=== PATIENT | male | born 1950 | race Caucasian/White ===

== ENCOUNTER 2019-12-17 03:28 | Emergency (ER) | payer MEDICARE, MEDICAID, SELFPAY ==
[2019-12-17 03:42] VITALS: BP 176/87; PULSE 77; RESP 16; TEMP 36.6; O2SAT 95; BMI 21.7
--- NOTE | 2019-12-17 03:47 | ED_ITS ---
Entered by Cristina Casanova, acting as scribe for Lori Kelley HPI - Dental/Oral General: Chief complaint: Dental/Oral Stated complaint: oral pain Time Seen by Provider: 12/17/19 03:46 Source: patient Mode of arrival: ambulatory History of Present Illness: HPI Narrative: 69 y/o male presents to the ED with complaint of dental pain. Pt has mild right sided facial/jaw swelling. This started Wednesday and has continued to worsen. MD Complaint: tooth pain Onset (ago): day(s) (Wednesday) Duration: worsening Severity: moderate Relieving factors: nothing Exacerbating factors: chewing Context: poor dental care Associated symptoms: Reports gum swelling; Denies ear or mastoid pain, fever(s) or painful swallowing Treatment prior to arrival: none Review of Systems General: Reports: other (negative unless marked) Const: Denies: fever, chills, body aches, fatigue, malaise or diaphoresis Eyes: Denies: change in vision or blurry vision ENMT: Denies: throat pain, painful swallowing, hoarseness, ear pain, ear discharge, Change in hearing or nasal discharge Card: Denies: chest pain, palpitations, irregular heart rhythm, syncope, pre- syncope, shortness of breath on exertion or shortness of breath when lying down Resp: Denies: shortness of breath, productive cough, non-productive cough, wheezing, coughing up blood or chest congestion GI: Denies: abdominal pain, nausea, vomiting, vomiting blood, coffee grounds in vomit, diarrhea, constipation, cramping, blood in stool or black tarry stool : Denies: flank pain, difficulty urinating, painful urination, urinary frequency, urinary urgency, decreased urine ouput, urinary incontinence or blood in urine Musc: Denies: neck pain, back pain, extremity pain, extremity swelling, joint pain, joint swelling, joint warmth or joint stiffness Skin/Breast: Denies: rash, skin tenderness or yellow skin Neuro: Denies: headache, numbness in extremities, weakness in extremities, changes in sensation, lack of coordination, difficulty walking, dizziness, vertigo or confusion Endo: Denies: excessive thirst, tired all the time, cold intolerance, excessive sweating, flushing or hot flashes Jaren/Lymph: Denies: easy bruising, easy bleeding, petechiae or enlarged lymph nodes PFSH ED PFSH: Social History Smoking and tobacco status: former smoker Physical Exam Const: COMMON NORMALS: no apparent distress, oriented x3 and no limitations EXAM LIMITATIONS: no altered mental status GENERAL APPEARANCE: cooperative and well developed ORIENTATION/CONSCIOUSNESS: Yes awake HENMT: COMMON NORMALS: normocephalic, head/scalp atraumatic, hearing grossly normal bilaterally, external ears normal, EAC's normal, external nose normal and moist oral mucous membranes HEAD & SCALP: normal to inspection, normocephalic and atraumatic FACE & SINUS: other NOSE: external nose normal and nares normal EXTERNAL EAR: Yes external ears normal EXTERNAL AUDITORY CANAL: EAC's normal TEETH & GINGIVA: Yes other (Right jawline and second inferior most posterior molars with dental caries. No obvious abscess present.) Eye: COMMON NORMALS: PERRL, EOMs intact bilaterally, conjunctivae normal and no scleral icterus GENERAL EYE: normal appearance of both eyes and normal light reflex CONJUNCTIVA: Yes conjunctivae normal SCLERA: sclerae normal CORNEA: Yes corneas normal PUPIL: Yes PERRL DIRECT OPHTHALMOSCOPY: Yes normal light reflex Neck/C-Spine: COMMON NORMALS: full ROM, no lymphadenopathy, supple, no meningeal signs and no JVD GENERAL: Yes normal visual inspection and Yes trachea midline CERVICAL SPINE: Yes cervical ROM normal Chest: COMMONS NORMALS: inspection of chest normal and palpation of chest normal Resp: COMMON NORMALS: normal respiratory effort, no retractions, no use of accessory muscles and clear to auscultation bilaterally EFFORT & INSPECTION: Yes able to speak in complete sentences AUSCULTATION: clear to auscultation bilaterally Cardio: COMMON NORMALS: no JVD, regular rate, regular rhythm, S1 normal heart sound, S2 normal heart sound, no gallops, no clicks, no murmurs and no rub JUGULAR VENOUS DISTENTION: no JVD RATE: regular rate RHYTHM: regular rhythm HEART SOUNDS: S1 normal and S2 normal GI: COMMON NORMALS: soft to palpation, non-tender, no hepatosplenomegaly and no masses INSPECTION: Yes normal to inspection PALPATION: Yes soft and Yes no hepatosplenomegaly : COMMON NORMALS: Yes no CVA tenderness BLADDER/KIDNEY EXAM: Yes no CVA tenderness Back/Pelvis: COMMON NORMALS: no CVA tenderness, thoracic and lumbar spine normal to inspection, no thoracic nor lumbar tenderness and thoraco-lumbar ROM normal Extremity: COMMON NORMALS: normal to inspection, full ROM, normal capillary refill, no joint enlargement, no clubbing, cyanosis or edema and no calf tenderness Neuro: COMMON NORMALS: oriented x3, CN's II-XII intact bilaterally, moves all extremities, no focal motor deficits and no sensory deficits noted MENINGEAL SIGNS: Yes no meningeal signs Psych: COMMON NORMALS: mental status grossly normal, thought process normal, cooperative, affect normal, speech normal and activity/motor behavior normal SPEECH: Yes normal speech THOUGHT PROCESS: normal thought process Skin: COMMON NORMALS: no rashes or lesions noted, skin turgor normal, no jaundice, no petechiae and no mottling GENERAL SKIN EXAM: no rashes or lesions noted and turgor normal Course Vital Signs: Vital signs: Vital Signs Temperature 97.9 F 12/17/19 03:42 Pulse Rate 95 12/17/19 04:44 Respiratory Rate 16 12/17/19 04:44 Blood Pressure 188/95 12/17/19 04:44 Pulse Oximetry 95 12/17/19 04:44 MDM - Dental/Oral MDM Narrative: Medical decision making narrative: Mr. Reyna is a nice 69-year-old male who comes in with right-sided facial swelling that is mild. He has no difficulty speaking and no difficulty swallowing. I see no obvious dental abscess at this time but the patient was made aware that this may develop. He was advised to return should his swelling get worse, he develop a fever or have any vomiting. He states he understands this and will take the medication I have given him as directed or return here if needed. At the time of my seeing him there is no definite dental abscess, no sign of Albert's angina no evidence of deep space involvement of the infection. Discharge Plan Discharge Patient Disposition: Home, Self-Care Clinical Impression: Toothache Condition: Stable Prescriptions: New Cleocin HCl 150 mg capsule 300 mg PO Q6H 10 Days Qty: 80 RF: 0 Discharge Orders: Discharge Order (Routine); Ordered 12/17/19 Ordered By: Lori Kelley Referrals: Donell Sanchez MD [Primary Care Provider] - 1-3 days Discharge Diet: Advance as tolerated Discharge Activity: Increase activity as tolerated Patient Instructions: Dental Abscess (ED), Dental Caries (ED), Toothache (ED) Activity Restrictions/Additional Instructions: Please return to the ER immediately for any of the signs or symptoms listed on your discharge instruction sheets, worsening/changing of your symptoms, you are not getting better as quickly as expected, or for ANY other cause or concerns. Return to the ER immediately if you develop facial swelling, fever, vomiting, difficulty speaking or swallowing, or for any other cause for concern. 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
[2019-12-17] MEDS: cefTRIAXone 1,000 MG, lidocaine 1% 2.1 ML in SYRINGE 1 EACH 1 MG IM (04:24)
[2019-12-17] MEDS: clindamycin 150 mg Capsule 450 MG PO (04:25)
[2019-12-17] MEDS: HYDROcodone-acetaminophen 5-325 mg Tablet 1 TAB PO (04:43)
[2019-12-17 04:44] VITALS: BP 188/95; PULSE 95; RESP 16; O2SAT 95
== END 2019-12-17 04:45 | disposition home or self-care (01) ==
PROVIDERS: Emergency Provider Emergency Medicine; Family Provider Family Medicine; PCP Family Medicine
DX: K08.89 Other specified disorders of teeth and supporting structures (principal); Z87.891 Personal history of nicotine dependence
CPT/HCPCS: 96365; 96372; 96374; 99281; 99283; J0696; J2001

== ENCOUNTER 2020-04-19 23:44 | Emergency (ER) | payer MEDICARE, MEDICAID, SELFPAY ==
[2020-04-20] VITALS: BP 148/78; PULSE 58; RESP 16; TEMP 36.7; BMI 22.4
--- NOTE | 2020-04-20 00:42 | XRR_ITS ---
PROCEDURE INFORMATION: Exam: XR Left Hand Exam date and time: 04/20/2020 12:43 AM Age: 69 years old Clinical indication: Injury or trauma; Initial encounter; Patient HX: Laceration to posterior surface of left hand across metacarpals; Additional info: Injury/foreign body TECHNIQUE: Imaging protocol: XR Left hand. Views: 3 or more views. COMPARISON: No relevant prior studies available. FINDINGS: Bones/joints: No acute fracture or dislocation. Conceivable old fracture of the tuft of the 4th distal phalanx. Soft tissues: Dorsal soft tissue swelling superficial to the distal metacarpals. Small foreign body or ossific density in the peripheral soft tissues along the ulnar side of the 5th PIP joint. Tiny calcification in the soft tissues along the radial margin of the distal end of the 2nd middle phalanx. XR/XR hand LT min 3V* [id number] IMPRESSION: No acute fracture. Other findings detailed above.
--- NOTE | 2020-04-20 01:43 | W.ED.WOUNDLC ---
HPI - Wound/Laceration General: Chief Complaint: Wound/Laceration Stated Complaint: glass in left hand Time Seen by Provider: 04/20/20 01:20 History of Present Illness: HPI narrative: Patient is a 69-year-old male who comes to the ED with hand laceration. Patient says injury occurred evening. He was working in his garage and he hit his left hand hard on glass and the glass shattered causing this laceration to dorsal side of hand. Patient said there is a lot of glass everywhere and he just wanted to make sure he did not have any glass in his laceration. He does have some left hand swelling. Patient says he is unsure when his last tetanus shot was. Associated symptoms: Denies chills, fever(s), nausea or vomiting Review of Systems Const: Denies: fever(s), chills or fatigue Eyes: Denies: change in vision or eye discomfort ENMT: Denies: throat pain, odynophagia, nasal discharge or nasal congestion Card: Denies: chest pain, palpitations, edema, swelling of feet/ankles, dyspnea on exertion or orthopnea Resp: Denies: dyspnea, productive cough or non-productive cough GI: Denies: abdominal pain, nausea, vomiting, diarrhea, constipation or hematochezia : Denies: flank pain, difficulty urinating, dysuria or hematuria Musc: Reports: extremity swelling (left hand); Denies: neck pain or back pain Skin/Breast: Reports: new lesions (Laceration on dorsal side of left hand. Post over 24 hours from injury.); Denies: rash Neuro: Denies: headache(s), numbness in extremities or weakness in extremities [facility] ED PFSH: Social History Smoking and tobacco status: former smoker Physical Exam Const: COMMON NORMALS: no acute distress, patient oriented x3 and alert GENERAL APPEARANCE: cooperative and comfortable HENMT: COMMON NORMALS: normocephalic HEAD & SCALP: normocephalic MOUTH: Normal oral and palatal mucosa present THROAT: posterior oropharynx normal and uvula midline Neck/C-Spine: COMMON NORMALS: supple GENERAL: Yes normal visual inspection Resp: COMMON NORMALS: normal respiratory effort, No retractions, No use of accessory muscles and clear to auscultation bilaterally AUSCULTATION: clear to auscultation bilaterally Cardio: COMMON NORMALS: regular rate, regular rhythm, S1 normal heart sound present, S2 normal heart sound present, No gallops present (Cardio), No clicks present (Cardio), No murmurs present (Cardio) and Peripheral pulses 2+ throughout RATE: regular rate RHYTHM: regular rhythm HEART SOUNDS: S1 normal heart sound present and S2 normal heart sound present PERIPHERAL PULSES: Peripheral pulses 2+ throughout GI: COMMON NORMALS: Normal to inspection, nondistended, normoactive bowel sounds present, Soft to palpation, non-tender and no masses PALPATION: Yes Soft to palpation : COMMON NORMALS: Yes no CVA tenderness BLADDER/KIDNEY EXAM: Yes no CVA tenderness Back/Pelvis: COMMON NORMALS: no CVA tenderness Extremity: LEFT UPPER EXTREMITY: Yes hand & digits Left hand and digits: Yes inspection (Superficial 2 cm laceration. No active bleeding edema on left hand, but no erythema or warmth.) Neuro: COMMON NORMALS: patient oriented x3 and moves all extremities SENSORIUM/ORIENTATION: Yes alert Skin: NARRATIVE SKIN EXAM: Laceration was explored and no glass was seen. Laceration was irrigated extensively with normal saline and cleaned with CHG swab. Patient over 24 hours post laceration injury. Healing is already begun sutures are not recommended. TRAUMA: laceration (2 cm superficial laceration on left dorsal side of hand) linear and superficial; not actively bleeding and no foreign bodies present Course Vital Signs: Vital signs: Vital Signs Temperature 98.1 F 04/20/20 00:00 Pulse Rate 58 L 04/20/20 00:00 Respiratory Rate 16 04/20/20 00:00 Blood Pressure 148/78 04/20/20 00:00 MDM - Wound/Laceration MDM Narrative: Medical decision making narrative: Patient is a 69-year-old male comes to the ED with a laceration to dorsal side of left hand. Was caused by glass and patient did not know if a piece of glass was stuck and wound. Injury occurred over 24 hours ago. Left hand x-ray showed no fractures and no foreign body near the laceration site. It did identify foreign body on the lateral side of pinky which patient was already aware of and says that he has had that for years. I explored the wound and did not find or see any glass. Wound was irrigated with normal saline and cleaned with CHG swab. Patient was then given a dose of cephalexin and was updated on his tetanus. Laceration will heal by secondary intention. Patient was instructed to keep wound clean and bandaged and to take full course of antibiotics as prescribed. Follow-up with PCP in 7 to 10 days for reevaluation. Patient understood and agreed with plan. Imaging Data^: Xray Ortho: Attestation: I personally reviewed and interpreted this imaging study as follows: Radiologist's impression: [address] [address] XRay Report Signed Patient: Miguel A Reyna #: [id number] : 1950Acct#:[id number] Age/Sex: 69 / MADM Date: 04/19/20 Loc: ERRoom/Bed: Attending Dr: Ordering Provider/Ordering MD: Lori Kelley DO Date of Service: 04/20/20 Procedure(s): XR hand LT min 3V* [id number] Accession Number(s): [id number] Report Number: [id number] PROCEDURE INFORMATION: Exam: XR Left Hand Exam date and time: 04/20/2020 12:43 AM Age: 69 years old Clinical indication: Injury or trauma; Initial encounter; Patient HX: Laceration to posterior surface of left hand across metacarpals; Additional info: Injury/foreign body TECHNIQUE: Imaging protocol: XR Left hand. Views: 3 or more views. COMPARISON: No relevant prior studies available. FINDINGS: Bones/joints: No acute fracture or dislocation. Conceivable old fracture of the tuft of the 4th distal phalanx. Soft tissues: Dorsal soft tissue swelling superficial to the distal metacarpals. Small foreign body or ossific density in the peripheral soft tissues along the ulnar side of the 5th PIP joint. Tiny calcification in the soft tissues along the radial margin of the distal end of the 2nd middle phalanx. XR/XR hand LT min 3V* [id number] IMPRESSION: No acute fracture. Other findings detailed above. Dictated By:Chelsey Martinez MD Signed By:Chelsey Martinez MDSigned Date/Time:04/20/20114 DD/ 2 Discharge Plan Discharge Patient Disposition: Home, Self-Care Clinical Impression: Laceration Condition: Stable Prescriptions: New cephalexin 500 mg capsule 500 mg PO QID 3 Days Qty: 12 RF: 0 Discharge Orders: Discharge Order (Routine); Ordered 04/20/20 Ordered By: Kiran Velasquez Referrals: Donell Sanchez MD [Primary Care Provider] - Discharge Diet: Regular Discharge Activity: Resume usual activity Patient Instructions: Laceration (ED) Activity Restrictions/Additional Instructions: Take full course of antibiotic as prescribed. You were given an updated tetanus shot while here in the ED. Contact your PCP and set up an appointment for reevaluation in 7 to 10 days. Keep laceration site clean and bandage daily. Put ice or cold pack on hand to help with any swelling. 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
[2020-04-20] MEDS: cephALEXin 500 mg Capsule PO (02:31)
[2020-04-20] MEDS: tetanus-dipt-pertussis 0.5 mL SDV IM (02:32)
[2020-04-20 02:34] VITALS: BP 134/87; PULSE 87; RESP 18; O2SAT 98
== END 2020-04-20 02:36 | disposition home or self-care (01) ==
PROVIDERS: Emergency Provider Physician Assistant; PCP Family Medicine
DX: S61.412A Laceration without foreign body of left hand, initial encounter (principal); W25.XXXA Contact with sharp glass, initial encounter; Z87.891 Personal history of nicotine dependence; Z23 Encounter for immunization
CPT/HCPCS: 12345; 73130; 90471; 90715; 99281; 99283

== ENCOUNTER 2021-05-05 22:13 | Inpatient (IN) | payer MEDICARE, MEDICAID, SELFPAY ==
[2021-05-05 22:25] VITALS: BP 144/79; PULSE 69; RESP 18; TEMP 37.1; O2SAT 97; BMI 19.0
--- NOTE | 2021-05-05 22:38 | XRR_ITS ---
PROCEDURE INFORMATION: Exam: XR Chest Exam date and time: 05/05/2021 10:38 PM Age: 70 years old Clinical indication: Shortness of breath; Additional info: Weakness TECHNIQUE: Imaging protocol: XR of the chest. Views: 1 view. COMPARISON: [facility] Chest 2 views 08/01/2018 12:24 PM FINDINGS: Lungs: Hazy bilateral pulmonary opacities which could be secondary to pneumonia or COVID-19. Pleural spaces: Unremarkable. No pleural effusion. No pneumothorax. Heart/Mediastinum: Unremarkable. No cardiomegaly. Bones/joints: Unremarkable. XR/XR chest 1V portable [id number] IMPRESSION: Hazy bilateral pulmonary opacities which could be secondary to pneumonia or COVID-19.
--- NOTE | 2021-05-05 22:39 | ECG_ITS ---
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
--- NOTE | 2021-05-05 23:19 | ED_ITS ---
HPI - COVID General: Chief Complaint: COVID symptoms Stated Complaint: CHILLS, H/A, COUGH, MUSCLE ACHES, NO INTAKE Time Seen by Provider: 05/05/21 22:38 Triage information: Has fever, cough or shortness of breath . No known COVID + exposure last 14 days History of Present Illness: HPI Narrative: Patient is a 70-year-old male comes to the ED with Covid symptoms. He says symptoms started approximately 1 week ago. He has been having episodes of severe headache that is in his forehead and right behind his eyes. He has headache here in the ED. He is also been having fever chills and diaphoresis. He has full body aches and has a productive cough with white sputum. He is also been having nausea and vomiting and has trouble keeping any food or fluids down. Patient has some generalized abdominal aching, but no localized abdominal pain. Denies any chest pain, shortness of breath, bladder or bowel symptoms. Patient feels really dehydrated currently. COVID 19 common symptoms: positive fever(s), chills, productive cough, fatigue, body aches, nausea and vomiting; negative non-productive cough, dyspnea, headache(s), throat pain, nasal congestion or diarrhea COVID 19 other sytmptoms: negative chest pain COVID Results: SARS-CoV-2 Antigen (Rapid) Positive (Negative) H 05/06/21 00:03 05/06/21 Review of Systems Const: Reports: fever(s), chills, body aches and fatigue Eyes: Denies: change in vision or eye discomfort ENMT: Denies: throat pain, odynophagia, nasal discharge or nasal congestion Card: Denies: chest pain, palpitations, edema, swelling of feet/ankles, dyspn ea on exertion or orthopnea Resp: Reports: productive cough and change in phlegm color (White); Denies: dyspnea or non-productive cough GI: Reports: nausea and vomiting; Denies: abdominal pain, diarrhea, constipation or hematochezia : Denies: flank pain, difficulty urinating, dysuria or hematuria Musc: Denies: neck pain, back pain or extremity swelling Skin/Breast: Denies: rash or new lesions Neuro: Denies: headache(s), numbness in extremities or weakness in extremities PFS ED PFSH: Social History Smoking and tobacco status: former smoker Physical Exam Const: COMMON NORMALS: patient oriented x3 and alert GENERAL APPEARANCE: cooperative, comfortable, lethargic, ill appearing and diaphoretic ORIENTATION/CONSCIOUSNESS: Yes lethargic HENMT: COMMON NORMALS: normocephalic HEAD & SCALP: normocephalic MOUTH: moist mucous membranes abnormal (Moderate dehydration) Details: parched THROAT: posterior oropharynx normal and uvula midline Neck/C-Spine: COMMON NORMALS: supple GENERAL: Yes normal visual inspection Resp: COMMON NORMALS: normal respiratory effort, No retractions, No use of accessory muscles and clear to auscultation bilaterally AUSCULTATION: clear to auscultation bilaterally Cardio: COMMON NORMALS: regular rate, regular rhythm, S1 normal heart sound present, S2 normal heart sound present, No gallops present (Cardio), No clicks present (Cardio), No murmurs present (Cardio) and Peripheral pulses 2+ throughout RATE: regular rate RHYTHM: regular rhythm HEART SOUNDS: S1 normal heart sound present and S2 normal heart sound present PERIPHERAL PULSES: Peripheral pulses 2+ throughout GI: COMMON NORMALS: Normal to inspection, nondistended, normoactive bowel sounds present, Soft to palpation, non-tender and no masses PALPATION: Yes Soft to palpation : COMMON NORMALS: Yes no CVA tenderness BLADDER/KIDNEY EXAM: Yes no CVA tenderness Back/Pelvis: COMMON NORMALS: no CVA tenderness Extremity: COMMON NORMALS: normal to inspection Neuro: COMMON NORMALS: patient oriented x3 and moves all extremities SENSORIUM/ORIENTATION: Yes alert and Yes lethargic Skin: COMMON NORMALS: no rashes or lesions noted GENERAL SKIN EXAM: no rashes or lesions noted Course Vital Signs: Vital signs: Vital Signs Temperature 98.8 F 05/05/21 22:25 Pulse Rate 84 05/06/21 01:23 Respiratory Rate 24 H 05/06/21 01:23 Blood Pressure 123/61 05/06/21 01:23 Pulse Oximetry 92 05/06/21 01:25 MDM - COVID MDM Narrative: Medical decision making narrative: Patient is a 70-year-old male who comes to the ED with fever, nausea/vomiting, cough, weakness and body aches. Upon presentation here in the ED patient appears a little lethargic and is complaining of a headache, nausea vomiting. Patient's mucous membranes were dry. The rest of exam was benign. Creatinine 1.7 and the rest of CBC and CMP were unremarkable. Lactic normal. UA shows a UTI. Covid antigen test positive and PCR send out pending. Chest x-ray shows bilateral pulmonary opacities likely due to COVID-19. CT of head showed no acute findings. CT of abdomen showed bilateral pneumonia possible lungs but no other acute findings. Troponin negative and EKG normal sinus rhythm with no ST segment elevation or depression seen. Patient's oxygen level on room air was around 89 to 90%. Patient was requiring approximately 2 L of O2 via nasal cannula and O2 saturation levels were around 92-94. Patient was given 2-1/2 L of fluid, 1 g of Rocephin and Zofran as well. I talked with Dr. Chavez about patient case and she agreed to have patient admitted. Dr. Sharp placed the admitting orders. Lab Data: Attestation: I reviewed the patient's lab results. Labs: Lab Results 05/06/21 05/06/21 05/06/21 Range/Units 00:03 00:03 00:03 WBC 8.8 (4.0-10.0) 10^3/ uL RBC 5.26 (4.1-5.3) 10^6/u L Hgb 15.1 (11.7-16.6) g/dL Hct 45.1 (42.0-52.0) % MCV 85.7 (80-94) fL MCH 28.7 (28.0-34.0) pg MCHC 33.5 (30.0-36.0) g/dL RDW 13.6 (12.1-15.1) % Plt Count 275 (130-400) 10^3/c mm MPV 9.3 (7.4-10.4) fL Neut % (Auto) 84.5 % Lymph % (Auto) 8.0 % [place] % (Auto) 6.9 % Eos % (Auto) 0.1 % Baso % (Auto) 0.2 % Neut # (Auto) 7.42 (1.8-7.7) 10^3/u L Lymph # (Auto) 0.7 L (0.8-4.8) 10^3/u L [place] # (Auto) 0.6 (0.2-0.9) 10^3/u L Eos # (Auto) 0.0 (0.0-0.8) 10^3/u L Baso # (Auto) 0.0 (0.0-0.1) 10^3/u L Nucleated RBC % (a uto) 0 % Nucleated RBCs # 0.0 /100WBC Sodium 136 (136-145) mmol/L Potassium 3.7 (3.5-5.1) mmol/L Chloride 95 L (98-107) mmol/L Carbon Dioxide 28 (22-29) mmol/L Anion Gap 16.7 (5-19) BUN 36 H (8-23) mg/dL Creatinine 1.7 H (0.7-1.2) mg/dL GFR Calculation 40.0 L (90-130) mL/min Glucose 102 (65-115) mg/dL Calculated Osmolal ity 291 (285-295) mOsm/k g Lactic Acid (0.5-2.2) mmol/L Calcium 8.2 L (8.5-10.5) mg/dL Total Bilirubin 0.2 (0.15-1.2) mg/dL AST 32 (0-40) U/L ALT 16 (0-41) U/L Alkaline Phosphata se 79 (40-130) IU/L Troponin T Baselin e 27 H (0-15) ng/L Troponin T 120 Min [place] (0-15) ng/L Delta Troponin T (0-10) ABS# NT-Pro-B Natriuret Pep 82 (0-125) pg/mL Total Protein 6.2 L (6.6-8.7) g/dL Albumin 3.6 (3.5-5.2) g/dL Globulin 2.6 (1.3-4.6) g/dL Lipase 65 H (13-60) U/L Urine Color (Yellow) Urine Appearance (CLEAR) Urine pH (5-7) Ur Specific Gravit y (1.005-1.030) Urine Protein (Negative) Urine Glucose (UA) (Normal) Urine Ketones (Negative) Urine Blood (Negative) Urine Nitrate (Negative) Urine Bilirubin (Negative) Urine Urobilinogen (Negative) mg/dL Ur Leukocyte Cristal ase (Negative) Urine RBC (0-2) /hpf Urine WBC (0-5) /hpf Ur Squamous Epith Cells (0-5) /hpf Amorphous Sediment Urine Bacteria (NONE) /hpf SARS-CoV-2 Ag (Rap id) (Negative) 05/06/21 05/06/21 05/06/21 Range/Units 00:03 00:03 00:05 WBC (4.0-10.0) 10^3/ uL RBC (4.1-5.3) 10^6/u L Hgb (11.7-16.6) g/dL Hct (42.0-52.0) % MCV (80-94) fL MCH (28.0-34.0) pg MCHC (30.0-36.0) g/dL RDW (12.1-15.1) % Plt Count (130-400) 10^3/c mm MPV (7.4-10.4) fL Neut % (Auto) % Lymph % (Auto) % [place] % (Auto) % Eos % (Auto) % Baso % (Auto) % Neut # (Auto) (1.8-7.7) 10^3/u L Lymph # (Auto) (0.8-4.8) 10^3/u L [place] # (Auto) (0.2-0.9) 10^3/u L Eos # (Auto) (0.0-0.8) 10^3/u L Baso # (Auto) (0.0-0.1) 10^3/u L Nucleated RBC % (a uto) % Nucleated RBCs # /100WBC Sodium (136-145) mmol/L Potassium (3.5-5.1) mmol/L Chloride (98-107) mmol/L Carbon Dioxide (22-29) mmol/L Anion Gap (5-19) BUN (8-23) mg/dL Creatinine (0.7-1.2) mg/dL GFR Calculation (90-130) mL/min Glucose (65-115) mg/dL Calculated Osmolal ity (285-295) mOsm/k g Lactic Acid 1.2 (0.5-2.2) mmol/L Calcium (8.5-10.5) mg/dL Total Bilirubin (0.15-1.2) mg/dL AST (0-40) U/L ALT (0-41) U/L Alkaline Phosphata se (40-130) IU/L Troponin T Baselin e (0-15) ng/L Troponin T 120 Min [place] (0-15) ng/L Delta Troponin T (0-10) ABS# NT-Pro-B Natriuret Pep (0-125) pg/mL Total Protein (6.6-8.7) g/dL Albumin (3.5-5.2) g/dL Globulin (1.3-4.6) g/dL Lipase (13-60) U/L Urine Color Yellow (Yellow) Urine Appearance Sl cloudy A (CLEAR) Urine pH 5 (5-7) Ur Specific Gravit y 1.015 (1.005-1.030) Urine Protein 1+ H (Negative) Urine Glucose (UA) Norm (Normal) Urine Ketones Negative (Negative) Urine Blood 2+ H (Negative) Urine Nitrate Positive H (Negative) Urine Bilirubin Neg (Negative) Urine Urobilinogen Norm (Negative) mg/dL Ur Leukocyte Cristal ase 2+ H (Negative) Urine RBC >100 H (0-2) /hpf Urine WBC Too numerous to c nt H (0-5) /hpf Ur Squamous Epith Cells 15-25 H (0-5) /hpf Amorphous Sediment Not Reportable Urine Bacteria 4+ H (NONE) /hpf SARS-CoV-2 Ag (Rap id) Positive H (Negative) 05/06/21 Range/Units 02:06 WBC (4.0-10.0) 10^3/ uL RBC (4.1-5.3) 10^6/u L Hgb (11.7-16.6) g/dL Hct (42.0-52.0) % MCV (80-94) fL MCH (28.0-34.0) pg MCHC (30.0-36.0) g/dL RDW (12.1-15.1) % Plt Count (130-400) 10^3/c mm MPV (7.4-10.4) fL Neut % (Auto) % Lymph % (Auto) % [place] % (Auto) % Eos % (Auto) % Baso % (Auto) % Neut # (Auto) (1.8-7.7) 10^3/u L Lymph # (Auto) (0.8-4.8) 10^3/u L [place] # (Auto) (0.2-0.9) 10^3/u L Eos # (Auto) (0.0-0.8) 10^3/u L Baso # (Auto) (0.0-0.1) 10^3/u L Nucleated RBC % (a uto) % Nucleated RBCs # /100WBC Sodium (136-145) mmol/L Potassium (3.5-5.1) mmol/L Chloride (98-107) mmol/L Carbon Dioxide (22-29) mmol/L Anion Gap (5-19) BUN (8-23) mg/dL Creatinine (0.7-1.2) mg/dL GFR Calculation (90-130) mL/min Glucose (65-115) mg/dL Calculated Osmolal ity (285-295) mOsm/k g Lactic Acid (0.5-2.2) mmol/L Calcium (8.5-10.5) mg/dL Total Bilirubin (0.15-1.2) mg/dL AST (0-40) U/L ALT (0-41) U/L Alkaline Phosphata se (40-130) IU/L Troponin T Baselin e (0-15) ng/L Troponin T 120 Min [place] 22.83 H (0-15) ng/L Delta Troponin T -4.17 L (0-10) ABS# NT-Pro-B Natriuret Pep (0-125) pg/mL Total Protein (6.6-8.7) g/dL Albumin (3.5-5.2) g/dL Globulin (1.3-4.6) g/dL Lipase (13-60) U/L Urine Color (Yellow) Urine Appearance (CLEAR) Urine pH (5-7) Ur Specific Gravit y (1.005-1.030) Urine Protein (Negative) Urine Glucose (UA) (Normal) Urine Ketones (Negative) Urine Blood (Negative) Urine Nitrate (Negative) Urine Bilirubin (Negative) Urine Urobilinogen (Negative) mg/dL Ur Leukocyte Cristal ase (Negative) Urine RBC (0-2) /hpf Urine WBC (0-5) /hpf Ur Squamous Epith Cells (0-5) /hpf Amorphous Sediment Urine Bacteria (NONE) /hpf SARS-CoV-2 Ag (Rap id) (Negative) Imaging Data: CXR: Attestation: I personally reviewed and interpreted this imaging study as follows: Radiologist's impression: [employer] [address] [place] [address]. [place] [address] XRay Report Signed Patient: Miguel A Reyna Unit #: [id number] : 1950 Age/Sex: 70 / M ADM Date: 05/05/21 Loc: ER Room/Bed: Attending Dr: Ordering Provider/Ordering MD: Kiran Velasquez Date of Service: 05/05/21 Procedure(s): XR chest 1V portable [id number] Accession Number(s): [id number] Report Number: [id number] PROCEDURE INFORMATION: Exam: XR Chest Exam date and time: 05/05/2021 10:38 PM Age: 70 years old Clinical indication: Shortness of breath; Additional info: Weakness TECHNIQUE: Imaging protocol: XR of the chest. Views: 1 view. COMPARISON: [facility] Chest 2 views 08/01/2018 12:24 PM FINDINGS: Lungs: Hazy bilateral pulmonary opacities which could be secondary to pneumonia or COVID-19. Pleural spaces: Unremarkable. No pleural effusion. No pneumothorax. Heart/Mediastinum: Unremarkable. No cardiomegaly. Bones/joints: Unremarkable. XR/XR chest 1V portable [id number] IMPRESSION: Hazy bilateral pulmonary opacities which could be secondary to pneumonia or COVID-19. Dictated By: Ochoa Ro Signed By: Ochoa Ro Signed Date/Time: 05/05/218 DD/ 2346 CT Head: Attestation: I personally reviewed and interpreted this imaging study as follows: Radiologist's impression: [employer] [employer] [address] [place] [address]. [place] [address] CT Scan Report Signed Patient: Miguel A Reyna Unit #: [id number] : 1950 Acct#:O [id number] Age/Sex: 70 / M ADM Date: 05/05/21 Loc: ER Room/Bed: Attending Dr: Ordering Provider/Ordering MD: Kiran Velasquez Date of Service: 05/05/21 Procedure(s): CT head wo con* [id number] Accession Number(s): [id number] Report Number: [id number] PROCEDURE INFORMATION: Exam: CT Head Without Contrast Exam date and time: 05/05/2021 11:40 PM Age: 70 years old Clinical indication: Pain; Patient HX: Headache with fever. ; Additional info: Headache for a the past week TECHNIQUE: Imaging protocol: Computed tomography of the head without contrast. Radiation optimization: All CT scans at this facility use at least one of these dose optimization techniques: automated exposure control; mA and/or kV adjustment per patient size (includes targeted exams where dose is matched to clinical indication); or iterative reconstruction. COMPARISON: No relevant prior studies available. RADIATION DOSE METRICS: Total DLP (mGy-cm): 660.13 FINDINGS: Brain: There is mild parenchymal atrophy and chronic small vessel disease. No acute infarct or hemorrhage. Cerebral ventricles: No ventriculomegaly. Paranasal sinuses: Mucosal thickening present in the frontal sinuses and left maxillary sinus. Mastoid air cells: Visualized mastoid air cells are clear. Bones/joints: No calvarial or skull base fracture. Soft tissues: Unremarkable. CT/CT head wo con* [id number] IMPRESSION: 1. No calvarial or skull base fracture. 2. No acute infarct or hemorrhage. 3. Mucosal thickening present in the frontal sinuses and left maxillary sinus. 4. Mild parenchymal atrophy and chronic small vessel disease. Radiation Dose CTDIVOL = (mGy): DLP = 660.13 (mGy-cm) Dictated By: Ochoa Ro Signed By: Ochoa Ro Signed Date/Time: 05/06/2138 DD/ CT Abd/Pel: Attestation: I personally reviewed and interpreted this imaging study as follows: Radiologist's impression: [address] [place] [address] CT Scan Report Signed Patient: Miguel A Reyna Unit #: [id number] : 1950 Age/Sex: 70 / M ADM Date: 05/05/21 Loc: ER Room/Bed: Attending Dr: Ordering Provider/Ordering MD: Kiran Velasquez Date of Service: 05/06/21 Procedure(s): CT abdomen pelvis wo con [id number] Accession Number(s): [id number] Report Number: [id number] PROCEDURE INFORMATION: Exam: CT Abdomen And Pelvis Without Contrast Exam date and time: 05/06/2021 12:52 AM Age: 70 years old Clinical indication: Abnormal findings; Abnormal lab test; Elevated lipase; Nausea and vomiting; Patient HX: N/v. Elevated lipase and micro hematuria. Non contrast given due to elevated creatinine. ; Additional info: N/v, elevated CR and ua with UTI TECHNIQUE: Imaging protocol: Computed tomography of the abdomen and pelvis without contrast. Radiation optimization: All CT scans at this facility use at least one of these dose optimization techniques: automated exposure control; mA and/or kV adjustment per patient size (includes targeted exams where dose is matched to clinical indication); or iterative reconstruction. COMPARISON: CT abdomen pelvis w con* [id number] 08/11/2018 12:58 PM RADIATION DOSE METRICS: Total DLP (mGy-cm): 981.97 FINDINGS: Lungs: There are hazy bilateral pulmonary infiltrates which are nonspecific but can be seen in COVID-19. Liver: Normal. No mass. Gallbladder and bile ducts: No wall thickening, pericholecystic fluid or stones. Pancreas: Normal. No ductal dilation. Spleen: Normal. No splenomegaly. 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 1.5 cm right renal cyst. 4 mm nonobstructing left renal pelvis stone. There are multiple left renal cysts, largest measures 1.2 cm small fat containing bilateral inguinal hernias. Stomach and bowel: Mild amount of formed stool in the colon. Appendix: No evidence of appendicitis. Intraperitoneal space: Unremarkable. No free air. No significant fluid collection. Vasculature: Unremarkable. No abdominal aortic aneurysm. Lymph nodes: Unremarkable. No enlarged lymph nodes. Urinary bladder: Multiple bladder diverticuli. Reproductive: Unremarkable as visualized. Bones/joints: Unremarkable. No acute fracture. Soft tissues: Unremarkable. CT/CT abdomen pelvis con [id number] IMPRESSION: 1. There are hazy bilateral pulmonary infiltrates which are nonspecific but can be seen in COVID-19. 2. 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 3. Multiple bladder diverticuli consistent with obstructive uropathy. 4. Mild constipation. COMMENTS: Consistent with the [employer]'s Incidental Findings Committee white paper (J Am Ramonita Radiol 2018): Any incidental renal lesion less than 1 cm or classified as too small to characterize, or any incidental cystic renal lesion characterized as simple-appearing, is likely benign. No follow-up imaging is recommended for these lesions per consensus recommendations based on imaging criteria. Radiation Dose CTDIVOL = (mGy): DLP = 981.97 (mGy-cm) Dictated By: Ochoa Ro Signed By: Ochoa Ro Signed Date/Time: 05/06/21231 DD/ 0 EKG Data: EKG 1: Attestation: I personally reviewed and interpreted this EKG as follows: EKG interpretation date: 05/05/21 Interpretation: Sinus rhythm, 86 bpm, no ST segment elevation or depression seen. 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
--- NOTE | 2021-05-05 23:40 | CTR_ITS ---
PROCEDURE INFORMATION: Exam: CT Head Without Contrast Exam date and time: 05/05/2021 11:40 PM Age: 70 years old Clinical indication: Pain; Patient HX: Headache with fever. ; Additional info: Headache for a the past week TECHNIQUE: Imaging protocol: Computed tomography of the head without contrast. Radiation optimization: All CT scans at this facility use at least one of these dose optimization techniques: automated exposure control; mA and/or kV adjustment per patient size (includes targeted exams where dose is matched to clinical indication); or iterative reconstruction. COMPARISON: No relevant prior studies available. RADIATION DOSE METRICS: Total DLP (mGy-cm): 660.13 FINDINGS: Brain: There is mild parenchymal atrophy and chronic small vessel disease. No acute infarct or hemorrhage. Cerebral ventricles: No ventriculomegaly. Paranasal sinuses: Mucosal thickening present in the frontal sinuses and left maxillary sinus. Mastoid air cells: Visualized mastoid air cells are clear. Bones/joints: No calvarial or skull base fracture. Soft tissues: Unremarkable. CT/CT head wo con* [id number] IMPRESSION: 1. No calvarial or skull base fracture. 2. No acute infarct or hemorrhage. 3. Mucosal thickening present in the frontal sinuses and left maxillary sinus. 4. Mild parenchymal atrophy and chronic small vessel disease. Radiation Dose CTDIVOL = (mGy): DLP = 660.13 (mGy-cm)
[2021-05-06] VITALS (16 sets, daily range): BP systolic 105–158; BP diastolic 56–71; PULSE 51–84; RESP 16–25; TEMP 36.2–38.1; O2SAT 90–99
[2021-05-06] MEDS: ondansetron 2 mg/ML SDV 2 mL 4 MG IVP (00:11)
[2021-05-06] MEDS: sodium chloride 0.9% 500 ML IV (00:11)
[2021-05-06] MEDS: sodium chloride 0.9% 1,000 ML 999 ML IV ×2 (00:11→04:28)
[2021-05-06 00:12] LABS: Basophils % 0.2 %; Eosinophils % 0.1 %; Hematocrit 45.1 % (42.0-52.0); Hemoglobin 15.1 g/dL (11.7-16.6); Lymphocytes # 0.7 10^3/uL (0.8-4.8); Mean Corpuscular HGB Conc 33.5 g/dL (30.0-36.0); Mean Corpuscular Hemoglobin 28.7 pg (28.0-34.0); Mean Corpuscular Volume 85.7 fL (80-94); Mean Platelet Volume 9.3 fL (7.4-10.4); Monocytes # 0.6 10^3/uL (0.2-0.9); Monocytes % 6.9 %; Neutrophils # 7.42 10^3/uL (1.8-7.7); Neutrophils % 84.5 %; Nucleated Red Blood Cells % 0 %; Platelet Count 275 10^3/cmm (130-400); Red Blood Count 5.26 10^6/uL (4.1-5.3); Red Cell Distribution Width 13.6 % (12.1-15.1); White Blood Count 8.8 10^3/uL (4.0-10.0)
[2021-05-06 00:30] LABS: Troponin(5th) Baseline 27 ng/L (0-15)
[2021-05-06 00:31] LABS: Bilirubin Urine Neg (Negative); Blood Urine 2+ (Negative); Glucose Urine UA Norm (Normal); Ketones Urine Negative (Negative); Leukocyte Esterase Urine 2+ (Negative); Nitrate Urine Positive (Negative); Protein Urine 1+ (Negative); Specific Gravity, Urine 1.015 (1.005-1.030); Urine Color Yellow (Yellow); Urobilinogen Urine Norm (Negative); pH Urine 5 (5-7)
[2021-05-06 00:31] LABS: Lactic Sepsis W/Reflex 1.2 mmol/L (0.5-2.2)
[2021-05-06 00:33] LABS: SARS Covid-2 Antigen Positive (Negative)
[2021-05-06 00:33] LABS: Add Urine Culture? No; Bacteria Urine 4+ /hpf; RBC Urine >100 /hpf (0-2); Squamous Epithelial Cell Urine 15-25 /hpf (0-5); WBC Urine TOO NUMEROUS TO CNT /hpf (0-5)
[2021-05-06 00:41] LABS: Alanine Aminotransferase 16 U/L (0-41); Albumin Level 3.6 g/dL (3.5-5.2); Alkaline Phosphatase 79 IU/L (40-130); Anion Gap 16.7 (5-19); Aspartate Amino Transferase 32 U/L (0-40); Blood Urea Nitrogen 36 mg/dL (8-23); Calcium 8.2 mg/dL (8.5-10.5); Carbon Dioxide 28 mmol/L (22-29); Chloride 95 mmol/L (98-107); Globulin 2.6 g/dL (1.3-4.6); Glucose 102 mg/dL (65-115); Lipase 65 U/L (13-60); NT Pro B Type Natriuretic Pept 82 pg/mL (0-125); Osmolality Calculated 291 mOsm/kg (285-295); Potassium 3.7 mmol/L (3.5-5.1); Sodium 136 mmol/L (136-145); Total Bilirubin 0.2 mg/dL (0.15-1.2); Total Protein 6.2 g/dL (6.6-8.7)
[2021-05-06 00:49] LABS: Slide Review Slide Review Perform
--- NOTE | 2021-05-06 00:52 | CTR_ITS ---
PROCEDURE INFORMATION: Exam: CT Abdomen And Pelvis Without Contrast Exam date and time: 05/06/2021 12:52 AM Age: 70 years old Clinical indication: Abnormal findings; Abnormal lab test; Elevated lipase; Nausea and vomiting; Patient HX: N/v. Elevated lipase and micro hematuria. Non contrast given due to elevated creatinine. ; Additional info: N/v, elevated CR and ua with UTI TECHNIQUE: Imaging protocol: Computed tomography of the abdomen and pelvis without contrast. Radiation optimization: All CT scans at this facility use at least one of these dose optimization techniques: automated exposure control; mA and/or kV adjustment per patient size (includes targeted exams where dose is matched to clinical indication); or iterative reconstruction. COMPARISON: CT abdomen pelvis w con* [id number] 08/11/2018 12:58 PM RADIATION DOSE METRICS: Total DLP (mGy-cm): 981.97 FINDINGS: Lungs: There are hazy bilateral pulmonary infiltrates which are nonspecific but can be seen in COVID-19. Liver: Normal. No mass. Gallbladder and bile ducts: No wall thickening, pericholecystic fluid or stones. Pancreas: Normal. No ductal dilation. Spleen: Normal. No splenomegaly. 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 1.5 cm right renal cyst. 4 mm nonobstructing left renal pelvis stone. There are multiple left renal cysts, largest measures 1.2 cm small fat containing bilateral inguinal hernias. Stomach and bowel: Mild amount of formed stool in the colon. Appendix: No evidence of appendicitis. Intraperitoneal space: Unremarkable. No free air. No significant fluid collection. Vasculature: Unremarkable. No abdominal aortic aneurysm. Lymph nodes: Unremarkable. No enlarged lymph nodes. Urinary bladder: Multiple bladder diverticuli. Reproductive: Unremarkable as visualized. Bones/joints: Unremarkable. No acute fracture. Soft tissues: Unremarkable. CT/CT abdomen pelvis wo con [id number] IMPRESSION: 1. There are hazy bilateral pulmonary infiltrates which are nonspecific but can be seen in COVID-19. 2. 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 3. Multiple bladder diverticuli consistent with obstructive uropathy. 4. Mild constipation. COMMENTS: Consistent with the [employer]'s Incidental Findings Committee white paper (J Am Ramonita Radiol 2018): Any incidental renal lesion less than 1 cm or classified as too small to characterize, or any incidental cystic renal lesion characterized as simple-appearing, is likely benign. No follow-up imaging is recommended for these lesions per consensus recommendations based on imaging criteria. Radiation Dose CTDIVOL = (mGy): DLP = 981.97 (mGy-cm)
[2021-05-06 02:30] LABS: Troponin 5 2HR 22.83 ng/L (0-15)
[2021-05-06 02:32] LABS: Troponin 5 2HR Delta -4.17 ABS# (0-10)
[2021-05-06] MEDS: morphine 4 mg/mL SDV 1 mL 2 MG IVP (04:26)
[2021-05-06] MEDS: cefTRIAXone 1,000 MG in sodium chloride 0.9% (plus) 50 ML 100 MG IV (04:26)
--- NOTE | 2021-05-06 04:39 | ECG_ITS ---
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: : 1950 Requested By: Kiran Velasquez Order Number: [id number] Cierra MD: VANE EASLEY Measurements Intervals [place] Rate: 69 P: 52 NV: 195 QRS: -37 QRSD: 170 T: 33 QT: 423 QTc: 454 Interpretive Statements SINUS RHYTHM MARKED LEFT AXIS DEVIATION [QRS AXIS < -30] LEFT BUNDLE BRANCH BLOCK [120+ ms QRS DURATION, 80+ ms Q/S IN V1/V2, 85+ ms R IN I/aVL/V5/V6] Compared to ECG 05/05/2021 22:53:03 Left-axis deviation now present Electronically Signed On 05-06-2021 20:13:50 CDT by VANE EASLEY [id number]
[2021-05-06 05:24] LABS: INR 0.99 (0.8-1.2)
[2021-05-06 05:25] LABS: Fibrinogen 617 mg/dL (174-498); Partial Thromboplastin Time 35.2 SECONDS (23.9-36.7)
[2021-05-06 05:29] LABS: Troponin 5 6HR 24.26 ng/L (0-15)
[2021-05-06 05:34] LABS: C Reactive Protein 91.4 mg/L (0.0-4.9); Creatine Phosphokinase 66 U/L (39-308); Lactate Dehydrogenase 434 U/L (135-225)
[2021-05-06 05:39] LABS: Procalcitonin 0.45 ng/mL (0-0.5)
[2021-05-06 05:57] LABS: Ferritin 1551 ng/mL (30-400); Troponin 5 6HR Delta -2.74 ng/L (0-12)
--- NOTE | 2021-05-06 08:37 | P.HP_ITS ---
Providers/Chief Complaint Admitting Physician: Felicitas Chavez MD Primary Care Provider: Donell Sanchez MD Chief Complaint: CHILLS, H/A, COUGH, MUSCLE ACHES, NO INTAKE History of Present Illness Miguel A Reyna is a 70 year old male who presents with history of 4 days of illness including chills, cough, shortness of breath. He is not for sure where he got exposed to Covid, but had a rapid Covid positive test in the emergency department. He has had a headache, as well as nasal congestion. He has had nausea, as well as vomiting. He denies any specific pain currently. He has b een very fatigued. He denies any chest discomfort. He has had no hemoptysis. Review of Systems General: Reports: 10 or more systems reviewed and unremarkable except in HPI and below Const: Reports: chills and body aches; Denies: fever(s) Eyes: Denies: change in vision ENMT: Denies: throat pain Card: Denies: chest pain Resp: Reports: dyspnea and productive cough GI: Reports: nausea and vomiting; Denies: abdominal pain : Denies: flank pain Musc: Denies: neck pain Skin/Breast: Denies: rash Neuro: Reports: headache(s) Psych: Denies: anxiety or depression Endo: Denies: polyuria Jaren/Lymph: Denies: easy bruising All/Imm: Denies: urticaria Medications/Allergies Home Medications Medication Instructions Recorded Confirmed Last Taken Type Fishbiotic Amoxil 1,000 mg PO BID 05/06/21 05/06/21 05/05/21 History albuterol sulfate [ProAir HFA] 1 - 2 puff INHALATION Q4H PRN 05/06/21 05/06/21 Unknown History amlodipine 5 mg PO DAILY 05/06/21 05/06/21 Unknown History ezetimibe 10 mg PO DAILY 05/06/21 05/06/21 Unknown History hydrocodone-acetaminophen [[place]] 1 - 2 tab PO PRN 05/06/21 05/06/21 05/05/21 History ibuprofen 600 mg PO TID PRN 05/06/21 05/06/21 Unknown History lisinopril-hydrochlorothiazide 2 tab PO QPM 05/06/21 05/06/21 Unknown History simvastatin 40 mg PO DAILY 05/06/21 05/06/21 Unknown History Allergies Allergy/AdvReac Type Severity Reaction Status Date / Time No Known Allergies Allergy Verified 05/06/21 09:23 PFSH Acute PFSH: Medical History (Updated 05/06/21 @ 10:11 by Anselmo Costa MD) Hyperlipidemia Hypertension Surgical History (Updated 05/06/21 @ 08:46 by Anselmo Costa MD) History of back surgery History of elbow surgery Family History (Updated 05/06/21 @ 08:46 by Anselmo Costa MD) Other CAD (coronary artery disease) Social History (Updated 05/06/21 @ 08:46 by Anselmo Costa MD) Smoking and tobacco status: former smoker Alcohol intake: never Vitals/I&O/Wt Last Vital Signs Temp 100.1 F H 05/06/21 06:45 Pulse 73 05/06/21 06:45 Resp 25 H 05/06/21 06:45 BP 158/68 05/06/21 06:45 Pulse Ox 93 05/06/21 06:45 05/05/21 05/06/21 05/06/21 22:59 06:59 14:59 Intake Total 1000 / 1000 1550 / 1550 Balance 1000 / 1000 1550 / 1550 Weight last 48 hrs Weight 63.503 kg Physical Exam Narrative: EXAM NARRATIVE: General exam is a white male, with frequent coughing, in no obvious distress. Mild tachypnea is noted. HEENT: Pupils equally round. Oropharynx clear. Neck is supple no lymphadenopathy or thyromegaly Cardiovascular regular rate and rhythm, no murmur Lungs a few faint expiratory wheezes. No crackles. Abdomen is soft nontender with positive bowel sounds. No obvious organomegaly exam is deferred Extremities no cyanosis clubbing or edema, cap refill is brisk Skin no rash Neuro no obvious focal deficits. Data : 05/06/21 00:03 05/06/21 00:03 Micro: Microbiology 05/06/21 04:45 Blood Culture - Preliminary Blood SPECIMEN COLLECTED 05/06/21 04:45 Blood Culture - Preliminary Blood SPECIMEN COLLECTED Other data: Dimer is 1.2, fibrinogen 617, PT PTT normal ABG demonstrated a pH of 7.44, PCO2 38, PO2 68 on 28% FiO2 Lactic acid 1.2, calcium 8.2, magnesium 2.0, ferritin 1551, LFTs normal, LDH 434, CK 66, troponin XX 7 with repeat of 22 with no significant delta. CRP 91.4 Lipase 65 Procalcitonin 0.45 Urinalysis greater than 100 reds, too numerous to count whites and 15-25 squamous Rapid Covid positive Bilateral pulmonary infiltrates, pelvic kidney, multiple bladder diverticuli and some constipation noted CT abdomen and pelvis Head CT no acute findings Chest x-ray bilateral pulmonary infiltrates. EKG demonstrates a sinus rhythm with a rate of 69 left axis deviation and left bundle branch block. Previous nuclear stress test demonstrated left bundle as well. A&P Assessment and plan (1) Pneumonia due to COVID-19 virus: Initiate dexamethasone 6 mg IV every 24 hours Remdesivir Oxygen as needed, wean as tolerated Tylenol as needed for fever Repeat inflammatory workers tomorrow. If clinically worsens consider Tocilizumab. Incentive spirometry Check procalcitonin Check MRSA PCR Pulmonary toilet with Combivent Status: Acute (2) Acute kidney injury: Initiate hydration at 50 cc an hour of saline Cautious with fluids secondary to worry this may worsen pulmonary status Secondary to multiple bladder diverticulum urinary retention is possible. Bladder scan. Initiate Flomax. If significant urinary retention on bladder scan consider Brian Hold lisinopril hydrochlorothiazide Avoid renal toxic medication Status: Acute (3) UTI (urinary tract infection): Start Rocephin 1 g IV every 24 hours Urine culture Status: Acute (4) Hypertension: Continue home medication with the exception of lisinopril hydrochlorothiazide which will be held in face of acute kidney injury Status: Acute (5) Hyperlipidemia: Continue home medication Status: Acute Additional A&P Information Full code Lovenox for DVT prophylaxis Attestations Medical Necessity Statement*: Will need greater than 2 midnight stay for treatment of COVID-19 pneumonia with acute kidney injury. 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
--- NOTE | 2021-05-06 09:29 | PC.PHAR ---
pt states he takes care of his own medications-pt states he had been taking one of his friends martin and states he bought fishbiotic amoxil 500mg and has been taking-pt states he has still been taking the lisinopril-hctz, amlodipine,zocor last filled on 04/11/21 for 15d/s-ezetimibe filled on 03/17/21 30d/s
[2021-05-06 09:56] LABS: ABG PCO2 38.7 mmHg (35-45); ABG PH Result 7.44 (7.35-7.45); Arterial Blood Gas Hematocrit 41.2 % (42-52); Base Excess ABG 2.1 mmol/L (-2.0-2.0); Blood Gas Allen Test Pos; Blood Gas Operator Identificat MONRO; Blood Gas Sample Site Radial, left; Blood Gas Sample Type Arterial; HCO3 ABG 26.3 mmol/L (22-26); Oxygen Device NC
--- NOTE | 2021-05-06 09:59 | PC.CHAP ---
Pastoral Care Encounter/Spiritual Assessment Type of Contact [] Declined ergonomics engineer visit [] Patient/Family/Request visit [] Outpatient visit [] Follow-up visit [] Physician referral [] Code/Alert [x] Routine visit [] Staff referral [] Actively dying [] Patient sleeping [] Family support [] [] Out of room [] Palliative care [] [] Receiving care in room [] Pre-surgical visit [] Trauma [] Long length of stay [] ICU visit [] Other: Relational/Emotional Strength [x] Patient feels connected with others/family/visitors/staff [] Distress [] Loneliness/isolation [] Abandonment Spirituality of Patient [x] Person of Hafsa [] Attends Presybeterian of their Hafsa [] Believes in Prayer [] Reads Bible or Pentecostalism materials [] There are Spiritual issues to be addressed Instrument Installer Interventions [x] Prayer [] Active listening [] Non-anxious presence [] Spiritual/emotional support [] Crisis/trauma care [] Spiritual counseling [] Bereavement support [] Provided bereavement packet [] Provided Bible/devotional materials [] Provided toy/stuffed animal, coloring book to patient or family member [] Provided Communion [] Anointing/[place] [] Salvation [x] Completed spiritual assessment [] Other: Impact on Illness or Injury [] Angry [] Fearful [] Anxious [] Often cries [] Exhaustion [] Unable to work [] Unable to attend sikhism [] Unable to walk/stand [] Unable to read [] Unable to drive [] Unable to eat/drink [] Unable to sleep [] Unable to be with family [] Patient intubated [] Other: Summary Time spent with patient 5 min
--- NOTE | 2021-05-06 10:44 | PC.NURSE ---
Notified RT Massiel that patient has 54 bpm.
[2021-05-06] MEDS: remdesivir 200 MG in sodium chloride 0.9% (100 ml) 100 ML 100 MG IV (10:48)
[2021-05-06] MEDS: tamsulosin 0.4 mg Capsule PO (10:50)
[2021-05-06] MEDS: enoxaparin 40 mg/0.4 mL Syringe SUBCUT (10:50)
[2021-05-06] MEDS: dexamethasone 4 mg/mL INJ 6 MG IVP (10:51)
[2021-05-06] MEDS: sodium chloride 0.9% 1,000 ML 50 ML IV (10:52)
[2021-05-06 15:50] LABS: Coronavirus Test Green County Detected
[2021-05-07] VITALS (11 sets, daily range): BP systolic 112–150; BP diastolic 60–73; PULSE 54–74; RESP 18–28; TEMP 36.6–37.2; O2SAT 93–99
[2021-05-07] MEDS: cefTRIAXone 1,000 MG in sodium chloride 0.9% (plus) 50 ML 100 MG IV (03:23)
[2021-05-07] MEDS: remdesivir 100 MG in sodium chloride 0.9% (100 ml) 100 ML IV (05:38)
[2021-05-07] MEDS: enoxaparin 40 mg/0.4 mL Syringe SUBCUT (08:36)
[2021-05-07] MEDS: tamsulosin 0.4 mg Capsule PO (08:36)
[2021-05-07] MEDS: amlodipine 5 mg Tablet PO (08:36)
[2021-05-07] MEDS: atorvastatin 40 mg Tablet 20 MG PO (08:37)
[2021-05-07] MEDS: acetaminophen 325 mg Tablet 650 MG PO (08:37)
[2021-05-07] MEDS: dexamethasone 4 mg/mL INJ 6 MG IVP (08:37)
[2021-05-07 09:32] LABS: Basophils % 0.2 %; Hematocrit 40.9 % (42.0-52.0); Hemoglobin 13.4 g/dL (11.7-16.6); Lymphocytes # 0.9 10^3/uL (0.8-4.8); Mean Corpuscular HGB Conc 32.8 g/dL (30.0-36.0); Mean Corpuscular Hemoglobin 28.8 pg (28.0-34.0); Mean Platelet Volume 9.3 fL (7.4-10.4); Monocytes # 0.3 10^3/uL (0.2-0.9); Monocytes % 4.3 %; Neutrophils % 80.9 %; Nucleated Red Blood Cells % 0 %; Platelet Count 303 10^3/cmm (130-400); Red Blood Count 4.65 10^6/uL (4.1-5.3); Red Cell Distribution Width 13.7 % (12.1-15.1); White Blood Count 6.6 10^3/uL (4.0-10.0)
[2021-05-07 09:51] LABS: Alanine Aminotransferase 16 U/L (0-41); Albumin Level 2.9 g/dL (3.5-5.2); Alkaline Phosphatase 60 IU/L (40-130); Anion Gap 13.8 (5-19); Aspartate Amino Transferase 32 U/L (0-40); Blood Urea Nitrogen 35 mg/dL (8-23); Calcium 7.5 mg/dL (8.5-10.5); Carbon Dioxide 27 mmol/L (22-29); Chloride 104 mmol/L (98-107); D Dimer 0.97 ug/mIFEU (0-0.59); Globulin 3.2 g/dL (1.3-4.6); Glomerular Filtration Rate 66.2 mL/min (90-130); Glucose 166 mg/dL (65-115); Magnesium 2.4 mg/dL (1.7-2.3); Osmolality Calculated 304 mOsm/kg (285-295); Potassium 3.8 mmol/L (3.5-5.1); Sodium 141 mmol/L (136-145); Total Bilirubin 0.2 mg/dL (0.15-1.2); Total Protein 6.1 g/dL (6.6-8.7)
[2021-05-07 10:05] LABS: Ferritin 1679 ng/mL (30-400)
[2021-05-07 10:20] LABS: Slide Review Slide Review Perform
[2021-05-07 10:25] LABS: C Reactive Protein 98.9 mg/L (0.0-4.9)
--- NOTE | 2021-05-07 14:48 | P.PN_ITS ---
Subjective Subjective: Interval history: I saw Miguel A earlier today. He reported his breathing was better. No specific complaints. Generally feels like he is improving. Medications: Reviewed: Yes Vitals/I&O/Wt Last Vital Signs Temp 98.2 F 05/07/21 12:00 Pulse 61 05/07/21 12:00 Resp 18 05/07/21 12:00 BP 129/67 05/07/21 12:00 Pulse Ox 93 05/07/21 12:00 05/06/21 05/07/21 05/07/21 22:59 06:59 14:59 Intake Total 350 / 2000 1140 / 1140 Output Total 100 / 100 400 / 500 300 / 300 Balance -100 / 1550 -50 / 1500 840 / 840 Weight last 48 hrs Weight 63.503 kg Physical Exam Narrative: EXAM NARRATIVE: General exam is a white male, with less coughing and distress Neck is supple no lymphadenopathy or thyromegaly Cardiovascular regular rate and rhythm, no murmur Lungs few coarse breath sounds bilaterally. Abdomen is soft nontender with positive bowel sounds. No obvious organomegaly Extremities no cyanosis clubbing or edema, cap refill is brisk Data : 05/07/21 08:50 05/07/21 08:50 Micro: Microbiology 05/06/21 04:45 Blood Culture - Preliminary Blood NEGATIVE TO DATE 05/06/21 04:45 Blood Culture - Preliminary Blood NEGATIVE TO DATE A&P Assessment and plan (1) Pneumonia due to COVID-19 virus: Continue dexamethasone 6 mg IV every 24 hours Continue remdesivir Oxygen as needed, wean as tolerated. He is now down to 2 L Tylenol as needed for fever Inflammatory markers essentially unchanged as a whole. Patient is clinically improving. Continue incentive spirometry Await MRSA PCR Pulmonary toilet with Combivent Status: Acute (2) Acute kidney injury: Improved. May discontinue hydration at this time. Secondary to multiple bladder diverticulum urinary retention is possible. Continue Flomax Hold lisinopril hydrochlorothiazide Avoid renal toxic medication Status: Acute (3) UTI (urinary tract infection): Continue Rocephin 1 g IV every 24 hours Await culture Status: Acute (4) Hypertension: Continue home medication with the exception of lisinopril hydrochlor othiazide which will be held in face of acute kidney injury Status: Acute (5) Hyperlipidemia: Continue home medication Status: Acute Additional A&P Information [facility] Attestations Medical Necessity Statement*: Needs continued hospitalization for treatment of COVID-19 pneumonia with antiviral and dexamethasone. 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
[2021-05-07 17:31] LABS: Bilirubin Urine Neg (Negative); Blood Urine Neg (Negative); Glucose Urine UA Norm (Normal); Ketones Urine Negative (Negative); Leukocyte Esterase Urine Trace (Negative); Nitrate Urine Negative (Negative); Protein Urine Neg (Negative); Specific Gravity, Urine 1.015 (1.005-1.030); Urine Appearance Clear (CLEAR); Urine Color Yellow (Yellow); Urobilinogen Urine Norm (Negative); pH Urine 5 (5-7)
[2021-05-07 17:32] LABS: Add Urine Culture? No; Bacteria Urine 1+ /hpf; WBC Urine 15-25 /hpf (0-5)
[2021-05-07] MEDS: alum-mag-hydroxide-sime 30 mL UDC PO (18:18)
[2021-05-08] VITALS (12 sets, daily range): BP systolic 117–152; BP diastolic 60–75; PULSE 50–71; RESP 16–92; TEMP 36.5–37.1; O2SAT 90–96
[2021-05-08] MEDS: cefTRIAXone 1,000 MG in sodium chloride 0.9% (plus) 50 ML 100 MG IV (04:59)
[2021-05-08] MEDS: remdesivir 100 MG in sodium chloride 0.9% (100 ml) 100 ML IV (06:42)
[2021-05-08 06:46] LABS: Basophils % 0.1 %; Hematocrit 37.1 % (42.0-52.0); Hemoglobin 12.1 g/dL (11.7-16.6); Lymphocytes # 0.9 10^3/uL (0.8-4.8); Lymphocytes % 7.8 %; Mean Corpuscular HGB Conc 32.6 g/dL (30.0-36.0); Mean Corpuscular Hemoglobin 28.5 pg (28.0-34.0); Mean Corpuscular Volume 87.5 fL (80-94); Mean Platelet Volume 9.2 fL (7.4-10.4); Monocytes % 8.4 %; Neutrophils % 82.8 %; Nucleated Red Blood Cells % 0 %; Platelet Count 342 10^3/cmm (130-400); Red Blood Count 4.24 10^6/uL (4.1-5.3); Red Cell Distribution Width 13.6 % (12.1-15.1); White Blood Count 11.7 10^3/uL (4.0-10.0)
[2021-05-08 07:10] LABS: Alanine Aminotransferase 16 U/L (0-41); Albumin Level 2.8 g/dL (3.5-5.2); Alkaline Phosphatase 58 IU/L (40-130); Aspartate Amino Transferase 29 U/L (0-40); Blood Urea Nitrogen 33 mg/dL (8-23); Calcium 8.1 mg/dL (8.5-10.5); Carbon Dioxide 25 mmol/L (22-29); Chloride 109 mmol/L (98-107); Globulin 2.8 g/dL (1.3-4.6); Glomerular Filtration Rate 73.9 mL/min (90-130); Glucose 125 mg/dL (65-115); Osmolality Calculated 303 mOsm/kg (285-295); Sodium 142 mmol/L (136-145); Total Bilirubin 0.2 mg/dL (0.15-1.2); Total Protein 5.6 g/dL (6.6-8.7)
[2021-05-08 07:54] LABS: Slide Review Slide Review Perform
--- NOTE | 2021-05-08 08:55 | PC.NUTR ---
Nutrition assessment triggered due to low BMI. Recommend addition of Ensure with meals to provide additional kcal/protein. Recommend to encourage po intakes and provide preferences as appropriate. Goal: 75% or greater of meals/supplements consumed. See RD assessment for further details.
[2021-05-08] MEDS: dexamethasone 4 mg/mL INJ 6 MG IVP (09:25)
[2021-05-08] MEDS: amlodipine 5 mg Tablet PO (10:39)
[2021-05-08] MEDS: enoxaparin 40 mg/0.4 mL Syringe SUBCUT (10:39)
[2021-05-08] MEDS: atorvastatin 40 mg Tablet 20 MG PO (10:39)
[2021-05-08] MEDS: tamsulosin 0.4 mg Capsule PO (10:40)
--- NOTE | 2021-05-08 11:33 | P.PN_ITS ---
Subjective Subjective: Interval history: Miguel A feels like his shortness of breath is doing better. The nurse informs me that he came off oxygen early this morning, around 7. He still feels very weak. He is short of breath with any exertion. Medications: Reviewed: Yes Vitals/I&O/Wt Last Vital Signs Temp 98.3 F 05/08/21 09:37 Pulse 65 05/08/21 09:37 Resp 92 H 05/08/21 09:37 BP 152/69 05/08/21 09:37 Pulse Ox 92 05/08/21 09:37 05/07/21 05/08/21 05/08/21 22:59 06:59 14:59 Intake Total 720 / 1860 50 / 1910 235 / 235 Output Total 300 / 600 Balance 420 / 1260 50 / 1310 235 / 235 Physical Exam Narrative: EXAM NARRATIVE: General exam is a white male, occasional cough. Slightly tachypneic. Neck is supple no lymphadenopathy or thyromegaly Cardiovascular regular rate and rhythm, no murmur Lungs few coarse breath sounds bilaterally. Abdomen is soft nontender with positive bowel sounds. No obvious organomegaly Extremities no cyanosis clubbing or edema, cap refill is brisk Data : 05/08/21 06:34 05/08/21 06:34 Micro: Microbiology 05/06/21 17:06 MRSA Culture - Final Nose A&P Assessment and plan (1) Pneumonia due to COVID-19 virus: Continue dexamethasone 6 mg IV every 24 hours Continue remdesivir He has now just titrated down to room air. Hopefully he will be able to continue this through the day. Clinically appears to be improving Continue incentive spirometry MRSA PCR negative Pulmonary toilet with Combivent Discharge tomorrow if can remain on room air. Home oxygen evaluation prior to discharge. Status: Acute (2) Acute kidney injury: Resolved Secondary to multiple bladder diverticulum urinary retention is possible. Continue Flomax Resume lisinopril and hydrochlorothiazide Avoid renal toxic medication Status: Acute (3) UTI (urinary tract infection): Continue Rocephin 1 g IV every 24 hours Await culture Status: Acute (4) Hypertension: Resume lisinopril and hydrochlorothiazide Status: Acute (5) Hyperlipidemia: Continue home medication Status: Acute Additional A&P Information Full code Lovenox for DVT prophylaxis Attestations Medical Necessity Statement*: Needs continued hospitalization secondary to COVID-19 pneumonia receiving antiviral. Possible discharge tomorrow. 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
[2021-05-08] MEDS: guaiFENesin 100 mg/5 mL UDC 10 mL 200 MG PO (11:53)
[2021-05-08] MEDS: hydroCHLOROthiazide 25 mg Tablet 12.5 MG PO (11:53)
[2021-05-09] VITALS (7 sets, daily range): BP systolic 120–151; BP diastolic 53–65; PULSE 50–67; RESP 12–18; TEMP 36.5–37; O2SAT 87–97
[2021-05-09] MEDS: cefTRIAXone 1,000 MG in sodium chloride 0.9% (plus) 50 ML 100 MG IV (05:06)
[2021-05-09 06:44] LABS: Basophils % 0.2 %; Hematocrit 37.4 % (42.0-52.0); Hemoglobin 12.2 g/dL (11.7-16.6); Mean Corpuscular HGB Conc 32.6 g/dL (30.0-36.0); Mean Corpuscular Hemoglobin 28.6 pg (28.0-34.0); Mean Corpuscular Volume 87.8 fL (80-94); Mean Platelet Volume 9.3 fL (7.4-10.4); Monocytes % 7.9 %; Neutrophils # 10.75 10^3/uL (1.8-7.7); Neutrophils % 82.7 %; Nucleated Red Blood Cells % 0 %; Platelet Count 381 10^3/cmm (130-400); Red Blood Count 4.26 10^6/uL (4.1-5.3); Red Cell Distribution Width 13.5 % (12.1-15.1)
[2021-05-09 06:57] LABS: D Dimer <= 0.27 ug/mIFEU (0-0.59)
[2021-05-09] MEDS: remdesivir 100 MG in sodium chloride 0.9% (100 ml) 100 ML IV (06:57)
[2021-05-09 06:59] LABS: Alanine Aminotransferase 16 U/L (0-41); Albumin Level 2.9 g/dL (3.5-5.2); Alkaline Phosphatase 56 IU/L (40-130); Anion Gap 12.1 (5-19); Aspartate Amino Transferase 35 U/L (0-40); Blood Urea Nitrogen 36 mg/dL (8-23); C Reactive Protein 18.2 mg/L (0.0-4.9); Calcium 7.8 mg/dL (8.5-10.5); Carbon Dioxide 29 mmol/L (22-29); Chloride 107 mmol/L (98-107); Ferritin 721 ng/mL (30-400); Globulin 2.4 g/dL (1.3-4.6); Glomerular Filtration Rate 83.4 mL/min (90-130); Glucose 143 mg/dL (65-115); Osmolality Calculated 309 mOsm/kg (285-295); Potassium 4.1 mmol/L (3.5-5.1); Sodium 144 mmol/L (136-145); Total Bilirubin 0.2 mg/dL (0.15-1.2); Total Protein 5.3 g/dL (6.6-8.7)
[2021-05-09 07:46] LABS: Slide Review Slide Review Perform
[2021-05-09] MEDS: guaiFENesin 100 mg/5 mL UDC 10 mL 200 MG PO (08:40)
[2021-05-09] MEDS: hydroCHLOROthiazide 25 mg Tablet 12.5 MG PO (08:41)
[2021-05-09] MEDS: dexamethasone 4 mg/mL INJ 6 MG IVP (08:41)
[2021-05-09] MEDS: amlodipine 5 mg Tablet PO (08:41)
[2021-05-09] MEDS: lisinopril 10 mg Tablet PO (08:41)
[2021-05-09] MEDS: atorvastatin 40 mg Tablet 20 MG PO (08:41)
[2021-05-09] MEDS: tamsulosin 0.4 mg Capsule PO (08:41)
[2021-05-09] MEDS: enoxaparin 40 mg/0.4 mL Syringe SUBCUT (08:42)
--- NOTE | 2021-05-09 09:52 | P.DS_ITS ---
Discharge Providers Date of Admission: 05/06/21 03:18 Date of Discharge: May 09, 2021 Attending Provider at Admission: Felicitas Chavez MD Attending Provider at Discharge: Anselmo Costa MD Primary Care Provider: Donell Sanchez MD Diagnoses at Discharge Discharge Diagnosis (1) Pneumonia due to COVID-19 virus: Status: Acute (2) Acute kidney injury: Status: Acute (3) UTI (urinary tract infection): Status: Acute (4) Hypertension: Status: Acute (5) Hyperlipidemia: Status: Acute Reason for Visit Reason for Visit: CHILLS, H/A, COUGH, MUSCLE ACHES, NO INTAKE Hospital Course Hospital Course Miguel A is a 70-year-old white male who presents to the hospital with 4 days of cough and fever. He was diagnosed with Covid. Remdesivir, dexamethasone, and supportive care with oxygen was initiated. Secondary to some acute kidney injury, and an abnormal urine IV antibiotics consisting of Rocephin was also initiated with fluids. During his hospital course acute kidney injury resolved. Urine culture unfortunately was not obtained so Rocephin was continued. Covid symptomatology, inflammatory markers, and clinical status improved throughout his hospital course to the point room air was initiated the morning of May 08. By May 09 he was still on room air, requesting to go home. A home oxygen evaluation will be done prior to discharge. He will finish 4 days of cefdinir, 2 days of dexamethasone, and follow-up with his primary care provider next week following completion of his quarantine on the . Home oxygen monitor will be distributed, with instructions to return for any significant shortness of breath, or other symptoms. Home oxygen will be ordered if applicable. Physical Exam Narrative: EXAM NARRATIVE: General exam is no apparent distress Cardiac regular rate and rhythm without murmur Lungs clear no wheezing or crackles Extremities no cyanosis clubbing or edema Discharge Data Data Completed and Pending: Completed Studies During Hospitalization Category Date Time Status CT abdomen pelvis wo con [id number] Urge nt Cat Scan 05/06/21 00:[address] head wo con* [id number] Urgent Cat Scan 05/05/21 23:40 Completed XR chest 1V renaldo ble [id number] Stat Exams 05/05/21 22:38 Completed Pending at discharge Category Date Time Status Blood Culture Sta t Lab 05/06/21 04:45 Results Labs from last 24 hours 05/09/21 05/09/21 05/09/21 06:23 06:23 06:23 WBC RBC Hgb Hct MCV MCH MCHC RDW Plt Count MPV Neut % (Auto) Lymph % (Auto) [place] % (Auto) Eos % (Auto) Baso % (Auto) Neut # (Auto) Lymph # (Auto) [place] # (Auto) Eos # (Auto) Baso # (Auto) Nucleated RBC % (a uto) Nucleated RBCs # D-Dimer <= 0.27 Sodium Potassium Chloride Carbon Dioxide Anion Gap BUN Creatinine GFR Calculation Glucose Calculated Osmolal ity Calcium Ferritin Cancelled Total Bilirubin AST ALT Alkaline Phosphata se C-Reactive Protein Cancelled Total Protein Albumin Globulin 05/09/21 05/09/21 06:23 06:23 WBC 13.0 H RBC 4.26 Hgb 12.2 Hct 37.4 L MCV 87.8 MCH 28.6 MCHC 32.6 RDW 13.5 Plt Count 381 MPV 9.3 Neut % (Auto) 82.7 Lymph % (Auto) 8.0 [place] % (Auto) 7.9 Eos % (Auto) 0.0 Baso % (Auto) 0.2 Neut # (Auto) 10.75 H Lymph # (Auto) 1.0 [place] # (Auto) 1.0 H Eos # (Auto) 0.0 Baso # (Auto) 0.0 Nucleated RBC % (a uto) 0 Nucleated RBCs # 0.0 D-Dimer Sodium 144 Potassium 4.1 Chloride 107 Carbon Dioxide 29 Anion Gap 12.1 BUN 36 H Creatinine 0.9 GFR Calculation 83.4 L Glucose 143 H Calculated Osmolal ity 309 H Calcium 7.8 L Ferritin 721 H Total Bilirubin 0.2 AST 35 ALT 16 Alkaline Phosphata se 56 C-Reactive Protein 18.2 H Total Protein 5.3 L Albumin 2.9 L Globulin 2.4 Vitals: Last Vital Signs Temp 97.8 F 05/09/21 08:00 Pulse 50 L 05/09/21 08:22 Resp 18 05/09/21 08:22 BP 120/65 05/09/21 08:00 Pulse Ox 90 05/09/21 08:22 Discharge Plan Discharge Patient Disposition: Home Condition: Stable Prescriptions: New tamsulosin 0.4 mg Capsule 0.4 mg PO DAILY Qty: 30 RF: 0 dexamethasone 6 mg tablet 6 mg PO DAILY Qty: 2 RF: 0 cefdinir 300 mg capsule 300 mg PO BID 4 Days Qty: 8 RF: 0 Continued lisinopril-hydrochlorothiazide 20-12.5 mg tablet 2 tab PO QPM RF: 0 [place] 5-325 mg Tablet 1 - 2 tab PO PRN RF: 0 amlodipine 5 mg tablet 5 mg PO DAILY RF: 0 simvastatin 40 mg tablet 40 mg PO DAILY RF: 0 ProAir HFA 90 mcg/actuation Hfa Aerosol Inhaler 1 - 2 puff INHALATION Q4H PRN (Reason: Shortness Of Breath) RF: 0 ezetimibe 10 mg tablet 10 mg PO DAILY RF: 0 Fishbiotic Amoxil 1,000 mg PO BID RF: 0 Discontinued ibuprofen 600 mg tablet 600 mg PO TID PRN (Reason: Pain) RF: 0 Discharge Orders: Discharge Order (Routine); Ordered 05/09/21 Ordered By: Anselmo Costa Referrals: Donell Sanchez MD [Primary Care Provider] - 4-7 days Discharge Diet: Cardiac Discharge Activity: Increase activity as tolerated Patient Instructions: Opioid Safety Activity Restrictions/Additional Instructions: May discharge home following home oxygen evaluation Discharge home with pulse oximetry Note that quarantine should continue until May 13 Follow-up with your primary care provider next week, after quarantine has . Discharge Attestations Time Spent in Discharge Care*: greater than 30 min Quality Metrics Clinical Quality Measures During this hospital stay, did patient experience: None Coding Level of Care Code Acute Chg FW DC note Diagnoses Pneumonia due to COVID-19 virus U07.1; J12.82 Acute kidney injury N17.9 UTI (urinary tract infection) N39.0 Hypertension I10 Hyperlipidemia E78.5
--- NOTE | 2021-05-09 14:02 | PC.NURSE ---
HOME here to deliver oxygen to patient at this time.
--- NOTE | 2021-05-09 16:32 | PC.NURSE ---
IV's removed intact. Patient tolerated well. Reviewed patient discharge with patient who is A&Ox3. Respirations even and non-labored on room air. Patient verbalized understanding of discharge instructions and of follow up appointments. Patient wheel chaired to private car and patient verbalized understanding of need to continue to quarantine.
== END 2021-05-09 16:30 | disposition home or self-care (01) | DRG 177 ==
LOC: ER 23:00 → MEDSURG 05-06 04:31
PROVIDERS: Emergency Medicine; Admitting Provider Hospitalist; Emergency Provider Physician Assistant; PCP Family Medicine; Visit Provider Internal Medicine
DX: U07.1 COVID-19 (principal); J12.82 Pneumonia due to coronavirus disease 2019; N17.9 Acute kidney failure, unspecified; N39.0 Urinary tract infection, site not specified; E78.5 Hyperlipidemia, unspecified; I10 Essential (primary) hypertension; Z87.891 Personal history of nicotine dependence; Z79.891 Long term (current) use of opiate analgesic; Z79.51 Long term (current) use of inhaled steroids
CPT/HCPCS: 36415; 36600; 70450; 71045; 74176; 80053; 81001; 82550; 82728; 82803; 83605; 83615; 83690; 83735; 83880; 84145; 84484; 85025; 85378; 85384; 85610; 85730; 86140; 87040; 87086; 87426; 87635; 87641; 93005; 94640; 96372; 99291; 99292; J0696; J1100; J1650; J2270; J2405; J3535; J7030; J7040

== ENCOUNTER 2022-01-09 12:51 | Emergency (ER) | payer MEDICARE, MEDICAID, SELFPAY ==
[2022-01-09 12:58] VITALS: BP 165/90; PULSE 85; RESP 16; TEMP 36.6; O2SAT 97; BMI 21.7
--- NOTE | 2022-01-09 13:07 | ED_ITS ---
HPI - Ear Problem General: Chief complaint: Ear Stated complaint: Something stuck in left ear Time Seen by Provider: 01/09/22 13:02 History of Present Illness: Silicone cup from his hearing aid came unattached and is present in the canal of his right ear since this morning. Review of Systems Narrative: Has piece of hearing aid stuck in right ear ENMT: Reports: other (Foreign body right ear) Resp: Denies: dyspnea Psych: Denies: anxiety or depression PFSH ED PFSH: Medical History (Updated 01/09/22 @ 13:07 by MONSE Oviedo) Hyperlipidemia Hypertension Surgical History (Updated 05/06/21 @ 08:46 by Anselmo Costa MD) History of back surgery History of elbow surgery Family History (Updated 05/06/21 @ 08:46 by Anselmo Costa MD) Other CAD (coronary artery disease) Social History (Updated 05/06/21 @ 08:46 by Anselmo Costa MD) Smoking and tobacco status: former smoker Alcohol intake: never Physical Exam HENMT: EXTERNAL AUDITORY CANAL: other (Small silicone cup in right ear canal which I removed with forceps without ) Resp: COMMON NORMALS: normal respiratory effort Psych: COMMON NORMALS: mental status grossly normal Procedures FB Removal Ear Location: ear canal (R) Foreign Body Suspected: other plastic TM intact pre-procedure: unable to visualize Foreign Body Removed: yes Foreign Body Removal Technique: instrumentation Tympanic Membrane Intact Post Procedure: Yes Patient Tolerated Procedure: well Course Vital Signs: Vital signs: Vital Signs Temperature 97.9 F 01/09/22 12:58 Pulse Rate 85 01/09/22 12:58 Respiratory Rate 16 01/09/22 12:58 Blood Pressure 165/90 01/09/22 12:58 Pulse Oximetry 97 01/09/22 12:58 MDM - Ear Medical Decision Making Foreign body removed from right ear canal with forceps without difficulty Discharge Plan Discharge Patient Disposition: Home Clinical Impression: FB ear Qualifiers: Encounter type: initial encounter Laterality: right Qualified Code(s): T16.1XXA - Foreign body in right ear, initial encounter Condition: Stable Prescriptions: No Action lisinopril-hydrochlorothiazide 20-12.5 mg tablet 2 tab PO QPM 0RF hydrocodone-acetaminophen 5-325 mg Tablet 1 - 2 tab PO PRN 0RF amlodipine 5 mg tablet 5 mg PO DAILY 0RF simvastatin 40 mg tablet 40 mg PO DAILY 0RF ProAir HFA 90 mcg/actuation Hfa Aerosol Inhaler 1 - 2 puff INHALATION Q4H PRN (Reason: Shortness Of Breath) 0RF ezetimibe 10 mg tablet 10 mg PO DAILY 0RF Fishbiotic Amoxil 1,000 mg PO BID 0RF tamsulosin 0.4 mg Capsule 0.4 mg PO DAILY Qty: 30 0RF dexamethasone 6 mg tablet 6 mg PO DAILY Qty: 2 0RF Discharge Orders: Discharge ED (Routine); Ordered 01/09/22 Ordered By: Art Bowles Referrals: Donell Sanchez MD [Primary Care Provider] - Discharge Diet: Usual diet Discharge Activity: Resume usual activity Activity Restrictions/Additional Instructions: Follow-up your primary care provider as needed Coding Level of Care Code ED 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
== END 2022-01-09 13:11 | disposition home or self-care (01) ==
PROVIDERS: Emergency Provider Nurse Practitioner Family; PCP Family Medicine
DX: T16.1XXA Foreign body in right ear, initial encounter (principal); E78.5 Hyperlipidemia, unspecified; I10 Essential (primary) hypertension; Z87.891 Personal history of nicotine dependence; X58.XXXA Exposure to other specified factors, initial encounter
CPT/HCPCS: 99281

== ENCOUNTER 2022-06-10 10:30 | Inpatient (IN) | payer MEDICARE, MEDICAID, SELFPAY ==
[2022-06-10] VITALS (30 sets, daily range): BP systolic 86–166; BP diastolic 50–95; PULSE 37–203; RESP 12–30; TEMP 36.6; O2SAT 94–99; BMI 22.4
--- NOTE | 2022-06-10 10:49 | ECG_ITS ---
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 Measurements Intervals [place] Rate: 75 P: 36 [place]: 185 QRS: -11 QRSD: 162 T: 177 QT: 416 QTc: 465 Interpretive Statements SINUS RHYTHM WITH FREQUENT VENTRICULAR PREMATURE COMPLEXES IN A BIGEMINAL PATTERN LEFT BUNDLE BRANCH BLOCK Compared to ECG 05/06/2021 05:42:26 Ventricular premature complex(es) now present Left-axis deviation no longer present Electronically Signed On 06-11-2022 19:07:56 CDT by Clari Vital M.D. [id number]
--- NOTE | 2022-06-10 11:20 | ECG_ITS ---
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 Measurements Intervals [place] Rate: 81 P: 31 [place]: 188 QRS: -6 QRSD: 157 T: 188 QT: 393 QTc: 459 Interpretive Statements SINUS RHYTHM WITH FREQUENT VENTRICULAR PREMATURE COMPLEXES IN A BIGEMINAL PATTERN LEFT BUNDLE BRANCH BLOCK [120+ ms QRS DURATION, 80+ ms Q/S IN V1/V2, 85+ ms R IN I/aVL/V5/V6] Compared to ECG 06/10/2022 10:49:55 No significant changes Electronically Signed On 06-11-2022 18:48:17 CDT by Clari Vital M.D. [email or web address]
--- NOTE | 2022-06-10 11:31 | ED_ITS ---
HPI - General Adult General: Chief complaint: Dizziness Stated complaint: Abnormal EKG, Dr Mcghee Time Seen by Provider: 06/10/22 11:19 History of Present Illness: Patient is a 71-year-old male with history of hypertension, hyperlipidemia who presents the emergency room for evaluation of bradycardia and syncope in the setting of abnormal EKG. Arrival, patient does not recall why he is here. Patient denies any lightheadedness, chest pain shortness breath palpitation. I discussed case with Dr. Sanchez who told me that for the last 3 weeks patient has had frequent syncope and dyspnea. Earlier today, patient went to see him in clinic and noted to have a heart rate in the 30s. Patient was noted to be intermittently altered. Patient also had was noted to have a sinus pause of [address] Sanchez tells me that patient is EKG has changed compared to prior. Patient has not yet followed up with recent cardiology evaluation. Onset:3 weeks ago Duration:3 weeks Location:home Severity:moderate Associated symptoms: Deny chest pain, dyspnea, nausea, rash, palpitations or vomiting Review of Systems Const: Denies: fever(s) or chills Eyes: Denies: change in vision ENMT: Denies: mouth pain Card: Denies: chest pain or palpitations Resp: Denies: dyspnea or non-productive cough GI: Denies: abdominal pain, nausea, vomiting or diarrhea : Denies: dysuria Musc: Denies: extremity pain Skin/Breast: Denies: rash or new lesions Neuro: Denies: weakness in extremities Psych: Reports: other (Normal mood) Jaren/Lymph: Denies: easy bruising PFSH ED PFSH: Medical History Hyperlipidemia Hypertension Pneumonia due to COVID-19 virus UTI (urinary tract infection) Surgical History History of back surgery History of elbow surgery Family History Other CAD (coronary artery disease) Social History Smoking and tobacco status: former smoker Alcohol intake: never Physical Exam Const: COMMON NORMALS: alert HENMT: COMMON NORMALS: atraumatic HEAD & SCALP: atraumatic MOUTH: moist mucous membranes not abnormal Eye: COMMON NORMALS: EOMs intact bilaterally and conjunctivae normal CONJUNCTIVA: Yes conjunctivae normal Neck/C-Spine: COMMON NORMALS: full ROM and supple Resp: COMMON NORMALS: normal respiratory effort and clear to auscultation bilaterally AUSCULTATION: clear to auscultation bilaterally Cardio: COMMON NORMALS: regular rate RATE: regular rate GI: COMMON NORMALS: Soft to palpation and non-tender PALPATION: Yes Soft to palpation Extremity: COMMON NORMALS: full ROM Neuro: SENSORIUM/ORIENTATION: Yes alert MOTOR EXAM: No Abnormal motor strength present and Other motor observations present (no focal motor deficits) Psych: COMMON NORMALS: speech normal SPEECH: Yes normal speech MOOD & AFFECT: Yes euthymic mood Course Vital Signs: Vital signs: Vital Signs Temperature 98 F 06/11/22 11:06 Pulse Rate 140 H 06/11/22 11:06 Respiratory Rate 14 06/11/22 11:06 Blood Pressure 118/59 06/11/22 11:06 Pulse Oximetry 97 06/11/22 11:06 Oxygen Delivery Me thod 06/11/22 07:53 Fraction of Inspir ed Oxygen 24 06/11/22 07:53 MDM - General Adult Medical Decision Making Patient is a 71-year-old male with history of hypertension, hyperlipidemia who presents the emergency room for evaluation of bradycardia and syncope in the setting of abnormal EKG. of exam patient is hemodynamically stable without any focal finding. EKG showed bigeminy PVCs. Troponin of 23. Magnesium 2.6. While observed in the emergency room at 12:18 PM, patient went into ventricular tachycardia on media monitor. Patient had multiple episodes of nonsustained paroxysmal ventricular tachycardia for 5-10 minutes. Pads were placed on patient. Episode was precipitated by patient straining to use the urinal. This was discussed with Dr. Torres immediately. Patient was started on an amioda norma bolus followed by drip. Patient will be admitted to the ICU for management paroxsymal ventricular tachycardia. Disposition: ICU Lab Data : 06/11/22 03:53 06/11/22 03:53 Radiology Impressions Chest X-Ray 06/10/22 18:50 IMPRESSION: 1. Enteric tube tip extending below the diaphragm inferiorly off the field of view. 2. Endotracheal tube tip 4.2 cm above the daniel. 3. Right central venous catheter tip over the right atrium. 4. Cardiomegaly. 5. Bilateral hilar to lower lobe atelectasis versus infiltrate. Laboratory Results WBC 9.6 10^3/uL (4.0-10.0) 06/10/22 11:32 RBC 5.00 10^6/uL (4.1-5.3) 06/10/22 11:32 Hgb 14.7 g/dL (11.7-16.6) 06/10/22 11:32 Hct 45.2 % (42.0-52.0) 06/10/22 11: MCV 90.4 fl (80-94) 06/10/22 11:32 MCH 29.4 pg (28.0-34.0) 06/10/22 11: MCHC 32.5 g/dL (30.0-36.0) 06/10/22 11: RDW 14.4 % (12.1-15.1) 06/10/22 11:32 Plt Count 346 10^3/cmm (130-400) 06/10/22 11:32 MPV 9.2 fL (7.4-10.4) 06/10/22 11:32 Neut % (Auto) 64.3 % 06/10/22 11:32 Lymph % (Auto) 19.5 % 06/10/22 11:32 [place] % (Auto) 11.3 % 06/10/22 11:32 Eos % (Auto) 4.0 % 06/10/22 11:32 Baso % (Auto) 0.6 % 06/10/22 11:32 Neut # (Auto) 6.14 10^3/uL (1.8-7.7) 06/10/22 11:32 Lymph # (Auto) 1.9 10^3/uL (0.8-4.8) 06/10/22 11:32 [place] # (Auto) 1.1 10^3/uL (0.2-0.9) H 06/10/22 11:32 Eos # (Auto) 0.4 10^3/uL (0.0-0.8) 06/10/22 11:32 Baso # (Auto) 0.1 10^3/uL (0.0-0.1) 06/10/22 11:32 Nucleated RBC % (auto) 0 % 06/10/22 11:32 Nucleated RBCs # 0.0 /100WBC 06/10/22 11:32 Sodium 140 mmol/L (136-145) 06/10/22 11:32 Potassium 3.7 mmol/L (3.5-5.1) 06/10/22 11:32 Chloride 102 mmol/L (98-107) 06/10/22 11:32 Carbon Dioxide 28 mmol/L (22-29) 06/10/22 11:32 Anion Gap 13.7 (5-19) 06/10/22 11:32 BUN 33 mg/dL (8-23) H 06/10/22 11:32 Creatinine 1.2 mg/dL (0.7-1.2) 06/10/22 11:32 GFR Calculation Not Reportable 06/10/22 11:32 Glucose 95 mg/dL (65-115) 06/10/22 11:32 Calculated Osmolality 297 mOsm/kg (285-295) H 06/10/22 11:32 Calcium 9.1 mg/dL (8.5-10.5) 06/10/22 11:32 Magnesium 2.6 mg/dL (1.7-2.3) H 06/10/22 11:32 Troponin T Baseline 23 ng/L (0-15) H 06/10/22 11:32 NT-Pro-B Natriuret Pep 433 pg/mL (0-125) H 06/10/22 11:32 TSH 5.48 uIU/mL (0.27-4.20) H 06/10/22 11:32 Critical Care Time Critical Care Time: Critical Care Time: Yes Total Critical Care Time: 35 Attestation: The high probability of a clinically significant, sudden or life threatening deterioration of the patient's Cardiovascular system(s) required my full and direct attention, intervention and personal management. The critical care time is as shown. This time is in addition to time spent performing any reported procedures but includes the following: [x] Data and vital sign review and interpretation [x] Patient assessment, examination and intervention [x] Documentation [x] Medication orders and management Discharge Plan Discharge Patient Disposition: Admitted As Inpatient Admit Provider: Cheyenne Barclay Clinical Impression: Ventricular tachycardia, Light headedness, Frequent PVCs Condition: Stable Coding Level of Care Code ED [employer] Founder for Chg Fwd Exam Comprehensive
[2022-06-10] MEDS: sodium chloride 0.9% 500 ML IV (11:37)
[2022-06-10 11:38] LABS: Basophils # 0.1 10^3/uL (0.0-0.1); Basophils % 0.6 %; Eosinophils # 0.4 10^3/uL (0.0-0.8); Hematocrit 45.2 % (42.0-52.0); Hemoglobin 14.7 g/dL (11.7-16.6); Lymphocytes # 1.9 10^3/uL (0.8-4.8); Lymphocytes % 19.5 %; Mean Corpuscular HGB Conc 32.5 g/dL (30.0-36.0); Mean Corpuscular Hemoglobin 29.4 pg (28.0-34.0); Mean Corpuscular Volume 90.4 fl (80-94); Mean Platelet Volume 9.2 fL (7.4-10.4); Monocytes # 1.1 10^3/uL (0.2-0.9); Monocytes % 11.3 %; Neutrophils # 6.14 10^3/uL (1.8-7.7); Neutrophils % 64.3 %; Nucleated Red Blood Cells % 0 %; Platelet Count 346 10^3/cmm (130-400); Red Cell Distribution Width 14.4 % (12.1-15.1); White Blood Count 9.6 10^3/uL (4.0-10.0)
[2022-06-10 12:06] LABS: Troponin(5th) Baseline 23 ng/L (0-15)
[2022-06-10 12:09] LABS: Anion Gap 13.7 (5-19); Blood Urea Nitrogen 33 mg/dL (8-23); Calcium 9.1 mg/dL (8.5-10.5); Carbon Dioxide 28 mmol/L (22-29); Chloride 102 mmol/L (98-107); Glucose 95 mg/dL (65-115); Magnesium 2.6 mg/dL (1.7-2.3); Osmolality Calculated 297 mOsm/kg (285-295); Potassium 3.7 mmol/L (3.5-5.1); Sodium 140 mmol/L (136-145)
--- NOTE | 2022-06-10 12:57 | P.HP_ITS ---
Providers/Chief Complaint Primary Care Provider: Donell Sanchez MD Chief Complaint: Abnormal EKG, Dr Litzy History of Present Illness Miguel A Reyna is a 71 year old male who has been sent from PCP clinic for management evaluation of abnormal EKG which was done because of his lightheadedness, In the clinic his heart rate was detected to be in low 30s, sinus pause for about 3 seconds was noticed. Patient denies previous history of CHF, KS or coronary disease. Patient is stating that he has been experiencing presyncope for last 1 week he has not noticed any chest pain or worsening shortness of breath. In the ER he was diagnosed with left bundle branch block with multiple PVCs, nonsustained V. tach, I have given him potassium, magnesium was 2.6, QTC is prolonged patient is chest pain-free hemodynamically stable at the time of evaluation heart rate in the 77 blood pressure 166/84 No active chest pain or shortness of breath He wanted me to call his brother, he gave me his phone number, I tried that number it went to voicemail Review of Systems Const: Reports: malaise; Denies: fever(s) Eyes: Denies: change in vision ENMT: Denies: throat pain Card: Reports: lightheadedness; Denies: chest pain Resp: Denies: dyspnea GI: Denies: abdominal pain : Denies: flank pain Musc: Denies: neck pain Skin/Breast: Denies: rash Neuro: Denies: headache(s) Psych: Denies: anxiety Endo: Denies: polyuria Jaren/Lymph: Denies: easy bruising All/Imm: Denies: urticaria Medications/Allergies Home Medications Medication Instructions Recorded Confirmed Last Taken Type albuterol sulfate 90 mcg/actuation 1 - 2 puff inhalation Q4H PRN 05/06/21 06/10/22 Unknown History aerosol inhaler (ProAir HFA) Shortness Of Breath amlodipine 5 mg tablet 5 mg PO DAILY 05/06/21 06/10/22 06/09/22 History ezetimibe 10 mg tablet 10 mg PO DAILY 05/06/21 06/10/22 06/09/22 History lisinopril 20 2 tab PO QPM 05/06/21 06/10/22 06/09/22 History mg-hydrochlorothiazide 12.5 mg tablet simvastatin 40 mg tablet 40 mg PO DAILY 05/06/21 06/10/22 06/09/22 History ibuprofen 600 mg tablet 600 mg PO TID PRN Pain 06/10/22 06/10/22 Unknown History Allergies Allergy/AdvReac Type Severity Reaction Status Date / Time No Known Allergies Allergy Verified 05/06/21 09:23 PFSH Acute PFSH: Medical History Hyperlipidemia Hypertension Pneumonia due to COVID-19 virus UTI (urinary tract infection) Surgical History History of back surgery History of elbow surgery Family History Other CAD (coronary artery disease) Social History Smoking and tobacco status: former smoker Alcohol intake: never Vitals/I&O/Wt Last Vital Signs Temp 97.8 F 06/10/22 10:39 Pulse 37 L 06/10/22 10:39 Resp 14 06/10/22 10:39 BP 166/84 06/10/22 10:39 Pulse Ox 99 06/10/22 10:39 O2 Del Method 06/10/22 10:39 Weight last 48 hrs Weight 74.843 kg Physical Exam Narrative: Pleasant cooperative male Hemodynamically stable Multiple PVCs with leftward branch block sinus rhythm rhythm Awake and alert Nonfocal neuro exam No signs of confusion No active chest pain or shortness of breath Saturating well on room air Ambulated improving at the bedside No signs of edema Data : 06/10/22 11:32 06/10/22 11:32 A&P Assessment and plan (1) Ventricular tachycardia: Status: Acute (2) Light headedness: Status: Acute (3) Frequent PVCs: Status: Acute Plan Nonsustained V. tach Intermittent sinus pauses Previous EKG did show left bundle branch block, it is not new, no active chest pain, troponin not significantly high Patient will kept n.p.o. Currently on amiodarone drip and will start lidocaine drip for persistent tachyarrhythmia Goal potassium above 4, magnesium of 2 Trend troponin and EKG Coronary angiogram Cardiology Dr. Torres was consulted Would avoid DVT prophylaxis for now Full code Check TSH, dimer, Admit to ICU Essential hypertension: Patient takes lisinopril, hydrochlorothiazide and amlodipine at home, Might need electrophysiology for persistent V. tach for possible ablation Monitor closely in the ICU Low threshold for intubation Attestations Medical Necessity Statement*: Anticipating more than 2 midnights for nonsustained V. tach management Time Spent in Patient Care: 40 Coding Level of Care Code Acute Frame Maker for [facility] Fwd Diagnoses Ventricular tachycardia I47.2 Light headedness R42 Frequent PVCs I49.3
[2022-06-10] MEDS: potassium chloride ER 20 mEq Tablet 40 MEQ PO (13:26)
[2022-06-10] MEDS: midazolam 1 mg/mL INJ 2 mL 2 MG IVP (14:01)
[2022-06-10] MEDS: esmolol drip 2,500 MG/250 ML PREMIX 22.45 MG IV (14:07)
--- NOTE | 2022-06-10 14:12 | USCV_ITS ---
Miguel A Reyna Age: 71 Gender: M : 1950 Exam Date: 06/10/2022 15:41 Ordering Phys: Marisela Coker MD Technologist: NATE [place] [facility] [place]: VTACH BP: 128 / 63 HR: 65 Rhythm: PACs Technical Quality: Suboptimal, Adequate MEASUREMENTS (Male / Female) Normal Values 2D ECHO LV Diastolic Diameter PLAX 4.4 cm 4.2 - 5.9 / 3.9 - 5.3 cm LV Systolic Diameter PLAX 3.9 cm IVS Diastolic Thickness 1.6 cm 0.6 - 1.0 / 0.6 - 0.9 cm IVS Systolic Thickness 1.8 cm LVPW Diastolic Thickness 1.7 cm 0.6 - 1.0 / 0.6 - 0.9 cm LVPW Systolic Thickness 1.6 cm LVOT Diameter 2.0 cm LV Ejection Fraction 2D Teich 28.2 % LV Ejection Fraction MOD 2C 54.6 % LV Ejection Fraction 2C AL 55.5 % LA Diameter 3.4 cm LA Width 3.1 cm LA Height 4.2 cm RA Width 4.2 cm RA Height 4.5 cm Aorta at Sinotubular Diameter 2.5 cm M-MODE Aortic Annulus Diameter 3.5 cm LA Ao Ratio MM 0.9 MV E Point Septal Separation 0.9 cm DOPPLER AV Peak Velocity 141.7 cm/s LVOT Peak Velocity 101.0 cm/s AV Area Cont Eq vti 2.4 cm squared AV Area Cont Eq pk 2.3 cm squared MV Peak Velocity 88.0 cm/s MV Area PHT 2.8 cm squared Mitral E to A Ratio 0.8 MV E' Velocity 40.0 cm/s Mitral E to MV E' Ratio 10.9 Mitral E to LV E' Lateral Ratio 9.2 Mitral E to LV E' Septal Ratio 13.4 TR Peak Velocity 241.4 cm/s TR Peak Gradient 23.3 mmHg TR Mean Velocity 187.5 cm/s TR Mean Gradient 15.0 mmHg TR Velocity Time Integral 74.2 cm TV Peak E Velocity 31.0 cm/s Right Atrial Pressure 8.0 mmHg Pulmonary Artery Systolic Pressu 31.3 mmHg PV Peak Velocity 158.0 cm/s RV Acceleration Time 0.1 s RV Ejection Time 0.4 s RV AcT/ET 0.3 FINDINGS Left Ventricle Normal left ventricular size. LV systolic function assessment is limited because of frequent PVCs. Grossly LV systolic function is moderate to severely reduced with EF of 30 to 35%. Regional wall motion abnormalities are not accurately assessed because of frequent PVCs. Grade 1 diastolic dysfunction Right Ventricle The right ventricle is normal in size and function. Right Atrium The right atrium is normal in size. Left Atrium The left atrium is normal in size. Mitral Valve Structurally normal mitral valve without significant stenosis or prolapse. There is trace mitral regurgitation Aortic Valve Structurally normal aortic valve without significant sclerosis or stenosis. There is no aortic regurgitation. Tricuspid Valve Structurally normal tricuspid valve without significant stenosis. Trace tricuspid regurgitation. Insufficient TR jet to calculate RVSP. Pulmonic Valve Trace pulmonic regurgitation Pericardium Normal pericardium without effusion. Aorta Normal ascending aorta dimension. IVC CONCLUSIONS LV Systolic function assessment is limited because of frequent PVCs. Grossly LV systolic function is moderate to severely reduced with EF of 30 to 35%. Grade 1 diastolic dysfunction. Trace mitral regurgitation is seen. Trace tricuspid regurgitation. Trace pulmonic regurgitation. Echo that comparison with prior echocardiogram is not possible because of limited quality echo and frequent PVCs. However LV systolic function appears to be reduced compared to before. Isiah Torres MD (Electronically Signed) Final Date: 11 June 2022 08:52 S
[2022-06-10 14:19] LABS: D Dimer 0.51 ug/mIFEU (0-0.59)
[2022-06-10 14:24] LABS: Troponin 5 2HR 20.47 ng/L (0-15); Troponin 5 2HR Delta -2.53 ABS# (0-10)
--- NOTE | 2022-06-10 16:00 | PC.NURSE ---
VTACH Pt had sustained run of VTACH. Nurses responded, pds were off d/t US doing an echo, pads placed, Pt remained alert and oriented, pt blew into empty syringe, adenosine pulled, pt then went back into sinus rhythm after vagal maneuvers and adenosine was not needed. Pt remains with pads and zoll on and US has continued their echo.
--- NOTE | 2022-06-10 16:16 | PC.NURSE ---
VTACH Pt went into sustained run of VTACH. Vagal manuevers did not work. 6MG of adenosine pushed. Pt remained in VTACH, Dr Torres ordered esmolol to be stopped, and lidocaine started at 2. Lidocaine odered and started. Pt's brother Madi is at bedside. Madi has been given pt's wallet to take to his house. Dr Torres discussed with the pt and his brother about going to laborer high density press. Pt verbalized agreement and signed consent. Pt taken to lab engineer at 1645.
[2022-06-10] MEDS: lidocaine drip 2,000 MG/500 ML PREMIX 30 MG IV (16:37)
--- NOTE | 2022-06-10 16:39 | PM.CONSULT ---
Providers/Reason For Consult Consulting Physician/Specialty*: Isiah Torres MD/ Interventional cardiology Reason for Consult*: Ventricular tachycardia Requesting Physician: Dr Coker Attending Physician: Cheyenne Barclay MD Primary Care Provider: Donell Sanchez MD History of Present Illness History of Present Illness Miguel A Reyna is a 71 year old male with past medical history of hypertension and hyperlipidemia who has presented to hospital with lightheadedness. He also had syncopal episode per ER episode. At PCP office he was noted to have a 3 second pause. He was found to have ventricular tachycardia and frequent PVCs. He denies active chest pain however feels lightheaded. Troponins have not trended up significantly. EKG shows frequent PVCs in sinus rhythm. Review of Systems Const: Reports: malaise; Denies: fever(s) Eyes: Denies: change in vision ENMT: Denies: throat pain Card: Reports: lightheadedness; Denies: chest pain Resp: Denies: dyspnea GI: Denies: abdominal pain : Denies: flank pain Musc: Denies: neck pain Skin/Breast: Denies: rash Neuro: Denies: headache(s) Psych: Denies: anxiety Endo: Denies: polyuria Jaren/Lymph: Denies: easy bruising All/Imm: Denies: urticaria Medications/Allergies Home Medications Medication Instructions Recorded Confirmed Last Taken Type albuterol sulfate 90 mcg/actuation 1 - 2 puff inhalation Q4H PRN 05/06/21 06/10/22 Unknown History aerosol inhaler (ProAir HFA) Shortness Of Breath amlodipine 5 mg tablet 5 mg PO DAILY 05/06/21 06/10/22 06/09/22 History ezetimibe 10 mg tablet 10 mg PO DAILY 05/06/21 06/10/22 06/09/22 History lisinopril 20 2 tab PO QPM 05/06/21 06/10/22 06/09/22 History mg-hydrochlorothiazide 12.5 mg tablet simvastatin 40 mg tablet 40 mg PO DAILY 05/06/21 06/10/22 06/09/22 History ibuprofen 600 mg tablet 600 mg PO TID PRN Pain 06/10/22 06/10/22 Unknown History Allergies Allergy/AdvReac Type Severity Reaction Status Date / Time No Known Allergies Allergy Verified 05/06/21 09:23 Current Medications Generic Name Dose Route Start Last Admin Trade Name Freq PRN Reason Stop Dose Admin Amiodarone HCl 900 mg/ 518 mls @ 0 mls/hr 06/10/22 12:30 06/10/22 12:57 Dextrose/ IV Miscellaneous IV 1 mg/min Supplies .Q0M MORENO 34.53 mls/hr Administration Protocol Per Protocol Esmolol HCl 2,500 mg in 250 mls @ 0 mls/hr 06/10/22 14:00 06/10/22 14:07 Brevibloc Drip IV 50 mcg/kg/min .Q0M MORENO 22.45 mls/hr Administration Protocol Per Protocol Sodium Chloride 1,000 mls @ 75 mls/hr 06/10/22 14:57 06/10/22 16:37 Sodium Chloride 0.9% IV Not Given .[id number] MORENO Lidocaine HCl/Dextrose 2,000 mg in 500 mls @ 30 mls/hr 06/10/22 16:30 06/10/22 16:37 Lidocaine Drip IV 2 mg/min .[id number] MORENO 30 mls/hr Administration 2 MG/MIN PFSH Acute PFSH: Medical History Hyperlipidemia Hypertension Pneumonia due to COVID-19 virus UTI (urinary tract infection) Surgical History History of back surgery History of elbow surgery Family History Other CAD (coronary artery disease) Social History Smoking and tobacco status: former smoker Alcohol intake: never Vitals/I&O/Wt Last Vital Signs Temp 97.8 F 06/10/22 10:39 Pulse 82 06/10/22 14:00 Resp 21 H 06/10/22 14:00 BP 129/63 06/10/22 14:00 Pulse Ox 94 06/10/22 14:00 O2 Del Method 06/10/22 15:20 Weight last 48 hrs Weight 165 lb Weight 165 lb Physical Exam Narrative: GENERAL: Patient is alert, awake and oriented x3. [] NECK: No jugular vein distension. [] HEENT: No cyanosis. No icterus. No pallor. [] HEART: Regular S1 and S2. No murmur, rub or gallop. [] LUNGS: Clear to auscultate bilaterally. [] ABDOMEN: Soft, nontender and nondistended. Positive bowel sounds. No guarding, rebound or tenderness. [] CENTRAL NERVOUS SYSTEM: Grossly nonfocal. [] EXTREMITIES: Lower extremities with no edema bilaterally. Pulses palpable in the lower extremities, both dorsalis pedis and posterior tibial. [] Data : 06/10/22 11:32 06/10/22 11:32 A&P Assessment and plan (1) Ventricular tachycardia: Status: Acute (2) Light headedness: Status: Acute (3) Frequent PVCs: Status: Acute Plan Patient has been having episodes of ventricular tachycardia. He gets very lightheaded with it. Also had syncopal episode per ER report. No active chest pain. We will proceed with coronary angiogram to rule out CAD as underlying cause for VT. Keep NPO. Order echocardiogram. Continue amiodarone drip. Will add lidocaine drip as has more frequent episodes now. If no CAD, and patient has incessant VT, may need intubation. Thank you for involving us with care of this patient. We will continue to follow. Please call with questions Consult Attestations Medical Necessity Statement: Care expected to cross 2 midnights. Coding Level of Care Code Acute Accounts Receivable Accountant for g Fwd Diagnoses Ventricular tachycardia I47.2 Light headedness R42 Frequent PVCs I49.3
--- NOTE | 2022-06-10 16:50 | XACV_ITS ---
Exam Room: 2 Ht: 183 cm Wt: 75 kg BSA: 1.95 m2 Gender: Male : 1950 Any Known Allergies: No known allergies Exam Priority: Routine Procedure(s): Procedure Description: Diagnostic procedure Procedure Description: Coronary Angiography Diagnostic Cath Status: Urgent Diagnostic Findings * Indication: Patient had syncopal episode and has been having recurrent ventricular tachycardia episodes. * No significant disease noted in left main artery. LAD: Proximally has mild 30-40% stenosis. Left circumflex artery: Patent RCA: Patent, no significant stenosis. * Coronary angiography shows right dominance. Conclusions 1. No significant disease noted in left main artery. LAD: Proximally has mild 30-40% stenosis. Left circumflex artery: Patent RCA: Patent, no significant stenosis. Recommendations * Continue amiodarone drip. * Patient will need to be transferred to a center with EP availability for possible EP study, VT/PVC ablation and ICD placement. * Transfer back to ICU. Interventional RX Recommendation: medical therapy and/or counseling Diagnostic RX Recommendation: medical therapy and/or counseling Pressures Phase:Rest AO : 12 ( 8 ) @ 6:00:00 PM 12 ( 8 ) @ 6:00:00 PM / ( 7 ) @ 6:01:00 PM 87 / 87 ( 67 ) @ 6:07:00 PM Clinical Evaluation EBL: 5mL-10mL Procedural Details Pre-Procedure Time Out. Identified patient by full name and date of as verbalized by the patient/guarantor. Does the consent match the physician's order: N/A Emergent; Informed Consent not obtained due to time critical life threat. Accurate & Complete Informed Consent: N/A Emergent; Informed Consent not obtained due to time critical life threat. Inpatient/Outpatient History & Physical on Chart: N/A Emergent; Informed Consent not obtained due to time critical life threat. If H&P is completed, is and addenduem needed: N/A Emergent; Informed Consent not obtained due to time critical life threat; If yes, is the addendum complete: N/A Emergent; Informed Consent not obtained due to time critical life threat. Visualize and Verify Site with Patient/Guarantor: N/A. Relevant Radiology Images available: N/A Emergent; Informed Consent not obtained due to time critical life threat. Pre-op teaching completed and patient verbalized understanding. The risks, benefits, and alternatives of sedation and/or procedure were discussed by physician. The patient agrees to continue. Procedure started. [facility] Clinical Fraility Score: 3: Managing Well. 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 Chest Pain Symptom Assessment: Atypical Angina. Cardiovascular Instability: Yes, if yes, Ventricular Arrhythmias. Correct patient, site and procedure confirmed by cath team. PERRLA. Strong, equal hand telephone solicitor supervisor bilaterally. Lungs clear x 5 lobes. IV Site on Arrival: 18 gauge in the right forearm. IV Site on Arrival: 20 gauge in the left anticubital. IV Fluids: 0.9% NaCl at KVO. 0 mL infused prior to lab coordinator. Pre Procedural Pulses: bilateral radial was 3+. Oxygen started at 4liters/min via nasal canula. right groin was prepped with chloroprep then draped in the usual sterile fashion. right radial was prepped with chloroprep then draped in the usual sterile fashion. Physician notified. Baseline sample Acquired. HR: 45 BPM. Physician arrived. Physician scrubbed in. Immediate Pre-Procedure Time Out. Correct Patient: Yes; Correct Procedure: Yes; Correct Site: Yes; Correct Patient Position: Yes; Correct Supplies: Yes; Dried Flammable Prep: Yes; Blood Products Available: N/A;. Lidocaine 1% infiltrated to the right radial. Arterial access obtained. A 5 swiss TIG catheter in over wire. Cordarone gtt at 1mg/min on arrival to the lab coordinator. Multiple views taken of left coronary artery. Catheter redirected to the RCA. Multiple views taken of right coronary artery. A TR Band was successful obtaining hemostatsis at the Right Radial artery insertion site. Catheter removed over the standard wire. Dr. Torres scrubbed out. Patient's family updated by Dr. Torres. TR band placed. Hemostasis obtained. Post Procedure: Pulses reassessed and unchanged. PERRLA. Strong, equal hand telephone solicitor supervisor bilaterally. No VTE prophylaxis required. Medication's Wasted: Lidocaine 1% = 4 mL. Medication's Wasted: Nitro = 49.8 mg. Medication's Wasted: Heparin = 1000 units. Total IV fluids: 17 mL. Post-op diagnosis: Non-Obstructive CAD. Complications: none. Estimated blood loss: 5mL-10mL. Responsiveness - Normal response to verbal stimuli; alert and oriented, PERRLA. Airway - Unaffected, no intervention required; spontaneous ventilation. Circulation: W/N/L, pulses unchanged. Nausea/Vomiting: No. Procedure completed. Patient transferred by bed to ICU. Vital chart was stopped. Access Site Site: Right Radial artery Sheath Size: 6 Fr Hemostasis Method: TR Band Hemostasis Success: Successful Procedure Medications Start: 5:06 PM Stop: 5:06 PM Medication: Nitrogylcerin Amount: 200 mcg Route: I.A. Start: 5:06 PM Stop: 5:06 PM Medication: Versed Amount: 1 mg Route: I.V. Start: 5:07 PM Stop: 5:07 PM Medication: Heparin Amount: 5000 units Route: I.V. Start: 5:12 PM Stop: 5:12 PM Medication: Versed Amount: 1 mg Route: I.V. I, the attending physician, have reviewed and verified all procedure medications. Yes, all medications given per verbal order History/Risk Factors Hypertension: Yes Dyslipidemia: Yes Peripheral Arterial Disease (PAD): No Myocardial Infarction (IN): No Obesity: No Renal Disease: No Prior Interventions PCI: No CABG: No Valve Surgery: No Report Signatures Finalized by Isiah Torres MD on 06/11/2022 08:56 AM
--- NOTE | 2022-06-10 16:57 | W.PM.OPSUD ---
Surgery/Procedure H&P Update DATE OF PROCEDURE: June 10, 2022 DATE H&P PERFORMED: 06/10/22 H&P UPDATE INFORMATION: I have reviewed H&P completed within last 30 days, I have examined patient prior to procedure and No changes to prior documentation PREOP DIAGNOSIS: Ventricular tachycardia PRIMARY INDICATION FOR PROCEDURE: Ventricular tachycardia PLANNED PROCEDURE: Left heart cath with possible percutaneous coronary intervention PATIENT REASSESSED PRIOR TO SEDATION, WITH NO CHANGE NOTED: Yes PHYSICAL EXAM: alert, oriented x 3, clear to auscultation bilaterally and regular rate & rhythm AIRWAY EVAL/ANESTHESIA PLAN: ASA III, Local Anesthesia, Risks, benefits & alternatives of sedation and/or procedure discussed and Patient agrees to continue as planned ADDITIONAL INFORMATION: Moderate sedation
[2022-06-10 18:50] LABS: NT Pro B Type Natriuretic Pept 433 pg/mL (0-125); Thyroid Stimulating Hormone 5.48 uIU/mL (0.27-4.20)
--- NOTE | 2022-06-10 18:50 | XRR_ITS ---
PROCEDURE INFORMATION: Exam: XR Chest Exam date and time: 06/10/2022 8:13 PM Age: 71 years old Clinical indication: Device placement; Other: Og tube; Additional info: Post-intubation TECHNIQUE: Imaging protocol: Radiologic exam of the chest. Views: 1 view. COMPARISON: CR (CHEST, ) 05/05/2021 11:24 PM FINDINGS: Tubes, catheters and devices: Enteric tube tip extending below the diaphragm inferiorly off the field of view. Endotracheal tube tip 4.2 cm above the daniel. Right central venous catheter tip over the right atrium. Lungs: Bilateral hilar to lower lobe atelectasis versus infiltrate. Pleural spaces: Unremarkable. No pleural effusion. No pneumothorax. Heart/Mediastinum: Cardiomegaly. Bones/joints: Unremarkable. XR/XR chest 1V portable [id number] IMPRESSION: 1. Enteric tube tip extending below the diaphragm inferiorly off the field of view. 2. Endotracheal tube tip 4.2 cm above the daniel. 3. Right central venous catheter tip over the right atrium. 4. Cardiomegaly. 5. Bilateral hilar to lower lobe atelectasis versus infiltrate.
[2022-06-10] MEDS: rocuronium 10 mg/mL INJ 5mL IV (19:06)
--- NOTE | 2022-06-10 19:40 | P.PNCC_ITS ---
Critical Care Event Note Requested as [facility] service for intubation. Hospitalist had difficulty intubating the patient with video laryngoscopy. I subsequently took over intubation procedure and assisted respiratory therapy with bag valve mask ventilation. After prior intubation patient did have hypoxia though this was improved with BVM as mentioned. Patient subsequently successfully intubated with DL by myself, airways anterior. Patient tolerated procedure well. Anibal Doe MD Emergency Medicine Critical Care Time Code activated: No Critical Care Time (min): 20 Additional information about critical care time: The high probability of a clinically significant, sudden or life threatening deterioration of the patient's cardiopulmonary system(s) required my full and direct attention, intervention and personal management. The critical care time is as shown. This time is in addition to time spent performing any reported procedures but includes the following: [x] Data and vital sign review and interpretation [x] Patient assessment, examination and intervention [x] Documentation Procedures Intubation Time out performed: Yes Sedative: etomidate Paralytic: rocuronium Laryngoscope: Aracelis ET tube size: 8 ET tube uncuffed: No Tube secured depth (cm): 21 Tube secured location: teeth Tube placement confirmation: visualized tube passing through cords, equal breath sounds bilaterally and no breath sounds over epigastrium Patient tolerated procedure: well Intubation complications: other Coding Level of Care Code Acute Lead Enterprise Architect for Deb Carroll
--- NOTE | 2022-06-10 19:47 | PC.NURSE ---
intubation Pt intubated by Dr Doe. 20 of etomidate and 90 of janell used. Central line being placed by Dr Mcdonnell. Family is updated and present in the waiting room. Will continue to work on placement for higher level of care.
[2022-06-10] MEDS: propofol 1,000 MG/100 ML INJ 20 MG IV (20:15)
--- NOTE | 2022-06-10 20:24 | ANES.PROC ---
Anesthesia Procedures Procedure/Date: 06/10/22 Central Venous Insert: Time Out Performed: Yes Consent: requested by attending/covering physician, from patient, risks and benefits reviewed and patient agrees to proceed Central Line: New Anesthesia monitors: pulse oximetry, EKG, BP cuff and oxygen Vein cannulated: right internal jugular Ultrasound used: to identify patency to vessel and to visualize needle entry to vein Post procedure: Obtain Chest X-Ray Additional Comments: - Upon needle entry into right internal jugular, needle was aspirated, nonpulsatile dark red blood -Needle was removed over guidewire, guidewire confirmed placement into the right internal jugular -Tolerated procedure well, minimal bleeding
--- NOTE | 2022-06-10 20:35 | PM.CCNAC ---
Critical Care Event Note The high probability of a clinically significant, sudden or life threatening deterioration of the patient's [] system(s) required my full and direct attention, intervention and personal management. The critical care time is as shown. This time is in addition to time spent performing any reported procedures but includes the following: [x] Data and vital sign review and interpretation [x] Patient assessment, examination and intervention [x] Documentation [x] Medication orders and management Critical Care Time Code activated: No Critical Care Time (min): 60 Additional information about critical care time: Patient was seen this evening, family at bedside, patient is alert and oriented x2, follows commands he continues to have episodes of nonsustained V. tach heart rates as high as 260s, he is on lidocaine, amiodarone, discussion was made to protect his airway, place a central line, stabilize him so we can transport him for for electrophysiology evaluation at tertiary level center. I discussed the risks and benefits of intubation and central line placement, patient and family voiced understanding, all questions answered, agreed to proceed. Endotracheal tube was placed by emergency room physician. Central line was placed by me. Tolerated procedure well, currently he is normotensive, heart rate in the 70s, having episodes of wide-complex tachycardia intermittently, heart rates as high as 260s, currently on 100% FiO2 on mechanical ventilation, fentanyl propofol for sedation. Family at bedside, made aware, which are sent, Coding Level of Care Code Acute Delivery Supervisor for Deb Carroll
[2022-06-10 22:25] LABS: ABG PH Result 7.36 (7.35-7.45); Arterial Blood Gas Hematocrit 41.2 % (42-52); Base Excess ABG 0.6 mmol/L (-2.0-2.0); Blood Gas Operator Identificat JB; Blood Gas Sample Site Brachial, right; Blood Gas Sample Type Arterial; HCO3 ABG 26.8 mmol/L (22-26); Oxygen Device VENT
--- NOTE | 2022-06-10 23:17 | PC.NURSE ---
TR band removal-total of 11mL of air deflated, band removed, pressure dressing applied.
[2022-06-11] VITALS (33 sets, daily range): BP systolic 76–142; BP diastolic 44–93; PULSE 50–197; RESP 14; TEMP 36.6; O2SAT 95–100
[2022-06-11] MEDS: propofol 1,000 MG/100 ML INJ 20 MG IV (03:27)
--- NOTE | 2022-06-11 03:49 | PC.NURSE ---
Pt sustaining MAP <65, ordered Levophed gtt started, will titrate per protocol.
[2022-06-11 03:59] LABS: ABG PCO2 42.4 mmHg (35-45); ABG PH Result 7.39 (7.35-7.45); Base Excess ABG 0.1 mmol/L (-2.0-2.0); Blood Gas Allen Test Pos; Blood Gas Operator Identificat JB; Blood Gas Sample Site Brachial, right; Blood Gas Sample Type Arterial; HCO3 ABG 25.3 mmol/L (22-26); Oxygen Device VENT
[2022-06-11 04:25] LABS: Basophils % 0.2 %; Eosinophils # 0.3 10^3/uL (0.0-0.8); Eosinophils % 2.1 %; Hematocrit 39.9 % (42.0-52.0); Hemoglobin 12.7 g/dL (11.7-16.6); Lymphocytes # 1.5 10^3/uL (0.8-4.8); Lymphocytes % 12.6 %; Mean Corpuscular HGB Conc 31.8 g/dL (30.0-36.0); Mean Corpuscular Hemoglobin 29.6 pg (28.0-34.0); Mean Platelet Volume 9.3 fL (7.4-10.4); Monocytes % 8.5 %; Neutrophils # 9.06 10^3/uL (1.8-7.7); Neutrophils % 76.3 %; Nucleated Red Blood Cells % 0 %; Platelet Count 289 10^3/cmm (130-400); Red Blood Count 4.29 10^6/uL (4.1-5.3); Red Cell Distribution Width 14.7 % (12.1-15.1); White Blood Count 11.9 10^3/uL (4.0-10.0)
[2022-06-11] MEDS: chlorhexidine gluconate 4% Btl 118 mL 1 APPLIC TOPICAL (04:25)
--- NOTE | 2022-06-11 04:47 | PC.NURSE ---
Dr. Mcdonnell notified of continued arrhythmia, order received to continue running at 1mg/min.
[2022-06-11 04:55] LABS: Alanine Aminotransferase 20 U/L (0-41); Albumin Level 3.3 g/dL (3.5-5.2); Alkaline Phosphatase 70 IU/L (40-130); Anion Gap 11.9 (5-19); Aspartate Amino Transferase 19 U/L (0-40); Blood Urea Nitrogen 30 mg/dL (8-23); C Reactive Protein 4.2 mg/L (0.0-4.9); Calcium 8.1 mg/dL (8.5-10.5); Carbon Dioxide 26 mmol/L (22-29); Chloride 109 mmol/L (98-107); Globulin 2.1 g/dL (1.3-4.6); Glucose 122 mg/dL (65-115); Magnesium 2.2 mg/dL (1.7-2.3); Osmolality Calculated 301 mOsm/kg (285-295); Potassium 4.9 mmol/L (3.5-5.1); Sodium 142 mmol/L (136-145); Total Bilirubin 0.3 mg/dL (0.15-1.2); Total Protein 5.4 g/dL (6.6-8.7)
[2022-06-11] MEDS: lidocaine drip 2,000 MG/500 ML PREMIX 30 MG IV (05:47)
[2022-06-11] MEDS: sodium chloride 0.9% 1,000 ML 75 ML IV (05:48)
--- NOTE | 2022-06-11 08:29 | P.PN_ITS ---
Subjective Subjective: Patient is intubated. Has been having recurrent VT episodes. Awaiting transfer for EP study/ ICD placement Vitals/I&O/Wt Last Vital Signs Temp 98 F 06/11/22 07:53 Pulse 140 H 06/11/22 07:53 Resp 14 06/11/22 07:53 BP 118/59 06/11/22 07:53 Pulse Ox 97 06/11/22 07:53 O2 Del Method 06/11/22 07:53 FiO2 24 06/11/22 07:53 06/10/22 06/11/22 06/11/22 22:59 06:59 14:59 Intake Total 42.281 / 42.281 1013 / 1055.281 Output Total 900 / 900 Balance 42.281 / 42.281 113 / 155.281 Weight last 48 hrs Weight 165 lb Weight 165 lb Physical Exam Narrative: Patient was intubated and sedated HEART: Irregularly irregular LUNGS: Clear to auscultate bilaterally. [] ABDOMEN: Soft CENTRAL NERVOUS SYSTEM: Grossly nonfocal. [] EXTREMITIES: Lower extremities with 1+ edema bilaterally. Urinary Catheter Management: Brian: Cath Placed During This Visit: no Reason for Continuing Indwelling Catheter: Accurate Measurement of Urinary Output in Critically Ill Patients Data : 06/11/22 03:53 06/11/22 03:53 A&P Assessment and plan (1) Ventricular tachycardia: Status: Acute (2) Light headedness: Status: Acute (3) Frequent PVCs: Status: Acute Plan Patient has recurrent VT/VT storm. Patient was intubated. Awaiting transfer for EP evaluation Coronary angiogram did not show significant CAD. LV systolic function is severely reduced Continue amiodarone drip. Can add verapamil if continue to have VT Thank you for involving us with care of this patient. We will continue to follow. Please call with questions Attestations Medical Necessity Statement*: Care expected to cross 2 midnights. Coding Level of Care Code Acute Building Equipment Inspector for Deb Carroll Diagnoses Ventricular tachycardia I47.2 Light headedness R42 Frequent PVCs I49.3
[2022-06-11 09:32] LABS: Free T4 Free Thyroxine 1.14 ng/dL (0.82-1.77)
--- NOTE | 2022-06-11 09:47 | PC.NURSE ---
TO Sheri Report called to Fernanda Chowdhury RN at [facility] to Room 8 in their CICU. Pt's family is at bedside and are up to date on the transfer.
--- NOTE | 2022-06-11 11:06 | PC.NURSE ---
Transfer Pt transferred by [facility] to [facility]. Pt's sister and brother have been updated. [facility] called and notified of pt being in route.
--- NOTE | 2022-06-11 12:31 | PM.TDS ---
Transfer Summary Providers Date of Admission: 06/10/22 12:31 Date of Discharge/Transfer: 06/11/22 Attending Provider at Admission: Cheyenne Barclay MD Attending Provider at Transfer: Cheyenne Barclay MD Primary Care Provider: Donell Sanchez MD Transfer Plans: Anticipated date of transfer: 06/11/22. Diagnoses at Discharge Discharge Diagnosis (1) Ventricular tachycardia: Status: Acute (2) Light headedness: Status: Acute (3) Frequent PVCs: Status: Acute Reason for Visit Reason for Visit Abnormal EKG, Dr Sent Hospital Course Hospital Course 71-year male who presented to the hospital from PCP clinic for significant sinus pauses and bigeminy. However during his ER visit he was diagnosed with nonsustained V. tach wide QRS complexes, tachyarrhythmia, he carries history of left bundle branch block. No active chest pain, troponins were not significantly high. Decision was made to take him to the [employer] [employer] [facility], his coronary vessels were not showing significant stenosis, after his coronary angiogram he still remained in wide QRS tachyarrhythmia, he received amiodarone and later on lidocaine was started which was increased to up to 4. Potassium magnesium at goal. Because of incessant V. tach decision was made to intubate him and start propofol. Vasopressors were added to avoid hypotension during intubation. He was at 4 mics. I called [facility] which was at capacity. [facility] hockey scout Dr. Dia, excepted him in ICU, Family in agreement Patient was airlifted Reason for transfer: Patient will need EP study for consistent/incessant V. tach, will need ablation and AICD placement for the primary prevention We have sent cath & echo report, also sent DVD Family was updated from day 1 his brother Madi was in agreement. Physical Exam Narrative: Patient was intubated and sedated FiO2 24%, PEEP 5, on levo at 4, amiodarone, lidocaine at 4 Euvolemic 900 mL urine output Abdomen soft Assisted breath sounds Urinary Catheter Management: Brian: Cath Placed During This Visit: no Reason for Continuing Indwelling Catheter: Accurate Measurement of Urinary Output in Critically Ill Patients TS Data Studies Completed and Pending Pending at discharge Category Date Time Status Sputum Culture and Gram Stain Routine Lab 06/11/22 03:55 Received Labs from last 24 hours 06/11/22 06/11/22 06/11/22 03:53 03:53 03:53 WBC 11.9 H RBC 4.29 Hgb 12.7 Hct 39.9 L MCV 93.0 MCH 29.6 MCHC 31.8 RDW 14.7 Plt Count 289 MPV 9.3 Neut % (Auto) 76.3 Lymph % (Auto) 12.6 Trimble % (Auto) 8.5 Eos % (Auto) 2.1 Baso % (Auto) 0.2 Neut # (Auto) 9.06 H Lymph # (Auto) 1.5 Trimble # (Auto) 1.0 H Eos # (Auto) 0.3 Baso # (Auto) 0.0 Nucleated RBC % (auto) 0 Nucleated RBCs # 0.0 D-Dimer Specimen Type Sample Site ABG pH ABG pCO2 ABG pO2 ABG HCO3 ABG Base Excess Iain Test Hematocrit O2 Delivery Device FiO2 Tidal Volume PEEP Off Premise Service Representative ID Sodium 142 Potassium 4.9 Chloride 109 H Carbon Dioxide 26 Anion Gap 11.9 BUN 30 H Creatinine 1.6 H GFR Calculation Not Reportable Glucose 122 H Calculated Osmolality 301 H Calcium 8.1 L Magnesium 2.2 Total Bilirubin 0.3 AST 19 ALT 20 Alkaline Phosphatase 70 Troponin T 120 Minute Delta Troponin T C-Reactive Protein 4.2 NT-Pro-B Natriuret Pep Total Protein 5.4 L Albumin 3.3 L Globulin 2.1 TSH Free T4 1.14 06/11/22 06/10/22 06/10/22 03:47 22:11 13:45 WBC RBC Hgb Hct MCV MCH MCHC RDW Plt Count MPV Neut % (Auto) Lymph % (Auto) Trimble % (Auto) Eos % (Auto) Baso % (Auto) Neut # (Auto) Lymph # (Auto) Trimble # (Auto) Eos # (Auto) Baso # (Auto) Nucleated RBC % (auto) Nucleated RBCs # D-Dimer 0.51 Specimen Type Arterial Arterial Sample Site Brachial, right Brachial, right ABG pH 7.39 7.36 ABG pCO2 42.4 48.0 H ABG pO2 104.0 H 119.0 H ABG HCO3 25.3 26.8 H ABG Base Excess 0.1 0.6 Iain Test Pos N/a Hematocrit 40.0 L 41.2 L O2 Delivery Device Vent Vent FiO2 28.0 30.0 Tidal Volume 0.50 0.50 PEEP 5.0 5.0 Off Premise Service Representative ID Kike Kike Sodium Potassium Chloride Carbon Dioxide Anion Gap BUN Creatinine GFR Calculation Glucose Calculated Osmolality Calcium Magnesium Total Bilirubin AST ALT Alkaline Phosphatase Troponin T 120 Minute Delta Troponin T C-Reactive Protein NT-Pro-B Natriuret Pep Total Protein Albumin Globulin TSH Free T4 06/10/22 06/10/22 13:45 11:32 WBC RBC Hgb Hct MCV MCH MCHC RDW Plt Count MPV Neut % (Auto) Lymph % (Auto) Trimble % (Auto) Eos % (Auto) Baso % (Auto) Neut # (Auto) Lymph # (Auto) Trimble # (Auto) Eos # (Auto) Baso # (Auto) Nucleated RBC % (auto) Nucleated RBCs # D-Dimer Specimen Type Sample Site ABG pH ABG pCO2 ABG pO2 ABG HCO3 ABG Base Excess Iain Test Hematocrit O2 Delivery Device FiO2 Tidal Volume PEEP Off Premise Service Representative ID Sodium Potassium Chloride Carbon Dioxide Anion Gap BUN Creatinine GFR Calculation Glucose Calculated Osmolality Calcium Magnesium Total Bilirubin AST ALT Alkaline Phosphatase Troponin T 120 Minute 20.47 H Delta Troponin T -2.53 L C-Reactive Protein NT-Pro-B Natriuret Pep 433 H Total Protein Albumin Globulin TSH 5.48 H Free T4 Completed Studies During Hospitalization Category Date Time Status SERVICE NOW DEVELOPER request for service Routine Exams 06/10/22 16:50 Completed XR chest 1V portable [id number] Stat Exams 06/10/22 18:50 Completed CV. echo complete* [id number] Urgent Ultrasound 06/10/22 14:12 Completed Laboratory Last Values WBC 11.9 10^3/uL (4.0-10.0) H 06/11/22 03:53 RBC 4.29 10^6/uL (4.1-5.3) 06/11/22 03:53 Hgb 12.7 g/dL (11.7-16.6) 06/11/22 03:53 Hct 39.9 % (42.0-52.0) L 06/11/22 03:53 MCV 93.0 fl (80-94) 06/11/22 03:53 MCH 29.6 pg (28.0-34.0) 06/11/22 03:53 MCHC 31.8 g/dL (30.0-36.0) 06/11/22 03:53 RDW 14.7 % (12.1-15.1) 06/11/22 03:53 Plt Count 289 10^3/cmm (130-400) 06/11/22 03:53 MPV 9.3 fL (7.4-10.4) 06/11/22 03:53 Neut % (Auto) 76.3 % 06/11/22 03:53 Lymph % (Auto) 12.6 % 06/11/22 03:53 Trimble % (Auto) 8.5 % 06/11/22 03:53 Eos % (Auto) 2.1 % 06/11/22 03:53 Baso % (Auto) 0.2 % 06/11/22 03:53 Neut # (Auto) 9.06 10^3/uL (1.8-7.7) H 06/11/22 03:53 Lymph # (Auto) 1.5 10^3/uL (0.8-4.8) 06/11/22 03:53 Trimble # (Auto) 1.0 10^3/uL (0.2-0.9) H 06/11/22 03:53 Eos # (Auto) 0.3 10^3/uL (0.0-0.8) 06/11/22 03:53 Baso # (Auto) 0.0 10^3/uL (0.0-0.1) 06/11/22 03:53 Nucleated RBC % (auto) 0 % 06/11/22 03:53 Nucleated RBCs # 0.0 /100WBC 06/11/22 03:53 D-Dimer 0.51 ug/mIFEU (0-0.59) 06/10/22 13:45 Specimen Type Arterial 06/11/22 03:47 Sample Site Brachial, right 06/11/22 03:47 ABG pH 7.39 (7.35-7.45) 06/11/22 03:47 ABG pCO2 42.4 mmHg (35-45) 06/11/22 03:47 ABG pO2 104.0 mmHg (80.0-100.0) H 06/11/22 03:47 ABG HCO3 25.3 mmol/L (22-26) 06/11/22 03:47 ABG Base Excess 0.1 mmol/L (-2.0-2.0) 06/11/22 03:47 Iain Test Pos 06/11/22 03:47 Hematocrit 40.0 % (42-52) L 06/11/22 03:47 O2 Delivery Device Vent 06/11/22 03:47 FiO2 28.0 % 06/11/22 03:47 Tidal Volume 0.50 06/11/22 03:47 PEEP 5.0 cmH20 06/11/22 03:47 Off Premise Service Representative ID Kike 06/11/22 03:47 Sodium 142 mmol/L (136-145) 06/11/22 03:53 Potassium 4.9 mmol/L (3.5-5.1) 06/11/22 03:53 Chloride 109 mmol/L (98-107) H 06/11/22 03:53 Carbon Dioxide 26 mmol/L (22-29) 06/11/22 03:53 Anion Gap 11.9 (5-19) 06/11/22 03:53 BUN 30 mg/dL (8-23) H 06/11/22 03:53 Creatinine 1.6 mg/dL (0.7-1.2) H 06/11/22 03:53 GFR Calculation Not Reportable 06/11/22 03:53 Glucose 122 mg/dL (65-115) H 06/11/22 03:53 Calculated Osmolality 301 mOsm/kg (285-295) H 06/11/22 03:53 Calcium 8.1 mg/dL (8.5-10.5) L 06/11/22 03:53 Magnesium 2.2 mg/dL (1.7-2.3) 06/11/22 03:53 Total Bilirubin 0.3 mg/dL (0.15-1.2) 06/11/22 03:53 AST 19 U/L (0-40) 06/11/22 03:53 ALT 20 U/L (0-41) 06/11/22 03:53 Alkaline Phosphatase 70 IU/L (40-130) 06/11/22 03:53 Troponin T Baseline 23 ng/L (0-15) H 06/10/22 11:32 Troponin T 120 Minute 20.47 ng/L (0-15) H 06/10/22 13:45 Delta Troponin T -2.53 ABS# (0-10) L 06/10/22 13:45 C-Reactive Protein 4.2 mg/L (0.0-4.9) 06/11/22 03:53 NT-Pro-B Natriuret Pep 433 pg/mL (0-125) H 06/10/22 11:32 Total Protein 5.4 g/dL (6.6-8.7) L 06/11/22 03:53 Albumin 3.3 g/dL (3.5-5.2) L 06/11/22 03:53 Globulin 2.1 g/dL (1.3-4.6) 06/11/22 03:53 TSH 5.48 uIU/mL (0.27-4.20) H 06/10/22 11:32 Free T4 1.14 ng/dL (0.82-1.77) 06/11/22 03:53 Radiology Impressions Chest X-Ray 06/10/22 18:50 IMPRESSION: 1. Enteric tube tip extending below the diaphragm inferiorly off the field of view. 2. Endotracheal tube tip 4.2 cm above the daniel. 3. Right central venous catheter tip over the right atrium. 4. Cardiomegaly. 5. Bilateral hilar to lower lobe atelectasis versus infiltrate. Recent Clincial Data Last Vital Signs Temp 98 F 06/11/22 11:06 Pulse 140 H 06/11/22 11:06 Resp 14 06/11/22 11:06 BP 118/59 06/11/22 11:06 Pulse Ox 97 06/11/22 11:06 O2 Del Method 06/11/22 07:53 FiO2 24 06/11/22 07:53 Vital Signs Temp Pulse Resp BP Pulse Ox O2 Del Method FiO2 06/11/22 11:06 98 F 140 H 14 118/59 97 06/11/22 07:53 98 F 140 H 14 118/59 97 Mechanical Ventilation 24 06/11/22 07:53 24 06/11/22 07:32 14 97 24 06/11/22 06:30 161 H 118/59 06/11/22 06:15 168 H 121/70 99 06/11/22 06:00 143 H 115/61 100 06/11/22 05:45 114 H 109/58 99 06/11/22 05:30 110 H 118/78 99 06/11/22 05:15 140 H 128/81 100 06/11/22 05:00 172 H 124/74 99 06/11/22 04:45 152 H 127/93 100 06/11/22 04:30 144 H 142/81 99 06/11/22 04:15 143 H 106/66 100 06/11/22 05:47 14 98 24 06/11/22 04:00 101 H 80/46 100 06/11/22 03:45 50 L 76/44 99 06/11/22 03:30 52 L 86/51 06/11/22 03:15 52 L 104/54 06/11/22 03:00 132 H 104/54 100 06/11/22 02:45 147 H 89/55 95 06/11/22 02:30 150 H 84/52 06/11/22 03:42 14 98 28 06/11/22 02:15 135 H 83/51 06/11/22 02:00 136 H 108/58 06/11/22 01:45 93 89/52 06/11/22 01:30 135 H 110/51 06/11/22 01:15 160 H 101/67 06/11/22 01:00 150 H 97/63 06/11/22 00:45 122 H 98/55 06/11/22 00:53 14 98 28 06/11/22 06:00 178 H Intake & Output/Weight 06/09/22 06/10/22 06/11/22 06/12/22 06:59 06:59 06:59 06:59 Intake Total 1055.281 / 1055.281 62.5 / 62.5 Output Total 900 / 900 Balance 155.281 / 155.281 62.5 / 62.5 Weight 74.843 kg Vitals Last Vital Signs Temp 98 F 06/11/22 11:06 Pulse 140 H 06/11/22 11:06 Resp 14 06/11/22 11:06 BP 118/59 06/11/22 11:06 Pulse Ox 97 06/11/22 11:06 O2 Del Method 06/11/22 07:53 FiO2 24 06/11/22 07:53 TS Medications Medications Discontinued Medications Acetaminophen (Acetaminophen 500 Mg Tablet) 500 mg PO Q4H PRN PRN Reason: fever Albuterol/Ipratropium (Ipratropium-Albuterol 3 Ml Neb) 3 ml INHALATION Q6H PRN PRN Reason: SHORTNESS OF BREATH Amiodarone HCl (Amiodarone 50 Mg/Ml Sdv 3 Ml) 150 mg IVP ONCE ONE Stop: 06/10/22 12:21 Last Admin: 06/10/22 12:33 Dose: Not Given Chlorhexidine Gluconate (Chlorhexidine Gluconate 4% Btl 118 Ml) 1 applic TOPICAL 0100 MORENO Last Admin: 06/11/22 04:25 Dose: 1 applic Etomidate (Etomidate 2 Mg/Ml Inj) 20 mg IVP NOW ONE Stop: 06/10/22 18:51 Last Admin: 06/10/22 19:06 Dose: 20 mg Fentanyl (Fentanyl 50 Mcg/Ml Inj 2ml) Confirm Administered Dose 100 mcg .ROUTE .STK-MED ONE Stop: 06/10/22 16:55 Flumazenil (Flumazenil 0.1 Mg/Ml Sdv 5ml) 0.5 mg .ROUTE .STK-MED ONE Stop: 06/10/22 15:32 Heparin Sodium (Porcine) (Heparin 5,000 Unit/Ml Inj 1 Ml) Confirm Administered Dose 5,000 unit .ROUTE .STK-MED ONE Stop: 06/10/22 16:38 Heparin Sodium (Porcine) (Heparin 5,000 Unit/Ml Inj 1 Ml) Confirm Administered Dose 5,000 unit .ROUTE .STK-MED ONE Stop: 06/10/22 16:55 Sodium Chloride (Sodium Chloride 0.9%) 500 mls @ 500 mls/hr IV ONCE ONE Stop: 06/10/22 12:19 Last Admin: 06/10/22 11:37 Dose: 500 mls/hr Amiodarone HCl 150 mg/Dextrose/ IV Miscellaneous Supplies 103 mls @ 412 mls/hr IV ONCE ONE Stop: 06/10/22 12:35 Last Admin: 06/10/22 12:32 Dose: 412 mls/hr Amiodarone HCl 900 mg/Dextrose/ IV Miscellaneous Supplies 518 mls @ 0 mls/hr IV .Q0M MORENO; Protocol Last Admin: 06/11/22 04:57 Dose: 1 mg/min, 34.53 mls/hr Esmolol HCl (Brevibloc Drip) 2,500 mg in 250 mls @ 0 mls/hr IV .Q0M MORENO; Protocol Last Titration: 06/10/22 16:00 Dose: 0 mcg/kg/min, 0 mls/hr Sodium Chloride (Sodium Chloride 0.9%) 1,000 mls @ 75 mls/hr IV .[id number] MORENO Last Admin: 06/11/22 05:48 Dose: 75 mls/hr Lidocaine HCl/Dextrose (Lidocaine Drip) 2,000 mg in 500 mls @ 30 mls/hr IV .[id number] MORENO Last Admin: 06/11/22 05:47 Dose: 2 mg/min, 30 mls/hr Norepinephrine Bitartrate 4 mg (/ Dextrose) 254 mls @ 0 mls/hr IV .Q0M MORENO; Protocol Last Admin: 06/11/22 04:24 Dose: 4 mcg/min, 15.24 mls/hr Lidocaine HCl (Lidocaine 1%) Confirm Administered Dose 5 mls @ as directed .ROUTE .STK-MED ONE Stop: 06/10/22 16:43 Amiodarone HCl 150 mg/Dextrose/ IV Miscellaneous Supplies 103 mls @ 412 mls/hr IV ONCE ONE Stop: 06/10/22 18:32 Last Admin: 06/10/22 19:17 Dose: 412 mls/hr Propofol (Diprivan) 1,000 mg in 100 mls @ 0 mls/hr IV .Q0M MORENO; Protocol Last Admin: 06/11/22 03:27 Dose: 44.54 mcg/kg/min, 20 mls/hr Propofol (Diprivan) 1,000 mg in 100 mls @ IV MORENO; Protocol Fentanyl 1,000 mcg/ Sodium (Chloride) 100 mls @ 0 mls/hr IV .Q0M MORENO; Protocol Last Admin: 06/11/22 08:45 Dose: 50 mcg/hr, 5 mls/hr Midazolam HCl (Midazolam 1 Mg/Ml Inj 2 Ml) 2 mg IVP ONCE ONE Stop: 06/10/22 14:01 Last Admin: 06/10/22 14:01 Dose: 2 mg Midazolam HCl (Midazolam 1 Mg/Ml Inj 2 Ml) Confirm Administered Dose 2 mg .ROUTE .STK-MED ONE Stop: 06/10/22 14:00 Last Admin: 06/10/22 14:08 Dose: Not Given Midazolam HCl (Midazolam 1 Mg/Ml Inj 2 Ml) Confirm Administered Dose 2 mg .ROUTE .STK-MED ONE Stop: 06/10/22 16:55 Nitroglycerin (Nitroglycerin 5 Mg/Ml Sdv 10 Ml) Confirm Administered Dose 50 mg .ROUTE .STK-MED ONE Stop: 06/10/22 16:55 Potassium Chloride (Potassium Chloride Er 20 Meq Tablet) 40 meq PO ONCE ONE Stop: 06/10/22 13:04 Last Admin: 06/10/22 13:26 Dose: 40 meq Rocuronium [place] (Rocuronium 10 Mg/Ml Inj 5ml) 0 mg IV NOW ONE Stop: 06/10/22 18:51 Last Admin: 06/10/22 19:06 Dose: 50 mg Senna/Docusate Sodium (Sennosides-Docusate Tablet) 1 tab PO DAILY [facility] Last Admin: 06/11/22 08:56 Dose: Not Given Verapamil HCl (Verapamil 40 Mg Tablet) 40 mg PO TID [facility] Last Admin: 06/11/22 08:56 Dose: Not Given Verapamil HCl (Verapamil 2.5 Mg/Ml Inj 2ml) 5 mg IV Q6H PRN PRN Reason: VTACH>130 Allergies No Known Allergies Allergy (Verified 05/06/21 09:23) Home Medications albuterol sulfate 90 mcg/actuation aerosol inhaler (ProAir HFA) 1 - 2 puff inhalation Q4H PRN Shortness Of Breath 05/06/21 [History Confirmed 06/10/22] amlodipine 5 mg tablet 5 mg PO DAILY 05/06/21 [History Confirmed 06/10/22] ezetimibe 10 mg tablet 10 mg PO DAILY 05/06/21 [History Confirmed 06/10/22] lisinopril 20 mg-hydrochlorothiazide 12.5 mg tablet 2 tab PO QPM 05/06/21 [History Confirmed 06/10/22] simvastatin 40 mg tablet 40 mg PO DAILY 05/06/21 [History Confirmed 06/10/22] ibuprofen 600 mg tablet 600 mg PO TID PRN Pain 06/10/22 [History Confirmed 06/10/22] Discharge Plan Discharge Patient Disposition: Home Condition: Stable Prescriptions: No Action lisinopril-hydrochlorothiazide 20-12.5 mg tablet 2 tab PO QPM amlodipine 5 mg tablet 5 mg PO DAILY simvastatin 40 mg tablet 40 mg PO DAILY albuterol sulfate [ProAir HFA] 90 mcg/actuation Hfa Aerosol Inhaler 1 - 2 puff INHALATION Q4H PRN (Reason: Shortness Of Breath) ezetimibe 10 mg tablet 10 mg PO DAILY ibuprofen 600 mg tablet 600 mg PO TID PRN (Reason: Pain) Discharge Orders: Transfer Out of Facility (Order); Ordered 06/11/22 Ordered By: Cheyenne Barclay Referrals: Donell Sanchez MD [Primary Care Provider] - Patient Instructions: Opioid Safety Transfer Attestations Time Spent in Transfer Care: less than 30 min Quality Metrics Clinical Quality Measures [ No reported AMI, CVA or VTE this stay] Coding Level of Care Code Acute Hand Welt Butter for Chg Fwd Diagnoses Ventricular tachycardia I47.2 Light headedness R42 Frequent PVCs I49.3
== END 2022-06-11 11:08 | disposition short-term general hospital (02) | DRG 287 ==
LOC: ER 13:21 → ICU 13:47
PROVIDERS: Internal Medicine; Admitting Provider Internal Medicine; Emergency Provider Emergency Medicine; PCP Family Medicine; Visit Provider Internal Medicine
PROC: B2111ZZ Fluoroscopy of Multiple Coronary Arteries using Low Osmolar Contrast (ICD-10-PCS; principal; 2022-06-10 16:30)
DX: I47.2 Ventricular tachycardia (principal); I49.3 Ventricular premature depolarization; I10 Essential (primary) hypertension; E78.5 Hyperlipidemia, unspecified; R55 Syncope and collapse; I44.7 Left bundle-branch block, unspecified; Z86.16 Personal history of COVID-19; Z87.891 Personal history of nicotine dependence
CPT/HCPCS: 31500; 51702; 71045; 80048; 80053; 82803; 83735; 83880; 84439; 84443; 84484; 85025; 85378; 86140; 87070; 87205; 93005; 93306; 93454; 94002; 94003; 94799; 96360; 96365; 96366; 99152; 99153; 99291; C1751; C1769; C1887; C1894; J0282; J1644; J2001; J2250; J2704; J3010; J3490; J7030; J7040; J7060; Q9967

== ENCOUNTER → 2022-09-28 13:52 | Outpatient (BNVA) | payer MEDICARE, MEDICAID, SELFPAY | PROVIDERS: PCP Family Medicine; Visit Provider Internal Medicine | DX: I47.20 Ventricular tachycardia, unspecified (principal); E78.5 Hyperlipidemia, unspecified; I10 Essential (primary) hypertension; Z87.891 Personal history of nicotine dependence | CPT/HCPCS: 99214 ==

== ENCOUNTER 2023-01-04 13:45 | Outpatient (CLI) | payer MEDICARE, MEDICAID, SELFPAY ==
--- NOTE | 2023-01-04 14:02 | US_ITS ---
WS: [id number] RENAL ULTRASOUND URINARY BLADDER ULTRASOUND HISTORY: ACUTE KIDNEY INJURY COMPARISON: None available. TECHNIQUE: 2-D and color Doppler imaging of the kidney submitted. Right kidney: 9.2 cm x 5.0 cm x 5.1 cm. RIGHT kidney is in the pelvis. There is no kidney in the renal fossa. 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 Left kidney: 10.3 cm x 5.2 cm x 3.9 cm. Normal size kidney. Cortical cyst lower pole measures 1.7 x 2.3 x 1.9 cm. No solid mass or hydronephr osis. Aorta: Normal. Urinary Bladder: Nondistended bladder. US/US renal BI with PV bladder IMPRESSION: 1. RIGHT pelvic kidney. No hydronephrosis. 2. Normal size LEFT kidney with small renal cyst. No hydronephrosis.
== END 2023-01-04 13:46 | disposition home or self-care (01) ==
PROVIDERS: PCP Family Medicine; Visit Provider Family Medicine
DX: N17.9 Acute kidney failure, unspecified (principal); N28.1 Cyst of kidney, acquired
CPT/HCPCS: 76770; 76857

== ENCOUNTER → 2023-03-30 14:38 | Outpatient (BNVA) | payer MEDICARE, MEDICAID, SELFPAY | PROVIDERS: PCP Family Medicine; Visit Provider Internal Medicine | DX: I47.20 Ventricular tachycardia, unspecified (principal); E78.5 Hyperlipidemia, unspecified; I10 Essential (primary) hypertension; Z87.891 Personal history of nicotine dependence | CPT/HCPCS: 99214 ==

== ENCOUNTER 2023-10-12 12:22 | Emergency (ER) | payer MEDICARE, MEDICAID, SELFPAY ==
[2023-10-12 12:44] VITALS: BP 160/68; PULSE 50; RESP 18; TEMP 36.4; O2SAT 97; BMI 22.4
--- NOTE | 2023-10-12 12:57 | W.ED.DENTAL ---
HPI - Dental/Oral General: Chief complaint: Dental/Oral Stated complaint: lump on throat, Tooth pain Time Seen by Provider: 10/12/23 12:50 Source: patient Mode of arrival: ambulatory History of Present Illness: 73-year-old male presents emergency room with complaint of dental pain. Reports pain discomfort erosion at premolar tooth #20. He was seen last week at an outpatient clinic and started on amoxicillin. He is not getting better so he seen Dr. Sanchez yesterday was given Augmentin and hydrocodone. He comes in today still concerned because it is swollen. He has not been able to see a dentist at this point. No fever sweats chills no difficulty swallowing MD Complaint: tooth pain Onset (ago): week(s) (1) Duration: constant Severity: moderate Context: history of dental caries Associated symptoms: Denies ear or mastoid pain, fever(s), gum swelling, odynophagia, sore throat or tongue swelling Treatment prior to arrival: other (Hydrocodone/oral antibiotic) Review of Systems Const: Denies: fever(s) ENMT: Denies: odynophagia or ear or mastoid pain Card: Denies: chest pain Resp: Denies: dyspnea GI: Denies: abdominal pain : Denies: dysuria, urinary frequency or urinary urgency Musc: Denies: neck pain or back pain Skin/Breast: Denies: rash All/Imm: Denies: tongue swelling PFSH ED PFSH: Medical History Hyperlipidemia Hypertension Pneumonia due to COVID-19 virus UTI (urinary tract infection) Surgical History History of back surgery History of elbow surgery Family History Other CAD (coronary artery disease) Social History Smoking and tobacco/nicotine status: former use of tobacco/nicotine Alcohol intake: never Physical Exam Const: COMMON NORMALS: no acute distress GENERAL APPEARANCE: cooperative and comfortable ORIENTATION/CONSCIOUSNESS: Yes awake, Yes oriented to person, Yes oriented to place and Yes oriented to time HENMT: COMMON NORMALS: normocephalic, atraumatic and hearing grossly normal bilaterally HEAD & SCALP: normocephalic and atraumatic TEETH & GINGIVA IMAGES: 1. OTHER: Erosion of tooth #20 there is no active drainage no fluctuant mass that is amenable to incision and drainage. Resp: COMMON NORMALS: normal respiratory effort, No retractions, No use of accessory muscles and clear to auscultation bilaterally AUSCULTATION: clear to auscultation bilaterally Cardio: COMMON NORMALS: regular rate, regular rhythm and No murmurs present (Cardio) RATE: regular rate RHYTHM: regular rhythm Extremity: COMMON NORMALS: normal to inspection, capillary refill normal, no clubbing, cyanosis or edema, no calf tenderness and no pedal edema Neuro: SENSORIUM/ORIENTATION: Yes oriented to person, Yes oriented to place and Yes oriented to time Skin: COMMON NORMALS: no rashes or lesions noted GENERAL SKIN EXAM: no rashes or lesions noted Course Vital Signs: Vital signs: Vital Signs Temperature 97.6 F 10/12/23 12:44 Pulse Rate 50 L 10/12/23 12:44 Respiratory Rate 18 10/12/23 12:44 Blood Pressure 160/68 10/12/23 12:44 Pulse Oximetry 97 10/12/23 12:44 Oxygen Delivery Me thod Room Air 10/12/23 12:44 MDM - Dental/Oral Medical Decision Making Appropriate care at this point is really not much to add his pain is well-controlled he is on an appropriate antibiotic to switch to yesterday would not recommend changing follow-up with dentist for definitive care as soon as he is able Medical Records I reviewed the patient's medical records. No radiology studies performed this visit Discharge Plan Discharge Patient Disposition: Home Clinical Impression: Dental abscess Condition: Stable Prescriptions: No Action spironolactone 25 mg tablet 25 mg PO DAILY Eliquis 5 mg tablet 5 mg PO BID carvedilol 3.125 mg tablet 6.25 mg PO BID Rx Instructions: must administer with a meal/food levothyroxine 75 mcg capsule 75 mcg PO DAILY carvedilol [Coreg] 12.5 mg tablet 12.5 mg PO BID Qty: 180 3RF Rx Instructions: must administer with a meal/food simvastatin 40 mg tablet 40 mg PO DAILY albuterol sulfate [ProAir HFA] 90 mcg/actuation Hfa Aerosol Inhaler 1 - 2 puff INHALATION Q4H PRN (Reason: Shortness Of Breath) Discharge Orders: Discharge ED (Routine); Ordered 10/12/23 Ordered By: Bethel Diaz Referrals: Donell Sanchez MD [Primary Care Provider] - Discharge Diet: Soft Mechanical Discharge Activity: Resume usual activity Patient Instructions: Opioid Safety, Pain Management Activity Restrictions/Additional Instructions: Thank you for choosing [facility] for your healthcare needs today. Please realize this is an emergency room and that we are providing you with a medical screening exam and this may not be complete and all inclusive of all the testing and or work up that you may need to determine your ailment or severity of your illness. It is very important that you follow up as instructed or that you return to the Emergency Department should you have concerns or if your condition changes or worsens in any way. You are seen today for dental abscess. Recommend that you continue the medications given to you yesterday by Dr. Sanchez pain medication you can supplement with ibuprofen or Aleve and also continue the antibiotics. Also recommend that you see a dentist as soon as you are able for definitive care Coding Level of Care Code ED Parts Inspector for Deb Carroll
== END 2023-10-12 13:08 | disposition home or self-care (01) ==
PROVIDERS: Emergency Provider Family Medicine; PCP Family Medicine
DX: K04.7 Periapical abscess without sinus (principal); Z79.01 Long term (current) use of anticoagulants; E78.5 Hyperlipidemia, unspecified; I10 Essential (primary) hypertension; Z87.891 Personal history of nicotine dependence
CPT/HCPCS: 99282

== ENCOUNTER → 2023-11-29 12:24 | Outpatient (BNVA) | payer MEDICARE, MEDICAID, SELFPAY | PROVIDERS: PCP Family Medicine; Visit Provider Internal Medicine | DX: I47.20 Ventricular tachycardia, unspecified (principal); E78.5 Hyperlipidemia, unspecified; I10 Essential (primary) hypertension; Z87.891 Personal history of nicotine dependence | CPT/HCPCS: 99214 ==

== ENCOUNTER → 2024-05-29 12:57 | Outpatient (BNVA) | payer MEDICARE, MEDICAID, SELFPAY | PROVIDERS: PCP Family Medicine; Visit Provider Internal Medicine | DX: I48.91 Unspecified atrial fibrillation (principal); E78.5 Hyperlipidemia, unspecified; I10 Essential (primary) hypertension; I47.20 Ventricular tachycardia, unspecified; Z87.891 Personal history of nicotine dependence; Z79.01 Long term (current) use of anticoagulants | CPT/HCPCS: 99214 ==

== ENCOUNTER 2024-06-04 06:32 | Inpatient (IN) | payer MEDICARE, MEDICAID, SELFPAY ==
[2024-06-04] VITALS (110 sets, daily range): BP systolic 101–134; BP diastolic 58–87; PULSE 63–139; RESP 14–27; TEMP 36.6–36.9; O2SAT 90–100; BMI 23.0; BMI 23.2
--- NOTE | 2024-06-04 06:35 | XRR_ITS ---
PROCEDURE INFORMATION: Exam: XR Chest Exam date and time: 06/04/2024 6:40 AM Age: 73 years old Clinical indication: Device placement; Other: Et and ng placement; Additional info: Resp distress/intubation TECHNIQUE: Imaging protocol: Radiologic exam of the chest. Views: 1 view. COMPARISON: CR XR chest 2V* [id number] 09/20/2023 12:16 PM FINDINGS: Tubes, catheters and devices: Endotracheal tube is present with its tip 4.7 cm above the daniel. Nasogastric tube is present with its tip overlying the body of the stomach. Lungs: Unremarkable. No consolidation. Pleural spaces: Unremarkable. No pleural effusion. No pneumothorax. Heart/Mediastinum: The heart is borderline enlarged. Bones/joints: Unremarkable. XR/XR chest 1V portable [id number] IMPRESSION: 1. Borderline cardiomegaly. 2. Lines and tubes as above.
[2024-06-04] MEDS: vecuronium 10 mg SDV IVP (06:36)
[2024-06-04] MEDS: etomidate 2 mg/mL INJ SDV 10 mL 20 MG IVP (06:36)
--- NOTE | 2024-06-04 06:40 | ECG_ITS ---
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 Measurements Intervals Mica Rate: 141 P: 0 MO: 0 QRS: -30 QRSD: 151 T: 176 QT: 327 QTc: 502 Interpretive Statements ATRIAL FIBRILLATION WITH RAPID VENTRICULAR RESPONSE LEFT BUNDLE BRANCH BLOCK [120+ ms QRS DURATION, 80+ ms Q/S IN V1/V2, 85+ ms R IN I/aVL/V5/V6] Compared to ECG 06/10/2022 12:27:47 Sinus rhythm no longer present Ventricular premature complex(es) no longer present Electronically Signed On 06-05-2024 14:06:21 CDT by Amandeep Seo M.D. [email or web address]
--- NOTE | 2024-06-04 06:42 | ED_ITS ---
HPI - General Adult 2 General: Chief complaint: Seizure Stated complaint: resp distress, possible seizure Time Seen by Provider: 06/04/24 06:41 History of Present Illness: 73-year-old male brought in by EMS for p ossible seizure they were called out for an unresponsive person on arrival he was found to be in A-fib with RVR unresponsive and in respiratory distress. Nasal trumpet was applied on arrival in the emergency room he was receiving ventilatory support with [id number]. He was emergently intubated by RSI. EKG shows A-fib with RVR. History in the old chart reviewed. Patient was hospitalized a year ago with A-fib with RVR and had intermittent episodes of sustained V. tach he had a coronary angiogram which did not show any critical disease and he ultimately transferred to [place] because of the sustained arrhythmia to see electrophysiology. According to follow-up cardiology note ICD was not placed. Echocardiogram done at that time showed an ejection fraction of 30 to 35%. He does not have a pacer/ICD noted on the chest x-ray today. Patient is nonverbal not able to contribute any history no family available. EMS reports that he was at home seem to have been working on a dryer flashlight was still on the dryer was partially disassembled. There is a 6-year-old in the home that he was taking care of the police are with a 6-year-old male. 6-year-old is not able to contribute any history. Review of Systems 2 General: Reports: ROS unobtainable due to endotracheal tube and ROS unobtainable due to medical condition [facility]: Medical History (Updated 06/04/24 @ 16:39 by Bethel Diaz DO) Single pelvic kidney UTI (urinary tract infection) Nonischemic cardiomyopathy Atrial fibrillation Pneumonia due to COVID-19 virus Hyperlipidemia Hypertension Surgical History History of elbow surgery History of back surgery Family History Other CAD (coronary artery disease) Social History Smoking and tobacco/nicotine status: former use of tobacco/nicotine Alcohol intake: never Physical Exam 2 HENMT: COMMON NORMALS: normocephalic, atraumatic and hearing grossly normal bilaterally HEAD & SCALP: normocephalic and atraumatic Resp: COMMON NORMALS: clear to auscultation bilaterally EFFORT & INSPECTION: Yes abnormal respiratory pattern, Yes decreased respiratory effort and Yes other (Ventilation assisted by [id number] initially on arrival) A USCULTATION: clear to auscultation bilaterally Cardio: COMMON NORMALS: regular rate and No murmurs present (Cardio) RATE: regular rate and tachycardic RHYTHM: abnormal rhythm irregularly irregular GI: COMMON NORMALS: Soft to palpation and No hepatosplenomegaly present A USCULTATION: Yes normoactive bowel sounds PALPATION: Yes Soft to palpation, No Tenderness to palpation present (GI), No Guarding due to palpation present (GI) and Yes No hepatosplenomegaly present Extremity: COMMON NORMALS: normal to inspection, capillary refill normal, no clubbing, cyanosis or edema, no calf tenderness and no pedal edema Skin: COMMON NORMALS: no rashes or lesions noted GENERAL SKIN EXAM: no rashes or lesions noted Procedures Intubation sedative: Etomidate Mg Given: 20 paralytic: Vecuronium Mg Given: 10 Laryngoscope: fiber optic video scope ET Tube Size: 8.5 ET Tube Uncuffed: No Tube Secured Depth (cm): 25 Tube Secured Location: teeth Tube Placement Confirmation: visualized tube passing through cords, equal breath sounds bilaterally, no breath sounds over epigastrium and confirmation by capnometry Patient Tolerated Procedure: well Intubation Complications: none Additional Comments: Large amount of mucus present obscuring the airway on initial placement of the laryngoscope this was cleared by suctioning and patient intubated without difficulty Course 2 Vital Signs: Vital signs: Vital Signs Temperature 98.4 F 06/04/24 14:00 Pulse Rate 77 06/04/24 14:00 Respiratory Rate 18 06/04/24 15:00 Blood Pressure 105/67 06/04/24 14:00 Pulse Oximetry 96 06/04/24 15:00 Oxygen Delivery Me thod Mechanical Ventil ation 06/04/24 14:00 Fraction of Inspir ed Oxygen 30 06/04/24 15:00 MDM - General Adult Medical Decision Making Family member did arrive but was not on the scene where this happened only this 6-year-old grandchild was present and he had called for help. Patient is known history of cardiomyopathy with severely depressed EF. His lactate is markedly elevated as is his white count. The report was he had a seizure. Question whether or not he may have been in A-fib and not because decreased brain perfusion which may have mimicked a seizure. He is acidotic has a large anion gap with leukocytosis and lactic acidosis. We are controlling his rate. I did not give him the sepsis fluid bolus because of his cardiomyopathy the fluid bolus is calculated to be over 2000 mL this would cause severe congestive heart failure and significantly harm the patient. At this point will trend his lactates I think this may improve as his perfusion improves with control of his A-fib. It is possible he had a seizure although he has no known seizure history. We have cultured him and started antibiotics as well will admit to ICU. Troponins trended positive see labs Medical Records I reviewed the patient's medical records. Lab Data I reviewed the patient's lab results. 06/04/24 06:53 06/04/24 10:01 Radiology Impressions Chest X-Ray 06/04/24 06:35 IMPRESSION: 1. Borderline cardiomegaly. 2. Lines and tubes as above. Cervical Spine CT 06/04/24 06:42 IMPRESSION: 1. Spondylosis. Head CT 06/04/24 06:42 IMPRESSION: 1. Small-vessel ischemic change. No definite acute findings appreciated. Abdomen/Pelvis CT 06/04/24 08:16 IMPRESSION: 1. Bibasilar airspace disease with trace pleural effusions worse on the right than the left. Findings likely represent a combination of atelectasis and pneumonia. 2. Right-sided pelvic kidney. 3. Nephrolithiasis on the left. 4. Mild wall thickening involving the ascending colon and transverse colon possibly representing a mild colitis. COMMENTS: Consistent with the [employer]'s Incidental Findings Committee white paper (J Am Ramonita Radiol 2018): Any incidental renal lesion less than 1 cm or classified as too small to characterize, or any incidental cystic renal lesion characterized as simple-appearing, is likely benign. No follow-up imaging is recommended for these lesions per consensus recommendations based on imaging criteria. Laboratory Results WBC 23.67 10^3/uL (3.29-11.43) H 06/04/24 06:53 RBC 5.35 10^6/uL (3.85-5.65) 06/04/24 06:53 Hgb 15.70 g/dL (11.27-16.99) 06/04/24 06:53 Hct 50.6 % (37-53) 06/04/24 06:53 MCV 94.6 fl (82-101) 06/04/24 06:53 MCH 29.3 pg (27-33) 06/04/24 06:53 MCHC 31.0 g/dL (30-55) 06/04/24 06:53 RDW 13.6 % (12.1-15.1) 06/04/24 06:53 Plt Count 369 10^3/cmm (157-399) 06/04/24 06:53 MPV 9.3 fL (7.4-10.4) 06/04/24 06:53 Neut % (Auto) 74.4 % 06/04/24 06:53 Lymph % (Auto) 17.2 % 06/04/24 06:53 [place] % (Auto) 4.9 % 06/04/24 06:53 Eos % (Auto) 2.6 % 06/04/24 06:53 Baso % (Auto) 0.4 % 06/04/24 06:53 Neut # (Auto) 17.61 10^3/uL (1.8-7.7) H 06/04/24 06:53 Lymph # (Auto) 4.1 10^3/uL (0.8-4.8) 06/04/24 06:53 [place] # (Auto) 1.2 10^3/uL (0.2-0.9) H 06/04/24 06:53 Eos # (Auto) 0.6 10^3/uL (0.0-0.8) 06/04/24 06:53 Baso # (Auto) 0.1 10^3/uL (0.0-0.1) 06/04/24 06:53 Nucleated RBC % (auto) 0 % 06/04/24 06:53 Nucleated RBCs # 0.0 /100WBC 06/04/24 06:53 Specimen Type Arterial 06/04/24 07:49 Sample Site Radial, right 06/04/24 07:49 ABG pH 7.25 (7.35-7.45) L 06/04/24 07:49 ABG pCO2 51.4 mmHg (35-45) H 06/04/24 07:49 ABG pO2 97.5 mmHg (80.0-100.0) 06/04/24 07:49 ABG PO2/FiO2 Ratio 121 06/04/24 07:49 ABG HCO3 22.3 mmol/L (22-26) 06/04/24 07:49 ABG O2 Saturation 96.4 06/04/24 07:49 ABG Base Excess -5.6 mmol/L (-2.0-2.0) L 06/04/24 07:49 Iain Test Pos 06/04/24 07:49 A-a O2 Gradient 53.3 mmHg (5-10) H 06/04/24 07:49 Hematocrit 50.0 % (42-52) 06/04/24 07:49 Hgb O2 Saturation 95.0 % (95-100) 06/04/24 07:49 Carboxyhemoglobin 0.3 %THgb (0.4-20.1) L 06/04/24 07:49 Methemoglobin 1.1 % (0.4-1.5) 06/04/24 07:49 Total Hemoglobin 16.3 g/dL (14-18) 06/04/24 07:49 Sodium 142.0 mmol/L (131-143) 06/04/24 07:49 Potassium 4.4 mmol/L (3.5-5.0) 06/04/24 07:49 Glucose 173.0 mg/dL (70-115) H 06/04/24 07:49 Ionized Calcium 1.3 mmol/L (1.1-1.4) 06/04/24 07:49 O2 Delivery Device Vent 06/04/24 07:49 FiO2 80.0 % 06/04/24 07:49 Tidal Volume 0.54 06/04/24 07:49 PEEP 6.0 cmH20 06/04/24 07:49 Director Of Broadcast ID [id number] 06/04/24 07:49 Sodium 139 mmol/L (136-145) 06/04/24 06:53 Potassium 4.4 mmol/L (3.5-5.1) 06/04/24 06:53 Chloride 98 mmol/L (98-107) 06/04/24 06:53 Carbon Dioxide 18 mmol/L (22-29) L 06/04/24 06:53 Anion Gap 27.4 (5-19) H 06/04/24 06:53 BUN 24 mg/dL (8-23) H 06/04/24 06:53 Creatinine 1.6 mg/dL (0.7-1.2) H 06/04/24 06:53 GFR Calculation Not Reportable 06/04/24 06:53 Glucose 217 mg/dL (65-115) H 06/04/24 06:53 Calculated Osmolality 299 mOsm/kg (285-295) H 06/04/24 06:53 Lactic Acid 12.8 mmol/L (0.5-2.2) H* 06/04/24 06:53 Calcium 9.6 mg/dL (8.5-10.5) 06/04/24 06:53 Magnesium 2.6 mg/dL (1.7-2.3) H 06/04/24 06:53 Total Bilirubin 0.2 mg/dL (0.15-1.2) 06/04/24 06:53 AST 24 U/L (0-40) 06/04/24 06:53 ALT 15 U/L (0-41) 06/04/24 06:53 Alkaline Phosphatase 85 U/L (40-130) 06/04/24 06:53 Ammonia Cancelled 06/04/24 06:53 Creatine Kinase 87 U/L (39-308) 06/04/24 06:53 Troponin T Baseline 25 ng/L (0-15) H 06/04/24 06:53 Total Protein 7.5 g/dL (6.6-8.7) 06/04/24 06:53 Albumin 4.4 g/dL (3.5-5.2) 06/04/24 06:53 Globulin 3.1 g/dL (1.3-4.6) 06/04/24 06:53 Lipase 61 U/L (13-60) H 06/04/24 06:53 Urine Color Yellow (Yellow) 06/04/24 07:34 Urine Appearance Cloudy (CLEAR) A 06/04/24 07:34 Urine pH 5.0 (5-7) 06/04/24 07:34 Ur Specific Jal 1.027 (1.005-1.030) 06/04/24 07:34 Urine Protein 3+ (Negative) A 06/04/24 07:34 Urine Glucose (UA) Trace (Normal) H 06/04/24 07:34 Urine Ketones Negative (Negative) 06/04/24 07:34 Urine Blood 2+ (Negative) A 06/04/24 07:34 Urine Nitrate Negative (Negative) 06/04/24 07:34 Urine Bilirubin Negative (Negative) 06/04/24 07:34 Urine Urobilinogen 1.0 mg/dL (Negative) 06/04/24 07:34 Ur Leukocyte Esterase Negative (Negative) 06/04/24 07:34 Urine RBC 0-2 /hpf (0-2) 06/04/24 07:34 Urine WBC 11-20 /hpf (0-5) H 06/04/24 07:34 Ur Squamous Epith Cells 6-10 /hpf (0-5) 06/04/24 07:34 Amorphous Sediment Not Reportable 06/04/24 07:34 Urine Bacteria Trace /hpf (NONE) 06/04/24 07:34 Hyaline Casts 246.61 /lpf 06/04/24 07:34 Coarse Granular Casts 5-10 /lpf H 06/04/24 07:34 Salicylates < 0.3 mg/dL (3-10) L 06/04/24 06:53 Urine Opiates Screen Negative ng/mL (Negative) 06/04/24 07:34 Acetaminophen < 5.0 ug/mL (10-30) L 06/04/24 06:53 Ur Barbiturates Screen Negative ng/mL (Negative) 06/04/24 07:34 Ur Phencyclidine Scrn Negative ng/mL (Negative) 06/04/24 07:34 Ur Amphetamines Screen Positive ng/mL (Negative) H 06/04/24 07:34 U Benzodiazepines Scrn Positive ng/mL (Negative) H 06/04/24 07:34 Urine Cocaine Screen Negative ng/mL (Negative) 06/04/24 07:34 U Marijuana (THC) Screen Negative ng/mL (Negative) 06/04/24 07:34 Ethyl Alcohol < 10 mg/dL (0-10) 06/04/24 06:53 Coronavirus 229E (PCR) Not detected (NOT DETECT) 06/04/24 07:34 SARS-CoV-2 (PCR) Not detected (NOT DETECT) 08/04/24 07:34 All radiology interpretation(s) finalized by discharge Critical Care Time 2 Critical Care Time: Critical Care Time: Yes Total Critical Care Time: 40 Attestation: The high probability of a clinically significant, sudden or life threatening deterioration of the patient's cardiovascular respiratory system(s) required my full and direct attention, intervention and personal management. The critical care time is as shown. This time is in addition to time spent performing any reported procedures but includes the following: [x] Data and vital sign review and interpretation [x] Patient assessment, examination and intervention [x] Documentation [x] Medication orders and management Discharge Plan Discharge Patient Disposition: Admitted As Inpatient Admit Provider: Barry Mcneal Clinical Impression: Nonischemic cardiomyopathy, NSTEMI (non-ST elevated myocardial infarction), Aspiration pneumonia, UTI (urinary tract infection), Paroxysmal atrial fibrillation with RVR Condition: Stable Coding Level of Care Code ED Human Capital Analyst for Deb Carroll
--- NOTE | 2024-06-04 06:42 | CTR_ITS ---
PROCEDURE INFORMATION: Exam: CT Head Without Contrast Exam date and time: 06/04/2024 7:39 AM Age: 73 years old Clinical indication: Injury or trauma; Fall; Blunt trauma (contusions or hematomas); Patient HX: Brought in by [facility] EMS with complaint of seizure like activity followed by unresponsiveness. PT. Found on ground at home with 6 year old in the home. ; Additional info: Fall closed head trauma TECHNIQUE: Imaging protocol: Computed tomography of the head without contrast. Radiation optimization: All CT scans at this facility use at least one of these dose optimization techniques: automated exposure control; mA and/or kV adjustment per patient size (includes targeted exams where dose is matched to clinical indication); or iterative reconstruction. COMPARISON: CT head wo con* [id number] 05/06/2021 12:19 AM RADIATION DOSE METRICS: Total DLP (mGy-cm): 1110.8 FINDINGS: Brain: There are small-vessel ischemic change within the periventricular white matter. There is no evidence of an acute stroke or hemorrhage. Cerebral ventricles: No ventriculomegaly. Paranasal sinuses: There is mucosal thickening involving the paranasal sinuses. Mastoid air cells: Visualized mastoid air cells are well aerated. Bones: Unremarkable. No acute fracture. Soft tissues: Unremarkable. CT/CT head wo con* [id number] IMPRESSION: 1. Small-vessel ischemic change. No definite acute findings appreciated.
--- NOTE | 2024-06-04 06:42 | CTR_ITS ---
PROCEDURE INFORMATION: Exam: CT Cervical Spine Without Contrast Exam date and time: 06/04/2024 7:39 AM Age: 73 years old Clinical indication: Injury or trauma; Fall; Blunt trauma; Patient HX: Brought in by [facility] EMS with complaint of seizure like activity followed by unresponsiveness. PT. Found on ground at home with 6 year old in the home. TECHNIQUE: Imaging protocol: Computed tomography of the cervical spine without contrast. Radiation optimization: All CT scans at this facility use at least one of these dose optimization techniques: automated exposure control; mA and/or kV adjustment per patient size (includes targeted exams where dose is matched to clinical indication); or iterative reconstruction. COMPARISON: CT head wo con* [id number] 06/04/2024 7:39 AM RADIATION DOSE METRICS: Total DLP (mGy-cm): 613.5 FINDINGS: Bones: Examination of the reformatted images demonstrates normal alignment of the cervical vertebral column. No subluxations are identified. No fractures are noted. No blastic or lytic bony lesions are identified. There is disc space narrowing with osteophyte formation at C3-C4, C4-C5, C5-C6 and C6-C7. There are degenerative changes involving the facets at multiple levels. Examination of the axial images demonstrates no fractures to be present. There are partially imaged endotracheal tube and nasogastric tubes. Lungs: Lung apices are normal. Soft tissues: Unremarkable. CT/CT cervical spin wo con* [id number] IMPRESSION: 1. Spondylosis.
[2024-06-04 07:00] LABS: Basophils # 0.1 10^3/uL (0.0-0.1); Basophils % 0.4 %; Eosinophils # 0.6 10^3/uL (0.0-0.8); Eosinophils % 2.6 %; Hematocrit 50.6 % (37-53); Lymphocytes # 4.1 10^3/uL (0.8-4.8); Lymphocytes % 17.2 %; Mean Corpuscular Hemoglobin 29.3 pg (27-33); Mean Corpuscular Volume 94.6 fl (82-101); Mean Platelet Volume 9.3 fL (7.4-10.4); Monocytes # 1.2 10^3/uL (0.2-0.9); Monocytes % 4.9 %; Neutrophils # 17.61 10^3/uL (1.8-7.7); Neutrophils % 74.4 %; Nucleated Red Blood Cells % 0 %; Platelet Count 369 10^3/cmm (157-399); Red Blood Count 5.35 10^6/uL (3.85-5.65); Red Cell Distribution Width 13.6 % (12.1-15.1); White Blood Count 23.67 10^3/uL (3.29-11.43)
[2024-06-04 07:00] LABS: ABG PCO2 64.3 mmHg (35-45); ABG PH Result 7.02 (7.35-7.45); Alveolar-Arterial Oxygen Gradi 51.8 mmHg (5-10); Arterial Blood Gas Hematocrit 49.5 % (42-52); Base Excess ABG -15.2 mmol/L (-2.0-2.0); Blood Gas Allen Test Pos; Blood Gas Sample Site Radial, right; Blood Gas Sample Type Arterial; Carboxyhemoglobin 0.5 %THgb (0.4-20.1); HCO3 ABG 16.7 mmol/L (22-26); HGB O2 Sat 98.4 % (95-100); Ionized Calcium Level - ABG 1.3 mmol/L (1.1-1.4); Methemoglobin 0.3 % (0.4-1.5); Oxygen Device VENT; Oxygen Saturation ABG 99.2; PO2 FiO2 Ratio Arterial Blood 235; Potassium Level - ABG 4.4 mmol/L (3.5-5.0); Total Hemoglobin 16.2 g/dL (14-18)
[2024-06-04] MEDS: midazolam hcl 100 MG/100 ML BAG IV (07:00)
[2024-06-04] MEDS: fentaNYL 1,000 MCG/100 ML BAG 5 MCG IV (07:01)
[2024-06-04 07:20] LABS: Troponin(5th) Baseline 25 ng/L (0-15)
[2024-06-04 07:21] LABS: Alanine Aminotransferase 15 U/L (0-41); Albumin Level 4.4 g/dL (3.5-5.2); Alkaline Phosphatase 85 U/L (40-130); Blood Urea Nitrogen 24 mg/dL (8-23); Calcium 9.6 mg/dL (8.5-10.5); Carbon Dioxide 18 mmol/L (22-29); Chloride 98 mmol/L (98-107); Creatine Phosphokinase 87 U/L (39-308); Globulin 3.1 g/dL (1.3-4.6); Glucose 217 mg/dL (65-115); Lipase 61 U/L (13-60); Magnesium 2.6 mg/dL (1.7-2.3); Osmolality Calculated 299 mOsm/kg (285-295); Sodium 139 mmol/L (136-145); Total Bilirubin 0.2 mg/dL (0.15-1.2); Total Protein 7.5 g/dL (6.6-8.7)
[2024-06-04 07:25] LABS: Acetaminophen < 5.0 ug/mL (10-30); Alcohol Level < 10 mg/dL (0-10); Creatinine Clr Calc Pharmacy 45.0182; Salicylate < 0.3 mg/dL (3-10)
[2024-06-04] MEDS: dilTIAZem 5 mg/mL SDV 5 mL 20 MG IVP (07:25)
[2024-06-04 07:26] LABS: Anion Gap 27.4 (5-19); Aspartate Amino Transferase 24 U/L (0-40); Potassium 4.4 mmol/L (3.5-5.1)
[2024-06-04] MEDS: dilTIAZem 100 MG in sodium chloride 0.9% (add-van) 100 ML IV (07:26)
[2024-06-04 07:27] LABS: Lactic Sepsis W/Reflex 12.8 mmol/L (0.5-2.2)
--- NOTE | 2024-06-04 07:42 | PC.NURSE ---
PER EMS PT WAS FOUND DOWN BY A 6 YEAR OLD IN THE HOME. EMS STATES CHILD FOUND A NEIGHBOR WHO CALLED 911. EMS REPORTS POSSIBLE SEIZURE. PT DOES NOT HAVE A KNOWN SEIZURE HX AT THIS TIME. PT INTUBATED WHEN THIS NURSE TOOK OVER CARE, UNABLE TO ASSESS NEUROLOGICAL STATUS. PT HAS HX OF AFIB AND IS ON BLOOD THINNERS. PT HAS NO OBVIOUS TRAUMA FROM FALLING OR SEIZURE.
[2024-06-04 08:00] LABS: Charge for UA Resulting for Rev
[2024-06-04 08:01] LABS: ABG PCO2 51.4 mmHg (35-45); ABG PH Result 7.25 (7.35-7.45); Alveolar-Arterial Oxygen Gradi 53.3 mmHg (5-10); Base Excess ABG -5.6 mmol/L (-2.0-2.0); Blood Gas Allen Test Pos; Blood Gas Operator Identificat WQPCI; Blood Gas Sample Site Radial, right; Blood Gas Sample Type Arterial; Blood Gas Tidal Volume 0.54; Carboxyhemoglobin 0.3 %THgb (0.4-20.1); HCO3 ABG 22.3 mmol/L (22-26); Ionized Calcium Level - ABG 1.3 mmol/L (1.1-1.4); Methemoglobin 1.1 % (0.4-1.5); Oxygen Device VENT; Oxygen Saturation ABG 96.4; PO2 ABG 97.5 mmHg (80.0-100.0); PO2 FiO2 Ratio Arterial Blood 121; Potassium Level - ABG 4.4 mmol/L (3.5-5.0); Total Hemoglobin 16.3 g/dL (14-18)
[2024-06-04 08:12] LABS: Amphetamines Screen Urine Positive (Negative); Barbiturates Screen Urine Negative (Negative); Benzodiazepines Screen Urine Positive (Negative); Cocaine Screen Urine Negative (Negative); Opiate Screen Urine Negative (Negative); PCP Screen Urine Negative (Negative); THC Screen Urine Negative (Negative)
--- NOTE | 2024-06-04 08:12 | PC.NURSE ---
ABX LATE DUE TO DELAY IN LAB DRAWING BLOOD CULTURES.
--- NOTE | 2024-06-04 08:16 | CTR_ITS ---
PROCEDURE INFORMATION: Exam: CT Abdomen And Pelvis Without Contrast Exam date and time: 06/04/2024 9:30 AM Age: 73 years old Clinical indication: Abdominal pain TECHNIQUE: Imaging protocol: Computed tomography of the abdomen and pelvis without contrast. Radiation optimization: All CT scans at this facility use at least one of these dose optimization techniques: automated exposure control; mA and/or kV adjustment per patient size (includes targeted exams where dose is matched to clinical indication); or iterative reconstruction. COMPARISON: CT abdomen pelvis wo con [id number] 05/06/2021 2:10 AM RADIATION DOSE METRICS: Total DLP (mGy-cm): 883.15 FINDINGS: Tubes, catheters and devices: There is a nasogastric tube with its tip within the distal stomach/proximal duodenal. Lungs: There is bibasilar airspace disease worse on the right than on the left likely representing a combination of atelectasis and pneumonia. There are trace pleural effusions. Liver: Normal. No mass. Gallbladder and biliary ducts: Normal. No calcified stones. No ductal dilation. Pancreas: Normal. No ductal dilation. Spleen: Normal. No splenomegaly. Adrenal glands: Normal. No mass. Kidneys and ureters: There is a right-sided pelvic kidney. There are benign-appearing renal cysts bilaterally. Nonobstructing renal calculus is noted on the left. No hydronephrosis is appreciated. Stomach and bowel: No dilated loops of large or small bowel is appreciated. There are scattered colonic diverticula. There is mild wall thickening without adjacent inflammatory fat stranding involving the ascending colon and transverse colon possibly representing a mild colitis. Appendix: No evidence of appendicitis. Intraperitoneal space: Unremarkable. No free air. No significant fluid collection. Vasculature: The aorta is normal in caliber. There is calcified plaque involving the aorta and its branch vessels. Lymph nodes: Unremarkable. No enlarged lymph nodes. Urinary bladder: The urinary bladder is decompressed with a Brian catheter in place. There appears to be cellule formation involving the bladder wall. Reproductive: Unremarkable as visualized. Bones/joints: Unremarkable. No acute fracture. Soft tissues: There is a fat filled right inguinal hernia. CT/CT abdomen pelvis wo con [id number] IMPRESSION: 1. Bibasilar airspace disease with trace pleural effusions worse on the right than the left. Findings likely represent a combination of atelectasis and pneumonia. 2. Right-sided pelvic kidney. 3. Nephrolithiasis on the left. 4. Mild wall thickening involving the ascending colon and transverse colon possibly representing a mild colitis. COMMENTS: Consistent with the [employer]'s Incidental Findings Committee white paper (J Am Ramonita Radiol 2018): Any incidental renal lesion less than 1 cm or classified as too small to characterize, or any incidental cystic renal lesion characterized as simple-appearing, is likely benign. No follow-up imaging is recommended for these lesions per consensus recommendations based on imaging criteria.
[2024-06-04] MEDS: sodium chloride 0.9% 500 ML 999 ML IV (08:27)
[2024-06-04] MEDS: levETIRAcetam 1,000 MG/100 ML PREMIX 400 MG IV (08:28)
--- NOTE | 2024-06-04 08:43 | ECG_ITS ---
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 Measurements Intervals [place] Rate: 102 P: 0 SD: 0 QRS: -30 QRSD: 157 T: 152 QT: 400 QTc: 523 Interpretive Statements Sinus tachycardia with frequent PACs LEFT BUNDLE BRANCH BLOCK [120+ ms QRS DURATION, 80+ ms Q/S IN V1/V2, 85+ ms R IN I/aVL/V5/V6] Compared to ECG 06/10/2022 12:27:47 Sinus rhythm no longer present Ventricular premature complex(es) no longer present Electronically Signed On 06-04-2024 8:02:55 CDT by Amandeep Seo M.D. [id number]
[2024-06-04 08:52] LABS: Reflex Lactate Order REFLEX LACTIC ORDERD
--- NOTE | 2024-06-04 09:11 | USCV_ITS ---
Miguel A Reyna Age: 73 Gender: M : 1950 Exam Date: 06/04/2024 11:15 Ordering Phys: Barry Mcneal MD Technologist: Jigar Brannon Exam Location: [facility] Indication: cardiomyopathy BP: 123 / 81 HR: 79 Rhythm: Sinus Technical Quality: Adequate MEASUREMENTS (Male / Female) Normal Values 2D ECHO LV Diastolic Diameter PLAX 3.2 cm 4.2 - 5.9 / 3.9 - 5.3 cm IVS Diastolic Thickness 2.1 cm 0.6 - 1.0 / 0.6 - 0.9 cm IVS Systolic Thickness 1.7 cm LVPW Diastolic Thickness 1.8 cm 0.6 - 1.0 / 0.6 - 0.9 cm LVPW Systolic Thickness 3.0 cm LVOT Diameter 2.1 cm LV Ejection Fraction 2D Teich 48.0 % LV Ejection Fraction MOD 4C 45.5 % LV Ejection Fraction MOD 2C 59.8 % LV Ejection Fraction 2C AL 62.1 % LA Diameter 3.7 cm RA Systolic Volume 4C AL 21.9 ml RA Systolic Volume 4C MOD 20.8 ml LA Sys Volume AL 30.5 cm cubed LA Sys Volume Index AL 15.0 cm cubed/m squared Aorta at Sinotubular Diameter 2.6 cm IVC Diameter 2.1 cm M-MODE LA Ao Ratio MM 1.0 AV Cusp Separation MM 1.8 cm DOPPLER AV Peak Velocity 108.0 cm/s LVOT Peak Velocity 67.0 cm/s AV Area Cont Eq vti 1.8 cm squared AV Area Cont Eq pk 2.1 cm squared MV Peak Velocity 66.0 cm/s TV Peak Velocity 232.5 cm/s TR Peak Velocity 236.0 cm/s TR Peak Gradient 22.3 mmHg TR Mean Velocity 183.0 cm/s TR Mean Gradient 14.5 mmHg TR Velocity Time Integral 54.4 cm PV Peak Velocity 89.0 cm/s RV Ejection Time 0.3 s FINDINGS Left Ventricle The ventricle is normal in size. There is at least moderate left ventricular hypertrophy. There is paradoxical motion of the septum most likely consistent with a conduction abnormality. The overall ejection fraction is approximately 50 to 55% taking into consideration the septal abnormality. There are no other wall motion disturbances. Grade 2 diastolic dysfunction.normal left ventricular size, systolic function and wall thickness, with no regional wall motion abnormalities. Right Ventricle The right ventricle is normal in size and function. Right Atrium The right atrium is normal in size. Left Atrium The left atrium is normal in size. Mitral Valve The mitral valve was not well-seen. No obvious mitral regurgitation or stenosis. Aortic Valve Aortic valve is poorly seen. No obvious stenosis or regurgitation. Tricuspid Valve Structurally normal tricuspid valve. Trace tricuspid valve regurgitation. Pulmonic Valve Pulmonic valve not well visualized. Pericardium Normal pericardium without effusion. Aorta Ascending aorta diameter 3.34 cm IVC The inferior vena cava appears normal. CONCLUSIONS The ventricle is normal in size. There is at least moderate left ventricular hypertrophy. There is paradoxical motion of the septum most likely consistent with a conduction abnormality. The overall ejection fraction is approximately 50 to 55% taking into consideration the septal abnormality. There are no other wall motion disturbances. Grade 2 diastolic dysfunction.normal left ventricular size, systolic function and wall thickness, with no regional wall motion abnormalities. Ascending aorta diameter 3.34 cm. Previous study is from June 11, 2022. There has been a significant improvement in the left ventricular function. Dr. Amandeep Seo MD (Electronically Signed) Final Date: 04 June 2024 14:37 S
[2024-06-04 09:16] LABS: Bilirubin Urine Negative (Negative); Blood Urine 2+ (Negative); Glucose Urine UA Trace (Normal); Ketones Urine Negative (Negative); Leukocyte Esterase Urine Negative (Negative); Nitrate Urine Negative (Negative); Protein Urine 3+ (Negative); Specific Gravity, Urine 1.027 (1.005-1.030); Urine Appearance Cloudy (CLEAR); Urine Color Yellow (Yellow)
[2024-06-04 09:30] LABS: Bacteria Urine Trace /hpf; Hyaline Casts Urine 246.61 /lpf; RBC Urine 0-2 /hpf (0-2)
[2024-06-04 09:49] LABS: Adenovirus Not Detected (NOT DETECT); Chlamydia Pneumoniae Not Detected (NOT DETECT); Coronavirus 229E,HKU1,NL63,OC4 Not Detected (NOT DETECT); Human Metapneumovirus Not Detected (NOT DETECT); Human Rhinovirus/Enterovirus Not Detected (NOT DETECT); Influenza A Not Detected (NOT DETECT); Influenza A H1 Not Detected (NOT DETECT); Influenza A H1-2009 Not Detected (NOT DETECT); Influenza A H3 Not Detected (NOT DETECT); Influenza B Not Detected (NOT DETECT); Mycoplasma Pneumoniae Not Detected (NOT DETECT); Parainfluenza Virus Type 1 Not Detected (NOT DETECT); Parainfluenza Virus Type 2 Not Detected (NOT DETECT); Parainfluenza Virus Type 3 Not Detected (NOT DETECT); Parainfluenza Virus Type 4 Not Detected (NOT DETECT); Respiratory Syncytial Virus A Not Detected (NOT DETECT); Respiratory Syncytial Virus B Not Detected (NOT DETECT); SARS-COV-2 Not Detected (NOT DETECT)
[2024-06-04 10:32] LABS: Anion Gap 16.4 (5-19); Blood Urea Nitrogen 25 mg/dL (8-23); Carbon Dioxide 22 mmol/L (22-29); Chloride 105 mmol/L (98-107); Glucose 139 mg/dL (65-115); Potassium 4.4 mmol/L (3.5-5.1); Sodium 139 mmol/L (136-145)
[2024-06-04 10:33] LABS: Calcium 8.7 mg/dL (8.5-10.5); Osmolality Calculated 295 mOsm/kg (285-295)
[2024-06-04 10:34] LABS: Troponin 5 2HR 47.98 ng/L (0-15)
[2024-06-04 10:38] LABS: Ammonia 32 umol/L (16-60)
[2024-06-04 10:39] LABS: Troponin 5 2HR Delta 22.98 ABS# (0-10)
--- NOTE | 2024-06-04 11:12 | P.HP_ITS ---
Providers/Chief Complaint 2 Admitting Physician: Barry Mcneal Primary Care Provider: Donell Sanchez MD Chief Complaint: resp distress, possible seizure History of Present Illness 73-year-old gentleman with history of nonischemic cardiomyopathy, reduced ejection fraction, atrial fibrillation on anticoagulation with Eliquis, hypertension, hyperlipidemia, was brought in unresponsive after his 6-year-old grandson called for help. It seems that patient was repairing a dryer this morning. The only other person around was his 6-year-old grandson. It seems that the grandson witnessed patient having possibly seizure-like activity, called for help. Patient was ventilated on the way to ER with bag mask valve, with nasal trumpet, intubated in ER. On presentation also with atrial fibrillation with RVR. Prior history reported of ventricular tachycardia for which she was transferred to [place] for assessment by EP, consideration of ICD. At that time ejection fraction reported around 30-35%. Patient has not been able to provide any history. Some collateral history obtained from his brother. Patient reportedly was having some back pain over the preceding week and some headaches. His brother had bought him a heating pad. He is not aware of any other health complaints or changes. In ER patient was found to have leukocytosis 23.67, PRISCILLA versus CKD, with severe lactic acidosis, 12.8, with acidemia on ABG 7.02, 64 point 3/235/16 0.7. Baseline troponin 25. Delta troponin 22.98. Lipase 61. Urinalysis 11-20. U tox positive for amphetamine, benzodiazepine. COVID-19 PCR negative. During intubation in ED patient noted to have large amount of secretions in the airway, possibly after aspiration. Empirically started on Zosyn. CT abdomen pelvis with bibasilar airspace disease with trace pleural effusions worse on the right. Likely combination of atelectasis and pneumonia. Right- sided pelvic kidney. Nephrolithiasis on the left. Mild wall thickening of ascending colon and transverse colon possibly representing mild colitis. Head CT with small vessel ischemic changes. CT C-spine with spondylosis. Chest x-ray with borderline cardiomegaly. Review of Systems 2 General: Reports: ROS unobtainable due to medical condition Medications/Allergies Home Medications Medication Instructions Recorded Confirmed Last Taken Type albuterol sulfate 90 mcg/actuation 1 - 2 puff inhalation Q4H PRN 05/06/21 05/29/24 Unknown History aerosol inhaler (ProAir HFA) Shortness Of Breath simvastatin 40 mg tablet 40 mg PO DAILY 05/06/21 05/29/24 06/09/22 History apixaban 5 mg tablet (Eliquis) 5 mg PO BID 09/28/22 05/29/24 Unknown History spironolactone 25 mg tablet 25 mg PO DAILY 09/28/22 05/29/24 Unknown History carvedilol 12.5 mg tablet (Coreg) 12.5 mg PO BID #180 tabs 03/30/23 05/29/24 Unknown Rx levothyroxine 75 mcg capsule 75 mcg PO DAILY 03/30/23 05/29/24 Unknown History Allergies Allergy/AdvReac Type Severity Reaction Status Date / Time No Known Allergies Allergy Verified 05/29/24 13:08 PFSH Acute 2 PFSH: Medical History (Updated 06/04/24 @ 12:31 by Barry Mcneal MD) Single pelvic kidney UTI (urinary tract infection) Nonischemic cardiomyopathy Atrial fibrillation Pneumonia due to COVID-19 virus Hyperlipidemia Hypertension Surgical History History of elbow surgery History of back surgery Family History Other CAD (coronary artery disease) Social History Smoking and tobacco/nicotine status: former use of tobacco/nicotine Alcohol intake: never Vitals/I&O/Wt Last Vital Signs Temp 97.8 F 06/04/24 06:41 Pulse 72 06/04/24 09:52 Resp 16 06/04/24 09:47 BP 123/81 06/04/24 09:20 Pulse Ox 99 06/04/24 09:47 O2 Del Method Mechanical Ventilation 06/04/24 09:50 FiO2 40 06/04/24 10:00 06/03/24 06/04/24 06/04/24 22:59 06:59 14:59 Intake Total 606.375 / 606.375 Balance 606.375 / 606.375 Weight last 48 hrs Weight 79.974 kg Weight 77.111 kg Physical Exam 2 Const: ORIENTATION/CONSCIOUSNESS: not awake HENMT: COMMON NORMALS: oropharynx normal Eye: OTHER: Pupils are equal. He has gag reflex. Neck/C-Spine: COMMON NORMALS: no JVD Resp: COMMON NORMALS: normal respiratory effort and clear to auscultation bilaterally AUSCULTATION: clear to auscultation bilaterally Cardio: COMMON NORMALS: no JVD, regular rhythm, S1 normal heart sound present, S2 normal heart sound present and No murmurs present (Cardio) RHYTHM: regular rhythm HEART SOUNDS: S1 normal heart sound present and S2 normal heart sound present GI: COMMON NORMALS: Normal to inspection, nondistended, normoactive bowel sounds present, Soft to palpation and non-tender PALPATION: Yes Soft to palpation Extremity: COMMON NORMALS: no joint enlargement and no pedal edema Neuro: SENSORIUM/ORIENTATION: Yes alert Skin: COMMON NORMALS: no rashes or lesions noted GENERAL SKIN EXAM: no rashes or lesions noted Data 06/04/24 06:53 06/04/24 10:01 Micro: Microbiology 06/04/24 09:25 Blood Culture - Preliminary Blood SPECIMEN COLLECTED 06/04/24 06:53 Blood Culture - Preliminary Blood SPECIMEN COLLECTED A&P Assessment and plan (1) Acute encephalopathy: Acute respiratory failure, not protecting his airway with severe encephalopathy, unresponsive, with aspiration pneumonia. Unclear cause of new acute onset unresponsiveness. Reportedly was repairing a dryer this morning accompanied only by his 6-year-old grandson. Some seizure-like activity may have been witnessed, unclear whether he had suffered electrical shock from the appliance, or whether there was possibly an arrhythmia with history of cardiomyopathy, ventricular arrhythmia in the past, also with atrial fibrillation with RVR on presentation. Or possibly whether he may have had a seizure, is noted to have polysubstance use based on urine toxicology and some prior history, with positive amphetamine, benzodiazepines. Requested confirmation test for amphetamines. Discussed with his brother at bedside. Reviewed vitals, CBC, ABG, CMP, magnesium, troponin, lipase, TSH, UA, U tox, COVID PCR, chest x-ray, CT head, C-spine and abdomen pelvis, ER note, discussed with ER provider. Discussed with his brother with him not waking up so far, unclear extent of possible neurologic injury, possible anoxic brain injury. He does appear to have equal pupils, gag reflex. Was also just intubated this morning with vecuronium, etomidate, started on fentanyl. Neurologic assessment currently difficult. Additionally discussed would want to give at least 72 hours for neurologic recovery before making further prognostication in case he is not spontaneously waking up before then. With noted leukocytosis 23.67, suspected secondary to aspiration pneumonia, as well as with severe lactic acidosis, empiric antibiotic coverage with Zosyn at current time. Discussed some possibility of intra-abdominal process, however, this appears less likely, abdomen is soft, benign, bowel sounds present, rather unremarkable on CT with possibly some mild colitis in ascending colon. But otherwise will give him coverage with ceftriaxone, vancomycin as well given he has had recurrent headaches. Will change to ampicillin with Flagyl and start ceftriaxone, vancomycin for coverage for possible meningitis. He is on Eliquis, hold Eliquis, switch to Lovenox for now given possible NSTEMI, which subsequently may be held for lumbar puncture. Seizure precautions for possibility of true seizure, no further convulsive activity. If mental status still not improving, consider assessment by EEG. He has been loaded with Keppra, continue empirically for now. Monitor for any signs of substance withdrawal. PPI prophylaxis. Brian catheter in place for accurate EULALIO. (2) Mixed acid base balance disorder: Severe acidemia, pH 7.02, mixed metabolic and respiratory acidosis. Lactic acid 12.8. CO2 64.3. Unclear if PRISCILLA versus CKD. Anion gap 27.4 likely secondary to lactic acidosis. Follow-up repeat lactic acid. (3) Aspiration pneumonia: Received Zosyn, for now switching to ampicillin as above as per regimen of possible meningitis as well. Continue antibiotic coverage, mechanical ventilatory support. Pulmonary toilet. Aspiration suspected following acute onset of encephalopathy as above. (4) NSTEMI (non-ST elevated myocardial infarction): NSTEMI, baseline troponin noted 25, rise of troponin at 2 hours up to 48, delta 23. Reviewed EKG, noted old left bundle branch block, no sign of acute WI at current time on my interpretation, pending official report. Complete troponin EKG series. He does have history of nonischemic cardiomyopathy, EF previously 30 after 35%. Obtain TTE. Monitor on telemetry due to risk of life-threatening arrhythmia. Transition anticoagulation to Lovenox for possible NSTEMI. Start aspirin 325 mg. Further workup depending on condition and results. I do not see any recent stress test. He had no significant disease on coronary angiogram in 2021 with EF 35 to 40%. (5) Paroxysmal atrial fibrillation with RVR: Became bradycardic and briefly hypotensive with Cardizem for treatment of A-fib with RVR. Cardizem discontinued. Monitor blood pressures, heart rates, if rising resume beta-rachael. At home on carvedilol 12.5 mg twice daily. Usually anticoagulated with Eliquis. (6) Polysubstance use disorder: Suspected polysubstance use, amphetamine and benzodiazepines positive in urine screen. I do not see any prescription for benzodiazepines on PDMP. Report of possibly substance use in the past, although his brother states last he was aware of it was a couple years back. Encourage cessation, provide information for rehabilitation if willing once mental status allows. Monitor for substance withdrawal. (7) UTI (urinary tract infection): Possible UTI, UA on review with 11-20 WBC. Received Zosyn. Ampicillin for now continued as above. Obtain urine culture. (8) Nephrolithiasis: Incidentally noted in left kidney. Perhaps source of his back pain over the preceding week for which his brother got him a heating pad. No sign of obstructive uropathy. Plan Mild colitis ascending colon: Incidentally noted on CT. Watch for any diarrhea. Hypothyroidism: Requested TSH, reviewed, normal. Continue levothyroxine. Hypertension: Normally on carvedilol. Blood pressure became soft with bradycardia in ER with Cardizem drip for treatment of A-fib with RVR. This has been discontinued. Last blood pressure/heart rate rising resume beta-rachael. Hold off spironolactone for now, unclear if PRISCILLA versus CKD. Possible CKD: Creatinine 1.6 on presentation, although prior creatinine 1.6 also back in 2021. However, from around the same time creatinine ranging from 0.9- 1.2. True baseline unclear. 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 Avoid IV fluids with underlying cardiomyopathy, risk of decompensation of CHF. Reassess kidney function. Attestations 2 Medical Necessity Statement*: Admission of over 2 midnights anticipated for assessment of management of acute onset severe encephalopathy with respiratory failure, aspiration pneumonia, after an unidentified event, including possible electrical shock, arrhythmia with arrest, seizure, or other in the setting of history of ischemic cardiomyopathy with low ejection fraction, history of ventricular arrhythmias, polysubstance use. Coding Level of Care Code Critical Care >/= 30 minutes Critical care time (in minutes): 65 The high probability of a clinically significant, sudden or life threatening deterioration, as referenced in this documentation, required my full and direct attention, intervention and personal management. The critical care time shown is in addition to time spent performing any reported separately billable procedures and includes the following: [x] Data and vital sign review and interpretation [x ] Patient assessment, examination and intervention [x] Medication orders and management [x] Patient/Family updates as able [x] Care Coordination and Documentation. Diagnoses Acute encephalopathy G93.40 Mixed acid base balance disorder E87.4 Aspiration pneumonia J69.0 NSTEMI (non-ST elevated myocardial infarction) I21.4 Paroxysmal atrial fibrillation with RVR I48.0 Polysubstance use disorder F19.90 UTI (urinary tract infection) N39.0 Nephrolithiasis N20.0
[2024-06-04] MEDS: ipratropium-albuterol 3 mL Neb INHALATION ×2 (12:06→20:11)
[2024-06-04] MEDS: pantoprazole 40 mg SDV IVP (12:09)
[2024-06-04] MEDS: aspirin 325 mg Tablet OG-TUBE (12:09)
[2024-06-04] MEDS: enoxaparin 80 mg/0.8 mL Syringe SUBCUT ×2 (12:09→22:27)
[2024-06-04] MEDS: piperacillin-tazobactam 3.375 GM in sodium chloride 0.9% (plus) 50 ML IV (12:14)
[2024-06-04 12:31] LABS: Thyroid Stimulating Hormone 3.91 uIU/mL (0.27-4.20)
[2024-06-04] MEDS: cefTRIAXone 2,000 mg SDV 2000 MG IVP (13:17)
[2024-06-04] MEDS: vancomycin 1,250 MG/250 ML PIGGYBACK 200 MG IV (13:17)
[2024-06-04] MEDS: ondansetron 2 mg/ML SDV 2 mL 4 MG IVP (13:19)
--- NOTE | 2024-06-04 13:19 | ECG_ITS ---
[facility] Test Date: 2024-06-04 Pat Name: Miguel A Reyna Department: Room: [facility] Gender: Male [employer]er: : 1950 Requested By: Bethel Multani Order Number: [id number] Cierra MD: Amandeep Seo M.D. Measurements Intervals [place] Rate: 68 P: 28 UT: 197 QRS: -11 QRSD: 159 T: 74 QT: 445 QTc: 476 Interpretive Statements SINUS RHYTHM LEFT BUNDLE BRANCH BLOCK [120+ ms QRS DURATION, 80+ ms Q/S IN V1/V2, 85+ ms R IN I/aVL/V5/V6] Compared to ECG 06/04/2024 07:33:42 Sinus tachycardia no longer present Electronically Signed On 06-05-2024 14:12:06 CDT by Amandeep Seo M.D. [email or web address]
[2024-06-04 13:26] LABS: Troponin 5 6HR 56.44 ng/L (0-15)
[2024-06-04 13:31] LABS: Troponin 5 6HR Delta 31.44 ng/L (0-12)
[2024-06-04] MEDS: ampicillin 2,000 MG in sodium chloride 0.9% (plus) 50 ML 100 MG IV ×3 (13:58→22:26)
[2024-06-04] MEDS: metroNIDAZOLE 500 MG Tablet OG-TUBE ×2 (15:26→20:24)
[2024-06-04] MEDS: fentaNYL 1,000 MCG/100 ML BAG 7.5 MCG IV (18:27)
[2024-06-04] MEDS: levETIRAcetam 500 MG/100 ML PREMIX 400 MG IV (20:27)
[2024-06-05] VITALS (48 sets, daily range): BP systolic 111–185; BP diastolic 58–103; PULSE 66–115; RESP 10–27; TEMP 37.1–37.3; O2SAT 93–99
[2024-06-05] MEDS: cefTRIAXone 2,000 mg SDV 2000 MG IVP ×2 (01:43→11:50)
[2024-06-05] MEDS: ampicillin 2,000 MG in sodium chloride 0.9% (plus) 50 ML 100 MG IV ×6 (01:50→20:58)
[2024-06-05] MEDS: chlorhexidine gluconate 4% Btl 118 mL 1 APPLIC TOPICAL (01:52)
[2024-06-05] MEDS: fentaNYL 1,000 MCG/100 ML BAG 7.5 MCG IV (02:17)
[2024-06-05] MEDS: ipratropium-albuterol 3 mL Neb INHALATION ×4 (02:29→19:36)
[2024-06-05 04:34] LABS: Basophils % 0.1 %; Eosinophils % 0.1 %; Hematocrit 42.5 % (37-53); Lymphocytes # 1.4 10^3/uL (0.8-4.8); Mean Corpuscular HGB Conc 32.5 g/dL (30-55); Mean Corpuscular Hemoglobin 29.1 pg (27-33); Mean Corpuscular Volume 89.7 fl (82-101); Mean Platelet Volume 9.7 fL (7.4-10.4); Monocytes # 1.3 10^3/uL (0.2-0.9); Neutrophils # 15.01 10^3/uL (1.8-7.7); Neutrophils % 84.4 %; Nucleated Red Blood Cells % 0 %; Platelet Count 296 10^3/cmm (157-399); Red Blood Count 4.74 10^6/uL (3.85-5.65); Red Cell Distribution Width 14.2 % (12.1-15.1)
[2024-06-05 04:59] LABS: Alanine Aminotransferase 12 U/L (0-41); Albumin Level 3.6 g/dL (3.5-5.2); Alkaline Phosphatase 65 U/L (40-130); Aspartate Amino Transferase 21 U/L (0-40); Blood Urea Nitrogen 24 mg/dL (8-23); Calcium 8.3 mg/dL (8.5-10.5); Carbon Dioxide 22 mmol/L (22-29); Chloride 105 mmol/L (98-107); Creatinine Clr Calc Pharmacy 53.1278; Globulin 2.6 g/dL (1.3-4.6); Glucose 117 mg/dL (65-115); Magnesium 2.1 mg/dL (1.7-2.3); Osmolality Calculated 297 mOsm/kg (285-295); Phosphorus 3.4 mg/dL (2.5-4.5); Sodium 141 mmol/L (136-145); Total Bilirubin 0.3 mg/dL (0.15-1.2); Total Protein 6.2 g/dL (6.6-8.7)
[2024-06-05] MEDS: vancomycin 1,250 MG/250 ML PIGGYBACK 200 MG IV (07:59)
[2024-06-05] MEDS: levETIRAcetam 500 MG/100 ML PREMIX 400 MG IV (08:12)
[2024-06-05] MEDS: aspirin 325 mg Tablet OG-TUBE (08:15)
[2024-06-05] MEDS: metroNIDAZOLE 500 MG Tablet OG-TUBE (08:15)
--- NOTE | 2024-06-05 09:53 | PC.PHAR ---
PT IS ON A VENT. MED REC COMPLETED FROM LAST FILL DATES FROM PHARMACY WITH DAYS SUPPLY.
[2024-06-05] MEDS: budesonide 0.5 mg/2 mL Neb INHALATION ×2 (11:22→19:36)
--- NOTE | 2024-06-05 11:29 | PC.NURSE ---
Patient self extubated at 1125.
[2024-06-05 11:42] LABS: Iron 19 ug/dL (59-158); Percent Saturation 6.9 % (20-50); Total Iron Binding Capacity 273 mcg/dl; Unsaturated Iron Binding 254 ug/dL (112-347)
[2024-06-05] MEDS: pantoprazole 40 mg SDV IVP (11:43)
[2024-06-05 11:48] LABS: Estmated Average Glucose 111; Hemoglobin A1C 5.5 % (4.0-6.0)
[2024-06-05 11:58] LABS: Procalcitonin 0.35 ng/mL (0-0.5); Vitamin B12 263 pg/mL (232-1245)
[2024-06-05] MEDS: metroNIDAZOLE IV 500 MG/100 ML PREMIX 100 MG IV ×2 (13:47→19:27)
[2024-06-05 14:44] LABS: D Dimer <= 0.27 ug/mLFEU (0-0.59)
[2024-06-05 16:05] LABS: Adenovirus Not Detected (NOT DETECT); Chlamydia Pneumoniae Not Detected (NOT DETECT); Coronavirus 229E,HKU1,NL63,OC4 Not Detected (NOT DETECT); Human Metapneumovirus Not Detected (NOT DETECT); Human Rhinovirus/Enterovirus Not Detected (NOT DETECT); Influenza A Not Detected (NOT DETECT); Influenza A H1 Not Detected (NOT DETECT); Influenza A H1-2009 Not Detected (NOT DETECT); Influenza A H3 Not Detected (NOT DETECT); Influenza B Not Detected (NOT DETECT); Mycoplasma Pneumoniae Not Detected (NOT DETECT); Parainfluenza Virus Type 1 Not Detected (NOT DETECT); Parainfluenza Virus Type 2 Not Detected (NOT DETECT); Parainfluenza Virus Type 3 Not Detected (NOT DETECT); Parainfluenza Virus Type 4 Not Detected (NOT DETECT); Respiratory Syncytial Virus A Not Detected (NOT DETECT); Respiratory Syncytial Virus B Not Detected (NOT DETECT); SARS-COV-2 Not Detected (NOT DETECT)
[2024-06-05] MEDS: hyDRALAzine 20 mg/mL INJ 1 mL 10 MG IVP ×2 (16:52→19:15)
--- NOTE | 2024-06-05 16:58 | PC.NURSE ---
Addendum entered by Oj Griffiths RN 06/05/24 16:59: waste witnessed by this nurse Original Note: Fentanyl and Versed wasted witnessed by Oj BECERRA
--- NOTE | 2024-06-05 17:19 | P.PN_ITS ---
Subjective 2 Subjective: Hospital course, labs appreciated. Today morning patient was on Versed of 1 along with fentanyl of 50 along with mechanical ventilation, FiO2 of 40% with tidal volume of 540 and PEEP of 6. Patient ended up self extubating. Postextubation patient remained on room air to 2 L maintaining more than 95%. Patient was awake but still confused. During the day his mentation slightly improved. Seen with brother at bedside. Vitals/I&O/Wt Last Vital Signs Temp 98.9 F 06/05/24 16:00 Pulse 74 06/05/24 16:00 Resp 21 H 06/05/24 16:00 BP 173/87 06/05/24 16:00 Pulse Ox 97 06/05/24 16:00 O2 Del Method Nasal Cannula 06/05/24 13:35 O2 Flow Rate 2 06/05/24 13:35 FiO2 30 06/05/24 11:22 06/05/24 06/05/24 06/05/24 06:59 14:59 22:59 Intake Total 277.084 / 1489.001 586.45 / 586.45 0 / 586.45 Output Total 375 / 825 1500 / 1500 Balance -97.916 / 664.001 586.45 / 586.45 -1500 / -913.55 Weight last 48 hrs Weight 77.337 kg Weight 77.337 kg Weight 79.974 kg Weight 77.111 kg Physical Exam 2 Const: COMMON NORMALS: no acute distress, healthy appearing, alert and well nourished GENERAL APPEARANCE: lethargic ORIENTATION/CONSCIOUSNESS: Yes awake, Yes oriented to person, Yes confused and Yes lethargic; not oriented to place HENMT: COMMON NORMALS: oropharynx normal Eye: OTHER: Pupils are bilaterally equal and reactive Neck/C-Spine: COMMON NORMALS: no JVD Resp: COMMON NORMALS: normal respiratory effort and clear to auscultation bilaterally AUSCULTATION: clear to auscultation bilaterally Cardio: COMMON NORMALS: no JVD, regular rhythm, S1 normal heart sound present, S2 normal heart sound present and No murmurs present (Cardio) RHYTHM: regular rhythm HEART SOUNDS: S1 normal heart sound present and S2 normal heart sound present GI: COMMON NORMALS: Normal to inspection, nondistended, normoactive bowel sounds present, Soft to palpation and non-tender PALPATION: Yes Soft to palpation Extremity: COMMON NORMALS: no joint enlargement and no pedal edema Neuro: SENSORIUM/ORIENTATION: Yes alert, Yes oriented to person, No oriented to place, Yes Orientation impaired and Yes lethargic SPEECH: abnormal speech Skin: COMMON NORMALS: no rashes or lesions noted GENERAL SKIN EXAM: no rashes or lesions noted Data 06/05/24 03:37 06/05/24 03:37 Micro: Microbiology 06/04/24 06:51 Gram Stain - Final Sputum - Endotracheal Tube Aspirate Sputum Culture - Preliminary 06/04/24 12:54 Urine Culture - Preliminary Urine,Clean Catch 06/04/24 09:25 Blood Culture - Preliminary Blood NEGATIVE TO DATE 06/04/24 06:53 Blood Culture - Preliminary Blood NEGATIVE TO DATE A&P Assessment and plan (1) Acute encephalopathy: Intubated in field. Self extubated on 06/05. Does have history of cardiomyopathy with concerns of ventricular arrhythmia in the past for which she was transferred to [place] with concerns for possible ICD placement though it was never placed as patient was amphetamine positive and apparently his EF improved. Echocardiogram done during this hospitalization shows an EF of 30 to 55% with grade 2 diastolic dysfunction. Improvement in EF from 3035% in the past. Did show LBBB with A-fib with RVR on presentation. Urine drug screen positive for amphetamines. Confirmation test sent on admission. COVID-19 negative. Check respiratory viral panel completely. CT head negative for intracranial bleed. Patient has been complaining of headaches as per the brother along with a backache. Concerns for possible meningitis on admission though currently patient does not have any meningeal signs. Lumbar puncture not done on admission. For now continue with broad-spectrum antibiotics with IV ampicillin, Flagyl, ceftriaxone and vancomycin. Concerns for possible seizures on admission. Seizure-like activity could have been in setting of vasovagal versus arrhythmia. Patient does not have history of seizures in the past. For now we will hold off on IV Keppra. Continue to monitor. Seizure precautions. 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 Cannot rule out electrocution. He does have superficial wound on bilateral thighs. Continue with telemonitoring. Monitor for arrhythmias including A-fib with RVR versus V. tach. Hold off on antiarrhythmics for now. If needed can start on IV amiodarone. Patient does take carvedilol at home. Monitor electrolytes. Target potassium around 4, magnesium around 2. Troponin elevated with 6-hour delta of 31. Cardiac angiogram in 2021 showed nonobstructive CAD with 30 to 40% stenosis in LAD. No regional wall motion abnormality on echocardiogram. Given concerns for possible meningitis patient might need lumbar puncture. For now we will hold off on anticoagulation. Discussed risk in detail with patient's brother at bedside. He is agreeable. Patient is slightly confused right now which is most likely in setting of sedating medications. Will continue to monitor mentation while sedations wear off. Holding off on Keppra as above. Symptoms on admission could be in the setting of arrhythmia versus possible electrocution. Meningitis and seizure cannot be ruled out though less likely. For now we will monitor off Keppra. If mentation improves will plan to de- escalate IV antibiotics. Can plan for MRI brain. Continues to have encephalopathy and plan for lumbar puncture. LFTs normal. Ammonia level checked on 06/04 normal. CPK normal. Check vitamin B12, TSH. Keep NPO. Speech evaluation physical therapy evaluation within next 24 hours. (2) Mixed acid base balance disorder: Present on admission. Severe acidemia has resolved. Lactic acid normal. Monitor electrolytes. (3) Aspiration pneumonia: Concerns for aspiration pneumonia. Maintain oxygen supplementation keeping saturation over 90%. Continue IV antibiotic as above. Monitor blood culture, sputum culture, urine culture. (4) NSTEMI (non-ST elevated myocardial infarction): Most likely type II LA. Angiogram in 2021 consistent with nonobstructive CAD. Appreciate echocardiogram. Improvement in EF to 55 % without regional wall motion abnormality. Continue to monitor. Holding off on anticoagulation as above. Check A1c, lipid panel. (5) Paroxysmal atrial fibrillation with RVR: Became bradycardic and briefly hypotensive with Cardizem for treatment of A-fib with RVR. Cardizem discontinued. Monitor blood pressures, heart rates, if rising resume beta-rachael. At home on carvedilol 12.5 mg twice daily. Usually anticoagulated with Eliquis. (6) Polysubstance use disorder: Suspected polysubstance use, amphetamine and benzodiazepines positive in urine screen. I do not see any prescription for benzodiazepines on PDMP. Report of possibly substance use in the past, although his brother states last he was aware of it was a couple years back. Encourage cessation, provide information for rehabilitation if willing once mental status allows. Monitor for substance withdrawal. (7) UTI (urinary tract infection): Follow-up urine culture. (8) Nephrolithiasis: Incidentally noted in left kidney. Perhaps source of his back pain over the preceding week for which his brother got him a heating pad. No sign of obstructive uropathy. Plan Mild colitis ascending colon: Incidentally noted on CT. Watch for any diarrhea. Hypothyroidism: TSH normal. Restart home dose of levothyroxine once patient is able to take orally. If not able to take orally will start on half a dose IV within next 48 hours. Hypertension: Goal blood pressure less than 140/90 mmHg. Blood pressures improving. Normally on carvedilol, calcium channel rachael. Blood pressure became soft with bradycardia in ER with Cardizem drip for treatment of A-fib with RVR. Amlodipine 10 mg oral daily. IV hydralazine 10 mg every 4 hours as needed for systolic blood pressure more than 160 mmHg. Possible CKD versus acute kidney injury: Creatinine 1.6 on presentation, although prior creatinine 1.6 also back in 2021. However, from around the same time creatinine ranging from 0.9-1.2. True baseline unclear. 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 Start on gentle IV hydration with normal saline at 50 cc/h. N.p.o. PT and speech evaluation SCD for DVT prophylaxis holding off on anticoagulation as above. Protonix OPD prophylaxis Full code Attestations 2 Medical Necessity Statement*: Requires further hospitalization for management of acute encephalopathy due to respiratory failure postextubation, aspiration pneumonitis in a patient with history of nonischemic cardiomyopathy, amphetamine positive Critical Care Time: The high probability of a clinically significant, sudden or life threatening deterioration of the patient's [neurological, pulmonary, cardiac] system(s) required my full and direct attention, intervention and personal management. The critical care time is as shown. This time is in addition to time spent performing any reported procedures but includes the following: [x] Data and vital sign review and interpretation [x] Patient assessment, examination and intervention [x] Documentation [x] Medication orders and management Critical Care Time (min): 70 Coding Level of Care Code Critical Care >/= 30 minutes Critical care time (in minutes): 70 The high probability of a clinically significant, sudden or life threatening deterioration, as referenced in this documentation, required my full and direct attention, intervention and personal management. The critical care time shown is in addition to time spent performing any reported separately billable procedures and includes the following: [x] Data and vital sign review and interpretation [x ] Patient assessment, examination and intervention [x] Medication orders and management [x] Patient/Family updates as able [x] Care Coordination and Documentation. Other Coding Information This patient has a high probability of clinically significant, sudden or life threatening deterioration of the patient's (neurological/pulmonary/cardiac/renal/ID/endocrine) systems required my full, direct attention, the highest level of physician preparedness for urgent intervention and personal management. I managed/supervised life or organ supporting interventions that required frequent physician assessment. I devoted my full attention in the ICU to the direct care of this patient for the period of time indicated above. Time I spent with family or surrogate(s) is included only if the patient was incapable of providing necessary information or participating in decision making. This time includes the following services provided: Telemetry review Mechanical Ventilation Hemodynamic interpretation, assessment and management Review and interpretation of CXR Review and interpretation of lab values Review and interpretation of microbiologic data and culture results Review of medications and administration Review and interpretation of Nutrition requirements and management Discussion of management with other consultants and services Clinical update to family members Diagnoses Acute encephalopathy G93.40 Mixed acid base balance disorder E87.4 Aspiration pneumonia J69.0 NSTEMI (non-ST elevated myocardial infarction) I21.4 Paroxysmal atrial fibrillation with RVR I48.0 Polysubstance use disorder F19.90 UTI (urinary tract infection) N39.0 Nephrolithiasis N20.0
[2024-06-05] MEDS: amlodipine 10 mg Tablet PO (17:46)
[2024-06-05] MEDS: acetaminophen 325 mg Tablet 650 MG PO (17:51)
[2024-06-05] MEDS: ondansetron 2 mg/ML SDV 2 mL 4 MG IVP (18:16)
--- NOTE | 2024-06-05 20:47 | PC.NURSE ---
HTN: Pt reporting 10/10 headache, blurred vision, and has a BP of 179/83. Dr. Best called @2038. New order for Labatolol 10mg IVP ONCE NOW and to restart home dose of Carvadolol @0900.
[2024-06-05] MEDS: labetalol 5 mg/mL SDV 20mL 10 MG IVP (20:51)
[2024-06-05 21:10] LABS: Glucose Point of Care 88 mg/dL (70-110)
--- NOTE | 2024-06-05 23:12 | PC.NURSE ---
Pain: Updated Dr. Best on pts pain and confusion, pt is having some intermittent agitation. New order for Toradol 15mg IVP ONCE NOW and to reassess in 1HR.
[2024-06-05] MEDS: ketorolac 30 mg/mL INJ 15 MG IVP (23:18)
[2024-06-06] VITALS (45 sets, daily range): BP systolic 128–184; BP diastolic 62–86; PULSE 63–102; RESP 13–33; TEMP 36.6–37.7; O2SAT 84–100
[2024-06-06] MEDS: cefTRIAXone 2,000 mg SDV 2000 MG IVP (00:11)
[2024-06-06] MEDS: hyDRALAzine 20 mg/mL INJ 1 mL 10 MG IVP ×2 (00:14→04:25)
[2024-06-06] MEDS: ipratropium-albuterol 3 mL Neb INHALATION ×4 (01:07→20:11)
[2024-06-06] MEDS: ampicillin 2,000 MG in sodium chloride 0.9% (plus) 50 ML 100 MG IV ×3 (01:11→09:19)
[2024-06-06] MEDS: vancomycin 1,250 MG/250 ML PIGGYBACK 200 MG IV ×2 (01:14→20:18)
--- NOTE | 2024-06-06 02:09 | PC.NURSE ---
Addendum entered by Tana Aleman RN 06/06/24 02:24: Notified Dr. Best that Clonidine 0.1mg patch is not available @0223. Original Note: BP Trending back up: Notified Dr. Best of BP 170/70 @0206. New order for 0.1mg transdermal Clonidine patch NOW.
[2024-06-06] MEDS: metroNIDAZOLE IV 500 MG/100 ML PREMIX 100 MG IV (04:26)
[2024-06-06] MEDS: nitroglycerin 1 gm/inch oint Pkt 1 INCH TOPICAL (05:18)
[2024-06-06 05:54] LABS: Basophils % 0.3 %; Eosinophils % 0.1 %; Hematocrit 46.5 % (37-53); Lymphocytes # 1.1 10^3/uL (0.8-4.8); Mean Corpuscular HGB Conc 31.8 g/dL (30-55); Mean Corpuscular Hemoglobin 28.8 pg (27-33); Mean Corpuscular Volume 90.5 fl (82-101); Mean Platelet Volume 9.3 fL (7.4-10.4); Monocytes # 1.1 10^3/uL (0.2-0.9); Monocytes % 7.2 %; Neutrophils # 13.36 10^3/uL (1.8-7.7); Neutrophils % 84.5 %; Nucleated Red Blood Cells % 0 %; Platelet Count 299 10^3/cmm (157-399); Red Blood Count 5.14 10^6/uL (3.85-5.65); Red Cell Distribution Width 14.6 % (12.1-15.1)
[2024-06-06 06:18] LABS: Alanine Aminotransferase 12 U/L (0-41); Albumin Level 3.8 g/dL (3.5-5.2); Alkaline Phosphatase 72 U/L (40-130); Anion Gap 17.8 (5-19); Aspartate Amino Transferase 16 U/L (0-40); Blood Urea Nitrogen 20 mg/dL (8-23); Calcium 8.9 mg/dL (8.5-10.5); Carbon Dioxide 23 mmol/L (22-29); Chloride 109 mmol/L (98-107); Globulin 3.2 g/dL (1.3-4.6); Glucose 113 mg/dL (65-115); Magnesium 2.3 mg/dL (1.7-2.3); Osmolality Calculated 305 mOsm/kg (285-295); Potassium 3.8 mmol/L (3.5-5.1); Sodium 146 mmol/L (136-145); Total Bilirubin 0.2 mg/dL (0.15-1.2)
[2024-06-06 06:22] LABS: Cholesterol 149 mg/dL (0-200); HDL Cholesterol 62 mg/dL (60-100); LDL Cholesterol Calculated 73 mg/dL (50-129); Triglycerides 71 mg/dL (0-150); VLDL Cholestrol Calculation 14 mg/dL (0-30)
[2024-06-06 06:40] LABS: Folate Level 10.3 ng/mL (4.5-32.2)
[2024-06-06] MEDS: carvedilol 12.5 mg Tablet PO ×2 (08:20→18:33)
[2024-06-06] MEDS: amlodipine 10 mg Tablet PO (08:20)
[2024-06-06] MEDS: budesonide 0.5 mg/2 mL Neb INHALATION ×2 (08:51→20:11)
--- NOTE | 2024-06-06 10:28 | PC.NURSE ---
Patient up to chair in room after working with PT. No concerns noted. Patient currently on room air after titrating oxygen down by RT. Patient requests food this morning currently still NPO. Brother bedside.
--- NOTE | 2024-06-06 12:00 | MR_ITS ---
WS: [id number] MRI HEAD WITHOUT CONTRAST TECHNIQUE: Sagittal T1, T2 axial, T2 axial FLAIR, axial and coronal T1 images, axial susceptibility w eighted imaging, axial diffusion weighted images, and coronal T2 images were obtained. CLINICAL INFORMATION: ams COMPARISON: CT head 06/04/2024 FINDINGS: Area of restricted diffusion in the LEFT mesial temporal lobe and parahippocampal gyrus compatible wi th acute ischemia. Restricted diffusion extending into the LEFT posterior parahippocampal gyrus small amount of edema. Minimal localized mass effect. No other foci of acute ischemia. Early encephalitis such as herpes encephalitis is an additional consideration Mild small vessel changes. Mild parenchymal volume loss. Tiny chronic infarcts LEFT cerebellum. Normal vascular flow voids at the skull base. No extra-axial fluid collections. Mucosal thickening pa ranasal sinuses. Mastoid air cells are well aerated. No hemosiderin on the susceptibly weighted image s. Normal optic chiasm and pituitary infundibulum. MR/MR head wo con* [id number] IMPRESSION: 1. Restricted diffusion in the LEFT mesial temporal lobe and parahippocampal g yrus largest focus measuring approximately 1.6 x 0.8 cm compatible with acute i schemia. Mild associated edema with minimal localized mass effect. Encephalitis such as early herpes encephalitis is an additional possibility. 2. No other foci of acute ischemia. 3. Mild small vessel changes with mild parenchymal volume loss. 4. Tiny chronic lacunar infarcts LEFT cerebellum. 5. No other acute findings. Notified Fran Nicholson MD at 06/07/2024 9:05 AM.
[2024-06-06] MEDS: pantoprazole 40 mg SDV IVP (12:46)
[2024-06-06] MEDS: dextrose 5%-sod chloride 0.9% 1,000 ML 50 ML IV (12:48)
[2024-06-06] MEDS: piperacillin-tazobactam 3.375 GM in sodium chloride 0.9% (plus) 50 ML IV ×2 (12:52→21:34)
--- NOTE | 2024-06-06 13:58 | P.PHAVANC_ITS ---
Vancomycin Goal - Goal Vancomycin Indication:: Other (EMPIRACALLY FOR MENINGITIS) - Therapy Current therapy:: Pip/Tazo Day of therpy:: Day 3 Actual body weight (kg): 169 lb 6.4 oz [place] body weight: 79.9 KG Dosing weight (kg): 76.8 - Data Labs: WBC 15.80 10^3/uL (3.29-11.43) H 06/06/24 05:42 RBC 5.14 10^6/uL (3.85-5.65) 06/06/24 05:42 Hgb 14.80 g/dL (11.27-16.99) 06/06/24 05:42 Hct 46.5 % (37-53) 06/06/24 05:42 MCV 90.5 fl (82-101) 06/06/24 05:42 MCH 28.8 pg (27-33) 06/06/24 05:42 MCHC 31.8 g/dL (30-55) 06/06/24 05:42 RDW 14.6 % (12.1-15.1) 06/06/24 05:42 Sodium 146 mmol/L (136-145) H 06/06/24 05:42 Potassium 3.8 mmol/L (3.5-5.1) 06/06/24 05:42 Chloride 109 mmol/L (98-107) H 06/06/24 05:42 Carbon Dioxide 23 mmol/L (22-29) 06/06/24 05:42 Anion Gap 17.8 (5-19) 06/06/24 05:42 BUN 20 mg/dL (8-23) 06/06/24 05:42 Creatinine 1.2 mg/dL (0.7-1.2) 06/06/24 05:42 GFR Calculation Not Reportable 06/06/24 05:42 Last dialysis session:: N/A Treatment plan:: new consult Regimen:: INITIAL DOSE 1250 MG Q18H Follow up:: TROUGH TO BE DRAWN PRIOR TO 4TH DOSE
--- NOTE | 2024-06-06 15:48 | P.PN_ITS ---
Subjective 2 Subjective: No acute events overnight. Today morning seen with brother at bedside. Patient is more awake and alert. Sitting up in chair. Did have episode of vomiting after oral medications yesterday evening. Required IV as needed medications for high blood pressure. Document urine output of 2.5 L. Tmax of 19.8 Fahrenheit in last 24 hours. Vitals/I&O/Wt Last Vital Signs Temp 99.2 F 06/06/24 08:44 Pulse 80 06/06/24 14:30 Resp 23 H 06/06/24 14:30 BP 155/80 06/06/24 14:30 Pulse Ox 94 06/06/24 14:30 O2 Del Method Room Air 06/06/24 13:56 O2 Flow Rate 2 06/06/24 08:00 FiO2 1.5 06/06/24 02:00 06/06/24 06/06/24 06/06/24 06:59 14:59 22:59 Intake Total 450 / 1236.45 290 / 290 Output Total 475 / 2475 Balance -25 / -1238.55 290 / 290 Weight last 48 hrs Weight 76.839 kg Weight 77.337 kg Weight 77.337 kg Physical Exam 2 Narrative: Mild confusion, hard of hearing Const: COMMON NORMALS: no acute distress, healthy appearing, alert and well nourished GENERAL APPEARANCE: cooperative, comfortable and well developed ORIENTATION/CONSCIOUSNESS: Yes awake, Yes oriented to person, Yes oriented to place and Yes oriented to time HENMT: COMMON NORMALS: oropharynx normal Eye: OTHER: Pupils are bilaterally equal and reactive Neck/C-Spine: COMMON NORMALS: no JVD Resp: COMMON NORMALS: normal respiratory effort and clear to auscultation bilaterally AUSCULTATION: clear to auscultation bilaterally Cardio: COMMON NORMALS: no JVD, regular rhythm, S1 normal heart sound present, S2 normal heart sound present and No murmurs present (Cardio) RHYTHM: regular rhythm HEART SOUNDS: S1 normal heart sound present and S2 normal heart sound present GI: COMMON NORMALS: Normal to inspection, nondistended, normoactive bowel sounds present, Soft to palpation and non-tender PALPATION: Yes Soft to palpation Extremity: COMMON NORMALS: no joint enlargement and no pedal edema Neuro: SENSORIUM/ORIENTATION: Yes alert, Yes oriented to person, Yes oriented to place, Yes oriented to time and Yes Orientation impaired SPEECH: abnormal speech Skin: COMMON NORMALS: no rashes or lesions noted GENERAL SKIN EXAM: no rashes or lesions noted Data 06/06/24 05:42 06/06/24 05:42 Micro: Microbiology 06/06/24 12:57 Bacterial Antigens - Final Urine Kidney 06/04/24 06:51 Gram Stain - Final Sputum - Endotracheal Tube Aspirate Sputum Culture - Final 06/04/24 12:54 Urine Culture - Final Urine,Clean Catch A&P Assessment and plan (1) Acute encephalopathy: Intubated in field. Self extubated on 06/05. Does have history of cardiomyopathy with concerns of ventricular arrhythmia in the past for which she was transferred to [place] with concerns for possible ICD placement though it was never placed as patient was amphetamine positive and apparently his EF improved. Echocardiogram done during this hospitalization shows an EF of 50 to 55% with grade 2 diastolic dysfunction. Improvement in EF from 30-35% in the past. Did show LBBB with A-fib with RVR on presentation. Urine drug screen positive for amphetamines. Confirmation test sent on admission. Patient states last he used amphetamine was 2 to 3 weeks ago. Respiratory viral panel negative. CT head negative for intracranial bleed. Patient has been complaining of headaches as per the brother along with a backache. Today when he is more awake and alert he denies having any photophobia, neck pain, headache has been occasional. Concerns for possible meningitis on admission though currently patient does not have any meningeal signs. Lumbar puncture not done on admission. Switch antibiotics to IV Zosyn and vancomycin. MRSA swab pending. Will discontinue vancomycin if MRSA swab negative. Follow-up blood culture, urine culture. Concerns for possible seizures on admission. Seizure-like activity could have been in setting of vasovagal versus arrhythmia. Patient does not have history of seizures in the past. Continue to monitor while holding off on IV Keppra. Check Keppra levels. Seizure precautions. 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 Cannot rule out electrocution. He does have superficial wound on bilateral thighs. As per the brother he had checked the machine at home on which she was working. Machine was plugged off. Patient denies having electric shocks. Continue with telemonitoring. Monitor for arrhythmias including A-fib with RVR versus V. tach. Hold off on antiarrhythmics for now. If needed can start on IV amiodarone. Patient does take carvedilol at home. Monitor electrolytes. Target potassium around 4, magnesium around 2. Troponin elevated with 6-hour delta of 31. Cardiac angiogram in 2021 showed nonobstructive CAD with 30 to 40% stenosis in LAD. No regional wall motion abnormality on echocardiogram. Given concerns for possible meningitis patient might need lumbar puncture. For now we will hold off on anticoagulation. Discussed risk in detail with patient's brother at bedside. He is agreeable. Patient's confusion has improved. Still mildly confused. Psychiatric medications have been off. Continue to hold off on Keppra. Check Keppra levels. Given concerns a lot of the above we will also check MRI brain. Patient's blood pressures have been elevated during hospitalization. Cannot rule out press syndrome. Patient does have mild hypernatremia today. Started D5 NS at 50 cc/h. Repeat BMP in evening. Start on oral diet today. Symptoms on admission could be in the setting of arrhythmia versus possible electrocution. Meningitis and seizure cannot be ruled out though less likely. For now we will monitor off Keppra. Continues to have encephalopathy and plan for lumbar puncture. LFTs normal. Ammonia level checked on 06/04 normal. CPK normal. Check vitamin B12, TSH. (2) Mixed acid base balance disorder: Present on admission. Resolved. Severe acidemia has resolved. Lactic acid normal. Monitor electrolytes. (3) Aspiration pneumonia: Concerns for aspiration pneumonia. Maintain oxygen supplementation keeping saturation over 90%. Continue IV antibiotic as above. Monitor blood culture, sputum culture, urine culture. (4) NSTEMI (non-ST elevated myocardial infarction): Most likely type II [place]. Angiogram in 2021 consistent with nonobstructive CAD. Appreciate echocardiogram. Improvement in EF to 55 % without regional wall motion abnormality. Continue to monitor. Holding off on anticoagulation as above. Check A1c, lipid panel. (5) Paroxysmal atrial fibrillation with RVR: Became bradycardic and briefly hypotensive with Cardizem for treatment of A-fib with RVR. Cardizem discontinued. Monitor blood pressures, heart rates, if rising resume beta-rachael. At home on carvedilol 12.5 mg twice daily. Usually anticoagulated with Eliquis. (6) Polysubstance use disorder: Suspected polysubstance use, amphetamine and benzodiazepines positive in urine screen. I do not see any prescription for benzodiazepines on PDMP. Report of possibly substance use in the past, although his brother states last he was aware of it was a couple years back. Encourage cessation, provide information for rehabilitation if willing once mental status allows. Monitor for substance withdrawal. (7) UTI (urinary tract infection): Follow-up urine culture. (8) Nephrolithiasis: Incidentally noted in left kidney. Perhaps source of his back pain over the preceding week for which his brother got him a heating pad. No sign of obstructive uropathy. Plan Mild colitis ascending colon: Incidentally noted on CT. Watch for any diarrhea. Hypothyroidism: TSH normal. Restart home dose of levothyroxine once patient is able to take orally. If not able to take orally will start on half a dose IV within next 48 hours. Hypertension: Goal blood pressure less than 140/90 mmHg. Blood pressures improving. Continue with home dose of carvedilol, amlodipine 10 mg oral daily. Uptitrate as per goal blood pressure. IV hydralazine 10 mg every 4 hours as needed for systolic blood pressure more than 160 mmHg. Possible CKD versus acute kidney injury: Creatinine 1.6 on presentation, although prior creatinine 1.6 also back in 2021. However, from around the same time creatinine ranging from 0.9-1.2. True baseline unclear. 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 Creatinine down to 1.2. Fluid as above. Does have hypernatremia today. [facility] Advance diet as per speech evaluation. PT and speech evaluation [facility] for DVT prophylaxis holding off on anticoagulation as above. Protonix OPD prophylaxis Full code Attestations 2 Medical Necessity Statement*: Requires further hospitalization for management of altered mental status with confusion, postextubation, uncontrolled hypertension while further workup is done to rule out etiology, aspiration pneumonitis Diagnoses Acute encephalopathy G93.40 Mixed acid base balance disorder E87.4 Aspiration pneumonia J69.0 NSTEMI (non-ST elevated myocardial infarction) I21.4 Paroxysmal atrial fibrillation with RVR I48.0 Polysubstance use disorder F19.90 UTI (urinary tract infection) N39.0 Nephrolithiasis N20.0
--- NOTE | 2024-06-06 16:28 | PC.NURSE ---
report called to [facility] nurse at this time all questions answered
--- NOTE | 2024-06-06 17:10 | PC.NURSE ---
Patient taken to MRI then upstairs to [place], family notified
[2024-06-06 18:19] LABS: Blood Urea Nitrogen 21 mg/dL (8-23); Calcium 8.6 mg/dL (8.5-10.5); Carbon Dioxide 16 mmol/L (22-29); Chloride 104 mmol/L (98-107); Creatinine Clr Calc Pharmacy 66.5564; Glucose 109 mg/dL (65-115); Osmolality Calculated 288 mOsm/kg (285-295); Sodium 137 mmol/L (136-145)
[2024-06-06 18:23] LABS: Anion Gap 20.8 (5-19); Potassium 3.8 mmol/L (3.5-5.1)
[2024-06-06 19:42] LABS: Vancomycin Trough 10.5 ug/mL (10-15)
[2024-06-07] VITALS (7 sets, daily range): BP systolic 143–156; BP diastolic 64–70; PULSE 65–75; RESP 16–18; TEMP 36.8; O2SAT 84–95
[2024-06-07] MEDS: ipratropium-albuterol 3 mL Neb INHALATION ×3 (02:54→14:49)
[2024-06-07] MEDS: piperacillin-tazobactam 3.375 GM in sodium chloride 0.9% (plus) 50 ML IV (04:47)
[2024-06-07] MEDS: acetaminophen 325 mg Tablet 650 MG PO (04:58)
[2024-06-07 05:48] LABS: Basophils # 0.1 10^3/uL (0.0-0.1); Basophils % 0.5 %; Eosinophils # 0.2 10^3/uL (0.0-0.8); Eosinophils % 1.7 %; Hematocrit 40.4 % (37-53); Lymphocytes # 1.5 10^3/uL (0.8-4.8); Lymphocytes % 11.9 %; Mean Corpuscular HGB Conc 32.4 g/dL (30-55); Mean Corpuscular Hemoglobin 29.2 pg (27-33); Mean Platelet Volume 9.3 fL (7.4-10.4); Monocytes # 1.1 10^3/uL (0.2-0.9); Monocytes % 9.1 %; Neutrophils # 9.52 10^3/uL (1.8-7.7); Neutrophils % 76.4 %; Nucleated Red Blood Cells % 0 %; Platelet Count 285 10^3/cmm (157-399); Red Blood Count 4.49 10^6/uL (3.85-5.65); Red Cell Distribution Width 14.6 % (12.1-15.1); White Blood Count 12.47 10^3/uL (3.29-11.43)
[2024-06-07 06:09] LABS: Alanine Aminotransferase 10 U/L (0-41); Albumin Level 3.3 g/dL (3.5-5.2); Alkaline Phosphatase 60 U/L (40-130); Anion Gap 15.7 (5-19); Aspartate Amino Transferase 13 U/L (0-40); Blood Urea Nitrogen 22 mg/dL (8-23); Calcium 8.2 mg/dL (8.5-10.5); Carbon Dioxide 23 mmol/L (22-29); Chloride 108 mmol/L (98-107); Creatinine Clr Calc Pharmacy 61.3618; Globulin 2.8 g/dL (1.3-4.6); Glucose 113 mg/dL (65-115); Magnesium 2.2 mg/dL (1.7-2.3); Osmolality Calculated 300 mOsm/kg (285-295); Potassium 3.7 mmol/L (3.5-5.1); Sodium 143 mmol/L (136-145); Total Bilirubin 0.3 mg/dL (0.15-1.2); Total Protein 6.1 g/dL (6.6-8.7)
[2024-06-07] MEDS: dextrose 5%-sod chloride 0.9% 1,000 ML 50 ML IV (08:50)
[2024-06-07] MEDS: amlodipine 10 mg Tablet PO (08:54)
[2024-06-07] MEDS: budesonide 0.5 mg/2 mL Neb INHALATION (08:54)
[2024-06-07] MEDS: carvedilol 12.5 mg Tablet PO (08:55)
--- NOTE | 2024-06-07 09:57 | PC.SOCIAL ---
IMM Update pg 2 of IMM Updated and reviewed w/ patient. Copy provided and copy dated, initialed and placed in chart.
[2024-06-07 10:19] LABS: Levetiracetam Immunoassy 5.9 mcg/mL (6.0-46.0)
--- NOTE | 2024-06-07 12:51 | PM.DCS ---
Discharge Providers Date of Admission: 06/04/24 08:18 Date of Discharge: June 07, 2024 Attending Provider at Admission: Barry Mcneal Attending Provider at Discharge: Fran Nicholson MD Primary Care Provider: Donell Sanchez MD Diagnoses at Discharge Discharge Diagnosis (1) Acute encephalopathy: Status: Acute (2) Mixed acid base balance disorder: Status: Acute (3) Aspiration pneumonia: Status: Acute (4) NSTEMI (non-ST elevated myocardial infarction): Status: Acute (5) Paroxysmal atrial fibrillation with RVR: Status: Acute (6) Polysubstance use disorder: Status: Acute (7) UTI (urinary tract infection): Status: Acute (8) Nephrolithiasis: Status: Acute (9) Nonischemic cardiomyopathy: Status: Acute (10) Left temporal lobe infarction: Status: Acute (11) Atrial fibrillation: Status: Acute Reason for Visit Reason for Visit: resp distress, possible seizure Brief History: History as per HPI: 73-year-old gentleman with history of nonischemic cardiomyopathy, reduced ejection fraction, atrial fibrillation on anticoagulation with Eliquis, hypertension, hyperlipidemia, was brought in unresponsive after his 6-year-old grandson called for help. It seems that patient was repairing a dryer this morning. The only other person around was his 6-year-old grandson. It seems that the grandson witnessed patient having possibly seizure-like activity, called for help. Patient was ventilated on the way to ER with bag mask valve, with nasal trumpet, intubated in ER. On presentation also with atrial fibrillation with RVR. Prior history reported of ventricular tachycardia for which she was transferred to [place] for assessment by EP, consideration of ICD. At that time ejection fraction reported around 30-35%. Patient has not been able to provide any history. Some collateral history obtained from his brother. Patient reportedly was having some back pain over the preceding week and some headaches. His brother had bought him a heating pad. He is not aware of any other health complaints or changes. In ER patient was found to have leukocytosis 23.67, PRISCILLA versus CKD, with severe lactic acidosis, 12.8, with acidemia on ABG 7.02, 64 point 3/235/16 0.7. Baseline troponin 25. Delta troponin 22.98. Lipase 61. Urinalysis 11-20. U tox positive for amphetamine, benzodiazepine. COVID-19 PCR negative. During intubation in ED patient noted to have large amount of secretions in the airway, possibly after aspiration. Empirically started on Zosyn. CT abdomen pelvis with bibasilar airspace disease with trace pleural effusions worse on the right. Likely combination of atelectasis and pneumonia. Right-sided pelvic kidney. Nephrolithiasis on the left. Mild wall thickening of ascending colon and transverse colon possibly representing mild colitis. Head CT with small vessel ischemic changes. CT C-spine with spondylosis. Chest x-ray with borderline cardiomegaly. Hospital Course Hospital Course Patient was admitted to the hospital for the evaluation and management of respiratory failure requiring mechanical ventilation in the field, altered mental status with unknown etiology. Multiple etiologies were entertained including arrhythmia versus possible meningitis versus possible seizure disorder versus vasovagal versus possible electrocution. Patient was at his baseline oxygen supplementation within 24 hours and self extubated on 06/05. After extubation his mentation continued to improve. Various etiologies were ruled out. Postextubation patient declined any symptoms suggestive of meningitis occluding photophobia, nausea or vomiting. Meningitis dose antibiotics were discontinued and he remained hemodynamically and medically stable with constant improvement. Keppra was withheld on 06/05 and he remained seizure-free. Eventually patient underwent MRI which was concerning for a possible left mesial temporal lobe and parahippocampal gyrus restricted diffusion consistent with acute ischemia versus possible encephalitis in setting of herpes. Further management with possibility of lumbar puncture were discussed in detail with the patient to delineate the cause of the restricted diffusion with possible differential diagnosis of acute ischemia versus herpes encephalitis. Merits versus demerits were discussed in detail with the patient along with possible need of acyclovir for next few weeks without lumbar puncture with possibility of renal dysfunction while being on acyclovir without confirming HSV. Patient and patient's brother verbalized understanding but they declined lumbar puncture. Patient continue to work well with physical therapy and has been able to tolerate regular diet. During hospitalization he did have episode of uncontrolled hypertension for which his antihypertensives were adjusted. Patient remains arrhythmia free during hospitalization has been with rapid ventricular. Echocardiogram was repeated which showed anemia with improvement of 3 5% with grade 2 diastolic dysfunction. On admission he did have elevated. Non-ST elevation ruled out with negative cardiac angiogram within last 1 year, no regional wall motion abnormality on echocardiogram. Safe discharge planning were discussed and reviewed with the brother and patient. Patient would be discharging home with brother as a caregiver for now. He has been discharged in hemodynamically stable condition on oral acyclovir 400 mg twice daily for the next 2 weeks, daily aspirin 81 mg daily and atorvastatin 40 mg daily has been added to his medication list for possible stroke. He is to maintain his oral hydration with at least 2 L of liquid daily. He is to follow-up with his primary care provider within the next 10 days for a repeat BMP. Physical Exam Narrative: hard of hearing Const: COMMON NORMALS: no acute distress, healthy appearing, alert and well nourished GENERAL APPEARANCE: cooperative, comfortable, well developed and lethargic ORIENTATION/CONSCIOUSNESS: Yes awake, Yes oriented to person, Yes oriented to place, Yes oriented to time, Yes confused and Yes lethargic HENMT: COMMON NORMALS: oropharynx normal Eye: OTHER: Pupils are bilaterally equal and reactive Neck/C-Spine: COMMON NORMALS: no JVD Resp: COMMON NORMALS: normal respiratory effort and clear to auscultation bilaterally AUSCULTATION: clear to auscultation bilaterally Cardio: COMMON NORMALS: no JVD, regular rhythm, S1 normal heart sound present, S2 normal heart sound present and No murmurs present (Cardio) RHYTHM: regular rhythm HEART SOUNDS: S1 normal heart sound present and S2 normal heart sound present GI: COMMON NORMALS: Normal to inspection, nondistended, normoactive bowel sounds present, Soft to palpation and non-tender PALPATION: Yes Soft to palpation Extremity: COMMON NORMALS: no joint enlargement and no pedal edema Neuro: SENSORIUM/ORIENTATION: Yes alert, Yes oriented to person, Yes oriented to place, Yes oriented to time, Yes Orientation impaired and Yes lethargic SPEECH: abnormal speech Skin: COMMON NORMALS: no rashes or lesions noted GENERAL SKIN EXAM: no rashes or lesions noted Discharge Data Studies Completed and Pending Completed Studies During Hospitalization Category Date Time Status CT abdomen pelvis wo con [id number] Stat Cat Scan 06/04/24 08:[address] cervical spin wo con* [id number] Stat Cat Scan 06/04/24 06:[address] head wo con* [id number] Stat Cat Scan 06/04/24 06:42 Completed XR chest 1V portable [id number] Stat Exams 06/04/24 06:35 Completed MR head wo con* [id number] Routine MRI 06/06/24 12:00 Completed CV. echo complete* [id number] Routine Ultrasound 06/04/24 09:11 Completed Pending at discharge Category Date Time Status FL guided lumbarpunc dx* [id number] Routine Exams 06/07/24 09:42 Ordered Amphetamine Confirmation, GC/M Routine Lab 06/04/24 07:34 Received Blood Culture Stat Lab 06/04/24 09:25 Results Herpes Simplex 1&2 IgG AB Routine Lab 06/07/24 05:42 Received MAG [Magnesium] AM LABS Lab 06/08/24 04:00 Ordered MRSA [Methicillin Resistant S.aureu] Routine Lab 06/05/24 16:38 Received Radiology Impressions Chest X-Ray 06/04/24 06:35 IMPRESSION: 1. Borderline cardiomegaly. 2. Lines and tubes as above. Cervical Spine CT 06/04/24 06:42 IMPRESSION: 1. Spondylosis. Head CT 06/04/24 06:42 IMPRESSION: 1. Small-vessel ischemic change. No definite acute findings appreciated. Abdomen/Pelvis CT 06/04/24 08:16 IMPRESSION: 1. Bibasilar airspace disease with trace pleural effusions worse on the right than the left. Findings likely represent a combination of atelectasis and pneumonia. 2. Right-sided pelvic kidney. 3. Nephrolithiasis on the left. 4. Mild wall thickening involving the ascending colon and transverse colon possibly representing a mild colitis. COMMENTS: Consistent with the [employer]'s Incidental Findings Committee white paper (J Am Ramonita Radiol 2018): Any incidental renal lesion less than 1 cm or classified as too small to characterize, or any incidental cystic renal lesion characterized as simple-appearing, is likely benign. No follow-up imaging is recommended for these lesions per consensus recommendations based on imaging criteria. Head MRI 06/06/24 12:00 IMPRESSION: 1. Restricted diffusion in the LEFT mesial temporal lobe and parahippocampal gyrus largest focus measuring approximately 1.6 x 0.8 cm compatible with acute ischemia. Mild associated edema with minimal localized mass effect. Encephalitis such as early herpes encephalitis is an additional possibility. 2. No other foci of acute ischemia. 3. Mild small vessel changes with mild parenchymal volume loss. 4. Tiny chronic lacunar infarcts LEFT cerebellum. 5. No other acute findings. Notified Fran Nicholson MD at 06/07/2024 9:05 AM. Microbiology 06/06/24 12:57 Urine Kidney Bacterial Antigens - Final 06/04/24 06:51 Sputum - Endotracheal Tube Aspirate Gram Stain - Final 06/04/24 06:51 Sputum - Endotracheal Tube Aspirate Sputum Culture - Final 06/04/24 12:54 Urine,Clean Catch Urine Culture - Final 06/04/24 09:25 Blood Blood Culture - Preliminary NEGATIVE TO DATE 06/04/24 06:53 Blood Blood Culture - Preliminary NEGATIVE TO DATE Echocardiogram: The ventricle is normal in size. There is at least moderate left ventricular hypertrophy. There is paradoxical motion of the septum most likely consistent with a conduction abnormality. The overall ejection fraction is approximately 50 to 55% taking into consideration the septal abnormality. There are no other wall motion disturbances. Grade 2 diastolic dysfunction.normal left ventricular size, systolic function and wall thickness, with no regional wall motion abnormalities. Ascending aorta diameter 3.34 cm. Previous study is from June 11, 2022. There has been a significant improvement in the left ventricular function. Dr. Amandeep Seo MD (Electronically Signed) Final Date: 04 June 2024 14:37 Laboratory Results WBC 12.47 10^3/uL (3.29-11.43) H 06/07/24 05:10 RBC 4.49 10^6/uL (3.85-5.65) 06/07/24 05:10 Hgb 13.10 g/dL (11.27-16.99) 06/07/24 05:10 Hct 40.4 % (37-53) 06/07/24 05:10 MCV 90.0 fl (82-101) 06/07/24 05:10 MCH 29.2 pg (27-33) 06/07/24 05:10 MCHC 32.4 g/dL (30-55) 06/07/24 05:10 RDW 14.6 % (12.1-15.1) 06/07/24 05:10 Plt Count 285 10^3/cmm (157-399) 06/07/24 05:10 MPV 9.3 fL (7.4-10.4) 06/07/24 05:10 Neut % (Auto) 76.4 % 06/07/24 05:10 Lymph % (Auto) 11.9 % 06/07/24 05:10 [place] % (Auto) 9.1 % 06/07/24 05:10 Eos % (Auto) 1.7 % 06/07/24 05:10 Baso % (Auto) 0.5 % 06/07/24 05:10 Neut # (Auto) 9.52 10^3/uL (1.8-7.7) H 06/07/24 05:10 Lymph # (Auto) 1.5 10^3/uL (0.8-4.8) 06/07/24 05:10 [place] # (Auto) 1.1 10^3/uL (0.2-0.9) H 06/07/24 05:10 Eos # (Auto) 0.2 10^3/uL (0.0-0.8) 06/07/24 05:10 Baso # (Auto) 0.1 10^3/uL (0.0-0.1) 06/07/24 05:10 Nucleated RBC % (auto) 0 % 06/07/24 05:10 Nucleated RBCs # 0.0 /100WBC 06/07/24 05:10 D-Dimer <= 0.27 ug/mLFEU (0-0.59) 06/05/24 14:06 Specimen Type Arterial 06/04/24 07:49 Sample Site Radial, right 06/04/24 07:49 ABG pH 7.25 (7.35-7.45) L 06/04/24 07:49 ABG pCO2 51.4 mmHg (35-45) H 06/04/24 07:49 ABG pO2 97.5 mmHg (80.0-100.0) 06/04/24 07:49 ABG PO2/FiO2 Ratio 121 06/04/24 07:49 ABG HCO3 22.3 mmol/L (22-26) 06/04/24 07:49 ABG O2 Saturation 96.4 06/04/24 07:49 ABG Base Excess -5.6 mmol/L (-2.0-2.0) L 06/04/24 07:49 Iain Test Pos 06/04/24 07:49 A-a O2 Gradient 53.3 mmHg (5-10) H 06/04/24 07:49 Hematocrit 50.0 % (42-52) 06/04/24 07:49 Hgb O2 Saturation 95.0 % (95-100) 06/04/24 07:49 Carboxyhemoglobin 0.3 %THgb (0.4-20.1) L 06/04/24 07:49 Methemoglobin 1.1 % (0.4-1.5) 06/04/24 07:49 Total Hemoglobin 16.3 g/dL (14-18) 06/04/24 07:49 Sodium 142.0 mmol/L (131-143) 06/04/24 07:49 Potassium 4.4 mmol/L (3.5-5.0) 06/04/24 07:49 Glucose 173.0 mg/dL (70-115) H 06/04/24 07:49 Ionized Calcium 1.3 mmol/L (1.1-1.4) 06/04/24 07:49 O2 Delivery Device Vent 06/04/24 07:49 FiO2 80.0 % 06/04/24 07:49 Tidal Volume 0.54 06/04/24 07:49 PEEP 6.0 cmH20 06/04/24 07:49 Edge Brusher ID [id number] 06/04/24 07:49 Sodium 143 mmol/L (136-145) 06/07/24 05:10 Potassium 3.7 mmol/L (3.5-5.1) 06/07/24 05:10 Chloride 108 mmol/L (98-107) H 06/07/24 05:10 Carbon Dioxide 23 mmol/L (22-29) 06/07/24 05:10 Anion Gap 15.7 (5-19) 06/07/24 05:10 BUN 22 mg/dL (8-23) 06/07/24 05:10 Creatinine 1.2 mg/dL (0.7-1.2) 06/07/24 05:10 GFR Calculation Not Reportable 06/07/24 05:10 Glucose 113 mg/dL (65-115) 06/07/24 05:10 POC Glucose 88 mg/dL (70-110) 06/05/24 21:07 Estimat Average Glucose 111 06/05/24 03:37 Hemoglobin A1c 5.5 % (4.0-6.0) 06/05/24 03:37 Calculated Osmolality 300 mOsm/kg (285-295) H 06/07/24 05:10 Lactic Acid 12.8 mmol/L (0.5-2.2) H* 06/04/24 06:53 Lactic Acid (Sepsis) 2.0 mmol/L (0.5-2.2) 06/04/24 10:01 Calcium 8.2 mg/dL (8.5-10.5) L 06/07/24 05:10 Phosphorus 3.4 mg/dL (2.5-4.5) 06/05/24 03:37 Magnesium 2.2 mg/dL (1.7-2.3) 06/07/24 05:10 Iron 19 ug/dL (59-158) L 06/05/24 03:37 TIBC 273 mcg/dl 06/05/24 03:37 % Saturation 6.9 % (20-50) L 06/05/24 03:37 Unsat Iron Binding 254 ug/dL (112-347) 06/05/24 03:37 Total Bilirubin 0.3 mg/dL (0.15-1.2) 06/07/24 05:10 AST 13 U/L (0-40) 06/07/24 05:10 ALT 10 U/L (0-41) 06/07/24 05:10 Alkaline Phosphatase 60 U/L (40-130) 06/07/24 05:10 Ammonia 32 umol/L (16-60) 06/04/24 10:01 Creatine Kinase 87 U/L (39-308) 06/04/24 06:53 Troponin T Baseline 25 ng/L (0-15) H 06/04/24 06:53 Troponin T 120 Minute 47.98 ng/L (0-15) H 06/04/24 10:01 Delta Troponin T 22.98 ABS# (0-10) H* 06/04/24 10:01 Troponin T Hi Sens 6Hr 56.44 ng/L (0-15) H 06/04/24 13:02 Troponin T Hi Sens 6Hr Delta 31.44 ng/L (0-12) H* 06/04/24 13:02 Total Protein 6.1 g/dL (6.6-8.7) L 06/07/24 05:10 Albumin 3.3 g/dL (3.5-5.2) L 06/07/24 05:10 Globulin 2.8 g/dL (1.3-4.6) 06/07/24 05:10 Triglycerides 71 mg/dL (0-150) 06/06/24 05:42 Cholesterol 149 mg/dL (0-200) 06/06/24 05:42 LDL Cholesterol, Calc 73 mg/dL (50-129) 06/06/24 05:42 Total VLDL Cholesterol 14 mg/dL (0-30) 06/06/24 05:42 HDL Cholesterol 62 mg/dL (60-100) 06/06/24 05:42 Cholesterol/HDL Ratio 2.40 mg/dL (1.0-5.00) 06/06/24 05:42 Lipase 61 U/L (13-60) H 06/04/24 06:53 Vitamin B12 263 pg/mL (232-1245) 06/05/24 03:37 Folate 10.3 ng/mL (4.5-32.2) 06/06/24 05:42 Procalcitonin 0.35 ng/mL (0-0.5) 06/05/24 03:37 TSH 3.91 uIU/mL (0.27-4.20) 06/04/24 10:01 Urine Color Yellow (Yellow) 06/04/24 07:34 Urine Appearance Cloudy (CLEAR) A 06/04/24 07:34 Urine pH 5.0 (5-7) 06/04/24 07:34 Ur Specific [place] 1.027 (1.005-1.030) 06/04/24 07:34 Urine Protein 3+ (Negative) A 06/04/24 07:34 Urine Glucose (UA) Trace (Normal) H 06/04/24 07:34 Urine Ketones Negative (Negative) 06/04/24 07:34 Urine Blood 2+ (Negative) A 06/04/24 07:34 Urine Nitrate Negative (Negative) 06/04/24 07:34 Urine Bilirubin Negative (Negative) 06/04/24 07:34 Urine Urobilinogen 1.0 mg/dL (Negative) 06/04/24 07:34 Ur Leukocyte Esterase Negative (Negative) 06/04/24 07:34 Urine RBC 0-2 /hpf (0-2) 06/04/24 07:34 Urine WBC 11-20 /hpf (0-5) H 06/04/24 07:34 Ur Squamous Epith Cells 6-10 /hpf (0-5) 06/04/24 07:34 Amorphous Sediment Not Reportable 06/04/24 07:34 Urine Bacteria Trace /hpf (NONE) 06/04/24 07:34 Hyaline Casts 246.61 /lpf 06/04/24 07:34 Coarse Granular Casts 5-10 /lpf H 06/04/24 07:34 Vancomycin Trough 10.5 ug/mL (10-15) 06/06/24 19:04 Salicylates < 0.3 mg/dL (3-10) L 06/04/24 06:53 Urine Opiates Screen Negative ng/mL (Negative) 06/04/24 07:34 Acetaminophen < 5.0 ug/mL (10-30) L 06/04/24 06:53 Ur Barbiturates Screen Negative ng/mL (Negative) 06/04/24 07:34 Levetiracetam 5.9 mcg/mL (6.0-46.0) L 06/06/24 05:42 Ur Phencyclidine Scrn Negative ng/mL (Negative) 06/04/24 07:34 Ur Amphetamines Screen Positive ng/mL (Negative) H 06/04/24 07:34 U Benzodiazepines Scrn Positive ng/mL (Negative) H 06/04/24 07:34 Urine Cocaine Screen Negative ng/mL (Negative) 06/04/24 07:34 U Marijuana (THC) Screen Negative ng/mL (Negative) 06/04/24 07:34 Ethyl Alcohol < 10 mg/dL (0-10) 06/04/24 06:53 Adenovirus (PCR) Not detected (NOT DETECT) 06/05/24 13:56 C. pneumoniae DNA (PCR) Not detected (NOT DETECT) 06/05/24 13:56 Coronavirus 229E (PCR) Not detected (NOT DETECT) 06/05/24 13:56 Human Metapneumovir PCR Not detected (NOT DETECT) 06/05/24 13:56 Influenza A (H1) PCR Not detected (NOT DETECT) 06/05/24 13:56 Influ A (H1/09) PCR Not detected (NOT DETECT) 06/05/24 13:56 Influenza A (H3) PCR Not detected (NOT DETECT) 06/05/24 13:56 Influenza Type A (PCR) Not detected (NOT DETECT) 06/05/24 13:56 Influenza Type B (PCR) Not detected (NOT DETECT) 06/05/24 13:56 M. pneumoniae (PCR) Not detected (NOT DETECT) 06/05/24 13:56 Parainfluenza 1 (PCR) Not detected (NOT DETECT) 06/05/24 13:56 Parainfluenza 2 (PCR) Not detected (NOT DETECT) 06/05/24 13:56 Parainfluenza 3 (PCR) Not detected (NOT DETECT) 06/05/24 13:56 Parainfluenza 4 (PCR) Not detected (NOT DETECT) 06/05/24 13:56 RSV Type A (PCR) Not detected (NOT DETECT) 06/05/24 13:56 RSV Type B (PCR) Not detected (NOT DETECT) 06/05/24 13:56 Entero/Rhino (PCR) Not detected (NOT DETECT) 06/05/24 13:56 SARS-CoV-2 (PCR) Not detected (NOT DETECT) 06/05/24 13:56 Vitals Last Vital Signs Temp 98.2 F 06/07/24 11:57 Pulse 65 06/07/24 11:57 Resp 17 06/07/24 11:57 BP 156/70 06/07/24 11:57 Pulse Ox 95 06/07/24 11:57 O2 Del Method Room Air 06/07/24 11:57 O2 Flow Rate 2 06/06/24 08:00 FiO2 1.5 06/06/24 02:00 Discharge Plan Discharge Patient Disposition: Home Condition: Stable Prescriptions: New acyclovir 400 mg tablet 400 mg PO BID 14 Days Qty: 28 0RF amoxicillin-pot clavulanate 875-125 mg tablet 1 tab PO BID Qty: 10 0RF aspirin 81 mg capsule 81 mg PO DAILY Qty: 90 0RF atorvastatin 20 mg tablet 20 mg PO DAILY Qty: 90 0RF pantoprazole [Protonix] 40 mg tablet,delayed release (DR/EC) 40 mg PO BID 14 Days Qty: 28 0RF Continued Eliquis 5 mg tablet 5 mg PO BID carvedilol [Coreg] 12.5 mg tablet 12.5 mg PO BID Qty: 180 3RF Rx Instructions: must administer with a meal/food simvastatin 40 mg tablet 40 mg PO QPM levothyroxine 100 mcg tablet 100 mcg PO QAM felodipine 10 mg tablet extended release 24 hr 10 mg PO DAILY Held spironolactone 25 mg tablet 25 mg PO DAILY Hold Instructions: Resume on 06/28/24. Discharge Orders: Discharge Order (Routine); Ordered 06/07/24 Ordered By: Fran Nicholson Referrals: Donell Sanchez MD [Primary Care Provider] - 7-10 days Discharge Diet: Cardiac Discharge Activity: Resume usual activity and Increase activity as tolerated Patient Instructions: Opioid Safety Activity Restrictions/Additional Instructions: Medication changes as below. Please take oral acyclovir 400 mg twice daily for the next 2 weeks, daily aspirin 81 mg daily and atorvastatin 40 mg daily has been added to his medication list for possible stroke. You will be on acyclovir for next 2 weeks along with antibiotics including Augmentin and Levaquin for next 7 days. Aspirin and atorvastatin will be for longer term. He is to maintain his oral hydration with at least 2 L of liquid daily. He is to follow-up with his primary care provider within the next 10 days for a repeat BMP. Discharge Attestations Time Spent in Discharge Care*: greater than 30 min Specific Discharge Activities: educating patient, educating and/or supporting family/caregiver, discussing with pcp/other providers, discussing with case assistant/social workers/dc planners, documenting/other paperwork and evaluating patient/reviewing data Status at Discharge: Cognitive status at discharge: mildly impaired cognition, Behavioral status at discharge: cooperative, Functional status at discharge: independent ambulation, Overall status at discharge: patient is progressing back to baseline Quality Metrics Clinical Quality Measures [ No reported AMI, CVA or VTE this stay] Coding Level of Care Code 95046 Total time (in minutes) for Discharge: 70 Diagnoses Acute encephalopathy G93.40 Mixed acid base balance disorder E87.4 Aspiration pneumonia J69.0 NSTEMI (non-ST elevated myocardial infarction) I21.4 Paroxysmal atrial fibrillation with RVR I48.0 Polysubstance use disorder F19.90 UTI (urinary tract infection) N39.0 Nephrolithiasis N20.0 Nonischemic cardiomyopathy I42.8 Left temporal lobe infarction I63.89 Atrial fibrillation I48.91
--- NOTE | 2024-06-07 12:51 | PC.NURSE ---
Verbal order was given to discontinue mendoza catheter. Mendoza was removed at 1245 and patient tolerated well. Catheter was intact.
[2024-06-07 13:04] LABS: Methicillin-Resist S.aureu PCR NOT DETECTED (NOT DETECTED)
--- NOTE | 2024-06-07 13:14 | PC.NURSE ---
Patient refused lumbar puncture this morning/afternoon. Education was provided by both this nurse and Dr. Nicholson.
--- NOTE | 2024-06-07 14:01 | PC.PHAR ---
Vancomycin level in range, continue current dose
[2024-06-08 14:59] LABS: HSV 2 IGG Type Specific AB <0.90 index
[2024-06-13 10:48] LABS: Amphetamine 3000 ng/mL; Methamphetamine >15000 ng/mL; Methylenedioxyamphetamine negative; Methylenedioxyethylamphetamine negative; Methylenedioxymethamphetamine negative
== END 2024-06-07 15:09 | disposition home or self-care (01) | DRG 208 ==
LOC: ER 07:24 → ICU 08:24 → MEDSURG 06-06 17:20
PROVIDERS: Admitting Provider Internal Medicine; Emergency Provider Family Medicine; PCP Family Medicine; Visit Provider Student in an Organized Health Care Education/Training Program
DX: J69.0 Pneumonitis due to inhalation of food and vomit (principal); J96.00 Acute respiratory failure, unspecified whether with hypoxia or hypercapnia; I42.8 Other cardiomyopathies; I50.22 Chronic systolic (congestive) heart failure; E87.4 Mixed disorder of acid-base balance; N39.0 Urinary tract infection, site not specified; G93.40 Encephalopathy, unspecified; I11.0 Hypertensive heart disease with heart failure; I48.0 Paroxysmal atrial fibrillation; E78.5 Hyperlipidemia, unspecified; N20.0 Calculus of kidney; M47.812 Spondylosis without myelopathy or radiculopathy, cervical region; K52.9 Noninfective gastroenteritis and colitis, unspecified; F19.90 Other psychoactive substance use, unspecified, uncomplicated; I44.7 Left bundle-branch block, unspecified; Z79.01 Long term (current) use of anticoagulants; Z87.440 Personal history of urinary (tract) infections; Z11.52 Encounter for screening for COVID-19; Z87.01 Personal history of pneumonia (recurrent); Z86.16 Personal history of COVID-19; Z87.891 Personal history of nicotine dependence
CPT/HCPCS: 31500; 36415; 36416; 36600; 70450; 70551; 71045; 72125; 74176; 80048; 80051; 80053; 80061; 80177; 80202; 80306; 80307; 80324; 80359; 81003; 81015; 82140; 82330; 82550; 82607; 82746; 82805; 82962; 83036; 83540; 83550; 83605; 83690; 83735; 84100; 84145; 84443; 84484; 85025; 85378; 86403; 86695; 86696; 87040; 87070; 87086; 87205; 87486; 87581; 87633; 87635; 87641; 92523; 92610; 93005; 93306; 94002; 94003; 94640; 94664; 94799; 96365; 96366; 96367; 96372; 96375; 97116; 97161; 99291; 99292; J0290; J0360; J0696; J1650; J1885; J1953; J2250; J2405; J2470; J2543; J3010; J3370; J3490; J7040; J7042; J7626

== ENCOUNTER 2024-06-19 07:45 | Outpatient (CLI) | payer MEDICARE, MEDICAID, SELFPAY ==
--- NOTE | 2024-06-19 07:49 | USCV_ITS ---
Miguel A Reyna Age: 73 Gender: M : 1950 Exam Date: 06/19/2024 07:56 Ordering Phys: Donell Sanchez MD Technologist: [place] [facility] [place]: cad syncope BP: 134 / 73 HR: 62 Rhythm: Sinus Technical Quality: Adequate MEASUREMENTS (Male / Female) Normal Values 2D ECHO LV Diastolic Diameter PLAX 4.5 cm 4.2 - 5.9 / 3.9 - 5.3 cm IVS Diastolic Thickness 1.1 cm 0.6 - 1.0 / 0.6 - 0.9 cm IVS Systolic Thickness 1.7 cm LVPW Diastolic Thickness 1.3 cm 0.6 - 1.0 / 0.6 - 0.9 cm LVPW Systolic Thickness 2.2 cm LVOT Diameter 2.1 cm LV Ejection Fraction 2D Teich 65.1 % LV Ejection Fraction MOD 4C 70.0 % LV Ejection Fraction MOD 2C 64.5 % LV Ejection Fraction 2C AL 64.1 % LA Diameter 4.1 cm RA Systolic Volume 4C AL 28.3 ml RA Systolic Volume 4C MOD 26.4 ml M-MODE LA Ao Ratio MM 1.3 AV Cusp Separation MM 2.0 cm DOPPLER AV Peak Velocity 141.0 cm/s LVOT Peak Velocity 81.0 cm/s AV Area Cont Eq vti 1.9 cm squared AV Area Cont Eq pk 2.0 cm squared MV Peak Velocity 106.0 cm/s MV Area PHT 4.0 cm squared Mitral E to A Ratio 1.0 TV Peak Velocity 159.0 cm/s TR Peak Velocity 168.0 cm/s TR Peak Gradient 11.3 mmHg TV Peak E Velocity 89.0 cm/s Right Atrial Pressure 3.0 mmHg Pulmonary Artery Systolic Pressu 14.3 mmHg PV Peak Velocity 146.0 cm/s FINDINGS Left Ventricle Diffuse hypokinesis of the left ventricle with ejection fraction around 45%. (visual). Mild Isidoro relative pseudohypertrophy Right Ventricle The right ventricle is normal in size and function. Right Atrium The right atrium is normal in size. Left Atrium Mildly increased left atrial size. Mitral Valve Trace mitral valve regurgitation. Aortic Valve Thickened aortic valve. Tricuspid Valve No gross abnormalities noted Pulmonic Valve Pulmonic valve not well visualized. Pericardium Normal pericardium without effusion. Aorta Normal aortic annulus size. IVC The inferior vena cava appears normal. CONCLUSIONS Diffuse hypokinesis of the left ventricle with ejection fraction around 45%. (visual). Mild Isidoro relative pseudohypertrophy. Mildly increased left atrial size. Trace mitral valve regurgitation. Thickened aortic valve. There is no pericardial effusion. There are no intracardiac masses. No similar previous studies are available for comparison Dr Emi Tineo MD [facility] (Electronically Signed) Final Date: 22 June 2024 14:11 S
== END 2024-06-19 07:46 | disposition home or self-care (01) ==
LOC: RAD 07:45
PROVIDERS: PCP Family Medicine; Visit Provider Family Medicine
DX: I50.1 Left ventricular failure, unspecified (principal); I35.0 Nonrheumatic aortic (valve) stenosis; I46.9 Cardiac arrest, cause unspecified
CPT/HCPCS: 93306

== ENCOUNTER → 2024-06-21 14:56 | Outpatient (BNVA) | payer MEDICARE, MEDICAID, SELFPAY | PROVIDERS: PCP Family Medicine; Visit Provider Nurse Practitioner Family | DX: I10 Essential (primary) hypertension (principal); R06.03 Acute respiratory distress; Z87.891 Personal history of nicotine dependence | CPT/HCPCS: 36415; 80048; 99213 ==

== ENCOUNTER 2024-06-30 09:50 | Observation (INO) | payer MEDICARE, MEDICAID, SELFPAY ==
[2024-06-30] VITALS (58 sets, daily range): BP systolic 124–206; BP diastolic 53–129; PULSE 43–64; RESP 13–29; TEMP 36.8; O2SAT 84–97; BMI 24.0
--- NOTE | 2024-06-30 09:54 | ECG_ITS ---
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 Measurements Intervals [place] Rate: 50 P: 47 FL: 208 QRS: 9 QRSD: 162 T: 215 QT: 458 QTc: 421 Interpretive Statements SINUS BRADYCARDIA LEFT BUNDLE BRANCH BLOCK [120+ ms QRS DURATION, 80+ ms Q/S IN V1/V2, 85+ ms R IN I/aVL/V5/V6] Compared to ECG 06/04/2024 13:19:51 Sinus rhythm no longer present Electronically Signed On 06-30-2024 18:16:47 CDT by Emi Tineo M.D. [id number]
--- NOTE | 2024-06-30 10:01 | XR_ITS ---
WS: [id number] Exam: XR chest 1V portable [id number] Date/Time of Exam: 06/30/2024 10:04 AM Reason For Exam: dyspnea/cough Comparison 06/04/2024. The lungs are clear and fully expanded. Heart size top limits normal. The mediastinum is normal in co ntour. No pleural effusions. Eventration of the RIGHT diaphragm. A battery pack superimposes the supe rior mediastinum. Bony structures are intact. XR/XR chest 1V portable [id number] IMPRESSION: 1. No acute cardiopulmonary finding.
[2024-06-30 10:14] LABS: Basophils # 0.1 10^3/uL (0.0-0.1); Basophils % 0.5 %; Eosinophils # 0.7 10^3/uL (0.0-0.8); Eosinophils % 7.1 %; Hematocrit 42.3 % (37-53); Lymphocytes # 1.4 10^3/uL (0.8-4.8); Lymphocytes % 15.6 %; Mean Corpuscular HGB Conc 32.9 g/dL (30-55); Mean Corpuscular Hemoglobin 29.1 pg (27-33); Mean Corpuscular Volume 88.5 fl (82-101); Mean Platelet Volume 9.5 fL (7.4-10.4); Monocytes # 0.8 10^3/uL (0.2-0.9); Monocytes % 8.9 %; Neutrophils # 6.17 10^3/uL (1.8-7.7); Neutrophils % 67.7 %; Nucleated Red Blood Cells % 0 %; Platelet Count 306 10^3/cmm (157-399); Red Blood Count 4.78 10^6/uL (3.85-5.65); Red Cell Distribution Width 14.2 % (12.1-15.1); White Blood Count 9.12 10^3/uL (3.29-11.43)
[2024-06-30] MEDS: nicardipine 20 MG/200 ML PREMIX 50 MG IV (10:16)
--- NOTE | 2024-06-30 10:26 | ED_ITS ---
HPI - Chest Pain 2 General: Chief Complaint: Chest Pain Stated Complaint: cp Time Seen by Provider: 06/30/24 09:52 History of Present Illness: 74-year-old male presents emergency room with episode of chest pain and bradycardia. Patient has a history of sustained V. tach he was referred at least 1 time to [place] for consideration of pacemaker and ICD placement. He tells me he refused to have it placed. We did see him a few weeks ago initially without event electrocuted. He was under the influence of amphetamines at that time. He returns today after having seen his primary care doctor and was having significant accelerated hypertension. Given clonidine which had little to no improvement on arrival here his blood pressure 206/129 his heart rate is 50. He did not take his Coreg this morning. He did have some episodes of chest pain denies any chest pain or shortness of breath at this time. At the doctor's office his blood pressure was 230/120. Patient has a known history of cardiomyopathy as well with a significantly reduced ejection fraction. He has had 2 syncopal episodes in the last month. Associated symptoms: Deny abdominal pain, dyspnea or fever(s) Related Data Home Medications Medication Instructions Recorded Confirmed carvedilol 12.5 mg tablet 12.5 mg PO BID 06/30/24 06/30/24 simvastatin 40 mg tablet 40 mg PO DAILY 06/30/24 06/30/24 Previous Rx's Medication Instructions Recorded aspirin 81 mg capsule 81 mg PO DAILY #90 caps 06/07/24 apixaban 5 mg tablet (Eliquis) 5 mg PO BID #180 tabs 06/21/24 Allergies Allergy/AdvReac Type Severity Reaction Status Date / Time spironolactone AdvReac Severe breast Verified 06/21/24 15:25 soreness Review of Systems 2 Const: Denies: fever(s) or chills Card: Denies: chest pain Resp: Denies: dyspnea GI: Denies: abdominal pain : Denies: dysuria, urinary frequency or urinary urgency Musc: Denies: neck pain or back pain Skin/Breast: Denies: rash PFSH ED 2 PFSH: Medical History (Updated 06/30/24 @ 13:51 by Bethel Diaz DO) Ventricular tachycardia Frequent PVCs Light headedness Single pelvic kidney UTI (urinary tract infection) Nonischemic cardiomyopathy Atrial fibrillation Pneumonia due to COVID-19 virus Hyperlipidemia Hypertension Surgical History History of elbow surgery History of back surgery Family History Other CAD (coronary artery disease) Social History Smoking and tobacco/nicotine status: former use of tobacco/nicotine Alcohol intake: never Physical Exam 2 Const: COMMON NORMALS: no acute distress GENERAL APPEARANCE: cooperative and comfortable ORIENTATION/CONSCIOUSNESS: Yes awake HENMT: COMMON NORMALS: normocephalic, atraumatic and hearing grossly normal bilaterally HEAD & SCALP: normocephalic and atraumatic Resp: COMMON NORMALS: normal respiratory effort, No retractions, No use of accessory muscles and clear to auscultation bilaterally AUSCULTATION: clear to auscultation bilaterally Cardio: COMMON NORMALS: regular rhythm and No murmurs present (Cardio) R ATE: bradycardic RHYTHM: regular rhythm GI: COMMON NORMALS: Soft to palpation and No hepatosplenomegaly present A USCULTATION: Yes normoactive bowel sounds PALPATION: Yes Soft to palpation, No Tenderness to palpation present (GI), No Guarding due to palpation present (GI) and Yes No hepatosplenomegaly present Extremity: COMMON NORMALS: normal to inspection, capillary refill normal, no clubbing, cyanosis or edema, no calf tenderness and no pedal edema Skin: COMMON NORMALS: no rashes or lesions noted GENERAL SKIN EXAM: no rashes or lesions noted Course 2 Vital Signs: Vital signs: Vital Signs Temperature 98.3 F 06/30/24 09:51 Pulse Rate 53 L 06/30/24 13:30 Respiratory Rate 17 06/30/24 13:30 Blood Pressure 139/68 06/30/24 13:30 Pulse Oximetry 93 06/30/24 13:30 Oxygen Delivery Me thod Room Air 06/30/24 13:27 MDM - Chest Pain Medical Decision Making Patient presents with complaints of chest pain and accelerated hypertension. 2 years ago he had a 30 to 40% LAD lesion rest of his coronary arteries were clear. He did improve with nicardipine. Will admit discussed with Dr. Chiu orders written Dr. Costa has seen the patient in the emergency room. Medical Records I reviewed the patient's medical records. Lab Data I reviewed the patient's lab results. 06/30/24 09:45 06/30/24 09:45 Radiology Impressions Chest X-Ray 06/30/24 10:01 IMPRESSION: 1. No acute cardiopulmonary finding. Laboratory Results WBC 9.12 10^3/uL (3.29-11.43) 06/30/24 09:45 RBC 4.78 10^6/uL (3.85-5.65) 06/30/24 09:45 Hgb 13.90 g/dL (11.27-16.99) 06/30/24 09:45 Hct 42.3 % (37-53) 06/30/24 09:45 MCV 88.5 fl (82-101) 06/30/24 09:45 MCH 29.1 pg (27-33) 06/30/24 09:45 MCHC 32.9 g/dL (30-55) 06/30/24 09:45 RDW 14.2 % (12.1-15.1) 06/30/24 09:45 Plt Count 306 10^3/cmm (157-399) 06/30/24 09:45 MPV 9.5 fL (7.4-10.4) 06/30/24 09:45 Neut % (Auto) 67.7 % 06/30/24 09:45 Lymph % (Auto) 15.6 % 06/30/24 09:45 [place] % (Auto) 8.9 % 06/30/24 09:45 Eos % (Auto) 7.1 % 06/30/24 09:45 Baso % (Auto) 0.5 % 06/30/24 09:45 Neut # (Auto) 6.17 10^3/uL (1.8-7.7) 06/30/24 09:45 Lymph # (Auto) 1.4 10^3/uL (0.8-4.8) 06/30/24 09:45 [place] # (Auto) 0.8 10^3/uL (0.2-0.9) 06/30/24 09:45 Eos # (Auto) 0.7 10^3/uL (0.0-0.8) 06/30/24 09:45 Baso # (Auto) 0.1 10^3/uL (0.0-0.1) 06/30/24 09:45 Nucleated RBC % (auto) 0 % 06/30/24 09:45 Nucleated RBCs # 0.0 /100WBC 06/30/24 09:45 Sodium 142 mmol/L (136-145) 06/30/24 09:45 Potassium 4.8 mmol/L (3.5-5.1) 06/30/24 09:45 Chloride 107 mmol/L (98-107) 06/30/24 09:45 Carbon Dioxide 23 mmol/L (22-29) 06/30/24 09:45 Anion Gap 16.8 (5-19) 06/30/24 09:45 BUN 18 mg/dL (8-23) 06/30/24 09:45 Creatinine 1.0 mg/dL (0.7-1.2) 06/30/24 09:45 GFR Calculation Not Reportable 06/30/24 09:45 Glucose 102 mg/dL (65-115) 06/30/24 09:45 Calculated Osmolality 296 mOsm/kg (285-295) H 06/30/24 09:45 Calcium 8.8 mg/dL (8.5-10.5) 06/30/24 09:45 Total Bilirubin 0.4 mg/dL (0.15-1.2) 06/30/24 09:45 AST 19 U/L (0-40) 06/30/24 09:45 ALT 11 U/L (0-41) 06/30/24 09:45 Alkaline Phosphatase 90 U/L (40-130) 06/30/24 09:45 Troponin T Baseline 30 ng/L (0-15) H 06/30/24 09:45 Total Protein 6.6 g/dL (6.6-8.7) 06/30/24 09:45 Albumin 4.1 g/dL (3.5-5.2) 06/30/24 09:45 Globulin 2.5 g/dL (1.3-4.6) 06/30/24 09:45 Urine Color Yellow (Yellow) 06/30/24 10:20 Urine Appearance Clear (CLEAR) 06/30/24 10:20 Urine pH 6.0 (5-7) 06/30/24 10:20 Ur Specific [place] 1.009 (1.005-1.030) 06/30/24 10:20 Urine Protein 1+ (Negative) A 06/30/24 10:20 Urine Glucose (UA) Negative (Normal) 06/30/24 10:20 Urine Ketones Negative (Negative) 06/30/24 10:20 Urine Blood Negative (Negative) 06/30/24 10:20 Urine Nitrate Negative (Negative) 06/30/24 10:20 Urine Bilirubin Negative (Negative) 06/30/24 10:20 Urine Urobilinogen 0.2 mg/dL (Negative) 06/30/24 10:20 Ur Leukocyte Esterase Negative (Negative) 06/30/24 10:20 Urine RBC 0-2 /hpf (0-2) 06/30/24 10:20 Urine WBC 0-5 /hpf (0-5) 06/30/24 10:20 Ur Squamous Epith Cells 0-5 /hpf (0-5) 06/30/24 10:20 Amorphous Sediment Not Reportable 06/30/24 10:20 Urine Bacteria None seen /hpf (NONE) 06/30/24 10:20 Hyaline Casts 0-4 /lpf H 06/30/24 10:20 Urine Opiates Screen Negative ng/mL (Negative) 06/30/24 10:20 Ur Barbiturates Screen Negative ng/mL (Negative) 06/30/24 10:20 Ur Phencyclidine Scrn Negative ng/mL (Negative) 06/30/24 10:20 Ur Amphetamines Screen Negative ng/mL (Negative) 06/30/24 10:20 U Benzodiazepines Scrn Negative ng/mL (Negative) 06/30/24 10:20 Urine Cocaine Screen Negative ng/mL (Negative) 06/30/24 10:20 U Marijuana (THC) Screen Negative ng/mL (Negative) 06/30/24 10:20 Ethyl Alcohol < 10 mg/dL (0-10) 06/30/24 09:45 All radiology interpretation(s) finalized by discharge Discharge Plan Discharge Patient Disposition: Placed in Observation Admit Provider: Anselmo Costa Clinical Impression: Accelerated hypertension, Nonischemic cardiomyopathy, Chest pain Coding Level of Care Code ED Actuary Manager for Deb Carroll
[2024-06-30 10:27] LABS: Charge for UA Resulting for Rev
[2024-06-30 10:35] LABS: Troponin(5th) Baseline 30 ng/L (0-15)
[2024-06-30 10:39] LABS: Alanine Aminotransferase 11 U/L (0-41); Albumin Level 4.1 g/dL (3.5-5.2); Alkaline Phosphatase 90 U/L (40-130); Blood Urea Nitrogen 18 mg/dL (8-23); Calcium 8.8 mg/dL (8.5-10.5); Carbon Dioxide 23 mmol/L (22-29); Chloride 107 mmol/L (98-107); Creatinine Clr Calc Pharmacy 74.2148; Globulin 2.5 g/dL (1.3-4.6); Glucose 102 mg/dL (65-115); Osmolality Calculated 296 mOsm/kg (285-295); Sodium 142 mmol/L (136-145); Total Bilirubin 0.4 mg/dL (0.15-1.2); Total Protein 6.6 g/dL (6.6-8.7)
[2024-06-30 10:40] LABS: Bilirubin Urine Negative (Negative); Blood Urine Negative (Negative); Glucose Urine UA Negative (Normal); Ketones Urine Negative (Negative); Leukocyte Esterase Urine Negative (Negative); Nitrate Urine Negative (Negative); Protein Urine 1+ (Negative); Specific Gravity, Urine 1.009 (1.005-1.030); Urine Appearance Clear (CLEAR); Urine Color Yellow (Yellow); Urobilinogen Urine 0.2 mg/dL (Negative)
[2024-06-30 10:45] LABS: Anion Gap 16.8 (5-19); Aspartate Amino Transferase 19 U/L (0-40); Potassium 4.8 mmol/L (3.5-5.1)
[2024-06-30 10:45] LABS: Bacteria Urine None Seen /hpf; Hyaline Casts Urine 0-4 /lpf; RBC Urine 0-2 /hpf (0-2); Squamous Epithelial Cell Urine 0-5 /hpf (0-5); WBC Urine 0-5 /hpf (0-5)
[2024-06-30 10:46] LABS: Amphetamines Screen Urine Negative (Negative); Barbiturates Screen Urine Negative (Negative); Benzodiazepines Screen Urine Negative (Negative); Cocaine Screen Urine Negative (Negative); Opiate Screen Urine Negative (Negative); PCP Screen Urine Negative (Negative); THC Screen Urine Negative (Negative)
--- NOTE | 2024-06-30 10:56 | PC.PHAR ---
pt stopped atorvastatin 20mg and started simvastatin 40mg. no meds taken today
[2024-06-30 11:00] LABS: Alcohol Level < 10 mg/dL (0-10)
--- NOTE | 2024-06-30 11:54 | ECG_ITS ---
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 Measurements Intervals [place] Rate: 51 P: 67 IN: 211 QRS: 0 QRSD: 165 T: 223 QT: 500 QTc: 465 Interpretive Statements SINUS BRADYCARDIA WITH FIRST DEGREE AV BLOCK LEFT BUNDLE BRANCH BLOCK [120+ ms QRS DURATION, 80+ ms Q/S IN V1/V2, 85+ ms R IN I/aVL/V5/V6] Compared to ECG 06/30/2024 09:53:55 First degree AV block now present Electronically Signed On 06-30-2024 18:29:47 CDT by Emi Tineo M.D. [email or web address]/store/OM/[id number]
[2024-06-30 12:20] LABS: Troponin 5 2HR 26.71 ng/L (0-15); Troponin 5 2HR Delta -3.29 ABS# (0-10)
--- NOTE | 2024-06-30 12:39 | P.HP_ITS ---
Providers/Chief Complaint 2 Admitting Physician: Anselmo Costa MD Primary Care Provider: Donell Sanchez MD Chief Complaint: cp History of Present Illness Miguel A Reyna is a 74 year old male sent to the emergency department by his primary care provider's office with concerns of marked hypertension. Heart rate was also noted to be 50. He has a history of sustained V. tach, amphetamine use, nonischemic cardiomyopathy. He reports when seeing his physician this morning he had not yet taken his carvedilol. He reports he occasionally has some chest discomfort but does not have any chest discomfort or shortness of breath right now. He did have a little bit this morning, but seems to go off in tangents on his description of this. He reports no recent use of amphetamine, although he states he has been around people who do use. He denies any fevers, chills, blood in stool, black or tarry stools. In the emergency department blood pressure was noted to be quite elevated. He was placed on a nicardipine drip. Note his recent hospitalization from June 04 to June 07 where he required intubation for acute encephalopathy, refused an LP, and was diagnosed ultimately with likely stroke. An event monitor was placed at that time which he still has on. Review of Systems 2 General: Reports: 10 or more systems reviewed and unremarkable except in HPI and below Card: Reports: chest pain Resp: Denies: dyspnea GI: Denies: abdominal pain, nausea, vomiting, hematochezia or melena Medications/Allergies Home Medications Medication Instructions Recorded Confirmed Last Taken Type aspirin 81 mg capsule 81 mg PO DAILY #90 caps 06/07/24 06/30/24 06/29/24 Rx apixaban 5 mg tablet (Eliquis) 5 mg PO BID #180 tabs 06/21/24 06/30/24 06/29/24 Rx carvedilol 12.5 mg tablet 12.5 mg PO BID 06/30/24 06/30/24 06/29/24 History simvastatin 40 mg tablet 40 mg PO DAILY 06/30/24 06/30/24 06/29/24 History Allergies Allergy/AdvReac Type Severity Reaction Status Date / Time spironolactone AdvReac Severe breast Verified 06/21/24 15:25 soreness PFSH Acute 2 PFSH: Medical History (Updated 06/30/24 @ 12:54 by Anselmo Costa MD) Ventricular tachycardia Frequent PVCs Light headedness Single pelvic kidney UTI (urinary tract infection) Nonischemic cardiomyopathy Atrial fibrillation Pneumonia due to COVID-19 virus Hyperlipidemia Hypertension Surgical History History of elbow surgery History of back surgery Family History Other CAD (coronary artery disease) Social History Smoking and tobacco/nicotine status: former use of tobacco/nicotine Alcohol intake: never Vitals/I&O/Wt Last Vital Signs Temp 98.3 F 06/30/24 09:51 Pulse 54 L 06/30/24 11:20 Resp 24 H 06/30/24 11:20 BP 142/71 06/30/24 11:20 Pulse Ox 92 06/30/24 11:20 O2 Del Method Room Air 06/30/24 10:30 Weight last 48 hrs Weight 82.554 kg Physical Exam 2 Narrative: General Exam demonstrates a conversive white male, who currently reports no symptoms. He is on nicardipine at 5 and his blood pressure is 130/80 HEENT: Atraumatic and normocephalic. Oropharynx clear Neck is supple Cardiovascular bradycardic, regular, no murmur Lungs clear no wheezing or crackles Abdomen is soft, positive bowel sounds. No obvious organomegaly exams deferred Extremities no cyanosis clubbing or edema, cap refill brisk Skin no rash Neuro no focal deficits Data 06/30/24 09:45 06/30/24 09:45 Other Labs: LFTs, calcium, albumin are normal Troponin is 30 and repeat of 26 I have ordered a magnesium level. TSH was recently checked and normal. Urine drug screen is negative Urinalysis negative Chest x-ray by my review eventration of the right hemidiaphragm, event monitor noted central chest, no infiltrate Recent echo June 19 EF 45%. Interestingly there is another echo on June 04 with an EF around 55% Recent MRI concern of acute ischemia left mesial temporal lobe EKG demonstrates sinus bradycardia, normal axis, left bundle branch block. I reviewed this personally I believe his last angiogram was June 2022. This demonstrated proximal LAD 30 to 40% stenosis, otherwise no significant disease. A&P Assessment and plan (1) Hypertensive urgency: Patient presents with hypertensive urgency He was having some chest discomfort but this is now gone with lowering his blood pressure Troponin appears to be a type II elevation but will continue to complete series He has had multiple recent echoes. There are some confusion from the last echo on if his EF has decreased. I have called cardiology to clarify. Certainly if his EF is decreasing, further workup could be warranted given his chest discomfort. Last angiogram 2 years ago demonstrated nonischemic cardiomyopathy with a proximal LAD lesion of 30 to 40% Secondary to his bradycardia we will change carvedilol to metoprolol 12.5 mg twice daily and monitor heart rate closely. I think it is important to continue beta-rachael if possible secondary to his past history of ventricular tachycardia. Initiate Norvasc 5 mg daily, first dose now Continue nicardipine but wean off as other medication is started (2) Elevated troponin: Patient with elevated troponin. I believe this will be a type II elevation. See notations above. (3) Nonischemic cardiomyopathy: Patient with past history of nonischemic cardiomyopathy with EF as low as 35%, but recently improved on June [address] Seo to 55% EF. June 19 echo seems to indicate an EF of 45%. This may not be a significant difference. (4) Atrial fibrillation: Patient with past history of A-fib, and stroke Continue Eliquis Continue aspirin Continue statin (5) Ventricular tachycardia: Patient has a hip past history of V. tach requiring transfer 2 years ago patient with some bradycardia He has an event monitor on Monitor on telemetry TSH was normal Check magnesium Discontinue carvedilol and placed on low-dose metoprolol Plan History of amphetamine use Multiple other medical problems as outlined in by past medical history Full code currently Eliquis will suffice for DVT prophylaxis Nicardipine is IV medicine used to support blood pressure that needs close titration in the ICU setting and is a significant risk in this patient. Attestations 2 Medical Necessity Statement*: Will likely need less than 2 midnight stay for treatment of hypertensive emergency, with previous normal blood pressures. Likely can wean nicardipine quickly, and possible discharge tomorrow if no further findings. Critical Care Time: The high probability of a clinically significant, sudden or life threatening deterioration of the patient's [cardiac, metabolic] system(s) required my full and direct attention, intervention and personal management. The critical care time is as shown. This time is in addition to time spent performing any reported procedures but includes the following: [x] Data and vital sign review and interpretation [x] Patient assessment, examination and intervention [x] Documentation [x] Medication orders and management Critical Care Time (min): 50 Coding Level of Care Code Critical Care >/= 30 minutes Critical care time (in minutes): 50 The high probability of a clinically significant, sudden or life threatening deterioration, as referenced in this documentation, required my full and direct attention, intervention and personal management. The critical care time shown is in addition to time spent performing any reported separately billable procedures and includes the following: [x] Data and vital sign review and interpretation [x ] Patient assessment, examination and intervention [x] Medication orders and management [x] Patient/Family updates as able [x] Care Coordination and Documentation. Diagnoses Hypertensive urgency I16.0 Elevated troponin R79.89 Nonischemic cardiomyopathy I42.8 Atrial fibrillation I48.91 Ventricular tachycardia I47.2
[2024-06-30 13:01] LABS: Magnesium 1.9 mg/dL (1.7-2.3)
[2024-06-30] MEDS: acetaminophen 325 mg Tablet 650 MG PO ×2 (13:23→20:17)
[2024-06-30] MEDS: amlodipine 5 mg Tablet PO (13:23)
--- NOTE | 2024-06-30 15:10 | PC.NURSE ---
Patient c/o persistent headache. Tylenol only worked briefly. Headache return 05/10. BP controlled as documented. Cardene drip is stopped. Informed Dr Costa of changes. Received order for Flexeril 10mg PO TID as needed. RBVO
[2024-06-30] MEDS: cyclobenzaprine 10 mg Tablet PO (15:14)
--- NOTE | 2024-06-30 15:54 | ECG_ITS ---
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 Measurements Intervals [place] Rate: 48 P: 29 IA: 216 QRS: -22 QRSD: 160 T: 250 QT: 495 QTc: 445 Interpretive Statements ELECTRONIC VENTRICULAR PACEMAKER ABNORMAL RHYTHM ECG Compared to ECG 06/30/2024 12:01:02 Sinus bradycardia no longer present First degree AV block no longer present Left bundle-branch block no longer present Electronically Signed On 06-30-2024 18:30:40 CDT by Emi Tineo M.D. [email or web address].[facility]inInitMehen[facility].[employer]/store/OM/[id number]/[id number]
[2024-06-30 16:25] LABS: Troponin 5 6HR 27.97 ng/L (0-15)
[2024-06-30 16:29] LABS: Troponin 5 6HR Delta -2.03 ng/L (0-12)
[2024-06-30] MEDS: apixaban 5 mg Tablet PO (17:28)
--- NOTE | 2024-06-30 21:36 | PC.NURSE ---
PO Metoprolol not given this Pm due to patient's heart rate 40's to 50's, Dr. Jacobs notified and okayed to hold it.
[2024-07-01] VITALS (13 sets, daily range): BP systolic 140–191; BP diastolic 70–92; PULSE 47–63; RESP 15–24; TEMP 36.4–36.9; O2SAT 94–97
--- NOTE | 2024-07-01 00:12 | PC.NURSE ---
Patient transferred to [facility] at aprox. [phone].
[2024-07-01 04:37] LABS: Basophils # 0.1 10^3/uL (0.0-0.1); Basophils % 0.6 %; Eosinophils # 0.7 10^3/uL (0.0-0.8); Eosinophils % 8.5 %; Hematocrit 39.3 % (37-53); Lymphocytes # 1.6 10^3/uL (0.8-4.8); Lymphocytes % 19.3 %; Mean Corpuscular HGB Conc 32.1 g/dL (30-55); Mean Corpuscular Volume 90.3 fl (82-101); Monocytes % 11.6 %; Neutrophils # 4.93 10^3/uL (1.8-7.7); Neutrophils % 59.6 %; Nucleated Red Blood Cells % 0 %; Platelet Count 257 10^3/cmm (157-399); Red Blood Count 4.35 10^6/uL (3.85-5.65); Red Cell Distribution Width 14.4 % (12.1-15.1); White Blood Count 8.27 10^3/uL (3.29-11.43)
[2024-07-01 04:54] LABS: Anion Gap 12.7 (5-19); Blood Urea Nitrogen 17 mg/dL (8-23); Calcium 8.4 mg/dL (8.5-10.5); Carbon Dioxide 24 mmol/L (22-29); Chloride 110 mmol/L (98-107); Creatinine Clr Calc Pharmacy 66.3937; Glucose 98 mg/dL (65-115); Magnesium 1.9 mg/dL (1.7-2.3); Osmolality Calculated 298 mOsm/kg (285-295); Potassium 3.7 mmol/L (3.5-5.1); Sodium 143 mmol/L (136-145)
[2024-07-01] MEDS: cyclobenzaprine 10 mg Tablet PO ×2 (08:08→17:16)
[2024-07-01] MEDS: atorvastatin 40 mg Tablet 20 MG PO (08:08)
[2024-07-01] MEDS: apixaban 5 mg Tablet PO ×2 (08:08→17:16)
[2024-07-01] MEDS: acetaminophen 325 mg Tablet 650 MG PO ×3 (08:08→23:31)
[2024-07-01] MEDS: aspirin 81 mg EC Tablet PO (08:08)
[2024-07-01] MEDS: amlodipine 5 mg Tablet PO ×2 (08:09→11:56)
[2024-07-01] MEDS: metoprolol tartrate 25 mg Tablet 12.5 MG PO ×2 (08:16→20:41)
[2024-07-01] MEDS: hyDRALAzine 10 mg Tablet PO ×3 (09:41→23:58)
--- NOTE | 2024-07-01 11:45 | PM.DCS ---
Discharge Providers Date of Admission: 06/30/24 11:55 Date of Discharge: July 01, 2024 Attending Provider at Admission: Anselmo Costa MD Attending Provider at Discharge: Bernardino Mcdonnell MD Primary Care Provider: Donell Sanchez MD Diagnoses at Discharge Discharge Diagnosis (1) Hypertensive urgency: Status: Acute (2) Elevated troponin: Status: Acute (3) Nonischemic cardiomyopathy: Status: Acute (4) Atrial fibrillation: Status: Acute (5) Ventricular tachycardia: Status: Acute Reason for Visit Reason for Visit: cp Hospital Course Hospital Course This is a 74-year-old male with a past medical history of hypertension, history of amphetamine use, nonischemic cardiomyopathy, history of ventricular tachycardia, CVA, who presents [facility] due to hypertension Patient was admitted to [facility] for hypertensive urgency, patient received blood pressure control, his carvedilol was discontinued due to bradycardia, switch to low-dose metoprolol, overall clinically improved, will be discharged on, lisinopril, Norvasc, clonidine, hydralazine, metoprolol 25 twice daily with close follow-up with primary care provider as outpatient Patient was discharged 07/02/2024 Physical Exam Const: COMMON NORMALS: no acute distress and patient oriented x3 Resp: COMMON NORMALS: normal respiratory effort, No retractions, No use of accessory muscles and clear to auscultation bilaterally AUSCULTATION: clear to auscultation bilaterally Cardio: COMMON NORMALS: regular rate, regular rhythm, S1 normal heart sound present and S2 normal heart sound present RATE: regular rate RHYTHM: regular rhythm HEART SOUNDS: S1 normal heart sound present and S2 normal heart sound present GI: COMMON NORMALS: Normal to inspection, nondistended, normoactive bowel sounds present and non-tender Extremity: COMMON NORMALS: no pedal edema Neuro: COMMON NORMALS: patient oriented x3 Psych: COMMON NORMALS: mental status grossly normal Discharge Data Studies Completed and Pending Completed Studies During Hospitalization Category Date Time Status XR chest 1V portable [id number] Stat Exams 06/30/24 10:01 Completed Radiology Impressions Chest X-Ray 06/30/24 10:01 IMPRESSION: 1. No acute cardiopulmonary finding. Laboratory Results WBC 8.27 10^3/uL (3.29-11.43) 07/01/24 04:24 RBC 4.35 10^6/uL (3.85-5.65) 07/01/24 04:24 Hgb 12.60 g/dL (11.27-16.99) 07/01/24 04:24 Hct 39.3 % (37-53) 07/01/24 04:24 MCV 90.3 fl (82-101) 07/01/24 04:24 MCH 29.0 pg (27-33) 07/01/24 04:24 MCHC 32.1 g/dL (30-55) 07/01/24 04:24 RDW 14.4 % (12.1-15.1) 07/01/24 04:24 Plt Count 257 10^3/cmm (157-399) 07/01/24 04:24 MPV 9.0 fL (7.4-10.4) 07/01/24 04:24 Neut % (Auto) 59.6 % 07/01/24 04:24 Lymph % (Auto) 19.3 % 07/01/24 04:24 Logan % (Auto) 11.6 % 07/01/24 04:24 Eos % (Auto) 8.5 % 07/01/24 04:24 Baso % (Auto) 0.6 % 07/01/24 04:24 Neut # (Auto) 4.93 10^3/uL (1.8-7.7) 07/01/24 04:24 Lymph # (Auto) 1.6 10^3/uL (0.8-4.8) 07/01/24 04:24 Logan # (Auto) 1.0 10^3/uL (0.2-0.9) H 07/01/24 04:24 Eos # (Auto) 0.7 10^3/uL (0.0-0.8) 07/01/24 04:24 Baso # (Auto) 0.1 10^3/uL (0.0-0.1) 07/01/24 04:24 Nucleated RBC % (auto) 0 % 07/01/24 04:24 Nucleated RBCs # 0.0 /100WBC 07/01/24 04:24 Sodium 143 mmol/L (136-145) 07/01/24 04:24 Potassium 3.7 mmol/L (3.5-5.1) 08/31/24 04:24 Chloride 110 mmol/L (98-107) H 07/01/24 04:24 Carbon Dioxide 24 mmol/L (22-29) 07/01/24 04:24 Anion Gap 12.7 (5-19) 07/01/24 04:24 BUN 17 mg/dL (8-23) 07/01/24 04:24 Creatinine 1.1 mg/dL (0.7-1.2) 07/01/24 04:24 GFR Calculation Not Reportable 07/01/24 04:24 Glucose 98 mg/dL (65-115) 07/01/24 04:24 Calculated Osmolality 298 mOsm/kg (285-295) H 07/01/24 04:24 Calcium 8.4 mg/dL (8.5-10.5) L 07/01/24 04:24 Magnesium 1.9 mg/dL (1.7-2.3) 07/01/24 04:24 Total Bilirubin 0.4 mg/dL (0.15-1.2) 06/30/24 09:45 AST 19 U/L (0-40) 06/30/24 09:45 ALT 11 U/L (0-41) 06/30/24 09:45 Alkaline Phosphatase 90 U/L (40-130) 06/30/24 09:45 Troponin T Baseline 30 ng/L (0-15) H 06/30/24 09:45 Troponin T 120 Minute 26.71 ng/L (0-15) H 06/30/24 11:59 Delta Troponin T -3.29 ABS# (0-10) L 06/30/24 11:59 Troponin T Hi Sens 6Hr 27.97 ng/L (0-15) H 06/30/24 15:58 Troponin T Hi Sens 6Hr Delta -2.03 ng/L (0-12) L 06/30/24 15:58 Total Protein 6.6 g/dL (6.6-8.7) 06/30/24 09:45 Albumin 4.1 g/dL (3.5-5.2) 06/30/24 09:45 Globulin 2.5 g/dL (1.3-4.6) 06/30/24 09:45 Urine Color Yellow (Yellow) 06/30/24 10:20 Urine Appearance Clear (CLEAR) 06/30/24 10:20 Urine pH 6.0 (5-7) 06/30/24 10:20 Ur Specific [place] 1.009 (1.005-1.030) 06/30/24 10:20 Urine Protein 1+ (Negative) A 06/30/24 10:20 Urine Glucose (UA) Negative (Normal) 06/30/24 10:20 Urine Ketones Negative (Negative) 06/30/24 10:20 Urine Blood Negative (Negative) 06/30/24 10:20 Urine Nitrate Negative (Negative) 06/30/24 10:20 Urine Bilirubin Negative (Negative) 06/30/24 10:20 Urine Urobilinogen 0.2 mg/dL (Negative) 06/30/24 10:20 Ur Leukocyte Esterase Negative (Negative) 06/30/24 10:20 Urine RBC 0-2 /hpf (0-2) 06/30/24 10:20 Urine WBC 0-5 /hpf (0-5) 06/30/24 10:20 Ur Squamous Epith Cells 0-5 /hpf (0-5) 06/30/24 10:20 Amorphous Sediment Not Reportable 06/30/24 10:20 Urine Bacteria None seen /hpf (NONE) 06/30/24 10:20 Hyaline Casts 0-4 /lpf H 06/30/24 10:20 Urine Opiates Screen Negative ng/mL (Negative) 06/30/24 10:20 Ur Barbiturates Screen Negative ng/mL (Negative) 06/30/24 10:20 Ur Phencyclidine Scrn Negative ng/mL (Negative) 06/30/24 10:20 Ur Amphetamines Screen Negative ng/mL (Negative) 06/30/24 10:20 U Benzodiazepines Scrn Negative ng/mL (Negative) 06/30/24 10:20 Urine Cocaine Screen Negative ng/mL (Negative) 06/30/24 10:20 U Marijuana (THC) Screen Negative ng/mL (Negative) 06/30/24 10:20 Ethyl Alcohol < 10 mg/dL (0-10) 06/30/24 09:45 Vitals Last Vital Signs Temp 98.0 F 07/01/24 07:25 Pulse 63 07/01/24 08:00 Resp 16 07/01/24 07:25 BP 185/84 07/01/24 09:42 Pulse Ox 95 07/01/24 08:00 O2 Del Method Room Air 07/01/24 08:00 Discharge Plan Discharge Patient Disposition: Home Condition: Stable Prescriptions: New hydralazine 10 mg Tablet 10 mg PO Q8H 30 Days Qty: 90 0RF metoprolol tartrate 25 mg Tablet 12.5 mg PO BID@0900,2100 30 Days Qty: 30 0RF amlodipine 10 mg tablet 10 mg PO DAILY 30 Days Qty: 30 0RF clonidine HCl 0.1 mg Tablet 0.1 mg PO BID 30 Days Qty: 60 0RF lisinopril 20 mg Tablet 40 mg PO DAILY 30 Days Qty: 60 0RF Continued Eliquis 5 mg tablet 5 mg PO BID Qty: 180 3RF aspirin 81 mg capsule 81 mg PO DAILY Qty: 90 0RF simvastatin 40 mg tablet 40 mg PO DAILY Discontinued carvedilol 12.5 mg tablet 12.5 mg PO BID Discharge Orders: Discharge Order (Routine); Ordered 07/02/24 Ordered By: Bernardino Mcdonnell Referrals: Donell Sanchez MD [Primary Care Provider] - 4-7 days (We have notified your physician's clinic of the need for a follow-up appointment to be scheduled. If you have not heard from them within the next 2 business days, please call them directly. FAXED FOR APPOINTMENT) Discharge Diet: Cardiac Discharge Activity: Resume usual activity Patient Instructions: Metoprolol (By mouth), Hydralazine (By mouth), Amlodipine (By mouth), Heart Attack (DC), Heart Healthy Diet (DC), Hypertensive Crisis (DC), Opioid Safety Activity Restrictions/Additional Instructions: - See primary care provider in 1 week for blood pressure check Discharge Attestations Time Spent in Discharge Care*: greater than 30 min Status at Discharge: Cognitive status at discharge: mildly impaired cognition, Behavioral status at discharge: cooperative, Quality Metrics Clinical Quality Measures [ No reported AMI, CVA or VTE this stay] Coding Level of Care Code 14308 Total time (in minutes) for Discharge: 45 Diagnoses Hypertensive urgency I16.0 Elevated troponin R79.89 Nonischemic cardiomyopathy I42.8 Atrial fibrillation I48.91 Ventricular tachycardia I47.2
--- NOTE | 2024-07-01 13:33 | P.PN_ITS ---
Subjective 2 Subjective: Patient was seen this morning, denies any fevers, chills, no nausea, no vomiting, no chest pain, no palpitations, he is ambulated Vitals/I&O/Wt Last Vital Signs Temp 98.0 F 07/01/24 11:28 Pulse 53 L 07/01/24 11:28 Resp 16 07/01/24 11:28 BP 180/76 07/01/24 11:52 Pulse Ox 96 07/01/24 11:28 O2 Del Method Room Air 07/01/24 11:28 06/30/24 07/01/24 07/01/24 22:59 06:59 14:59 Intake Total 560 / 750.833 478 / 478 Output Total 450 / 750 225 / 975 875 / 875 Balance 110 / 0.833 -225 / -224.167 -397 / -397 Weight last 48 hrs Weight 82.781 kg Weight 80.5 kg Weight 82.554 kg Physical Exam 2 Const: COMMON NORMALS: no acute distress and patient oriented x3 Resp: COMMON NORMALS: normal respiratory effort, No retractions, No use of accessory muscles and clear to auscultation bilaterally AUSCULTATION: clear to auscultation bilaterally Cardio: COMMON NORMALS: regular rate, regular rhythm, S1 normal heart sound present and S2 normal heart sound present RATE: regular rate RHYTHM: r egular rhythm HEART SOUNDS: S1 normal heart sound present and S2 normal heart sound present GI: COMMON NORMALS: Normal to inspection, nondistended, normoactive bowel sounds present and non-tender Extremity: COMMON NORMALS: no pedal edema Neuro: COMMON NORMALS: patient oriented x3 Psych: COMMON NORMALS: mental status grossly normal Data 07/01/24 04:24 07/01/24 04:24 A&P Assessment and plan (1) Hypertensive urgency: Blood pressure is difficult to control ? Add on hydralazine 10 every 8 hours ? Increase Norvasc to 10 mg daily ? Add lisinopril 20 mg daily (2) Elevated troponin: Patient with elevated troponin. I believe this will be a type II elevation. See notations above. (3) Nonischemic cardiomyopathy: Patient with past history of nonischemic cardiomyopathy with EF as low as 35%, but recently improved on June [address] Seo to 55% EF. June 19 echo seems to indicate an EF of 45%. This may not be a significant difference. (4) Atrial fibrillation: Patient with past history of A-fib, and stroke Continue Eliquis Continue aspirin Continue statin (5) Ventricular tachycardia: Patient has a hip past history of V. tach requiring transfer 2 years ago patient with some bradycardia He has an event monitor on Monitor on telemetry TSH was normal Discontinue carvedilol and placed on low-dose metoprolol Plan History of amphetamine use Multiple other medical problems as outlined in by past medical history Full code currently Eliquis will suffice for DVT prophylaxis Patient requires hospitalization for blood pressure control Attestations 2 Medical Necessity Statement*: Patient requires hospitalization for hypertension, requiring blood pressure control Diagnoses Hypertensive urgency I16.0 Elevated troponin R79.89 Nonischemic cardiomyopathy I42.8 Atrial fibrillation I48.91 Ventricular tachycardia I47.2
[2024-07-01] MEDS: lisinopril 20 mg Tablet PO (14:08)
[2024-07-02] VITALS (10 sets, daily range): BP systolic 161–180; BP diastolic 71–86; PULSE 50–59; RESP 18–20; TEMP 36.4–36.9; O2SAT 95–97
--- NOTE | 2024-07-02 00:01 | PC.NURSE ---
Patients B/P was 178/82. Spoke with Dr. Jacobs and Dr. Jacobs gave verbal orders to go ahead and give the patient Hydralazine 10mg now instead of the scheduled time of 0130.
[2024-07-02] MEDS: ketorolac 30 mg/mL INJ 15 MG IVP (04:09)
[2024-07-02] MEDS: hyDRALAzine 20 mg/mL INJ 1 mL 10 MG IVP (05:14)
[2024-07-02] MEDS: acetaminophen 325 mg Tablet 650 MG PO (07:52)
[2024-07-02] MEDS: cyclobenzaprine 10 mg Tablet PO (07:52)
[2024-07-02] MEDS: lisinopril 20 mg Tablet PO (08:26)
[2024-07-02] MEDS: metoprolol tartrate 25 mg Tablet 12.5 MG PO (08:26)
[2024-07-02] MEDS: aspirin 81 mg EC Tablet PO (08:26)
[2024-07-02] MEDS: amlodipine 10 mg Tablet PO (08:26)
[2024-07-02] MEDS: apixaban 5 mg Tablet PO (08:26)
[2024-07-02] MEDS: atorvastatin 40 mg Tablet 20 MG PO (08:27)
[2024-07-02] MEDS: hyDRALAzine 10 mg Tablet PO (08:38)
[2024-07-02] MEDS: lisinopril 20 mg Tablet 40 MG PO ×2 (09:41→09:45)
[2024-07-02] MEDS: cloNIDine 0.1 mg Tablet PO (10:37)
== END 2024-07-02 15:00 | disposition home or self-care (01) ==
LOC: ER 10:28 → ICU 11:56 → MEDSURG 07-01 00:16
PROVIDERS: Admitting Provider Internal Medicine; Emergency Provider Family Medicine; PCP Family Medicine; Visit Provider Family Medicine
DX: I16.0 Hypertensive urgency (principal); R79.89 Other specified abnormal findings of blood chemistry; I42.8 Other cardiomyopathies; I48.91 Unspecified atrial fibrillation; I47.20 Ventricular tachycardia, unspecified; F15.90 Other stimulant use, unspecified, uncomplicated; Z87.891 Personal history of nicotine dependence; Z82.49 Family history of ischemic heart disease and other diseases of the circulatory system; I42.9 Cardiomyopathy, unspecified
CPT/HCPCS: 36415; 71045; 80048; 80053; 80306; 80307; 81003; 81015; 83735; 84484; 85025; 93005; 96374; 96375; 99285; G0378; J0360; J1885; Q3014

== ENCOUNTER → 2024-07-27 11:56 | Outpatient (BNVA) | payer MEDICARE, MEDICAID, SELFPAY | PROVIDERS: PCP Family Medicine; Visit Provider Nurse Practitioner Family | DX: I42.8 Other cardiomyopathies (principal); R01.1 Cardiac murmur, unspecified; Z87.891 Personal history of nicotine dependence | CPT/HCPCS: 99214 ==

== ENCOUNTER 2024-08-01 09:45 | Outpatient (CLI) | payer MEDICARE, MEDICAID, SELFPAY ==
--- NOTE | 2024-08-01 10:00 | USCV_ITS ---
Miguel A Reyna Age: 74 Gender: M : 1950 Exam Date: 08/01/2024 09:59 Ordering Phys: Andreea South Technologist: Exam Location: [facility] – [place] Indication: ? veg BP: / HR: Rhythm: Sinus Technical Quality: Adequate MEASUREMENTS (Male / Female) Normal Values 2D ECHO LV Diastolic Diameter PLAX 5.1 cm 4.2 - 5.9 / 3.9 - 5.3 cm IVS Diastolic Thickness 1.4 cm 0.6 - 1.0 / 0.6 - 0.9 cm IVS Systolic Thickness 1.4 cm LVPW Diastolic Thickness 1.4 cm 0.6 - 1.0 / 0.6 - 0.9 cm LVPW Systolic Thickness 2.0 cm LVOT Diameter 2.1 cm LV Ejection Fraction 2D Teich 42.9 % LV Ejection Fraction MOD 4C 49.8 % LV Ejection Fraction MOD 2C 31.8 % LV Ejection Fraction 2C AL 34.3 % LA Diameter 4.0 cm RA Systolic Volume 4C AL 30.0 ml RA Systolic Volume 4C MOD 28.7 ml Aorta at Sinotubular Diameter 3.0 cm M-MODE LA Ao Ratio MM 1.3 AV Cusp Separation MM 2.2 cm FINDINGS Left Ventricle Normal LV size with diminished ejection fraction of around 40-45 %. Diffuse hypokinesia of the septum.abnormal septal motion consistent with conduction abnormality. Right Ventricle The right ventricle is normal in size and function. Right Atrium Mobile echodensity in the right atrium, possiblly a prominent regurgitation valve Left Atrium The left atrium is normal in size. Mitral Valve No gross abnormalities noted Aortic Valve There is a small echodensity on the ventricular side of the noncoronary cusp of the aortic valve which is partially mobile size is 0.74 x 0.5, centimeter. Heterogenous Tricuspid Valve No gross abnormalities noted Pulmonic Valve Pulmonic valve not well visualized. Pericardium Normal pericardium without effusion. Aorta Normal ascending aorta dimension. IVC Inferior vena cava not visualized. CONCLUSIONS There is 0.74 x 0.5 cm heterogenous globular, partially mobile mass attached to the ventricular aspect of the noncoronary cusp of the aortic valve, may suggest vegetation or soft tissue masses like myxoma. Normal LV size with diminished ejection fraction of around 40-45 %. Diffuse hypokinesia of the septum.abnormal septal motion consistent with conduction abnormality. Normal cardiac chamber sizes. There is no pericardial effusion. Dr Emi Tineo MD FAC (Electronically Signed) Final Date: 02 August 2024 23:00 S
== END 2024-08-01 09:46 | disposition home or self-care (01) ==
LOC: RAD 09:45
PROVIDERS: PCP Family Medicine; Visit Provider Nurse Practitioner Family
DX: I42.8 Other cardiomyopathies (principal); R01.1 Cardiac murmur, unspecified; Q21.9 Congenital malformation of cardiac septum, unspecified; R93.1 Abnormal findings on diagnostic imaging of heart and coronary circulation
CPT/HCPCS: 93308

== ENCOUNTER → 2024-08-09 11:19 | Outpatient (BNVA) | payer MEDICARE, MEDICAID, SELFPAY | PROVIDERS: PCP Family Medicine; Visit Provider Nurse Practitioner Family | DX: I33.0 Acute and subacute infective endocarditis (principal); R01.1 Cardiac murmur, unspecified; Z87.891 Personal history of nicotine dependence | CPT/HCPCS: 99213 ==

== ENCOUNTER 2024-08-11 10:44 | Day surgery (SDC) | payer MEDICARE, MEDICAID, SELFPAY ==
--- NOTE | 2024-08-11 10:53 | USCV_ITS ---
Miguel A Reyna Age: 74 Gender: M : 1950 Exam Date: 08/11/2024 12:04 Ordering Phys: Isiah Torres M.D ([email or web address]) Technologist: Jigar Brannon Exam Location: [facility] [place] Indication: abscess BP: / HR: Rhythm: Sinus Technical Quality: Adequate MEASUREMENTS (Male / Female) Normal Values Medications Per anesthesia team Complications None Proc. Components After anesthesia team sedated patient, we proceeded with advancing MUMTAZ probe. FINDINGS Left Ventricle Normal in size. LV systolic function is normal Right Ventricle Normal in size and function Right Atrium Normal in size Left Atrium Grossly normal LA Appendage No left atrial appendage thrombus seen IA Septum Grossly normal Mitral Valve Structurally normal mitral valve. No vegetation/ mass seen. Mild mitral regurgtitation. Aortic Valve Aortic valve is thickened. No mass/vegetation seen. Tricuspid Valve Structurally normal Pulmonic Valve Grossly normal Pericardium Normal Aorta Mild atherosclerotic plaque CONCLUSIONS LV systolic function is nornal No vegetation/ mass on valves seen. Mild mitral regurgitation Mild atherosclerotic plaque seen in aorta Isiah Torres MD (Electronically Signed) Final Date: 13 August 2024 11:41 S
[2024-08-11 11:08] VITALS: BP 184/101; PULSE 54; RESP 18; TEMP 36.2; O2SAT 97
[2024-08-11 11:14] VITALS: BMI 25.0
[2024-08-11] MEDS: sodium chloride 0.9% 1,000 ML 30 ML IV (11:22)
--- NOTE | 2024-08-11 11:44 | ANES.PREANE2 ---
Pre-Anesthetic Assessment Height/Weight: Height 1.83 m Weight 83.915 kg Temp Pulse Resp BP Pulse Ox O2 Del Method 97.2 F L 54 L 18 184/101 97 Room Air 08/11/24 11:08 08/11/24 11:08 08/11/24 11:08 08/11/24 11:08 08/11/24 11:08 08/11/24 11:08 Operation Date: 08/11/24 12:00 Proposed Procedures p MUMTAZ(Not Applicable) - Gisella Chi anesthetic complications: None Was Beta Sabina taken within 24 hours: Yes Was Clonidine taken within 24 hours: N/A Last intake: Intake Last Liquid Date 08/10/24 Last Liquid Time 23:00 Last Solid Date 08/10/24 Last Solid Time 23:00 Social Tobacco and No alcohol History meth use Exam alert, oriented x 3, clear to auscultation bilaterally and regular rate & rhythm CV/HEM Atrial Fibrillation, Arrythmia, Coronary Artery Disease, Hypertension and Myocardial Infarction 06/30/24: EKG ELECTRONIC VENTRICULAR PACEMAKER ABNORMAL RHYTHM ECG Compared to ECG 06/30/2024 12:01:02 Sinus bradycardia no longer present First degree AV block no longer present Left bundle-branch block no longer present 06/21/24: Event monitor 1. Monitoring period was from 01/08/2022 to 01/21/2022. 2. The predominant rhythm was Sinus Rhythm. 3. The Maximum Heart Rate recorded was 113 BPM, 07:52 AM 07/10, the Minimum Heart Rate recorded was 41 BPM, 03:46 AM 06/27 and the Average Heart Rate was 55 BPM. 4. There were 27,697 VE beats with a burden of 2 %. There were 6 occurrences of Ventricular Tachycardia with the longest episode 5s, 08:44 PM 07/04 and fastest episode 191 BPM, 12:10 PM 07/05. 5. There were 11,212 SVE beats with a burden of 1 %. 6. The study included an Atrial Fibrillation/Flutter [place] of <1 %. The longest episode was 1m 31s, 05:37 PM 07/10 and the fastest episode was 57 BPM, 05:39 PM 07/10. 7. No patient reported symptoms. 06/19/24: echo complete Diffuse hypokinesis of the left ventricle with ejection fraction around 45%. (visual). Mild Isidoro relative pseudohypertrophy. Mildly increased left atrial size. Trace mitral valve regurgitation. Thickened aortic valve. There is no pericardial effusion. There are no intracardiac masses. No similar previous studies are available for comparison 06/04/24 :ECHO The ventricle is normal in size. There is at least moderate left ventricular hypertrophy. There is paradoxical motion of the septum most likely consistent with a conduction abnormality. The overall ejection fraction is approximately 50 to 55% taking into consideration the septal abnormality. There are no other wall motion disturbances. Grade 2 diastolic dysfunction.normal left ventricular size, systolic function and wall thickness, with no regional wall motion abnormalities. Ascending aorta diameter 3.34 cm. Previous study is from June 11, 2022. There has been a significant improvement in the left ventricular function. 06/04/24: EKG SINUS RHYTHM LEFT BUNDLE BRANCH BLOCK [120+ ms QRS DURATION, 80+ ms Q/S IN V1/V2, 85+ ms R IN I/aVL/V5/V6] Compared to ECG 06/04/2024 07:33:42 Sinus tachycardia no longer present 06/10/22 EHCO CONCLUSIONS ?LV Systolic function assessment is limited because of frequent ?PVCs.? Grossly LV systolic function is moderate to severely ?reduced with EF of 30 to 35%. ?Grade 1 diastolic dysfunction. ?Trace mitral regurgitation is seen. ?Trace tricuspid regurgitation.? Trace pulmonic regurgitation. ?Echo that comparison with prior echocardiogram is not possible ?because of limited quality echo and frequent PVCs.? However LV ?systolic function appears to be reduced compared to before. 06/10/22 Chest X-Ray IMPRESSION: 1. Enteric tube tip extending below the diaphragm inferiorly off the field of view. 2. Endotracheal tube tip 4.2 cm above the daniel. 3. Right central venous catheter tip over the right atrium. 4. Cardiomegaly. 5. Bilateral hilar to lower lobe atelectasis versus infiltrate. ? 06/10/22 Cath Procedure Conclusions ? 1. No significant disease noted in left main artery. LAD: Proximally has mild 30-40% stenosis. Left circumflex artery: Patent RCA: Patent, no significant stenosis. Recommendations ? * Continue amiodarone drip. ? * Patient will need to be transferred to a center with EP availability for possible EP study, VT/PVC ablation and ICD placement. ? * Transfer back to ICU. Interventional RX Recommendation: ? ? medical therapy and/or counseling Diagnostic RX Recommendation: ? ? medical therapy and/or counseling Pressures ? ? Phase:Rest ? ? AO :? ( 8 )? @ 6:00:00 PM ? 12 ( 8 )? @ 6:00:00 PM ? / ( 7 )? @ 6:01:00 PM ? 87 / 87 ( 67 )? @ 6:07:00 PM Clinical Evaluation EBL: ? ? 5mL-10mL Anesthetic Plan ASA status: 4 Anesthesia: MAC Risk of > 500 ml blood loss (7ml/kg in children): No Medications/Allergies Home Medications Medication Instructions Recorded Confirmed Last Taken Type aspirin 81 mg capsule 81 mg PO DAILY #90 caps 06/07/24 08/11/24 08/09/24 Rx simvastatin 40 mg tablet 40 mg PO DAILY 06/30/24 08/11/24 08/11/24 History carvedilol 12.5 mg tablet 12.5 mg PO BID 07/27/24 08/11/24 08/11/24 History apixaban 5 mg tablet (Eliquis) 5 mg PO BID 08/09/24 08/11/24 08/10/24 History Allergies Allergy/AdvReac Type Severity Reaction Status Date / Time No Known Allergies Allergy Verified 08/11/24 11:15 Current Medications Generic Name Dose Route Start Last Admin Trade Name Freq PRN Reason Stop Dose Admin Sodium Chloride 1,000 mls @ 30 mls/hr 08/11/24 11:00 08/11/24 11:22 Sodium Chloride 0.9% IV 08/12/24 10:59 30 mls/hr .Q24H MORENO Administration PFSH Anesthesia Medical History (Updated 08/03/24 @ 16:15 by MONSE Jeffers) Ventricular tachycardia Frequent PVCs Light headedness Single pelvic kidney UTI (urinary tract infection) Nonischemic cardiomyopathy Atrial fibrillation Pneumonia due to COVID-19 virus Hyperlipidemia Hypertension Surgical History History of elbow surgery History of back surgery Family History Other CAD (coronary artery disease) Social History Smoking and tobacco/nicotine status: former use of tobacco/nicotine Alcohol intake: never Data Anesthesia Cardiac Studies: Echocardiogram 06/04/24 Echocardiogram Limited Views 08/01/24 Echocardiogram Ultrasound 06/19/24 Cardiac Event Monitor 06/21/24
--- NOTE | 2024-08-11 11:54 | W.PM.OPSUD ---
Surgery/Procedure H&P Update DATE OF PROCEDURE: August 11, 2024 DATE H&P PERFORMED: 07/27/24 H&P UPDATE INFORMATION: I have reviewed H&P completed within last 30 days, I have examined patient prior to procedure and Changes to prior documentation as noted here CHANGES TO PREVIOUS DOCUMENTATION: Patient has history of CVA. Had a recent echocardiogram performed that showed possible mass on ventricular aspect of aortic valve. Plan for transesophageal echocardiogram PREOP DIAGNOSIS: Aortic valve mass PRIMARY INDICATION FOR PROCEDURE: Aortic valve mass PLANNED PROCEDURE: Operation Date: 08/11/24 12:00 Proposed Procedures p MUMTAZ(Not Applicable) - Isiah Torres M.D Anesthesia team available for sedation
[2024-08-11 12:25] VITALS: BP 141/66; PULSE 64; RESP 16; TEMP 36.8; O2SAT 97
[2024-08-11 12:30] VITALS: BP 135/72; PULSE 55; RESP 14; O2SAT 98
[2024-08-11 12:45] VITALS: BP 172/88; PULSE 52; RESP 16; O2SAT 98
== END 2024-08-11 13:13 | disposition home or self-care (01) ==
PROVIDERS: PCP Family Medicine; Visit Provider Internal Medicine
PROC: (CPT 93312; principal; 2024-08-11 12:00)
DX: I33.0 Acute and subacute infective endocarditis (principal); I48.91 Unspecified atrial fibrillation; I25.10 Atherosclerotic heart disease of native coronary artery without angina pectoris; I10 Essential (primary) hypertension; I25.2 Old myocardial infarction
CPT/HCPCS: 93312; 93320; 93325; J2704; J7030

== ENCOUNTER → 2024-08-29 16:00 | Outpatient (BNVA) | payer MEDICARE, MEDICAID, SELFPAY | PROVIDERS: PCP Family Medicine; Visit Provider Nurse Practitioner Family | DX: I10 Essential (primary) hypertension (principal); I48.0 Paroxysmal atrial fibrillation; Z98.890 Other specified postprocedural states; Z79.01 Long term (current) use of anticoagulants; Z79.82 Long term (current) use of aspirin | CPT/HCPCS: 99214 ==

== ENCOUNTER → 2024-09-08 10:28 | Outpatient (BNVA) | payer MEDICARE, MEDICAID, SELFPAY | PROVIDERS: PCP Family Medicine; Visit Provider Nurse Practitioner Family | DX: I10 Essential (primary) hypertension (principal) | CPT/HCPCS: 99213 ==

== ENCOUNTER → 2024-09-22 10:51 | Outpatient (BNVA) | payer MEDICARE, MEDICAID, SELFPAY | PROVIDERS: PCP Family Medicine; Visit Provider Nurse Practitioner Family | DX: I10 Essential (primary) hypertension (principal); H53.9 Unspecified visual disturbance; R51.9 Headache, unspecified; Z87.891 Personal history of nicotine dependence | CPT/HCPCS: 99213 ==

== ENCOUNTER 2024-10-06 10:46 | Inpatient (IN) | payer MEDICARE, MEDICAID, SELFPAY ==
[2024-10-06] VITALS (52 sets, daily range): BP systolic 113–207; BP diastolic 59–110; PULSE 52–110; RESP 13–33; TEMP 36.3–36.5; O2SAT 56–98; BMI 25.0
--- NOTE | 2024-10-06 11:06 | ECG_ITS ---
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 Measurements Intervals [place] Rate: 55 P: 62 AK: 220 QRS: 57 QRSD: 157 T: 267 QT: 475 QTc: 456 Interpretive Statements SINUS BRADYCARDIA WITH FIRST DEGREE AV BLOCK INTRAVENTRICULAR CONDUCTION DELAY [130+ ms QRS DURATION] Compared to ECG 06/30/2024 15:08:26 First degree AV block now present Intraventricular conduction delay now present Ventricular-paced complex(es) or rhythm no longer present Electronically Signed On 10-06-2024 16:51:30 INSURANCE ADVISER by Emi Tineo M.D. [email or web address]
--- NOTE | 2024-10-06 13:05 | XR_ITS ---
WS: [id number] XR chest 1V portable [id number] REASON FOR EXAM: dyspnea/cough FINDINGS: The chest appears unchanged compared to 06/30/2024. Moderate tortuosity of the thoracic aorta and mild cardiomegaly. Calcified granulomatous disease in both hemithoraces. No acute pulmonary parenchymal or pleural abnormality. XR/XR chest 1V portable [id number] IMPRESSION: Stable chest with no acute abnormality.
--- NOTE | 2024-10-06 13:08 | ECG_ITS ---
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 Measurements Intervals [place] Rate: 48 P: 52 [place]: 221 QRS: 96 QRSD: 158 T: 265 QT: 510 QTc: 460 Interpretive Statements SINUS BRADYCARDIA WITH FIRST DEGREE AV BLOCK BORDERLINE RIGHT AXIS DEVIATION [QRS AXIS > 90] INTRAVENTRICULAR CONDUCTION DELAY [130+ ms QRS DURATION] Compared to ECG 10/06/2024 11:06:52 No significant changes Electronically Signed On 10-06-2024 16:51:25 ADZING AND BORING MACHINE FEEDER by Emi Tineo M.D. [email or web address]
[2024-10-06 13:51] LABS: Basophils # 0.1 10^3/uL (0.0-0.1); Basophils % 0.6 %; Eosinophils # 0.9 10^3/uL (0.0-0.8); Eosinophils % 8.7 %; Hematocrit 46.3 % (37-53); Lymphocytes # 1.8 10^3/uL (0.8-4.8); Lymphocytes % 16.9 %; Mean Corpuscular HGB Conc 32.4 g/dL (30-55); Mean Corpuscular Hemoglobin 28.6 pg (27-33); Mean Corpuscular Volume 88.2 fl (82-101); Mean Platelet Volume 9.2 fL (7.4-10.4); Monocytes # 0.9 10^3/uL (0.2-0.9); Monocytes % 8.5 %; Neutrophils % 64.8 %; Nucleated Red Blood Cells % 0 %; Platelet Count 276 10^3/cmm (157-399); Red Blood Count 5.25 10^6/uL (3.85-5.65); Red Cell Distribution Width 14.4 % (12.1-15.1); White Blood Count 10.63 10^3/uL (3.29-11.43)
[2024-10-06] MEDS: hyDRALAzine 20 mg/mL INJ 1 mL IVP (13:59)
[2024-10-06] MEDS: enalaprilat 2.5 mg/2 mL SDV 1.25 MG IVP (14:00)
--- NOTE | 2024-10-06 14:12 | ED_ITS ---
HPI - Headache 2 General: Chief Complaint: Headache Stated Complaint: elevated blood pressure(sent by cardiac) Time Seen by Provider: 10/06/24 13:04 History of Present Illness: 74-year-old male presents emergency room from [facility] he patient complaining of a headache and elevated blood pressure blood pressure has been consistently elevated he has not been taking his medicines lately associated with his headache with the medications. Since he stopped them he is continue to have headaches. Denies chest pain shortness of breath or diaphoresis. Associated symptoms: Deny chest pain, fever(s) or rash Related Data Home Medications Medication Instructions Recorded Confirmed carvedilol 12.5 mg tablet 12.5 mg PO BID 07/27/24 10/06/24 apixaban 5 mg tablet (Eliquis) 5 mg PO BID 08/09/24 10/06/24 atorvastatin 20 mg tablet 20 mg PO DAILY 10/06/24 10/06/24 hydralazine 10 mg tablet 10 mg PO DAILY 10/06/24 10/06/24 Previous Rx's Medication Instructions Recorded aspirin 81 mg capsule 81 mg PO DAILY #90 caps 06/07/24 chlorthalidone 25 mg tablet 25 mg PO DAILY #30 tabs 09/22/24 valsartan 320 mg tablet 320 mg PO DAILY #90 tabs 09/22/24 Allergies Allergy/AdvReac Type Severity Reaction Status Date / Time No Known Allergies Allergy Verified 10/06/24 10:20 Review of Systems 2 Const: Denies: fever(s) or chills Card: Denies: chest pain Resp: Denies: dyspnea GI: Denies: abdominal pain : Denies: dysuria, urinary frequency or urinary urgency Musc: Denies: neck pain or back pain Skin/Breast: Denies: rash Neuro: Reports: headache(s); Denies: numbness in extremities, weakness in extremities or sensory changes PFSH ED 2 PFSH: Medical History Ventricular tachycardia Frequent PVCs Light headedness Single pelvic kidney UTI (urinary tract infection) Nonischemic cardiomyopathy Atrial fibrillation Pneumonia due to COVID-19 virus Hyperlipidemia Hypertension Surgical History History of elbow surgery History of back surgery Family History Other CAD (coronary artery disease) Social History Smoking and tobacco/nicotine status: former use of tobacco/nicotine Alcohol intake: never Physical Exam 2 Const: COMMON NORMALS: no acute distress GENERAL APPEARANCE: cooperative and comfortable ORIENTATION/CONSCIOUSNESS: Yes awake, Yes oriented to person, Yes oriented to place and Yes oriented to time HENMT: COMMON NORMALS: normocephalic, atraumatic and hearing grossly normal bilaterally HEAD & SCALP: normocephalic and atraumatic Resp: COMMON NORMALS: normal respiratory effort, No retractions, No use of accessory muscles and clear to auscultation bilaterally AUSCULTATION: clear to auscultation bilaterally Cardio: COMMON NORMALS: regular rhythm and No murmurs present (Cardio) R ATE: bradycardic RHYTHM: regular rhythm GI: COMMON NORMALS: Soft to palpation and No hepatosplenomegaly present A USCULTATION: Yes normoactive bowel sounds PALPATION: Yes Soft to palpation, No Tenderness to palpation present (GI), No Guarding due to palpation present (GI) and Yes No hepatosplenomegaly present Extremity: COMMON NORMALS: normal to inspection, capillary refill normal, no clubbing, cyanosis or edema, no calf tenderness and no pedal edema Neuro: SENSORIUM/ORIENTATION: Yes oriented to person, Yes oriented to place and Yes oriented to time Skin: COMMON NORMALS: no rashes or lesions noted GENERAL SKIN EXAM: no rashes or lesions noted Course 2 Vital Signs: Vital signs: Vital Signs Temperature 98.3 F 10/07/24 00:30 Pulse Rate 65 10/07/24 06:00 Respiratory Rate 17 10/07/24 06:00 Blood Pressure 158/76 10/07/24 06:00 Pulse Oximetry 95 10/07/24 06:00 Oxygen Delivery Me thod Nasal Cannula 10/07/24 06:00 Oxygen Flow Rate 1 10/07/24 06:00 MDM - Headache Medical Decision Making Several medications given for blood pressure did not respond continue to maintain blood pressures over 200 started on nicardipine. Had admitted to hospitalist service orders written Dr. Chiu and actually seen patient while we are waiting for bed assignment patient seized in the ED. Seizure lasted for approximately 1 to 2 minutes I did observe it he had tonic-clonic seizure with some posturing. CT of the head was repeated did not show any acute bleeding. Patient was given Ativan however he did terminate the seizure shortly before it was given. He was loaded with Keppra. I contacted Dr. Chiu to make sure he was aware of the change in patient's condition. Incidental finding of cystitis Rocephin has been started. Medical Records I reviewed the patient's medical records. Lab Data I reviewed the patient's lab results. 10/07/24 04:02 10/07/24 04:02 Radiology Impressions Chest X-Ray 10/06/24 13:05 IMPRESSION: Stable chest with no acute abnormality. Head CT 10/06/24 18:06 IMPRESSION: Negative for intracranial hemorrhage or mass effect. Laboratory Results WBC 10.63 10^3/uL (3.29-11.43) 10/06/24 13:43 RBC 5.25 10^6/uL (3.85-5.65) 10/06/24 13:43 Hgb 15.00 g/dL (11.27-16.99) 10/06/24 13:43 Hct 46.3 % (37-53) 10/06/24 13:43 MCV 88.2 fl (82-101) 10/06/24 13:43 MCH 28.6 pg (27-33) 10/06/24 13:43 MCHC 32.4 g/dL (30-55) 10/06/24 13:43 RDW 14.4 % (12.1-15.1) 10/06/24 13:43 Plt Count 276 10^3/cmm (157-399) 10/06/24 13:43 MPV 9.2 fL (7.4-10.4) 10/06/24 13:43 Neut % (Auto) 64.8 % 10/06/24 13:43 Lymph % (Auto) 16.9 % 10/06/24 13:43 [place] % (Auto) 8.5 % 10/06/24 13:43 Eos % (Auto) 8.7 % 10/06/24 13:43 Baso % (Auto) 0.6 % 10/06/24 13:43 Neut # (Auto) 6.90 10^3/uL (1.8-7.7) 10/06/24 13:43 Lymph # (Auto) 1.8 10^3/uL (0.8-4.8) 10/06/24 13:43 [place] # (Auto) 0.9 10^3/uL (0.2-0.9) 10/06/24 13:43 Eos # (Auto) 0.9 10^3/uL (0.0-0.8) H 10/06/24 13:43 Baso # (Auto) 0.1 10^3/uL (0.0-0.1) 10/06/24 13:43 Nucleated RBC % (auto) 0 % 10/06/24 13:43 Nucleated RBCs # 0.0 /100WBC 10/06/24 13:43 Sodium 140 mmol/L (136-145) 10/06/24 13:43 Potassium 4.1 mmol/L (3.5-5.1) 10/06/24 13:43 Chloride 103 mmol/L (98-107) 10/06/24 13:43 Carbon Dioxide 27 mmol/L (22-29) 10/06/24 13:43 Anion Gap 14.1 (5-19) 10/06/24 13:43 BUN 11 mg/dL (8-23) 10/06/24 13:43 Creatinine 1.1 mg/dL (0.7-1.2) 10/06/24 13:43 GFR Calculation Not Reportable 10/06/24 13:43 Glucose 95 mg/dL (65-115) 10/06/24 13:43 Calculated Osmolality 289 mOsm/kg (285-295) 10/06/24 13:43 Calcium 9.4 mg/dL (8.5-10.5) 10/06/24 13:43 Total Bilirubin 0.3 mg/dL (0.15-1.2) 10/06/24 13:43 AST 23 U/L (0-40) 10/06/24 13:43 ALT 12 U/L (0-41) 10/06/24 13:43 Alkaline Phosphatase 72 U/L (40-130) 10/06/24 13:43 Total Protein 7.1 g/dL (6.6-8.7) 10/06/24 13:43 Albumin 4.4 g/dL (3.5-5.2) 10/06/24 13:43 Globulin 2.7 g/dL (1.3-4.6) 10/06/24 13:43 TSH 3.78 uIU/mL (0.27-4.20) 10/06/24 13:43 All radiology interpretation(s) finalized by discharge Discharge Plan Discharge Patient Disposition: Admitted As Inpatient Admit Provider: Anselmo Costa Clinical Impression: Accelerated hypertension, Headache, Seizure, UTI (urinary tract infection), Atrial fibrillation Condition: Stable Coding Level of Care Code ED Storage Specialist for Deb Carroll
[2024-10-06 14:14] LABS: Alanine Aminotransferase 12 U/L (0-41); Albumin Level 4.4 g/dL (3.5-5.2); Alkaline Phosphatase 72 U/L (40-130); Anion Gap 14.1 (5-19); Aspartate Amino Transferase 23 U/L (0-40); Blood Urea Nitrogen 11 mg/dL (8-23); Calcium 9.4 mg/dL (8.5-10.5); Carbon Dioxide 27 mmol/L (22-29); Chloride 103 mmol/L (98-107); Creatinine Clr Calc Pharmacy 66.7717; Globulin 2.7 g/dL (1.3-4.6); Glucose 95 mg/dL (65-115); Osmolality Calculated 289 mOsm/kg (285-295); Potassium 4.1 mmol/L (3.5-5.1); Sodium 140 mmol/L (136-145); Total Bilirubin 0.3 mg/dL (0.15-1.2); Total Protein 7.1 g/dL (6.6-8.7)
--- NOTE | 2024-10-06 14:37 | CT_ITS ---
WS: [id number] CT HEAD TECHNIQUE: Noncontrast CT of the head obtained from the skullbase to the vertex. CLINICAL INFORMATION: Accelerated hypertension headache COMPARISON: 06/04/2024 DLP: 1064.[address] scans at [facility] use at least one of these dose optimization techniques: automated e xposure control; mA and/or kV adjustment per patient size (includes targeted exams where dose is matc hed to clinical indication); or iterative reconstruction. FINDINGS: No evidence of intracranial hemorrhage or mass effect. Ventricular system and basal cisterns are bello nt. Moderate small vessel changes with moderate parenchymal volume loss. No extra-axial fluid collect ions. No evidence of mass or mass effect. Vascular calcification. Mild paranasal sinusitis. Mucosal thickening with a small amount of fluid in the ethmoid air cells an d frontoethmoidal recesses. Mucosal thickening in the frontal sinuses and sphenoid sinus. Partially visualized maxillary sinuses demonstrate mild mucosal thickening. Mastoid air cells are well aerated. CT/CT head wo con* [id number] IMPRESSION: 1. No evidence of intracranial hemorrhage or mass effect. 2. Mild paranasal sinusitis. 3. No acute intracranial findings.
[2024-10-06] MEDS: chlorthalidone 25 mg Tablet PO (15:21)
--- NOTE | 2024-10-06 16:02 | P.HP_ITS ---
Providers/Chief Complaint 2 Admitting Physician: Anselmo Costa MD Primary Care Provider: Donell Sanchez MD Chief Complaint: elevated blood pressure(sent by cardiac) History of Present Illness Miguel A Reyna is a 74 year old male presenting to the emergency department with headache. He reports he has had this going on for quite a while, since his eye surgery months ago. Reports headache is all over the head, behind the eyes, and present at all times mood varies from severe to mild. At that time I believe he had some laser surgery, or perhaps even lens replacement. He reports the headache varies day-to-day, and he takes around 200 Tylenol a month for it. He reports he which she had some hydrocodone and that would work better. Recently he stopped his blood pressure medications thinking that they were contributing to his headache. The ER is asked me to admit him for hypertensive urgency with headache and markedly elevated blood pressure. He has been placed on a nicardipine drip. He received multiple p.o. medications. Patient reports no fever, neck pain, vomiting, chest pain. He reports he is always short of breath, but this is no different than normal. He denies any significant sinus drainage, unilateral pain. Review of Systems 2 General: Reports: 10 or more systems reviewed and unremarkable except in HPI and below Medications/Allergies Home Medications Medication Instructions Recorded Confirmed Last Taken Type aspirin 81 mg capsule 81 mg PO DAILY #90 caps 06/07/24 10/06/24 08/09/24 Rx carvedilol 12.5 mg tablet 12.5 mg PO BID 07/27/24 10/06/24 10/05/24 History apixaban 5 mg tablet (Eliquis) 5 mg PO BID 08/09/24 10/06/24 08/10/24 History chlorthalidone 25 mg tablet 25 mg PO DAILY #30 tabs 09/22/24 10/06/24 10/05/24 Rx valsartan 320 mg tablet 320 mg PO DAILY #90 tabs 09/22/24 10/06/24 10/05/24 Rx atorvastatin 20 mg tablet 20 mg PO DAILY 10/06/24 10/06/24 10/05/24 History hydralazine 10 mg tablet 10 mg PO DAILY 10/06/24 10/06/24 10/05/24 History Allergies Allergy/AdvReac Type Severity Reaction Status Date / Time No Known Allergies Allergy Verified 10/06/24 10:20 PFSH Acute 2 PFSH: Medical History Ventricular tachycardia Frequent PVCs Light headedness Single pelvic kidney UTI (urinary tract infection) Nonischemic cardiomyopathy Atrial fibrillation Pneumonia due to COVID-19 virus Hyperlipidemia Hypertension Surgical History History of elbow surgery History of back surgery Family History Other CAD (coronary artery disease) Social History Smoking and tobacco/nicotine status: former use of tobacco/nicotine Alcohol intake: never Vitals/I&O/Wt Last Vital Signs Temp 97.7 F 10/06/24 11:01 Pulse 60 10/06/24 15:55 Resp 23 H 10/06/24 14:18 BP 190/90 10/06/24 15:55 Pulse Ox 98 10/06/24 15:55 O2 Del Method Room Air 10/06/24 15:55 10/06/24 10/06/24 10/06/24 06:59 14:59 22:59 Intake Total 0 / 0 Balance 0 / 0 Weight last 48 hrs Weight 83.915 kg Physical Exam 2 Narrative: General exam is white male, no distress, complaining of headache Neuro: No focal deficits HEENT pupils equally round. No nystagmus. No proptosis. Oropharynx clear Neck is supple no lymphadenopathy or thyromegaly Cardiovascular regular rate and rhythm without murmur Lungs clear Abdomen is soft nontender Extremities no cyanosis, or edema Skin no rash Data 10/06/24 13:43 10/06/24 13:43 Other Labs: LFTs are normal TSH is normal Urinalysis and urine drug screen ordered Chest x-ray which I reviewed no infiltrate Head CT no acute changes. I reviewed this as well. Mild amount of sinus fluid. EKG which I reviewed demonstrates sinus bradycardia, normal axis, intraventricular conduction delay A&P Assessment and plan (1) Hypertensive urgency: Concern with hypertensive urgency on admission He had stopped his medication thinking it was related to headache the last several days He has been placed on a Cardizem drip Restart the medication he was on at last hospital discharge, and wean nicardipine off as tolerated Check urinalysis for proteinuria TSH has been checked and normal He has had some echocardiograms done recently, and a MUMTAZ done in August. No vegetation, normal EF (2) Headache: Patient with longstanding headache for months. This may not be related to his hypertension. Cannot completely rule that out however. Flexeril 10 mg 3 times daily as needed Discussed with him he could have rebound headaches from a significant amount of Tylenol he has been taking for his headache Secondary to mucosal thickening initiate Flonase (3) Atrial fibrillation: Continue anticoagulation Continue beta-rachael Qualifiers: Atrial fibrillation type: paroxysmal Qualified Code(s): I48.0 - Paroxysmal atrial fibrillation Plan Sinus mucosal thickening on CT. No nasal stuffiness, unilateral pain, fever to suggest acute sinusitis. Full code Eliquis will suffice for DVT prophylaxis Attestations 2 Medical Necessity Statement*: Will need less than 2 midnights today for evaluation and treatment of hypertensive urgency Diagnoses Hypertensive urgency I16.0 Headache R51.9 Paroxysmal atrial fibrillation I48.0 Atrial fibrillation type: paroxysmal Time Spent (min) 56
[2024-10-06] MEDS: morphine 4 mg/mL SDV 1 mL IVP (16:03)
[2024-10-06] MEDS: nicardipine 20 MG/200 ML PREMIX 50 MG IV (16:06)
[2024-10-06 16:29] LABS: Thyroid Stimulating Hormone 3.78 uIU/mL (0.27-4.20)
[2024-10-06 17:19] LABS: Bilirubin Urine Negative (Negative); Blood Urine Negative (Negative); Glucose Urine UA Negative (Normal); Ketones Urine Negative (Negative); Leukocyte Esterase Urine Trace (Negative); Nitrate Urine Positive (Negative); Protein Urine 1+ (Negative); Specific Gravity, Urine 1.009 (1.005-1.030); Urine Appearance Clear (CLEAR); Urine Color Yellow (Yellow); Urobilinogen Urine 0.2 mg/dL (Negative); pH Urine 7.5 (5-7)
[2024-10-06 17:24] LABS: Bacteria Urine EXCEEDS /hpf; RBC Urine 0-2 /hpf (0-2); Squamous Epithelial Cell Urine 0-5 /hpf (0-5)
[2024-10-06 17:39] LABS: Add Urine Culture? Yes
[2024-10-06 17:46] LABS: Amphetamines Screen Urine Negative (Negative); Barbiturates Screen Urine Negative (Negative); Benzodiazepines Screen Urine Negative (Negative); Cocaine Screen Urine Negative (Negative); Opiate Screen Urine Negative (Negative); PCP Screen Urine Negative (Negative); THC Screen Urine Negative (Negative)
[2024-10-06] MEDS: levETIRAcetam 1,000 MG/100 ML PREMIX 400 MG IV (18:04)
--- NOTE | 2024-10-06 18:06 | CTR_ITS ---
PROCEDURE INFORMATION: Exam: CT Head Without Contrast Exam date and time: 10/06/2024 6:20 PM Age: 74 years old Clinical indication: Patient HX: Onset of witnessed seizure activity; Additional info: Repeat CT head patient had change in status new seizure TECHNIQUE: Imaging protocol: Computed tomography of the head without contrast. Radiation optimization: All CT scans at this facility use at least one of these dose optimization techniques: automated exposure control; mA and/or kV adjustment per patient size (includes targeted exams where dose is matched to clinical indication); or iterative reconstruction. COMPARISON: CT head wo con* [id number] 10/06/2024 3:01 PM RADIATION DOSE METRICS: Total DLP (mGy-cm): 1075.23 FINDINGS: Brain: Large amount of diffuse white matter disease likely reflecting chronic microvascular ischemic changes. Cerebral ventricles: No ventriculomegaly. Paranasal sinuses: Paranasal sinus opacifications. Mastoid air cells: Visualized mastoid air cells are well aerated. Bones: Unremarkable. No acute fracture. Soft tissues: Unremarkable. CT/CT head wo con* [id number] IMPRESSION: Negative for intracranial hemorrhage or mass effect.
--- NOTE | 2024-10-06 18:11 | PC.NURSE ---
family came to alert staff that pt was having a seizure. pt does not have a hx of seizures. pt was having a tonic-clonic seizure, with posturing. 2mg of Ativan administer and VORB of 1g of Keppra. seizure pads applied. pt taken for CT.
[2024-10-06] MEDS: LORazepam 2 mg/mL INJ 1 mL IVP (18:48)
[2024-10-06] MEDS: cefTRIAXone 1,000 mg SDV 1000 MG IVP (20:04)
--- NOTE | 2024-10-06 20:38 | PC.NURSE ---
Arrival to ICU 5: TOA: 193. Continuous cardiac monitoring continued. No skin issues noted. Pt is lethargic, unable to answer question/take medications. Madi (brother) answered admission questions. Dr. Barclay notified that pt is unable to take medications and of current vitals @1953. On arrival Dennys pedroza is off- MAR edited to reflect this. Bed alarm on.
[2024-10-06] MEDS: hyDRALAzine 10 mg Tablet PO (21:59)
[2024-10-06] MEDS: ondansetron 2 mg/ML SDV 2 mL 4 MG IVP (22:11)
--- NOTE | 2024-10-06 22:13 | PC.NURSE ---
Vomiting: Several minutes post BP pill pt vomited, pill chunks seen in vomit. See 'MAR' for medications given.
[2024-10-07] VITALS (49 sets, daily range): BP systolic 119–172; BP diastolic 56–107; PULSE 54–82; RESP 17–33; TEMP 36.6–37.2; O2SAT 90–98
[2024-10-07 04:47] LABS: Basophils % 0.1 %; Eosinophils # 0.1 10^3/uL (0.0-0.8); Eosinophils % 0.5 %; Hematocrit 40.8 % (37-53); Lymphocytes # 1.2 10^3/uL (0.8-4.8); Lymphocytes % 11.1 %; Mean Corpuscular HGB Conc 32.8 g/dL (30-55); Mean Corpuscular Volume 88.3 fl (82-101); Mean Platelet Volume 9.4 fL (7.4-10.4); Monocytes # 0.7 10^3/uL (0.2-0.9); Monocytes % 6.8 %; Neutrophils # 8.79 10^3/uL (1.8-7.7); Nucleated Red Blood Cells % 0 %; Platelet Count 222 10^3/cmm (157-399); Red Blood Count 4.62 10^6/uL (3.85-5.65); Red Cell Distribution Width 14.6 % (12.1-15.1); White Blood Count 10.84 10^3/uL (3.29-11.43)
[2024-10-07 05:07] LABS: Alanine Aminotransferase 13 U/L (0-41); Albumin Level 3.9 g/dL (3.5-5.2); Alkaline Phosphatase 67 U/L (40-130); Anion Gap 15.9 (5-19); Aspartate Amino Transferase 18 U/L (0-40); Blood Urea Nitrogen 15 mg/dL (8-23); Carbon Dioxide 25 mmol/L (22-29); Chloride 107 mmol/L (98-107); Creatinine Clr Calc Pharmacy 65.7737; Globulin 2.5 g/dL (1.3-4.6); Glucose 102 mg/dL (65-115); Magnesium 2.1 mg/dL (1.7-2.3); Osmolality Calculated 299 mOsm/kg (285-295); Potassium 3.9 mmol/L (3.5-5.1); Sodium 144 mmol/L (136-145); Total Bilirubin 0.3 mg/dL (0.15-1.2); Total Protein 6.4 g/dL (6.6-8.7)
[2024-10-07] MEDS: levETIRAcetam 1,000 MG/100 ML PREMIX 400 MG IV (05:38)
[2024-10-07] MEDS: atorvastatin 40 mg Tablet 20 MG PO (08:30)
[2024-10-07] MEDS: carvedilol 12.5 mg Tablet PO (08:30)
[2024-10-07] MEDS: aspirin 81 mg EC Tablet PO (08:30)
[2024-10-07] MEDS: apixaban 5 mg Tablet PO ×2 (08:30→18:00)
[2024-10-07] MEDS: chlorthalidone 25 mg Tablet PO (08:30)
[2024-10-07] MEDS: fluticasone nasal spray 16gm Btl 2 SPRAY NASAL (08:36)
[2024-10-07] MEDS: cyclobenzaprine 10 mg Tablet PO ×2 (08:46→18:04)
[2024-10-07] MEDS: losartan 50 mg Tablet 100 MG PO (09:17)
[2024-10-07] MEDS: hyDRALAzine 10 mg Tablet PO (09:18)
[2024-10-07] MEDS: gadobenate dimeglumine 20 mL vial IV (10:43)
--- NOTE | 2024-10-07 12:33 | PC.NURSE ---
Family member mikey returned [place] and house keys to the patient. placed in pants pocket.
--- NOTE | 2024-10-07 14:09 | P.PN_ITS ---
Subjective 2 Subjective: Seen today. Brother and stepson present at bedside. Patient states he is feeling better. Has been seizure-free overnight. Blood pressure in 1 40-1 60 range. Currently not having a headache. MRI brain negative for acute pathology. Discussed with patient regarding seeing neurology at discharge. He is off nicardipine drip. Vitals/I&O/Wt Last Vital Signs Temp 97.8 F 10/07/24 12:00 Pulse 65 10/07/24 13:00 Resp 20 H 10/07/24 13:00 BP 137/71 10/07/24 13:00 Pulse Ox 90 10/07/24 13:00 O2 Del Method Room Air 10/07/24 12:00 O2 Flow Rate 1 10/07/24 09:00 10/06/24 10/07/24 10/07/24 22:59 06:59 14:59 Intake Total 257.000 / 257.000 100 / 357.000 550 / 550 Output Total 500 / 500 275 / 775 250 / 250 Balance -243.000 / -243.000 -175 / -418.000 300 / 300 Weight last 48 hrs Weight 81.873 kg Weight 80.921 kg Weight 83.915 kg Physical Exam 2 Narrative: General exam is white male, no distress, denies a headache at this time. Neuro: No focal deficits HEENT pupils equally round. No nystagmus. No proptosis. Oropharynx clear Neck is supple no lymphadenopathy or thyromegaly Cardiovascular regular rate and rhythm without murmur Lungs clear Abdomen is soft nontender Extremities no cyanosis, or edema Skin no rash Data 10/07/24 04:02 10/07/24 04:02 A&P Assessment and plan (1) Hypertensive urgency: Concern with hypertensive urgency on admission He had stopped his medication thinking it was related to headache the last several days He has been placed on a Cardizem drip Restart the medication he was on at last hospital discharge, and wean nicardipine off as tolerated Check urinalysis for proteinuria TSH has been checked and normal He has had some echocardiograms done recently, and a MUMTAZ done in August. No vegetation, normal EF (2) Headache: Patient with longstanding headache for months. This may not be related to his hypertension. Cannot completely rule that out however. Flexeril 10 mg 3 times daily as needed Discussed with him he could have rebound headaches from a significant amount of Tylenol he has been taking for his headache Secondary to mucosal thickening initiate Flonase (3) Atrial fibrillation: Continue anticoagulation Continue beta-rachael Qualifiers: Atrial fibrillation type: paroxysmal Qualified Code(s): I48.0 - Paroxysmal atrial fibrillation Plan Sinus mucosal thickening on CT. No nasal stuffiness, unilateral pain, fever to suggest acute sinusitis. Full code Eliquis will suffice for DVT prophylaxis 10/07/2024 - Continue to treat for UTI with ceftriaxone daily. ? Continue Eliquis, aspirin, Coreg 12.5 twice daily. ? Continue chlorthalidone 25 daily, losartan 100 daily. ? I will stop hydralazine and start amlodipine 5 mg daily. ? Continue Keppra 500 twice daily orally. ? Neurology follow-up at discharge ? Keep off Cardene drip. ? MRI brain reviewed. ? Transfer to CSU. Continue to monitor blood pressure. Attestations 2 Medical Necessity Statement*: Will need less than 2 midnights today for evaluation and treatment of hypertensive urgency Diagnoses Hypertensive urgency I16.0 Headache R51.9 Paroxysmal atrial fibrillation I48.0 Atrial fibrillation type: paroxysmal
[2024-10-07] MEDS: cefTRIAXone 1,000 mg SDV 1000 MG IVP (17:52)
[2024-10-07] MEDS: sodium chloride 0.9% 1,000 ML 999 ML IV (18:00)
[2024-10-07] MEDS: levETIRAcetam 500 mg Tablet PO (18:00)
[2024-10-07] MEDS: sodium chloride 0.9% 1,000 ML 100 ML IV (18:01)
--- NOTE | 2024-10-07 18:16 | MRR_ITS ---
PROCEDURE INFORMATION: Exam: MR Head Without Contrast Exam date and time: 10/07/2024 9:40 AM Age: 74 years old Clinical indication: Pain; Other: Seizures; Headache; Vascular; Additional info: New onset seizure disorder, headaches over 6 weeks TECHNIQUE: Imaging protocol: Magnetic resonance imaging of the head without contrast. Contrast material: MULTIHANCE; Contrast volume: 18.5 ml; Contrast route: INTRAVENOUS (IV); COMPARISON: CT head wo con* [id number] 10/06/2024 6:20 PM FINDINGS: Brain: There is prominence of the subarachnoid spaces and ventricular system compatible with atrophy. No extra-axial fluid collections are appreciated. There is small-vessel ischemic change within the periventricular white matter. There is no evidence of an acute stroke or hemorrhage. No vasogenic edema, mass, or positive mass effect is noted. The parahippocampal gyri are normal and symmetric bilaterally. No abnormal enhancement is noted on the postcontrast images. Cerebral ventricles: Normal. No ventriculomegaly. Bones: Unremarkable. Paranasal sinuses: There is mucosal thickening involving the paranasal sinuses. No air-fluid levels are appreciated. Mastoid air cells: Normal as visualized. No mastoid effusion. Orbital cavities: Unremarkable. Soft tissues: Unremarkable. MR/MR head wo/w con [id number] IMPRESSION: 1. Atrophy with small-vessel ischemic change. 2. Paranasal sinus disease.
[2024-10-07 18:19] LABS: Glucose Point of Care 104 mg/dL (70-110)
--- NOTE | 2024-10-07 18:47 | PC.NURSE ---
Shift SUmmary: Uneventful shift. rested in bed for most of the day, but did get up to a chair briefly and walked about 150 feet around unit. 500mL of urine output, not retaining urine per bladder scan. maintenance fluids started.
--- NOTE | 2024-10-07 20:56 | PC.NURSE ---
IV Fluids: NS @100ml/hr off on arrival to shift @1900, bag full. MAR edited for 190 to reflect this. See 'MAR' for start time.
[2024-10-08] VITALS (28 sets, daily range): BP systolic 148–185; BP diastolic 67–95; PULSE 50–72; RESP 14–24; TEMP 36.6–37.3; O2SAT 90–95; BMI 25.1
[2024-10-08 04:03] LABS: Blood Urea Nitrogen 22 mg/dL (8-23); Carbon Dioxide 28 mmol/L (22-29); Chloride 107 mmol/L (98-107); Creatinine Clr Calc Pharmacy 60.5834; Glucose 96 mg/dL (65-115); Osmolality Calculated 299 mOsm/kg (285-295); Sodium 143 mmol/L (136-145)
[2024-10-08 04:07] LABS: Anion Gap 11.9 (5-19); Potassium 3.9 mmol/L (3.5-5.1)
[2024-10-08] MEDS: sodium chloride 0.9% 1,000 ML 100 ML IV ×2 (06:45→15:49)
[2024-10-08] MEDS: levETIRAcetam 500 mg Tablet PO ×2 (08:23→17:01)
[2024-10-08] MEDS: chlorthalidone 25 mg Tablet PO (08:23)
[2024-10-08] MEDS: losartan 50 mg Tablet 100 MG PO (08:23)
[2024-10-08] MEDS: apixaban 5 mg Tablet PO ×2 (08:23→17:01)
[2024-10-08] MEDS: atorvastatin 40 mg Tablet 20 MG PO (08:23)
[2024-10-08] MEDS: aspirin 81 mg EC Tablet PO (08:23)
[2024-10-08] MEDS: carvedilol 12.5 mg Tablet PO ×2 (08:24→17:01)
[2024-10-08] MEDS: amlodipine 5 mg Tablet PO (08:24)
--- NOTE | 2024-10-08 10:28 | ECG_ITS ---
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
[2024-10-08] MEDS: TRAMadol 50 mg Tablet PO (10:42)
[2024-10-08 11:34] LABS: Troponin(5th) Baseline 66 ng/L (0-15)
--- NOTE | 2024-10-08 12:28 | ECG_ITS ---
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
[2024-10-08 13:16] LABS: Troponin 5 2HR 67.27 ng/L (0-15); Troponin 5 2HR Delta 1.27 ABS# (0-10)
[2024-10-08] MEDS: hyDRALAzine 25 mg Tablet PO ×2 (14:57→20:46)
--- NOTE | 2024-10-08 15:15 | P.PN_ITS ---
Subjective 2 Subjective: Seen this morning. Patient having T wave inversions on telemetry. EKG ordered. Trope series ordered. Denies chest pain shortness of breath Complains of a headache. 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 Is hard of hearing therefore states Does Not Bother Him As Far As He Is Aware. He Has Always Wondered If He Has Had Migraines in the past. Blood Pressure Elevated This Morning. Vitals/I&O/Wt Last Vital Signs Temp 98.9 F 10/08/24 08:00 Pulse 62 10/08/24 14:51 Resp 21 H 10/08/24 14:00 BP 158/95 10/08/24 14:00 Pulse Ox 91 10/08/24 14:00 O2 Del Method Room Air 10/08/24 14:00 O2 Flow Rate 1 10/07/24 09:00 10/08/24 10/08/24 10/08/24 06:59 14:59 22:59 Intake Total 1000.000 / 2850.000 400 / 400 Output Total 1675 / 2900 900 / 900 Balance -675.000 / -50.000 -500 / -500 Weight last 48 hrs Weight 84.141 kg Weight 81.873 kg Weight 80.921 kg Physical Exam 2 Narrative: General exam is white male, no distress, Neuro: No focal deficits HEENT pupils equally round. No nystagmus. No proptosis. Oropharynx clear Neck is supple no lymphadenopathy or thyromegaly Cardiovascular regular rate and rhythm without murmur Lungs clear Abdomen is soft nontender Extremities no cyanosis, or edema Skin no rash Data 10/07/24 04:02 10/08/24 03:06 Micro: Microbiology 10/06/24 16:08 Urine Culture - Preliminary Urine,Clean Catch Gram Negative Rods A&P Assessment and plan (1) Hypertensive urgency: Concern with hypertensive urgency on admission He had stopped his medication thinking it was related to headache the last several days He has been placed on a Cardizem drip Restart the medication he was on at last hospital discharge, and wean nicardipine off as tolerated Check urinalysis for proteinuria TSH has been checked and normal He has had some echocardiograms done recently, and a MUMTAZ done in August. No vegetation, normal EF (2) Headache: Patient with longstanding headache for months. This may not be related to his hypertension. Cannot completely rule that out however. Flexeril 10 mg 3 times daily as needed Discussed with him he could have rebound headaches from a significant amount of Tylenol he has been taking for his headache Secondary to mucosal thickening initiate Flonase (3) Atrial fibrillation: Continue anticoagulation Continue beta-rachael Qualifiers: Atrial fibrillation type: paroxysmal Qualified Code(s): I48.0 - Paroxysmal atrial fibrillation Plan Sinus mucosal thickening on CT. No nasal stuffiness, unilateral pain, fever to suggest acute sinusitis. Full code Eliquis will suffice for DVT prophylaxis 10/07/2024 - Continue to treat for UTI with ceftriaxone daily. ? Continue Eliquis, aspirin, Coreg 12.5 twice daily. ? Continue chlorthalidone 25 daily, losartan 100 daily. ? I will stop hydralazine and start amlodipine 5 mg daily. ? Continue Keppra 500 twice daily orally. ? Neurology follow-up at discharge ? Keep off Cardene drip. ? MRI brain reviewed. ? Transfer to [facility]. Continue to monitor blood pressure. 10/08/2024 -Add hydralazine 25 3 times daily ? Continue Coreg 12.5 twice daily ? Continue aspirin atorvastatin, Eliquis Placed on amlodipine 10 daily. Increase dose. Continue losartan 100 daily. ? Continue Keppra 500 twice daily ? Neuroreferral at discharge ? Keep Cardene drip off. MRI brain not show any acute pathology at this time ? N.p.o. at midnight, stress test in a.m. ? Check echocardiogram. ? Will place on tramadol 50 twice daily as needed for headache -May transfer to medical surgical floor. Attestations 2 Medical Necessity Statement*: Will need less than 2 midnights today for evaluation and treatment of hypertensive urgency Diagnoses Hypertensive urgency I16.0 Headache R51.9 Paroxysmal atrial fibrillation I48.0 Atrial fibrillation type: paroxysmal
--- NOTE | 2024-10-08 15:19 | ECG_ITS ---
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
[2024-10-08] MEDS: ketorolac 30 mg/mL INJ 15 MG IVP (15:49)
--- NOTE | 2024-10-08 16:28 | ECG_ITS ---
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
[2024-10-08] MEDS: cefTRIAXone 1,000 mg SDV 1000 MG IVP (17:01)
[2024-10-08 17:07] LABS: Troponin 5 6HR 52.47 ng/L (0-15)
[2024-10-08 17:08] LABS: Troponin 5 6HR Delta -13.53 ng/L (0-12)
[2024-10-09] VITALS (15 sets, daily range): BP systolic 148–188; BP diastolic 77–102; PULSE 55–96; RESP 15–27; TEMP 36.6–37.3; O2SAT 90–94
[2024-10-09] MEDS: sodium chloride 0.9% 1,000 ML 100 ML IV (02:30)
[2024-10-09] MEDS: hyDRALAzine 20 mg/mL INJ 1 mL 10 MG IVP (04:25)
[2024-10-09] MEDS: ondansetron 2 mg/ML SDV 2 mL 4 MG IVP (05:23)
[2024-10-09] MEDS: cyclobenzaprine 10 mg Tablet PO (05:32)
[2024-10-09 05:34] LABS: Glucose Point of Care 86 mg/dL (70-110)
--- NOTE | 2024-10-09 06:00 | USCV_ITS ---
Miguel A Reyna Age: 74 Gender: M : 1950 Exam Date: 10/09/2024 14:53 Ordering Phys: Natalee Kaplan MD Technologist: CT Exam Location: [facility] [place] Indication: BP: 137 / 87 HR: 71 Rhythm: Sinus Technical Quality: Adequate MEASUREMENTS (Male / Female) Normal Values 2D ECHO LVOT Diameter 2.0 cm LV Ejection Fraction MOD 4C 49.2 % LV Ejection Fraction MOD 2C 43.9 % LV Ejection Fraction 2C AL 45.0 % LA Diameter 4.5 cm RA Systolic Volume 4C AL 43.5 ml RA Systolic Volume 4C MOD 42.3 ml LA Sys Volume AL 59.4 cm cubed LA Sys Volume Index AL 30.3 cm cubed/m squared Aorta at Sinotubular Diameter 2.8 cm M-MODE LA Ao Ratio MM 1.6 AV Cusp Separation MM 2.1 cm DOPPLER AV Peak Velocity 134.0 cm/s LVOT Peak Velocity 91.0 cm/s AV Area Cont Eq vti 2.5 cm squared AV Area Cont Eq pk 2.2 cm squared MV Peak Velocity 97.0 cm/s MV Area PHT 4.2 cm squared Mitral E to A Ratio 0.0 TR Peak Velocity 162.0 cm/s TR Peak Gradient 10.5 mmHg TR Mean Velocity 91.0 cm/s TR Mean Gradient 4.4 mmHg TR Velocity Time Integral 29.8 cm TV Peak E Velocity 75.0 cm/s PV Peak Velocity 160.0 cm/s FINDINGS Left Ventricle Moderate left ventricular hypertrophy. Diffuse hypokinesia of the left ventricle with an ejection fraction of 45%.Grade I/IV diastolic dysfunction (abnormal relaxation filling pattern), normal to mildly elevated filling pressures. Right Ventricle The right ventricle is normal in size and function. Right Atrium The right atrium is normal in size. Left Atrium Mildly increased left atrial size. Mitral Valve No gross abnormalities noted Aortic Valve No gross abnormalities noted Tricuspid Valve No gross abnormalities noted Pulmonic Valve Pulmonic valve not well visualized. Pericardium Normal pericardium without effusion. Aorta Normal ascending aorta dimension. IVC Inferior vena cava not visualized. CONCLUSIONS Moderate left ventricular hypertrophy. Diffuse hypokinesia of the left ventricle with an ejection fraction of 45%.Grade I/IV diastolic dysfunction (abnormal relaxation filling pattern), normal to mildly elevated filling pressures. Mildly increased left atrial size. There is no pericardial effusion. There are no intracardiac masses. Compared to the study from 08/01/24, there may not be significant change Dr Emi Tineo MD [facility] (Electronically Signed) Final Date: 09 October 2024 16:51 S
[2024-10-09] MEDS: regadenoson 0.4 Mg/5 ml Syringe IVP (06:48)
[2024-10-09] MEDS: carvedilol 12.5 mg Tablet PO (09:01)
[2024-10-09] MEDS: hyDRALAzine 25 mg Tablet PO (09:01)
[2024-10-09] MEDS: apixaban 5 mg Tablet PO (09:01)
[2024-10-09] MEDS: losartan 50 mg Tablet 100 MG PO (09:01)
[2024-10-09] MEDS: levETIRAcetam 500 mg Tablet PO (09:01)
[2024-10-09] MEDS: aspirin 81 mg EC Tablet PO (09:01)
[2024-10-09] MEDS: amlodipine 5 mg Tablet 10 MG PO (09:02)
[2024-10-09] MEDS: atorvastatin 40 mg Tablet 20 MG PO (09:02)
[2024-10-09] MEDS: chlorthalidone 25 mg Tablet PO (09:08)
--- NOTE | 2024-10-09 09:39 | P.CONIM_ITS ---
Providers/Reason For Consult 2 Consulting Physician/Specialty*: WHITNEY Tineo MD/cardiology Reason for Consult*: Patient with chest pain and abnormal Myocardial perfusion imaging Requesting Physician: Dr. Kaplan Attending Physician: Natalee Kaplan MD Primary Care Provider: Donell Sanchez MD History of Present Illness History of Present Illness Miguel A Reyna is a 74 year old male with a history of cardiomyopathy, ventricular tachycardia, atrial fibrillation?, History of multiple cardiac arrests/syncope, he is admitted to hospital with accelerated hypertension. He has been having episodes of chest pain. The most recent episode was 4 days ago. He had some EKG changes and slightly elevated troponin T. He had a Myocardial perfusion imaging today which was found to be abnormal. Cardiology consult is requested for further cardiac evaluation recommendations. This patient is a very poor historian. He is known to have nonischemic cardiomyopathy and? Cardiac arrest. In June of this year, he was admitted to the hospital with respiratory distress. He also had a recurrent ventricular tachycardia. He was transferred to [facility]. He was mainly treated medically. He did not have any catheter-based procedure or ICD implantation. Apparently had of some pauses on the telemetry also at that time. He was told by the physicians at that time that he may require a permanent pacemaker sometime down the line. The patient has been having episodes of chest pain couple of times a month, each time last for 2 or 3 minutes. No definite bilberry factors. The pain is mainly in the mid substernal region. No other associated symptoms or radiation of pain. Has a history of uncontrolled blood pressure.? History of seizure disorder. Ventricular and supraventricular arrhythmia as mentioned above. History of syncopal episodes. No history for any severe peripheral artery disease. No history for kidney disease or liver disease. Patient had a categorization in 2021. He was found to have 30 to 40% lesion in the left left anterior descending artery. No lesions in the other vessels. Review of Systems 2 Narrative: CONSTITUTIONAL: No fever or chills. EYES: No blurring of vision or other visual disturbances lately. ENT: No hoarseness of voice, auditory disturbances or sore throat. CARDIOVASCULAR: As mentioned above. RESPIRATORY: No significant cough. GASTROINTESTINAL: No hematemesis or melena. GENITOURINARY: No dysuria or hematuria. INTEGUMENTARY: No skin rashes or history of skin cancer. NEURO: Seizure disorder?. PSYCHIATRIC: No history of psychosis or major depression. HEMATOLOGIC: No bleeding disorders or significant anemia. ENDOCRINE: No history of polyuria or polydipsia. MUSCULOSKELETAL: No recent joint pain or swelling. ALLERGY/IMMUNOLOGY: As mentioned above. Medications/Allergies Home Medications Medication Instructions Recorded Confirmed Last Taken Type aspirin 81 mg capsule 81 mg PO DAILY #90 caps 06/07/24 10/06/24 08/09/24 Rx carvedilol 12.5 mg tablet 12.5 mg PO BID 07/27/24 10/06/24 10/05/24 History apixaban 5 mg tablet (Eliquis) 5 mg PO BID 08/09/24 10/06/24 08/10/24 History chlorthalidone 25 mg tablet 25 mg PO DAILY #30 tabs 09/22/24 10/06/24 10/05/24 Rx valsartan 320 mg tablet 320 mg PO DAILY #90 tabs 09/22/24 10/06/24 10/05/24 Rx atorvastatin 20 mg tablet 20 mg PO DAILY 10/06/24 10/06/24 10/05/24 History hydralazine 10 mg tablet 10 mg PO DAILY 10/06/24 10/06/24 10/05/24 History Allergies Allergy/AdvReac Type Severity Reaction Status Date / Time No Known Allergies Allergy Verified 10/06/24 10:20 Current Medications Generic Name Dose Route Start Last Admin Trade Name Eusebioq PRN Reason Stop Dose Admin Amlodipine Besylate 10 mg 10/09/24 09:00 10/09/24 09:02 Amlodipine 5 Mg Tablet PO 10 mg DAILY MORENO Administration Apixaban 5 mg 10/06/24 18:00 10/09/24 09:01 Apixaban 5 Mg Tablet PO 5 mg BID MORENO Administration Aspirin 81 mg 10/07/24 09:00 10/09/24 09:01 Aspirin 81 Mg Ec Tablet PO 81 mg DAILY MORENO Administration Carvedilol 12.5 mg 10/06/24 18:00 10/09/24 09:01 Carvedilol 12.5 Mg Tablet PO 12.5 mg BID MORENO Administration Ceftriaxone Sodium 1,000 mg 10/06/24 18:15 10/08/24 17:01 Ceftriaxone 1,000 Mg Sdv IVP 1,000 mg Q24H MORENO Administration Protocol Chlorthalidone 25 mg 10/07/24 09:00 10/09/24 09:08 Chlorthalidone 25 Mg Tablet PO 25 mg DAILY MORENO Administration Cyclobenzaprine HCl 10 mg 10/06/24 17:08 10/09/24 05:32 Cyclobenzaprine 10 Mg Tablet PO 10 mg TID PRN Administration MUSCLE SPASMS Fluticasone Propionate 2 spray 10/06/24 18:00 10/09/24 09:08 Fluticasone Nasal Dinosaur 16gm Btl NASAL Not Given BID MORENO Sodium Chloride 1,000 mls @ 100 mls/hr 10/07/24 17:45 10/09/24 06:10 Sodium Chloride 0.9% IV 0 mls/hr .Q10H MORENO Infusion Levetiracetam 500 mg 10/07/24 18:00 10/09/24 09:01 Levetiracetam 500 Mg Tablet PO 500 mg BID MORENO Administration Losartan Potassium 100 mg 10/07/24 09:00 10/09/24 09:01 Losartan 50 Mg Tablet PO 100 mg DAILY MORENO Administration Ondansetron HCl 4 mg 10/06/24 17:08 10/09/24 05:23 Ondansetron 2 Mg/Ml Sdv 2 Ml IVP 4 mg Q6H PRN Administration vomiting, or N/V if npo PFSH Acute 2 PFSH: Medical History Ventricular tachycardia Frequent PVCs Light headedness Single pelvic kidney UTI (urinary tract infection) Nonischemic cardiomyopathy Atrial fibrillation Pneumonia due to COVID-19 virus Hyperlipidemia Hypertension Surgical History History of elbow surgery History of back surgery Family History Other CAD (coronary artery disease) Social History Smoking and tobacco/nicotine status: former use of tobacco/nicotine Alcohol intake: never Vitals/I&O/Wt Last Vital Signs Temp 98.4 F 10/09/24 08:01 Pulse 68 10/09/24 08:01 Resp 16 10/09/24 08:01 BP 188/93 10/09/24 08:01 Pulse Ox 94 10/09/24 08:01 O2 Del Method Room Air 10/09/24 08:01 O2 Flow Rate 1 10/07/24 09:00 10/08/24 10/09/24 10/09/24 22:59 06:59 14:59 Intake Total 1798.334 / 2198.334 1493.000 / 3691.334 340 / 340 Output Total 1275 / 2175 2275 / 4450 Balance 523.334 / 23.334 -782.000 / -758.666 340 / 340 Weight last 48 hrs Weight 187 lb Weight 185 lb 8 oz Physical Exam 2 Narrative: GENERAL: The patient is alert and oriented times three. Not in any acute distress. HEENT: No significant pallor, icterus or lymphadenopathy.Oral cavity: There are no mucous membrane lesions. NECK: Trachea appears to be central. No masses noted. No JVD or thyromegaly appreciated. RESPIRATORY: Chest is symmetrical. No intercostals muscle retraction or any accessory muscle activation. There is no chest wall tenderness. Breath sounds are heard bilaterally. No rales or rhonchi heard. No evidence of any consolidation. BREASTS: Deferred. HEART: The heart sounds are normal. No S3 or S4. No significant murmurs. No pericardial rub ABDOMEN: No vessel pulsations or distention. No tenderness. No organomegaly appreciated. Bowel sounds are normally heard. : Deferred. RECTAL: Deferred. LYMPHATIC: No lymphadenopathy noted in the neck. EXTREMITIES: No edema or cyanosis. No clubbing. MUSCULOSKELETAL: No acute joint deformities or swelling SKIN: There are no significant rashes or ecchymosis NEUROPSYCHIATRIC: The patient is alert and oriented x3. Appears to be in a good mood. No tremors or rigidity noted. Data 10/09/24 10:36 10/09/24 10:36 Other Labs: Laboratory Last Values WBC 10.84 10^3/uL (3.29-11.43) 10/07/24 04:02 RBC 4.62 10^6/uL (3.85-5.65) 10/07/24 04:02 Hgb 13.40 g/dL (11.27-16.99) 10/07/24 04:02 Hct 40.8 % (37-53) 10/07/24 04:02 MCV 88.3 fl (82-101) 10/07/24 04:02 MCH 29.0 pg (27-33) 10/07/24 04:02 MCHC 32.8 g/dL (30-55) 10/07/24 04:02 RDW 14.6 % (12.1-15.1) 10/07/24 04:02 Plt Count 222 10^3/cmm (157-399) 10/07/24 04:02 MPV 9.4 fL (7.4-10.4) 10/07/24 04:02 Neut % (Auto) 81.0 % 10/07/24 04:02 Lymph % (Auto) 11.1 % 10/07/24 04:02 [place] % (Auto) 6.8 % 10/07/24 04:02 Eos % (Auto) 0.5 % 10/07/24 04:02 Baso % (Auto) 0.1 % 10/07/24 04:02 Neut # (Auto) 8.79 10^3/uL (1.8-7.7) H 10/07/24 04:02 Lymph # (Auto) 1.2 10^3/uL (0.8-4.8) 10/07/24 04:02 [place] # (Auto) 0.7 10^3/uL (0.2-0.9) 10/07/24 04:02 Eos # (Auto) 0.1 10^3/uL (0.0-0.8) 10/07/24 04:02 Baso # (Auto) 0.0 10^3/uL (0.0-0.1) 10/07/24 04:02 Nucleated RBC % (auto) 0 % 10/07/24 04:02 Nucleated RBCs # 0.0 /100WBC 10/07/24 04:02 Sodium 143 mmol/L (136-145) 10/08/24 03:06 Potassium 3.9 mmol/L (3.5-5.1) 10/08/24 03:06 Chloride 107 mmol/L (98-107) 10/08/24 03:06 Carbon Dioxide 28 mmol/L (22-29) 10/08/24 03:06 Anion Gap 11.9 (5-19) 10/08/24 03:06 BUN 22 mg/dL (8-23) 10/08/24 03:06 Creatinine 1.2 mg/dL (0.7-1.2) 10/08/24 03:06 GFR Calculation Not Reportable 10/08/24 03:06 Glucose 96 mg/dL (65-115) 10/08/24 03:06 POC Glucose 86 mg/dL (70-110) 10/09/24 05:19 Calculated Osmolality 299 mOsm/kg (285-295) H 10/08/24 03:06 Calcium 9.0 mg/dL (8.5-10.5) 10/08/24 03:06 Magnesium 2.1 mg/dL (1.7-2.3) 10/07/24 04:02 Total Bilirubin 0.3 mg/dL (0.15-1.2) 10/07/24 04:02 AST 18 U/L (0-40) 10/07/24 04:02 ALT 13 U/L (0-41) 10/07/24 04:02 Alkaline Phosphatase 67 U/L (40-130) 10/07/24 04:02 Troponin T Baseline 66 ng/L (0-15) H 10/08/24 10:52 Troponin T 120 Minute 67.27 ng/L (0-15) H 10/08/24 12:34 Delta Troponin T 1.27 ABS# (0-10) 10/08/24 12:34 Troponin T Hi Sens 6Hr 52.47 ng/L (0-15) H 10/08/24 16:32 Troponin T Hi Sens 6Hr Delta -13.53 ng/L (0-12) L 10/08/24 16:32 Total Protein 6.4 g/dL (6.6-8.7) L 10/07/24 04:02 Albumin 3.9 g/dL (3.5-5.2) 10/07/24 04:02 Globulin 2.5 g/dL (1.3-4.6) 10/07/24 04:02 TSH 3.78 uIU/mL (0.27-4.20) 10/06/24 13:43 Urine Color Yellow (Yellow) 10/06/24 16:08 Urine Appearance Clear (CLEAR) 10/06/24 16:08 Urine pH 7.5 (5-7) 10/06/24 16:08 Ur Specific [place] 1.009 (1.005-1.030) 10/06/24 16:08 Urine Protein 1+ (Negative) A 10/06/24 16:08 Urine Glucose (UA) Negative (Normal) 10/06/24 16:08 Urine Ketones Negative (Negative) 10/06/24 16:08 Urine Blood Negative (Negative) 10/06/24 16:08 Urine Nitrate Positive (Negative) A 10/06/24 16:08 Urine Bilirubin Negative (Negative) 10/06/24 16:08 Urine Urobilinogen 0.2 mg/dL (Negative) 10/06/24 16:08 Ur Leukocyte Esterase Trace (Negative) A 10/06/24 16:08 Urine RBC 0-2 /hpf (0-2) 10/06/24 16:08 Urine WBC 11-20 /hpf (0-5) H 10/06/24 16:08 Ur Squamous Epith Cells 0-5 /hpf (0-5) 10/06/24 16:08 Amorphous Sediment Not Reportable 10/06/24 16:08 Urine Bacteria Exceeds /hpf (NONE) 10/06/24 16:08 Hyaline Casts 0.40 /lpf 10/06/24 16:08 Urine Opiates Screen Negative ng/mL (Negative) 10/06/24 16:08 Ur Barbiturates Screen Negative ng/mL (Negative) 10/06/24 16:08 Ur Phencyclidine Scrn Negative ng/mL (Negative) 10/06/24 16:08 Ur Amphetamines Screen Negative ng/mL (Negative) 10/06/24 16:08 U Benzodiazepines Scrn Negative ng/mL (Negative) 10/06/24 16:08 Urine Cocaine Screen Negative ng/mL (Negative) 10/06/24 16:08 U Marijuana (THC) Screen Negative ng/mL (Negative) 10/06/24 16:08 Micro: Microbiology 10/06/24 16:08 Urine Culture - Final Urine,Clean Catch Klebsiella pneumoniae Other data: EKG Sinus bradycardia with a rate of 58 bpm. Poor R wave progression. Nonspecific IVCD. Nonspecific ST-T changes in the inferolateral leads. Assessment unchanged from the previous EKG in June of this year. Myocardial perfusion imaging from today IMPRESSIONS 1. Abnormal myocardial perfusion imaging with small to moderate-sized area of prior infarct with medium sized area of nancy-infarct ischemia in RCA territory. 2. LV systolic function is mildly reduced with EF of 45%. Holter monitoring, 06/21/2024 1. Monitoring period was from 01/08/2022 to 01/21/2022. 2. The predominant rhythm was Sinus Rhythm. 3. The Maximum Heart Rate recorded was 113 BPM, 07:52 AM 07/10, the Minimum Heart Rate recorded was 41 BPM, 03:46 AM 06/27 and the Average Heart Rate was 55 BPM. 4. There were 27,697 VE beats with a burden of 2 %. There were 6 occurrences of Ventricular Tachycardia with the longest episode 5s, 08:44 PM 07/04 and fastest episode 191 BPM, 12:10 PM 07/05. 5. There were 11,212 SVE beats with a burden of 1 %. 6. The study included an Atrial Fibrillation/Flutter [place] of <1 %. The longest episode was 1m 31s, 05:37 PM 07/10 and the fastest episode was 57 BPM, 05:39 PM 07/10. 7. No patient reported symptoms. Echocardiogram 11/10/2023 There is 0.74 x 0.5 cm heterogenous globular, partially mobile mass attached to the ventricular aspect of the noncoronary cusp of the aortic valve, may suggest vegetation or soft tissue masses like myxoma. Normal LV size with diminished ejection fraction of around 40-45 %. Diffuse hypokinesia of the septum.abnormal septal motion consistent with conduction abnormality. Normal cardiac chamber sizes. There is no pericardial effusion. A&P Assessment and plan (1) Abnormal myocardial perfusion study: Patient is abnormal Myocardial perfusion imaging he has a history of ischemia in the distribution of the right coronary artery. His chest pain symptoms are atypical and stable. Cardiac catheterization from 2021 revealed only mild coronary artery disease. Elevated troponin T most likely from type II [place] (2) Chest pain: The symptoms are atypical. But the symptoms are stable and somewhat chronic. No new EKG changes compared to EKG from June of this year. Qualifiers: Chest pain type: unspecified Qualified Code(s): R07.9 - Chest pain, unspecified (3) Atrial fibrillation: Patient seems to be in a regular rhythm at this time. May continue on the current treatment measures. Qualifiers: Atrial fibrillation type: paroxysmal Qualified Code(s): I48.0 - Paroxysmal atrial fibrillation (4) Nonischemic cardiomyopathy: The LV ejection fraction is around 45% by echocardiogram. (5) Ventricular tachycardia: No recurrence of ventricular tachycardia at this time. (6) Hyperlipidemia: Patient is known to have dyslipidemia. Advised to continue on the current medications. Will have the follow-up evaluation as scheduled. Patient understands the importance of dietary compliance Qualifiers: Hyperlipidemia type: unspecified Qualified Code(s): E78.5 - Hyperlipidemia, unspecified (7) Accelerated hypertension: The blood pressure is still elevated. I will increase the hydralazine to 50 mg p.o. 3 times daily and continue to monitor blood pressure. Plan Since the patient has no active chest pain, no new EKG changes and also since he had an angiogram 2 years ago showing only mild coronary artery disease, it may be appropriate to continue the medical treatment. I may optimize his antihypertensive medications at this time. If he continues to remain stable, I may hold off on any invasive cardiac workup. Once the blood pressure gets fairly under control, may be discharged home to have follow-up with the [facility] in [address] Torres in 1 month Consult Attestations 2 Medical Necessity Statement: Deferred to the primary Coding Level of Care Code 33699 Diagnoses Abnormal myocardial perfusion study R94.39 Chest pain, unspecified type R07.9 Chest pain type: unspecified Paroxysmal atrial fibrillation I48.0 Atrial fibrillation type: paroxysmal Nonischemic cardiomyopathy I42.8 Ventricular tachycardia I47.2 Hyperlipidemia, unspecified hyperlipidemia type E78.5 Hyperlipidemia type: unspecified Accelerated hypertension I10
--- NOTE | 2024-10-09 10:08 | PC.CHAP ---
Pastoral Care Encounter/Spiritual Assessment Type of Contact [] Declined straddle bug visit [] Patient/Family/Request visit [] Outpatient visit [] Follow-up visit [] Physician referral [] Code/Alert [x] Routine visit [] Staff referral [] Actively dying [] Patient sleeping [] Family support [] [] Out of room [] Palliative care [] [] Receiving care in room [] Pre-surgical visit [] Trauma [] Long length of stay [] ICU visit [] Other: Relational/Emotional Strength [] Patient feels connected with others/family/visitors/staff [] Distress [] Loneliness/isolation [] Abandonment Spirituality of Patient [x] Person of Hafsa [] Attends Church of their Hafsa [x] Believes in Prayer [] Reads Bible or Zoroastrian materials [] There are Spiritual issues to be addressed Spiral Runner Interventions [x] Prayer [x] Active listening [] Non-anxious presence [] Spiritual/emotional support [] Crisis/trauma care [] Spiritual counseling [] Bereavement support [] Provided bereavement packet [x] Provided Bible/devotional materials [] Provided toy/stuffed animal, coloring book to patient or family member [] Provided Communion [] Anointing/[place] [] Salvation [x] Completed spiritual assessment [] Other: Impact on Illness or Injury [] Angry [] Fearful [] Anxious [] Often cries [] Exhaustion [] Unable to work [] Unable to attend quaker [] Unable to walk/stand [] Unable to read [] Unable to drive [] Unable to eat/drink [] Unable to sleep [] Unable to be with family [] Patient intubated [] Other: Summary Time spent with patient 5 min
--- NOTE | 2024-10-09 10:22 | PC.SOCIAL ---
IMM Update Pg. 2 of IMM updated. Initialed, dated, and timed. Copy provided at bedside.
[2024-10-09 10:46] LABS: Basophils # 0.1 10^3/uL (0.0-0.1); Basophils % 0.4 %; Eosinophils # 0.7 10^3/uL (0.0-0.8); Eosinophils % 6.2 %; Hematocrit 44.7 % (37-53); Lymphocytes # 1.5 10^3/uL (0.8-4.8); Mean Corpuscular HGB Conc 32.9 g/dL (30-55); Mean Corpuscular Hemoglobin 28.7 pg (27-33); Mean Corpuscular Volume 87.3 fl (82-101); Mean Platelet Volume 8.9 fL (7.4-10.4); Monocytes # 0.9 10^3/uL (0.2-0.9); Monocytes % 7.6 %; Neutrophils # 8.16 10^3/uL (1.8-7.7); Neutrophils % 72.4 %; Nucleated Red Blood Cells % 0 %; Platelet Count 271 10^3/cmm (157-399); Red Blood Count 5.12 10^6/uL (3.85-5.65); Red Cell Distribution Width 14.6 % (12.1-15.1); White Blood Count 11.29 10^3/uL (3.29-11.43)
[2024-10-09 11:00] LABS: Blood Urea Nitrogen 17 mg/dL (8-23); Calcium 9.6 mg/dL (8.5-10.5); Carbon Dioxide 24 mmol/L (22-29); Chloride 106 mmol/L (98-107); Creatinine Clr Calc Pharmacy 73.7814; Glucose 135 mg/dL (65-115); Magnesium 1.9 mg/dL (1.7-2.3); Osmolality Calculated 294 mOsm/kg (285-295); Sodium 140 mmol/L (136-145)
[2024-10-09 11:01] LABS: Anion Gap 13.9 (5-19); Potassium 3.9 mmol/L (3.5-5.1)
--- NOTE | 2024-10-09 14:29 | PM.DCS ---
Discharge Providers Date of Admission: 10/06/24 15:49 Date of Discharge: October 09, 2024 Attending Provider at Admission: Anselmo Costa MD Attending Provider at Discharge: Natalee Kaplan MD Primary Care Provider: Donell Sanchez MD Diagnoses at Discharge Discharge Diagnosis (1) Abnormal myocardial perfusion study: Status: Acute (2) Chest pain: Status: Resolved Qualifiers: Chest pain type: unspecified Qualified Code(s): R07.9 - Chest pain, unspecified (3) Atrial fibrillation: Status: Acute Qualifiers: Atrial fibrillation type: paroxysmal Qualified Code(s): I48.0 - Paroxysmal atrial fibrillation (4) Nonischemic cardiomyopathy: Status: Acute (5) Ventricular tachycardia: Status: Resolved (6) Hyperlipidemia: Status: Acute Qualifiers: Hyperlipidemia type: unspecified Qualified Code(s): E78.5 - Hyperlipidemia, unspecified (7) Accelerated hypertension: Status: Acute Reason for Visit Reason for Visit: elevated blood pressure(sent by cardiac) Hospital Course Hospital Course Please see H&P Patient was admitted with hypertension and headaches. Initially had a seizure on admission. He was loaded with Keppra and placed on Keppra twice daily. Never had a his seizure before. MRI head was obtained which did not show any new acute pathology. Blood pressure was controlled during hospitalization. He did have headaches x 1 for which she was given Toradol. At time of discharge he was stable without a headache with blood pressure controlled. He was advised to continue his blood pressure medication. He was given neurology follow-up at discharge for evaluation for headaches. Of note he did have significant T wave inversions on EKG therefore stress test was pursued. Stress test was abnormal he was seen by cardiology. Plan to medically manage for now and to follow-up with cardiology as an outpatient. Patient stable at time of discharge. Information packet given regarding new onset seizures to patient. Physical Exam Narrative: General exam is white male, no distress, Neuro: No focal deficits HEENT pupils equally round. No nystagmus. No proptosis. Oropharynx clear Neck is supple no lymphadenopathy or thyromegaly Cardiovascular regular rate and rhythm without murmur Lungs clear Abdomen is soft nontender Extremities no cyanosis, or edema Skin no rash Discharge Data Studies Completed and Pending Completed Studies During Hospitalization Category Date Time Status CT head wo con* [id number] Stat Cat Scan 10/06/24 14:[address] head wo con* [id number] Stat Cat Scan 10/06/24 18:06 Completed Sestamibi Stress Test Request Routine Exams 10/08/24 15:19 Draft XR chest 1V portable [id number] Stat Exams 10/06/24 13:05 Completed MR head wo/w con [id number] Routine MRI 10/07/24 18:16 Completed NM lesvia perf SPECT r/s* [id number] Routine Nuc Med 10/09/24 15:19 Completed Pending at discharge Category Date Time Status CV. echo complete* [id number] Routine Ultrasound 10/09/24 06:00 Ordered Radiology Impressions Chest X-Ray 10/06/24 13:05 IMPRESSION: Stable chest with no acute abnormality. Head CT 10/06/24 18:06 IMPRESSION: Negative for intracranial hemorrhage or mass effect. Head MRI 10/07/24 18:16 IMPRESSION: 1. Atrophy with small-vessel ischemic change. 2. Paranasal sinus disease. Laboratory Results WBC 11.29 10^3/uL (3.29-11.43) 10/09/24 10:36 RBC 5.12 10^6/uL (3.85-5.65) 10/09/24 10:36 Hgb 14.70 g/dL (11.27-16.99) 10/09/24 10:36 Hct 44.7 % (37-53) 10/09/24 10:36 MCV 87.3 fl (82-101) 10/09/24 10:36 MCH 28.7 pg (27-33) 10/09/24 10:36 MCHC 32.9 g/dL (30-55) 10/09/24 10:36 RDW 14.6 % (12.1-15.1) 10/09/24 10:36 Plt Count 271 10^3/cmm (157-399) 10/09/24 10:36 MPV 8.9 fL (7.4-10.4) 10/09/24 10:36 Neut % (Auto) 72.4 % 10/09/24 10:36 Lymph % (Auto) 13.0 % 10/09/24 10:36 Dillon % (Auto) 7.6 % 10/09/24 10:36 Eos % (Auto) 6.2 % 10/09/24 10:36 Baso % (Auto) 0.4 % 10/09/24 10:36 Neut # (Auto) 8.16 10^3/uL (1.8-7.7) H 10/09/24 10:36 Lymph # (Auto) 1.5 10^3/uL (0.8-4.8) 10/09/24 10:36 Dillon # (Auto) 0.9 10^3/uL (0.2-0.9) 10/09/24 10:36 Eos # (Auto) 0.7 10^3/uL (0.0-0.8) 10/09/24 10:36 Baso # (Auto) 0.1 10^3/uL (0.0-0.1) 10/09/24 10:36 Nucleated RBC % (auto) 0 % 10/09/24 10:36 Nucleated RBCs # 0.0 /100WBC 10/09/24 10:36 Sodium 140 mmol/L (136-145) 10/09/24 10:36 Potassium 3.9 mmol/L (3.5-5.1) 10/09/24 10:36 Chloride 106 mmol/L (98-107) 10/09/24 10:36 Carbon Dioxide 24 mmol/L (22-29) 10/09/24 10:36 Anion Gap 13.9 (5-19) 10/09/24 10:36 BUN 17 mg/dL (8-23) 10/09/24 10:36 Creatinine 1.0 mg/dL (0.7-1.2) 10/09/24 10:36 GFR Calculation Not Reportable 10/09/24 10:36 Glucose 135 mg/dL (65-115) H 10/09/24 10:36 POC Glucose 86 mg/dL (70-110) 10/09/24 05:19 Calculated Osmolality 294 mOsm/kg (285-295) 10/09/24 10:36 Calcium 9.6 mg/dL (8.5-10.5) 10/09/24 10:36 Magnesium 1.9 mg/dL (1.7-2.3) 10/09/24 10:36 Total Bilirubin 0.3 mg/dL (0.15-1.2) 10/07/24 04:02 AST 18 U/L (0-40) 10/07/24 04:02 ALT 13 U/L (0-41) 10/07/24 04:02 Alkaline Phosphatase 67 U/L (40-130) 10/07/24 04:02 Troponin T Baseline 66 ng/L (0-15) H 10/08/24 10:52 Troponin T 120 Minute 67.27 ng/L (0-15) H 10/08/24 12:34 Delta Troponin T 1.27 ABS# (0-10) 10/08/24 12:34 Troponin T Hi Sens 6Hr 52.47 ng/L (0-15) H 10/08/24 16:32 Troponin T Hi Sens 6Hr Delta -13.53 ng/L (0-12) L 10/08/24 16:32 Total Protein 6.4 g/dL (6.6-8.7) L 10/07/24 04:02 Albumin 3.9 g/dL (3.5-5.2) 10/07/24 04:02 Globulin 2.5 g/dL (1.3-4.6) 10/07/24 04:02 TSH 3.78 uIU/mL (0.27-4.20) 10/06/24 13:43 Urine Color Yellow (Yellow) 10/06/24 16:08 Urine Appearance Clear (CLEAR) 10/06/24 16:08 Urine pH 7.5 (5-7) 10/06/24 16:08 Ur Specific [place] 1.009 (1.005-1.030) 10/06/24 16:08 Urine Protein 1+ (Negative) A 10/06/24 16:08 Urine Glucose (UA) Negative (Normal) 10/06/24 16:08 Urine Ketones Negative (Negative) 10/06/24 16:08 Urine Blood Negative (Negative) 10/06/24 16:08 Urine Nitrate Positive (Negative) A 10/06/24 16:08 Urine Bilirubin Negative (Negative) 10/06/24 16:08 Urine Urobilinogen 0.2 mg/dL (Negative) 10/06/24 16:08 Ur Leukocyte Esterase Trace (Negative) A 10/06/24 16:08 Urine RBC 0-2 /hpf (0-2) 10/06/24 16:08 Urine WBC 11-20 /hpf (0-5) H 10/06/24 16:08 Ur Squamous Epith Cells 0-5 /hpf (0-5) 10/06/24 16:08 Amorphous Sediment Not Reportable 10/06/24 16:08 Urine Bacteria Exceeds /hpf (NONE) 10/06/24 16:08 Hyaline Casts 0.40 /lpf 10/06/24 16:08 Urine Opiates Screen Negative ng/mL (Negative) 10/06/24 16:08 Ur Barbiturates Screen Negative ng/mL (Negative) 10/06/24 16:08 Ur Phencyclidine Scrn Negative ng/mL (Negative) 10/06/24 16:08 Ur Amphetamines Screen Negative ng/mL (Negative) 10/06/24 16:08 U Benzodiazepines Scrn Negative ng/mL (Negative) 10/06/24 16:08 Urine Cocaine Screen Negative ng/mL (Negative) 10/06/24 16:08 U Marijuana (THC) Screen Negative ng/mL (Negative) 10/06/24 16:08 Vitals Last Vital Signs Temp 98.4 F 10/09/24 11:50 Pulse 73 10/09/24 11:50 Resp 17 10/09/24 11:50 BP 172/88 10/09/24 11:50 Pulse Ox 94 10/09/24 11:50 O2 Del Method Room Air 10/09/24 11:50 O2 Flow Rate 1 10/07/24 09:00 Discharge Plan Discharge Patient Disposition: Home Condition: Stable Prescriptions: New levetiracetam 500 mg Tablet 500 mg PO BID Qty: 60 0RF hydralazine 25 mg Tablet 75 mg PO TID Qty: 270 0RF amlodipine 5 mg Tablet 10 mg PO DAILY Qty: 30 0RF cefdinir 300 mg capsule 300 mg PO BID 5 Days Qty: 10 0RF Continued carvedilol 12.5 mg tablet 12.5 mg PO BID Rx Instructions: must administer with a meal/food valsartan 320 mg tablet 320 mg PO DAILY Qty: 90 3RF chlorthalidone 25 mg tablet 25 mg PO DAILY Qty: 30 0RF aspirin 81 mg capsule 81 mg PO DAILY Qty: 90 0RF Eliquis 5 mg tablet 5 mg PO BID atorvastatin 20 mg tablet 20 mg PO DAILY Discontinued hydralazine 10 mg tablet 10 mg PO DAILY Discharge Orders: Discharge Order (Routine); Ordered 10/09/24 Ordered By: Natalee Kaplan Referrals: Erick Ruiz MD [Physician] - 2 weeks (We have notified your physician's clinic of the need for a follow-up appointment to be scheduled. If you have not heard from them within the next 2 business days, please call them directly. 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 Thank You.) Donell Sanchez MD [Primary Care Provider] - 10/17/24 12:15 pm Discharge Diet: Cardiac Discharge Activity: Resume usual activity Patient Instructions: Amlodipine (By mouth), Cefdinir (By mouth), Levetiracetam (By mouth), Hypertension (DC), New-Onset Seizure in Adults (DC), Opioid Safety Discharge Attestations Time Spent in Discharge Care*: greater than 30 min Status at Discharge: Cognitive status at discharge: mildly impaired cognition, Behavioral status at discharge: cooperative, Quality Metrics Clinical Quality Measures [ No reported AMI, CVA or VTE this stay] Coding Level of Care Code Acute Code for Chg Fwd Diagnoses Abnormal myocardial perfusion study R94.39 Chest pain, unspecified type R07.9 Chest pain type: unspecified Paroxysmal atrial fibrillation I48.0 Atrial fibrillation type: paroxysmal Nonischemic cardiomyopathy I42.8 Ventricular tachycardia I47.2 Hyperlipidemia, unspecified hyperlipidemia type E78.5 Hyperlipidemia type: unspecified Accelerated hypertension I10
[2024-10-09] MEDS: hyDRALAzine 25 mg Tablet 75 MG PO (14:47)
--- NOTE | 2024-10-09 15:19 | NMCV_ITS ---
NM lesvia perf SPECT r/s* [id number] Miguel A Reyna Age: 74 Gender: M : 1950 Exam Date: 10/09/2024 15:19 Ordering Phys: Natalee Kaplan MD Technologist: TERRY Hager Exam Location: [facility] Indications: cp STRESS TEST Please see separate stress test report in [facility] for full findings IMAGE PROTOCOL Rest/Stress 1 Lexiscan Day Radiopharmaceutical Dose (mCi) Administration Site Administered by Rest: Tc-99m 10.9 IV TERRY Rangel Sestamibi Stress:Tc-99m 32.3 IV TERRY Hager Sestamikimberley Rest: 09-Oct-2024 60 Discovery 630 Stress: 09-Oct-2024 30 Discovery 630 0.4mg Lexiscan. Images obtained in supine and prone position. SPECT RESULTS Technical Quality: Good Raw Data Analysis: Normal Image Corrections: No attenuation or motion correction applied Summed Stress Score: 4 Summed Rest Score: 0 Summed Difference Score: 4 PERFUSION FINDINGS There is a small to medium sized area of partially reversible perfusion defect seen in the inferior and inferior apical childs. This is consistent with small to medium sized area of prior infarct with medium sized area of nancy-infarct ischemia in RCA territory. FUNCTIONAL RESULTS (calculated via Gated SPECT) Stress Image LV EF (%): 45 Stress EDV (mL):150 TID: 1.15 Stress ESV (mL):82 FUNCTIONAL FINDINGS: LV systolic function is mildly reduced IMPRESSIONS 1. Abnormal myocardial perfusion imaging with small to moderate-sized area of prior infarct with medium sized area of nancy-infarct ischemia in RCA territory. 2. LV systolic function is mildly reduced with EF of 45%. Isiah Torres MD (Electronically Signed) Final Date: 09 October 2024 08:42 S
--- NOTE | 2024-10-09 17:11 | PC.NURSE ---
bp check manually on left arm 150/90. educated pt to check BP twice a day.
--- NOTE | 2024-10-09 18:11 | ECG_ITS ---
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 Measurements Intervals [place] Rate: 97 P: 72 WI: 217 QRS: 97 QRSD: 153 T: 45 QT: 375 QTc: 477 Interpretive Statements SINUS RHYTHM WITH FIRST DEGREE AV BLOCK BORDERLINE RIGHT AXIS DEVIATION [QRS AXIS > 90] INTRAVENTRICULAR CONDUCTION DELAY [130+ ms QRS DURATION] INTERPRETATION BASED ON A DEFAULT AGE OF 40 YEARS Compared to ECG 10/06/2024 13:08:49 Sinus bradycardia no longer present Electronically Signed On 10-11-2024 01:05:57 LIPCOAT SPRAYER by Emi Tineo M.D. [email or web address]
== END 2024-10-09 16:33 | disposition home or self-care (01) | DRG 101 ==
LOC: ER 14:13 → CSU 16:03 → ICU 18:47 → CSU 10-07 11:56 → MEDSURG 10-09 06:15
PROVIDERS: Family Medicine; Admitting Provider Internal Medicine; Emergency Provider Emergency Medicine; PCP Family Medicine; Visit Provider Internal Medicine
DX: G40.89 Other seizures (principal); I42.8 Other cardiomyopathies; I47.20 Ventricular tachycardia, unspecified; N39.0 Urinary tract infection, site not specified; I16.0 Hypertensive urgency; R07.89 Other chest pain; I48.0 Paroxysmal atrial fibrillation; E78.5 Hyperlipidemia, unspecified; R51.9 Headache, unspecified; I25.10 Atherosclerotic heart disease of native coronary artery without angina pectoris; R94.39 Abnormal result of other cardiovascular function study; Z87.891 Personal history of nicotine dependence; Z79.82 Long term (current) use of aspirin; Z79.01 Long term (current) use of anticoagulants; Z86.74 Personal history of sudden cardiac arrest
CPT/HCPCS: 36415; 36416; 70450; 70553; 71045; 78452; 80048; 80053; 80306; 81001; 82962; 83735; 84443; 84484; 85025; 87077; 87086; 87186; 93005; 93017; 93306; 96365; 96375; 96376; 99285; A9500; J0360; J0696; J1885; J1953; J2060; J2270; J2405; J2785; J7030

== ENCOUNTER → 2024-10-17 08:22 | Outpatient (BNVA) | payer MEDICARE, MEDICAID, SELFPAY | PROVIDERS: PCP Family Medicine; Visit Provider Nurse Practitioner Family | DX: I10 Essential (primary) hypertension (principal); R07.9 Chest pain, unspecified; Z87.891 Personal history of nicotine dependence; Z79.01 Long term (current) use of anticoagulants | CPT/HCPCS: 99214 ==

== ENCOUNTER → 2024-11-27 14:16 | Outpatient (BNVA) | payer MEDICARE, MEDICAID, SELFPAY | PROVIDERS: PCP Family Medicine; Visit Provider Internal Medicine | DX: I48.0 Paroxysmal atrial fibrillation (principal); E78.5 Hyperlipidemia, unspecified; I10 Essential (primary) hypertension; R06.09 Other forms of dyspnea; R94.39 Abnormal result of other cardiovascular function study | CPT/HCPCS: 99214 ==

== ENCOUNTER 2024-12-01 05:58 | Outpatient (CLI) | payer MEDICARE, MEDICAID, SELFPAY ==
[2024-12-01] VITALS (16 sets, daily range): BP systolic 135–174; BP diastolic 65–90; PULSE 57–74; RESP 14–30; TEMP 36.3–36.6; O2SAT 90–96; BMI 25.4
--- NOTE | 2024-12-01 06:00 | XACV_ITS ---
Exam Room: 2 Ht: 183 cm Wt: 85 kg BSA: 2.09 m2 Gender: Male : 1950 Any Known Allergies: No known allergies Exam Priority: Routine Procedure(s): Procedure Description: Diagnostic procedure Procedure Description: PCI procedure Procedure Description: Drug Eluting Coronary Stent Procedure Description: PTCA Procedure Description: Miscellaneous Procedure Description: ACT Procedure Description: Coronary Angiography Procedure Description: Pressure Wire Diagnostic Cath Status: Elective Diagnostic Findings * INDICATION: Worsening dyspnea on exertion/abnormal stress test. * Left Main has no significant disease. * Circumflex has no significant disease.Large sized ramus artery shows no significant stenosis. * Right Coronary Artery has no significant disease. * Proximal to Mid Left Anterior Descending: obstructive 70% stenosis, SLICK: 3 flow. * Coronary angiography shows right dominance. PCI Status: Elective Interventional Findings * Proximal to mid Left Anterior Descendin% stenosis treated with a AB TREK 3.50X15 RX BALLOON, MDT Melo ERICKSON 4.0X22 MISSAEL, and MDT [place] EUPHORA RX [id number] BALLOON. 0% residual stenosis, SLICK: 3 flow. * Procedure detail: We engaged left main artery with XB 3.5 guide catheter. IV heparin was administered for anticoagulation. After normalization, IFR wire was advanced to distal LAD. iFR value of 0.82 was obtained. As this was significantly abnormal, we proceeded with PCI of proximal to mid LAD. We predilated the stenosis with 3.5 x 15 mm semicompliant balloon. This was followed by placement of 4.0 x [address] [place] drug-eluting stent. We postdilated the stent with 4.0 x 15 mm NC balloon. At this time final angiogram was performed that showed excellent stent expansion, no residual stenosis and SLICK-3 flow. Guidewire and guide catheter were removed. Patient left the Java Architect in stable condition.. Conclusions 1. Severe proximal to mid LAD stenosis confirmed with IFR value of 0.82. Status post successful revascularization with 1 stent.. 2. Proximal to Mid Left Anterior Descending was treated with a Balloon, Drug Eluting Stent, and Balloon. Recommendations * Patient loaded with plavix. Will be discharged home tomorrow on eliquis and plavix. * High intensity statin therapy. * Outpatient cardiology follow up in 2 weeks. Interventional RX Recommendation: PCI w/o planned CABG Diagnostic RX Recommendation: PCI w/o planned CABG Anticoagulation: Heparin Pressures Phase:Rest AO : 117 / 70 ( 91 ) @ 12:36:00 PM 113 / 59 ( 80 ) @ 12:46:00 PM Clinical Evaluation EBL: 5mL-10mL Procedural Details Procedure Consent Obtained. Pre-Procedure Time Out. Identified patient by full name and date of as verbalized by the patient/guarantor. Does the consent match the physician's order: Yes. Accurate & Complete Informed Consent: Yes. Inpatient/Outpatient History & Physical on Chart: Yes. If H&P is completed, is and addenduem needed: No. Visualize and Verify Site with Patient/Guarantor: N/A. Relevant Radiology Images available: Yes. The risks, benefits, and alternatives of sedation and/or procedure were discussed by physician. The patient agrees to continue. Procedure started. [facility] Clinical Fraility Score: 3: Managing Well. Java Architect Indications: New Onset Angina/KELLY/Abnormal stress test. Chest Pain Symptom Assessment: Typical Angina Symptoms. Cardiovascular Instability: No. Correct patient, site and procedure confirmed by cath team. PERRLA. Strong, equal hand lineman bilaterally. Lungs clear x 5 lobes. IV Site on Arrival: 20 gauge in the right anticubital. IV Fluids: 0.9% NaCl at KVO. 800 mL infused prior to cathode washer. Pre Procedural Pulses: bilateral dorsalis pedis was Doppled. Pre Procedural Pulses: bilateral posterior tibial was Doppled. Pre Procedural Pulses: bilateral radial was 3+. Oxygen started at 2liters/min via nasal canula. right groin was prepped with chloroprep then draped in the usual sterile fashion. right radial was prepped with chloroprep then draped in the usual sterile fashion. Physician notified. Baseline sample Acquired. HR: 82 BPM. Patient's family unavailable. Equipment: 6F - Radial. Cardiac Cath Pack. ACIST Manifold Kit Model BT 2000. Heparinized Saline (2 units/mL), 1000 mL bag. Physician arrived. Physician scrubbed in. Immediate Pre-Procedure Time Out. Correct Patient: Yes; Correct Procedure: Yes; Correct Site: Yes; Correct Patient Position: Yes; Correct Supplies: Yes; Dried Flammable Prep: Yes; Blood Products Available: N/A;. Lidocaine 1% infiltrated to the right radial. Arterial access obtained. A 5 mexican TIG catheter in over the exchange J wire. Multiple views taken of left coronary artery. Catheter redirected to the RCA. Multiple views taken of right coronary artery. Catheter removed over the exchange J wire. 6 mexican XB 3.5 guide catheter was inserted over the exchange J wire. iFR guidewire was advanced through the guide catheter to lesion in the mid LAD. iFR spot of the Mid LAD = 0.82 with a pullback of 0.83. Runthrough guidewire was advanced through the guide catheter to lesion in the mid LAD. iFR wire out. Inflation number : 1 A AB TREK 3.50X15 RX BALLOON was prepped and advanced across the Mid LAD , then inflated to 8 MAMIE for 0:16 seconds. Inflation number: 2 The AB TREK 3.50X15 RX BALLOON was reinflated across the Mid LAD, to 8 MAMIE for 0:15 seconds. Balloon out. Inflation Number : 3 A NADIYA Alejo ERICKSON 4.0X22 MISSAEL -Lot Number# [id number] was prepped and advanced across the Mid LAD. The stent was deployed at 12 MAMIE for 0:17 seconds. Lot # [id number]. Stent balloon out over wire. Results checked. Inflation number : 4 A MDT [place] EUPHORA RX [id number] BALLOON was prepped and advanced across the Mid LAD , then inflated to 14 MAMIE for 0:11 seconds. Inflation number: 5 The MDT [place] EUPHORA RX [id number] BALLOON was reinflated across the Mid LAD, to 14 MAMIE for 0:08 seconds. Balloon out. Wire out. ACT drawn. Results 384 seconds. Therapeutic limits - pre-heparin administration 90-150 seconds and monitoring heparin during a vascular procedure >250 seconds. Guide catheter out over the exchange wire. Dr. Torres scrubbed out. A TR Band was successful obtaining hemostatsis at the Right Radial artery insertion site. Post Procedure: Pulses reassessed and unchanged. PERRLA. Strong, equal hand lineman bilaterally. No VTE prophylaxis required. Medication's Wasted: Lidocaine 1% = 18 mL. Medication's Wasted: Nitro = 49.6 mg. Medication's Wasted: Heparin = 2000 units. Medication's Wasted: Other = Fentanyl 50 mcg. Total IV fluids: 100 mL. PCI Indication: CAD (without ischemic symptoms). Post-op diagnosis: iFR of the Mid LAD = 0.83 with PCI x 1 MISSAEL. Complications: none. Estimated blood loss: 5mL-10mL. Responsiveness - Normal response to verbal stimuli; alert and oriented, PERRLA. Airway - Unaffected, no intervention required; spontaneous ventilation. Circulation: W/N/L, pulses unchanged. Nausea/Vomiting: No. Medication's Wasted: Other = Versed 1 mg. Procedure completed. Patient transferred by wheelchair to 1st floor. Vital chart was stopped. Access Site Site: Right Radial artery Sheath Size: 6 Fr Hemostasis Method: TR Band Hemostasis Success: Successful Procedure Medications Start: 12:25 PM Stop: 12:25 PM Medication: Versed Amount: 1 mg Route: I.V. Start: 12:25 PM Stop: 12:25 PM Medication: Fentanyl Amount: 50 mcg Route: I.V. Start: 12:27 PM Stop: 12:27 PM Medication: Versed Amount: 1 mg Route: I.V. Start: 12:28 PM Stop: 12: PM Medication: Nitrogylcerin Amount: 200 mcg Route: I.A. Start: 12:29 PM Stop: 12:29 PM Medication: Heparin Amount: 2000 units Route: I.V. Start: 12:38 PM Stop: 12:38 PM Medication: Heparin Amount: 3000 units Route: I.V. Start: 12:42 PM Stop: 12:42 PM Medication: Versed Amount: 1 mg Route: I.V. Start: 12:54 PM Stop: 12:54 PM Medication: Nitrogylcerin Amount: 200 mcg Route: I.A. Start: 12:56 PM Stop: 12:56 PM Medication: Heparin Amount: 1000 units Route: I.V. Start: 1:04 PM Stop: 1:04 PM Medication: Plavix Amount: 600 mg Route: P.O. I, the attending physician, have reviewed and verified all procedure medications. Yes, all medications given per verbal order History/Risk Factors Hypertension: Yes Dyslipidemia: Yes Peripheral Arterial Disease (PAD): No Myocardial Infarction (MD): Yes Obesity: No Renal Disease: No Tobacco Use: Never Prior Interventions PCI: No CABG: No Valve Surgery: No Report Signatures Finalized by Isiah Torres MD on 12/09/2024 09:09 AM
[2024-12-01] MEDS: aspirin 325 mg Tablet PO (06:15)
[2024-12-01] MEDS: diphenhydrAMINE 50 mg Capsule PO (06:15)
[2024-12-01 06:26] LABS: Basophils # 0.1 10^3/uL (0.0-0.1); Basophils % 0.9 %; Eosinophils # 0.6 10^3/uL (0.0-0.8); Eosinophils % 6.9 %; Hematocrit 43.4 % (37-53); Lymphocytes # 1.6 10^3/uL (0.8-4.8); Lymphocytes % 19.3 %; Mean Corpuscular HGB Conc 33.2 g/dL (30-55); Mean Corpuscular Hemoglobin 28.5 pg (27-33); Mean Corpuscular Volume 85.8 fl (82-101); Mean Platelet Volume 8.8 fL (7.4-10.4); Monocytes # 0.9 10^3/uL (0.2-0.9); Monocytes % 10.7 %; Neutrophils # 5.23 10^3/uL (1.8-7.7); Nucleated Red Blood Cells % 0 %; Platelet Count 340 10^3/cmm (157-399); Red Blood Count 5.06 10^6/uL (3.85-5.65); Red Cell Distribution Width 14.7 % (12.1-15.1); White Blood Count 8.44 10^3/uL (3.29-11.43)
[2024-12-01 06:43] LABS: Blood Urea Nitrogen 21 mg/dL (8-23); Calcium 9.1 mg/dL (8.5-10.5); Carbon Dioxide 21 mmol/L (22-29); Chloride 106 mmol/L (98-107); Creatinine Clr Calc Pharmacy 52.8196; Glucose 113 mg/dL (65-115); Osmolality Calculated 296 mOsm/kg (285-295); Sodium 141 mmol/L (136-145)
--- NOTE | 2024-12-01 07:08 | PC.NURSE ---
NS 250ml bolus started at this time from 1 liter NS bag pulled in cath lab tech.
--- NOTE | 2024-12-01 07:08 | PC.NURSE ---
Dr. Torres notified of elevated creatinine of 1.4. Telephone orders received for NS bolus of 250ml. Then NS at 100ml/hr X 4hrs.
--- NOTE | 2024-12-01 12:17 | W.PM.OPSUD ---
Surgery/Procedure H&P Update DATE OF PROCEDURE: December 01, 2024 DATE H&P PERFORMED: 11/27/24 H&P UPDATE INFORMATION: I have reviewed H&P completed within last 30 days, I have examined patient prior to procedure and No changes to prior documentation PREOP DIAGNOSIS: Dyspnea on exertion/ abnormal stress test PRIMARY INDICATION FOR PROCEDURE: Dyspnea on exertion/ abnormal stress test PLANNED PROCEDURE: Operation Date: 12/01/24 07:00 Proposed Procedures p Cardiac Catheterization - [facility] w/wo LV & Coros(Left) - Isiah Torres M.D Possible percutaneous coronary intervention PATIENT REASSESSED PRIOR TO SEDATION, WITH NO CHANGE NOTED: Yes PHYSICAL EXAM: alert, oriented x 3, clear to auscultation bilaterally and regular rate & rhythm AIRWAY EVAL/ANESTHESIA PLAN: normal airway, ASA III, Local Anesthesia, Risks, benefits & alternatives of sedation and/or procedure discussed and Patient agrees to continue as planned ADDITIONAL INFORMATION: Moderate sedation
--- NOTE | 2024-12-01 13:15 | PC.NURSE ---
Patient arrived from L> TR band in place. No hematoma or bleeding. Patient understands activity restrictions. Nurse will continue to monitor q15m and remove TR band per protocol.
--- NOTE | 2024-12-01 13:29 | PM.PROC ---
Procedure Note: Date of procedure: 12/01/24 Pre-procedure diagnosis: Worsening dyspnea on exertion/abnormal stress test Post-procedure diagnosis: other (Severe proximal LAD stenosis s/p PCI with 1 stent) Procedure: Left heart cath with PCI: patient had moderate to severe proximal LAD 70% stenosis. iFR was performed that was ischemic. We proceeded with PCI of proximal LAD with 1 stent. Plavix and eliquis for atleast 1 year High intensity statin therapy Transfer to cardiac stepdown unit. Performing Provider: Isiah Torres Estimated blood loss (mL): 10 Complications: None Condition: stable Disposition: floor Coding Level of Care Code Acute Code for Deb Carroll
[2024-12-01] MEDS: sodium chloride 0.9% 1,000 ML 100 ML IV ×2 (16:08→23:25)
[2024-12-01] MEDS: carvedilol 12.5 mg Tablet PO (18:34)
[2024-12-01] MEDS: atorvastatin 40 mg Tablet PO (21:09)
[2024-12-01] MEDS: hyDRALAzine 50 mg Tablet 100 MG PO (21:11)
[2024-12-02] VITALS (8 sets, daily range): BP systolic 140–175; BP diastolic 69–93; PULSE 56–70; RESP 18–23; TEMP 36.6–36.9; O2SAT 88–96
[2024-12-02 03:59] LABS: Basophils # 0.1 10^3/uL (0.0-0.1); Basophils % 0.6 %; Eosinophils # 0.5 10^3/uL (0.0-0.8); Hematocrit 38.3 % (37-53); Lymphocytes # 1.5 10^3/uL (0.8-4.8); Lymphocytes % 18.1 %; Mean Corpuscular HGB Conc 32.6 g/dL (30-55); Mean Corpuscular Hemoglobin 28.3 pg (27-33); Mean Corpuscular Volume 86.8 fl (82-101); Mean Platelet Volume 9.4 fL (7.4-10.4); Monocytes # 0.9 10^3/uL (0.2-0.9); Monocytes % 11.3 %; Neutrophils # 5.31 10^3/uL (1.8-7.7); Neutrophils % 63.8 %; Nucleated Red Blood Cells % 0 %; Platelet Count 289 10^3/cmm (157-399); Red Blood Count 4.41 10^6/uL (3.85-5.65); Red Cell Distribution Width 14.6 % (12.1-15.1); White Blood Count 8.33 10^3/uL (3.29-11.43)
[2024-12-02 04:28] LABS: Blood Urea Nitrogen 16 mg/dL (8-23); Calcium 8.2 mg/dL (8.5-10.5); Carbon Dioxide 22 mmol/L (22-29); Chloride 107 mmol/L (98-107); Glucose 92 mg/dL (65-115); Osmolality Calculated 287 mOsm/kg (285-295); Sodium 138 mmol/L (136-145)
--- NOTE | 2024-12-02 07:49 | P.DS_ITS ---
Discharge Providers Date of Admission: 12/01/2024 Date of Discharge: December 02, 2024 Attending Provider at Admission: Isiah Torres MD Attending Provider at Discharge: Isiah Torres M.D Primary Care Provider: Donell Sanchez MD Reason for Visit Reason for Visit: R06.09 Brief History: 74-year-old man with past medical histor y of atrial fibrillation, hypertension, hyperlipidemia who has been having worsening shortness of breath. Stress test was abnormal. Plan for coronary angiogram. On arrival to [facility] for outpatient cath, creatinine was found to be 1.4. He underwent prehydration for 5 hours. Hospital Course Hospital Course Coronary angiogram demonstrated severe proximal LAD stenosis confirmed with abnormal IFR. He underwent successful revascularization with 1 stent. Stayed stable overnight. Will be discharged home on Eliquis and Plavix. Will switch simvastatin to high intensity statin as outpatient. Creatinine has normalized today and is 1.1. Physical Exam Narrative: Patient was intubated and sedated HEART: Irregularly irregular LUNGS: Clear to auscultate bilaterally. [] CENTRAL NERVOUS SYSTEM: Grossly nonfocal. [] EXTREMITIES: Lower extremities with 1+ edema bilaterally. Discharge Data Studies Completed and Pending Pending at discharge Category Date Time Status [employer] request for service Routine Exams 12/01/24 06:00 Taken Laboratory Results WBC 8.33 10^3/uL (3.29-11.43) 12/02/24 02:59 RBC 4.41 10^6/uL (3.85-5.65) 12/02/24 02:59 Hgb 12.50 g/dL (11.27-16.99) 12/02/24 02:59 Hct 38.3 % (37-53) 12/02/24 02:59 MCV 86.8 fl (82-101) 12/02/24 02:59 MCH 28.3 pg (27-33) 12/02/24 02:59 MCHC 32.6 g/dL (30-55) 12/02/24 02:59 RDW 14.6 % (12.1-15.1) 12/02/24 02:59 Plt Count 289 10^3/cmm (157-399) 12/02/24 02:59 MPV 9.4 fL (7.4-10.4) 12/02/24 02:59 Neut % (Auto) 63.8 % 12/02/24 02:59 Lymph % (Auto) 18.1 % 12/02/24 02:59 Young % (Auto) 11.3 % 12/02/24 02:59 Eos % (Auto) 6.0 % 12/02/24 02:59 Baso % (Auto) 0.6 % 12/02/24 02:59 Neut # (Auto) 5.31 10^3/uL (1.8-7.7) 12/02/24 02:59 Lymph # (Auto) 1.5 10^3/uL (0.8-4.8) 12/02/24 02:59 Young # (Auto) 0.9 10^3/uL (0.2-0.9) 12/02/24 02:59 Eos # (Auto) 0.5 10^3/uL (0.0-0.8) 12/02/24 02:59 Baso # (Auto) 0.1 10^3/uL (0.0-0.1) 12/02/24 02:59 Nucleated RBC % (auto) 0 % 12/02/24 02:59 Nucleated RBCs # 0.0 /100WBC 12/02/24 02:59 Sodium 138 mmol/L (136-145) 12/02/24 02:59 Potassium 4.0 mmol/L (3.5-5.1) 12/02/24 02:59 Chloride 107 mmol/L (98-107) 12/02/24 02:59 Carbon Dioxide 22 mmol/L (22-29) 12/02/24 02:59 Anion Gap 13.0 (5-19) 12/02/24 02:59 BUN 16 mg/dL (8-23) 12/02/24 02:59 Creatinine 1.1 mg/dL (0.7-1.2) 12/02/24 02:59 GFR Calculation Not Reportable 12/02/24 02:59 Glucose 92 mg/dL (65-115) 12/02/24 02:59 Calculated Osmolality 287 mOsm/kg (285-295) 12/02/24 02:59 Calcium 8.2 mg/dL (8.5-10.5) L 12/02/24 02:59 Vitals Last Vital Signs Temp 97.8 F 12/02/24 05:11 Pulse 65 12/02/24 06:54 Resp 23 H 12/02/24 06:54 BP 155/93 12/02/24 06:54 Pulse Ox 88 L 12/02/24 06:54 O2 Del Method Room Air 12/02/24 05:11 Discharge Plan Discharge Patient Disposition: Home Prescriptions: New clopidogrel 75 mg tablet 75 mg PO DAILY Qty: 90 3RF Continued simvastatin 40 mg tablet 40 mg PO DAILY carvedilol 12.5 mg tablet 12.5 mg PO BID Hold Instructions: Doctor's Order Rx Instructions: must administer with a meal/food hydralazine 100 mg tablet 100 mg PO TID Qty: 120 3RF amlodipine 10 mg tablet 10 mg PO DAILY Qty: 90 3RF aspirin 81 mg capsule 81 mg PO DAILY Qty: 90 0RF Eliquis 5 mg tablet 5 mg PO BID Discharge Orders: Discharge Order (Routine); Ordered 12/02/24 Ordered By: Isiah Torres Referrals: Isiah Torres M.D [Physician] - Andreea South FNP [Nurse Practitioner] - 7-10 days Diet: Cardiac Activity: Increase activity as tolerated Patient Instructions: Coronary Angioplasty (DC) Discharge Attestations Time Spent in Discharge Care*: less than 30 min Status at Discharge: Cognitive status at discharge: mildly impaired cognition , Behavioral status at discharge: cooperative , Quality Metrics Clinical Quality Measures [ No reported AMI, CVA or VTE this stay] Coding Level of Care Code Acute Code for Chg Fwd
[2024-12-02] MEDS: carvedilol 12.5 mg Tablet PO (08:44)
[2024-12-02] MEDS: aspirin 81 mg EC Tablet PO (08:44)
[2024-12-02] MEDS: amlodipine 10 mg Tablet PO (08:44)
[2024-12-02] MEDS: apixaban 5 mg Tablet PO (08:44)
[2024-12-02] MEDS: hyDRALAzine 50 mg Tablet 100 MG PO (08:45)
[2024-12-02] MEDS: clopidogrel 75 mg Tablet PO (08:45)
== END 2024-12-02 10:13 | disposition home or self-care (01) ==
LOC: CCL 05:59 → CSU 16:41
PROVIDERS: Nurse Practitioner Family; PCP Family Medicine; Visit Provider Internal Medicine
DX: I25.10 Atherosclerotic heart disease of native coronary artery without angina pectoris (principal); I48.91 Unspecified atrial fibrillation; I10 Essential (primary) hypertension; E78.00 Pure hypercholesterolemia, unspecified; E78.5 Hyperlipidemia, unspecified; Z79.82 Long term (current) use of aspirin; I47.20 Ventricular tachycardia, unspecified
CPT/HCPCS: 36415; 80048; 85025; 85347; 93454; 93571; 96360; 96361; 96374; 96376; 99152; 99153; C1725; C1769; C1874; C1887; C1894; C9600; J1644; J2250; J3010; J3490; J7030; Q0163; Q9967

== ENCOUNTER → 2024-12-26 07:43 | Outpatient (BNVA) | payer MEDICARE, MEDICAID, SELFPAY | PROVIDERS: PCP Family Medicine; Visit Provider Psychiatry & Neurology Neurology | DX: R55 Syncope and collapse (principal); R51.9 Headache, unspecified; R56.9 Unspecified convulsions; R94.39 Abnormal result of other cardiovascular function study; R06.09 Other forms of dyspnea; I10 Essential (primary) hypertension; R58 Hemorrhage, not elsewhere classified; H91.93 Unspecified hearing loss, bilateral | CPT/HCPCS: 36415; 80048; 85025; 85610; 99203 ==

== ENCOUNTER 2024-12-29 16:39 | Outpatient (CLI) | payer MEDICARE, MEDICAID, SELFPAY ==
--- NOTE | 2024-12-29 17:00 | USR_ITS ---
PROCEDURE INFORMATION: Exam: US Duplex Bilateral Extracranial Arteries; Complete; Carotid Arteries Exam date and time: 12/29/2024 5:09 PM Age: 74 years old Clinical indication: Other: Loss of vision; Additional info: Z09 - encounter for follow-up examination after completed. . . TECHNIQUE: Imaging protocol: Real-time duplex ultrasound scan of the bilateral extracranial arteries combining saldana scale, color Doppler and spectral waveform analysis with image documentation. Complete exam. Exam focused on the carotid arteries. COMPARISON: CT head wo con* [id number] 10/06/2024 6:20 PM FINDINGS: Right common carotid artery: Unremarkable. No occlusion or stenosis. Waveforms are normal. Peak systolic velocity 76-96 cm/s. Right internal carotid artery: Unremarkable. No occlusion or stenosis. Waveforms are normal. Peak systolic velocity 22-54 cm/s. Right ICA/CCA ratio: Within normal limits, 0.9. Right external carotid artery: No stenosis in the origin. Right vertebral artery: Unremarkable. Antegrade flow. Left common carotid artery: Unremarkable. No occlusion or stenosis. Waveforms are normal. Peak systolic velocity 65-98 cm/s. Left internal carotid artery: Unremarkable. No occlusion or stenosis. Waveforms are normal. Peak systolic velocity 64-74 cm/s. Left ICA/CCA ratio: Within normal limits, 1.0. Left external carotid artery: No stenosis in the origin. Left vertebral artery: Unremarkable. Antegrade flow. US/CV carotid duplex BI* [id number] IMPRESSION: No carotid arterial stenosis. REFERENCES: SRU CRITERIA. The degree of internal carotid artery stenosis is based on criteria defined by the Society of Radiologists in Ultrasound (SRU). Normal is no stenosis. Mild is less than 50% stenosis. Moderate is 50-69% stenosis. Severe is greater than 69% stenosis to near occlusion. Near occlusion is a markedly narrowed lumen. Total occlusion is no detectable patent lumen.
== END 2024-12-29 16:40 | disposition home or self-care (01) ==
PROVIDERS: PCP Family Medicine; Visit Provider Psychiatry & Neurology Neurology
DX: Z09 Encounter for follow-up examination after completed treatment for conditions other than malignant neoplasm (principal)
CPT/HCPCS: 93880

== ENCOUNTER → 2025-01-01 12:00 | Outpatient (BNVA) | payer MEDICARE, MEDICAID, SELFPAY | PROVIDERS: PCP Family Medicine; Visit Provider Internal Medicine | DX: I48.0 Paroxysmal atrial fibrillation (principal); E78.5 Hyperlipidemia, unspecified; I10 Essential (primary) hypertension; R06.09 Other forms of dyspnea; R94.39 Abnormal result of other cardiovascular function study; Z79.01 Long term (current) use of anticoagulants; Z87.891 Personal history of nicotine dependence | CPT/HCPCS: 99214 ==

== ENCOUNTER → 2025-02-06 12:38 | Outpatient (BNVA) | payer MEDICARE, MEDICAID, SELFPAY | PROVIDERS: PCP Family Medicine; Referring Provider Psychiatry & Neurology Neurology; Visit Provider Psychiatry & Neurology Neurology | DX: R56.9 Unspecified convulsions (principal); R55 Syncope and collapse | CPT/HCPCS: 95813 ==

== ENCOUNTER → 2025-07-16 14:53 | Outpatient (BNVA) | payer MEDICARE, MEDICAID, SELFPAY | PROVIDERS: PCP Family Medicine; Visit Provider Internal Medicine | DX: I48.0 Paroxysmal atrial fibrillation (principal); I47.20 Ventricular tachycardia, unspecified; E78.5 Hyperlipidemia, unspecified; I10 Essential (primary) hypertension; R06.09 Other forms of dyspnea; Z87.891 Personal history of nicotine dependence | CPT/HCPCS: 99213 ==

== ENCOUNTER 2025-08-23 08:19 | Outpatient (CLI) | payer MEDICARE, MEDICAID, SELFPAY ==
--- NOTE | 2025-08-23 08:40 | FL_ITS ---
WS: [id number] Barium swallow and esophagram, 08/23/2025 Clinical Data: DYSPHAGIA Comparison: None. Fluoroscopy time: 1min [id number] # of spot films: 29 Findings: The patient swallowed the thick and thin barium, and it flowed through the hypopharynx without hesitation. No stricture, mass, polyp or erosion was seen. No aspiration or penetration occurred. There is minimal impingement onto the posterior hypopharynx by osteoarthritis of the cervical vertebral bodies. The barium entered the esophagus and there was normal motility throughout. No stricture, polyp, mass, erosion or ulcer was noted. There was a small sliding hiatal hernia with moderate gastroesophageal reflux noted in the erect position. Barium passed normally into the stomach. FL/AK barium swallow [id number] Impression: 1. Small sliding hiatal hernia. 2. Moderate gastroesophageal reflux.
== END 2025-08-23 08:20 | disposition home or self-care (01) ==
LOC: RAD 08:19
PROVIDERS: PCP Family Medicine; Visit Provider Specialist
DX: R13.19 Other dysphagia (principal); K44.9 Diaphragmatic hernia without obstruction or gangrene; K21.9 Gastro-esophageal reflux disease without esophagitis
CPT/HCPCS: 74220

== ENCOUNTER 2025-08-27 13:06 | Outpatient (CLI) | payer MEDICARE, MEDICAID, SELFPAY ==
--- NOTE | 2025-08-27 13:13 | CT_ITS ---
WS: [id number] CT NECK TECHNIQUE: Contrast-enhanced CT of the neck with coronal and sagittal reformatted images. CLINICAL INFORMATION: DYSPHAGIA COMPARISON: None. DLP: 174.[address] scans at [facility] use at least one of these dose optimization techniques: automated exposure control; mA and/or kV adjustment per patient size (includes targeted exams where dose is matched to clinical indication); or iterative reconstruction. FINDINGS: Ballooning of the RIGHT laryngeal ventricle with medial rotation of the arytenoid. Recommend correlation for RIGHT vocal cord paralysis. Mild mucosal thickening in the paranasal sinuses. Mastoid air cells are well aerated. Mild mucosal thickening LEFT mastoid tip. Normal posterior nasopharynx. Tonsillar calcifications. Parotid glands and submandibular glands are normal. No evidence of supraglottic or glottic mass. Normal vallecula and piriform sinuses. Normal subglottic airway. Thyroid gland is normal. Fibrosis in the lung apices. Moderate spondylitic changes cervical spine. Mild to moderate central canal stenosis C4-C6. CT/CT neck w con* [id number] IMPRESSION: 1. Suspect RIGHT vocal cord paralysis. Recommend correlation with endoscopy. 2. Normal salivary glands. 3. No cervical lymphadenopathy.
[2025-08-27] MEDS: iohexol 350 mg/mL 500 mL Btl (per mL) IV (13:55)
== END 2025-08-27 13:07 | disposition home or self-care (01) ==
LOC: RAD 13:07
PROVIDERS: PCP Family Medicine; Visit Provider Specialist
DX: R13.19 Other dysphagia (principal); J38.7 Other diseases of larynx; J34.89 Other specified disorders of nose and nasal sinuses; J84.10 Pulmonary fibrosis, unspecified; M48.02 Spinal stenosis, cervical region
CPT/HCPCS: 70491

== ENCOUNTER 2025-08-30 10:21 | Outpatient (CLI) | payer MEDICARE, MEDICAID, SELFPAY ==
--- NOTE | 2025-08-30 10:29 | FL_ITS ---
WS: [id number] Exam: FL barium swallow modifd [id number] Date/Time of Exam: 08/30/2025 10:33 AM Reason For Exam: Other dysphagia Fluoroscopy time: 2min [id number] minutes # of spot films: Modified barium swallow test was performed in conjunction with the speech therapy service. The patient tolerated all consistencies of barium mixture foodstuffs without penetration or aspiration. Oropharyngeal phase of swallowing was normal. The patient ingested a barium tablet without difficulty. FL/FL barium swallow modifd [id number] IMPRESSION: 1. No aspiration or penetration identified. A separate report with detailed recommendations will follow from the speech the rapy service.
== END 2025-08-30 10:22 | disposition home or self-care (01) ==
PROVIDERS: PCP Family Medicine; Visit Provider Specialist
DX: R13.19 Other dysphagia (principal); K44.9 Diaphragmatic hernia without obstruction or gangrene
CPT/HCPCS: 74230; 92611